=== PATIENT | male | born 1985 | race Caucasian/White ===

== ENCOUNTER 2017-12-23 18:54 | Observation (INO) | payer SELFPAY ==
[2017-12-23] VITALS (10 sets, daily range): BP systolic 154–169; BP diastolic 90–113; PULSE 95–109; RESP 12–22; TEMP 36.2–36.6; O2SAT 95–98; BMI 45.4; BMI 44.4
--- NOTE | 2017-12-23 19:30 | EKG12_ITS ---
Test Reason : CP Blood Pressure : / mmHG Vent. Rate : 110 BPM Atrial Rate : 110 BPM P-R Int : 158 ms QRS Dur : 110 ms QT Int : 338 ms P-R-T Axes : 063 -51 076 degrees QTc Int : 457 ms Sinus tachycardia Left axis deviation Poor R wave progression Nonspecific T wave abnormality Abnormal ECG Confirmed by LISA MAE, BRO ([id number]), proposal editor PADMINI WARREN ([id number]) on 12/25/2017 10:25:34 AM Referred By: Confirmed By:BRO GONZALEZ MD
--- NOTE | 2017-12-23 19:37 | RAD_ITS ---
XR Chest 1 View INDICATION: chest pain COMPARISON: None TECHNIQUE: Portable chest x-ray FINDINGS: The heart size is enlarged. Pulmonary vascularity is prominent. There is no evidence of focal air space consolidation or pleural effusion. RAD/Chest 1 View (Portable) IMPRESSION: Cardiomegaly and pulmonary vascular congestion. at 1957 Reported and signed by: Trena Caldwell MD Electronically Signed: Trena Caldwell MD at 18:55 EST Tel , Service support ,
[2017-12-23 20:02] LABS: Absolute Lymphocyte Count 2.46 X10^3/ul (0.83-4.51); Absolute Neutrophil Count 6.4 X10^3/uL (2.0-7.7); Eosinophil# 0.56 X10^3/uL; Eosinophils% 5.6 % (0-5); Hematocrit 43.9 % (40-54); Hemoglobin 14.6 g/dl (13.0-16.5); Lymphocyte # 2.46 X10^3/ul (4.0); Lymphocyte % 24.5 % (19-41); Mean Corp Hgb Conc 33.3 g/gl (32-36); Mean Corpuscular Hgb 28.5 pg (27.0-32.0); Mean Corpuscular Volume 85.7 fL (80-94); Mean Platelet Vol. 11.3 fl (6.2-12.0); Monocyte# 0.53 X10^3/uL; Monocyte% 5.3 % (0-10); Neutrophil # 6.39 X10^3/uL (2.7-7.7); Neutrophil % 63.5 % (47-70); Platelet Count 222 K/mm3 (150-450); RBC Distribution Width CV 12.6 % (11.6-14.6); RBC Distribution Width SD 39.5 fl (35.1-43.9); Red Blood Count 5.12 M/mm3 (4.6-6.2); White Blood Count 10.1 K/mm3 (4.4-11.0)
[2017-12-23 20:07] LABS: Anion Gap 11 (5-15); BUN 12 mg/dL (7-18); BUN/Creat Ratio 12.8 RATIO (10-20); Calcium,Total 9.8 mg/dL (8.5-10.1); Chloride 110 mmol/L (98-107); Creatinine, Serum 0.93 mg/dL (0.70-1.30); EST Glomerular Filtration Rate 101 mL/min (>60); Est Glom Filt Rate - Afr Amer 122 mL/min (>60); Glucose 85 mg/dL (74-106); Potassium 3.9 mmol/L (3.5-5.1); Sodium Level 144 mmol/L (136-145)
[2017-12-23] MEDS: Aspirin 81 MG TAB.CHEW 324 MG PO (20:20)
[2017-12-23 20:24] LABS: POSITIVE COUNT NO; POSITIVE DIFFERENTIAL NO; POSITIVE MORPHOLOGY NO
[2017-12-23 20:48] LABS: BNP,B-Type NATRIURETIC PEPTIDE 157.8 pg/mL (0-100)
[2017-12-23] MEDS: Furosemide 40 MG/4 ML Vial IV (20:53)
--- NOTE | 2017-12-23 20:58 | EKG12_ITS ---
Test Reason : CP Blood Pressure : / mmHG Vent. Rate : 109 BPM Atrial Rate : 109 BPM P-R Int : 164 ms QRS Dur : 114 ms QT Int : 358 ms P-R-T Axes : 071 -62 071 degrees QTc Int : 482 ms Sinus tachycardia Left axis deviation Poor R wave progression Nonspecific T wave abnormality Abnormal ECG Confirmed by LISA MAE, BRO ([id number]), writer editor PADMINI WARREN ([id number]) on 12/25/2017 10:26:01 AM Referred By: DOUGLAS Confirmed By:BRO GONZALEZ MD
[2017-12-23] MEDS: LORazepam 2 MG/ML Syringe 1 MG IV (21:06)
--- NOTE | 2017-12-23 22:32 | PCM.HP.STD ---
Problem List (1) Abnormal cardiac enzyme level Status: Acute (2) Chest pain Status: Acute (3) Acute on chronic systolic CHF (congestive heart failure) Status: Acute (4) Nonischemic cardiomyopathy Status: Chronic Comment: Status post ICD removal. History of Present Illness Date of Admission: 12/23/17 Chief Complaint: Fatigue, weakness and shortness of breath. The patient is a 32 year old M with past medical history as mentioned above presented to the emergency room because of fatigue, weakness and shortness of breath. His illness started 3 days ago with poor fine fatigue and weakness as well as shortness of breath. Shortness of breath comes on with exertion, he cannot walk more than 10 feet without getting short of breath, aggravated by activity, relieved by rest, associated with weight gain as well as cough with minimal sputum. Today, he started having chest pain that described as electrical shocks of his heart, started at rest and he told that he may have heart attack, associated with worsening shortness of breath compared to yesterday without aggravating or relieving factors. He does have a history of nonischemic cardiomyopathy status post ICD that was removed 1 year ago and he has been compliant with his medications. He used to see Dr. Sadler at [facility] and he switched his care to Dr. Olguin last year. He saw Dr. Olguin in January,, had an echocardiogram done that showed ejection fraction of 26% according to the patient. Since that time, he did not see Dr. Olguin anymore. He mentioned that 2 weeks ago, he had syncopal episode and he went to [facility], was informed that he has vertigo and he was discharged home. Today in the emergency room, patient was tachycardic, hypertensive, pulse ox was 95% on 2 L of oxygen. He was started on BiPAP and patient feels better, shortness of breath improved. His routine blood work was unremarkable. Troponin was borderline elevated at 0.17. BNP was 157.8. Chest x-ray revealed cardiomegaly and mild bilateral pulmonary vascular congestion consistent with acute CHF. EKG revealed sinus tachycardia, normal [place] interval, normal QRS, prolonged QTC, no acute ischemic changes. He is being admitted for acute on chronic systolic CHF, chest pain and abnormal cardiac enzymes. Past Medical History Past Medical History (Chronic Problems): Chronic Problems Nonischemic cardiomyopathy (Chronic) Status post ICD removal. Allergies No Known Allergies Allergy (Verified 12/23/17 18:57) Home Medications: Ambulatory Orders Medication Instructions Recorded Carvedilol [Coreg] 25 mg PO BID 03/31/16 Furosemide [Lasix] 40 mg PO DAILY PRN PRN 03/31/16 Lisinopril [Zestril] 40 mg PO DAILY 03/31/16 Surgical History: - - ICD placement. Psychiatric History: No pertinent psych hx Lives: With Family Smoking Status: Former smoker Alcohol: None Drugs: None - *Family History Maternal History Items: No pertinent history Paternal History Items: No pertinent history Review of Systems Constitutional: Reports: Weakness, Weight Change - Weight gain., Fatigue. Denies: Anorexia, Chills, Fever Eyes: Denies: Blurred vision, Double vision, Drainage, Redness HEENT: Denies: Difficulty Hearing, Ear Pain, Eye Pain, Nasal Congestion, Sore Throat Cardiovascular: Reports: Chest Pain, Chest Pressure, Light Headedness. Denies: Edema, Orthopnea, Palpitations, Syncope Respiratory: Reports: Cough, Shortness of breath at rest, Shortness of breath upon exertion, Sputum production. Denies: Pleuritic Pain, Wheezing Gastrointestinal: Denies: Abdominal Pain, Constipation, Diarrhea, Nausea, Vomiting Genitourinary: Denies: Dysuria, Frequency, Hematuria Musculoskeletal: Denies: Arm Pain, Back Pain, Foot Pain Skin: Denies: Dryness, Rash Neurological: Denies: Balance problems, Double vision, Change in Speech, Slurred speech, Confusion, Focal weakness, Headaches, Incoordination Psychiatric: Denies: Anxiety, Depression Endocrine: Denies: Change in Body Habitus, Polydipsia VTE Information - Inpt Only VTE Present on Admission: No VTE Mechan Device Prophylaxis: None VTE Pharm Prophylaxis ordered?: Yes Patient Problems: Active and Suspected Problems Abnormal cardiac enzyme level (Acute) Chest pain (Acute) Acute on chronic systolic CHF (congestive heart failure) (Acute) - Physical Exam General: Alert, Oriented x3, Cooperative, - - Mildly short of breath. HEENT: Atraumatic, PERRLA, EOMI Oral: Moist Mucosa, No Gingival or Mucosal Lesions/ Ulcerations Neck: Supple, No JVD, Negative Carotid Bruits, Trachea Midline, Thyroid Normal Size and Texture Lungs: No rhonchi, No wheeze, Diminished, Rales, Short of Breath, - - Decreased breath sounds bilateral, more at the bases, very faint crackles at the bases. Cardiovascular: Regular rate, Regular Rhythm, Normal S1, Normal S2, No murmurs, PMI Normal, Tachycardic Abdomen: Bowel Sounds Present, Soft, Non Tender, Non-Distended, No Hepato-splenomegaly, Obese Extremities: No clubbing, No cyanosis, No edema Skin: No rashes, No breakdown Lymphatic: No Cervical, Supraclavicular, or Inguinal Adenopathy Neurological: Cranial nerves II-XII grossly intact, Motor Exam 5/5 strength throughout Psych/Mental Status: Normal Affect, Appropriate, Alert and oriented to time, place, person, mood and affect Vital Signs Temp Pulse Resp BP Pulse Ox 97.2 F L 103 H 19 H 169/106 H 97 12/23/17 18:55 12/23/17 21:43 12/23/17 21:43 12/23/17 21:09 12/23/17 21:43 Oxygen Flow Rate 2 Oxygen Delivery Method Nasal Cannula Weight: 326 lb 1.019 oz Body Mass Index (BMI) 45.4 Laboratory Tests Past 24 Hrs 12/23/17 12/23/17 12/23/17 19:10 19:10 19:10 WBC 10.1 RBC 5.12 Hgb 14.6 Hct 43.9 MCV 85.7 MCH 28.5 MCHC 33.3 RDW 12.6 RDW Differential 39.5 Plt Count 222 MPV 11.3 Immature Gran % (Auto) 0.100 Neut % (Auto) 63.5 Lymph % (Auto) 24.5 [place] % (Auto) 5.3 Eos % (Auto) 5.6 H Baso % (Auto) 1.0 Absolute Neuts (auto) 6.4 Absolute Lymphs (auto) 2.46 Total Counted Not Reportable Sodium 144 Potassium 3.9 Chloride 110 H Carbon Dioxide 23.0 Anion Gap 11 BUN 12 Creatinine 0.93 Estim Creat Clear Calc 123.70 Est GFR (MDRD) Af Amer 122 Est GFR (MDRD) Non-Af 101 BUN/Creatinine Ratio 12.8 Glucose 85 Calcium 9.8 Troponin I 0.17 H B-Natriuretic Peptide 157.8 H 12/23/17 22:08 WBC RBC Hgb Hct MCV MCH MCHC RDW RDW Differential Plt Count MPV Immature Gran % (Auto) Neut % (Auto) Lymph % (Auto) [place] % (Auto) Eos % (Auto) Baso % (Auto) Absolute Neuts (auto) Absolute Lymphs (auto) Total Counted Sodium Potassium Chloride Carbon Dioxide Anion Gap BUN Creatinine Estim Creat Clear Calc Est GFR (MDRD) Af Amer Est GFR (MDRD) Non-Af BUN/Creatinine Ratio Glucose Calcium Troponin I Pending B-Natriuretic Peptide Clinical Impression(s) from Imaging Studies Chest X-Ray 12/23/17 19:37 IMPRESSION: Cardiomegaly and pulmonary vascular congestion. at 1957 Reported and signed by: Trena Caldwell MD Electronically Signed: Trena Caldwell MD at 18:55 EST Tel , Service support , Assessment/Plan Active and Suspected Problems Abnormal cardiac enzyme level (Acute) Chest pain (Acute) Acute on chronic systolic CHF (congestive heart failure) (Acute) This is a 32 years old male patient presented to the emergency room because of fatigue, weakness, shortness of breath and chest pain and he was found to have acute on chronic systolic CHF and abnormal cardiac enzymes. #1 acute on chronic systolic CHF: This is based on history of nonischemic cardiomyopathy, symptoms, chest x-ray findings as well as elevated BNP. EKG reviewed, reveals sinus tachycardia, no acute ischemic changes. Chest x-ray revealed cardiomegaly and signs of pulmonary vascular congestion. Plan: Admit to PCU, cardiac monitoring, serial cardiac enzymes, repeat EKG tomorrow morning, start IV Lasix for diuresis, fluid restriction to less than 1500 cc daily, input output chart, 2D echocardiogram, continue Coreg and lisinopril, check serum magnesium and TSH, cardiology consult, obtain records from Dr. Olguin's office including 2D echocardiogram that was done on January,, PT OT evaluation and treatment. #2 chest pain/abnormal cardiac enzymes: Could be related to acute CHF. EKG revealed no evidence of acute ischemic changes. Plan: Cardiac enzymes, repeat EKG tomorrow morning, 2D echocardiogram, cardiology consult as above. #3 nonischemic cardiomyopathy: Status post ICD removal one year ago. Plan as above, Lasix for diuresis, 2D echocardiogram, continue Coreg and lisinopril, cardiology consult. #4 DVT prophylaxis: Subcu Lovenox. This note was generated with TuneCore dictation software. It may contain incorrect words, spelling, and punctuation that were not noted in checking the note before signing. Code Visit Inpatient E&M: 77887 Init Hosp L3
--- NOTE | 2017-12-23 22:33 | ED.DCSUM_ITS ---
- ER Visit Summary Date of Service: 12/23/17 Chief Complaint: Shortness of breath History of Present Illness: The patient is a [address] Bowden and Dr. Olguin. He has a complicated past medical history. He reports that in July 2014 he was diagnosed with a nonischemic cardiomyopathy and an ejection fraction of 10%. States his last echo was in February 2017 at that time his ejection fraction was 26%. He reports that as his ejection fraction was improving he insisted that they take out his defibrillator. He had this removed at [facility] in February 2017. He states that he saw Dr. Olguin the month prior to this and has not followed up with him since. He reports that he is on 25 mg of Coreg twice daily, lisinopril and he does not know the dose, and 10 mg of Lasix a day. States that he does daily weights and that 315 is his normal weight. He weighed 315 yesterday. He reports that he weighs 325 pounds today. Patient reports he has shortness of breath that began 3 days ago. Is much worse when he exerts himself. Also reports that he has had 4-5 pillow orthopnea and an episode of PND 2 days ago. He states that today at approximately 330 while undergoing light activity he had an episode of chest pain that lasted approximately 20 seconds and felt like a shock. He denies any chest pain otherwise. He denies any fever or chills. He has a nonproductive cough. Physical Examination: Vitals: Stable. Afebrile. General: Well-nourished and well-developed. Head: Normocephalic atraumatic. Neck: Supple, no lymphadenopathy. No JVD. Nontender. Cardiovascular: Regular rate and rhythm. No murmurs. Respiratory: No respiratory distress. Crackles at the bases bilaterally. Abdominal: Soft, nontender, nondistended, normal bowel sounds. No guarding, rebound, or peritoneal signs. Back: Nontender. Extremities: Nontender, trace edema bilaterally that is symmetric. Skin: Normal color, no rash. Neurologic: Alert and oriented ?3. Cranial nerves II through XII are intact. Normal strength and sensation. Psych: Normal affect. Test Results: EKG is sinus tach at [address] changes. There is no significant change since March 2017. Repeat EKG is unchanged. Chest x-ray shows cardiomegaly and vascular congestion. CBC is more for monocytes of 6. Chem-7 is more for chloride of 110. Initial troponin is 0.17. Repeat troponin is 0.18. BTNP is 157.8. Emergency Department Course and Treatment: She was given 40 mg of Lasix IV. Continue to complain of shortness of breath and was placed on BiPAP as I felt this may improve the efficacy of the Lasix and improve his symptoms. Treatment Plan: The patient was discussed with Dr. Espitia who asked that I speak with Dr. Olguin about outpatient management. I discussed the patient with Dr. Olguin and he is concerned about the patient's noncompliance and the inability to manage him as an outpatient. He has of the patient be admitted for diuresis and echo. He did state that he would be available for phone consultation regarding the results of this. The patient was discussed with Dr. Walters for. He will be admitted to the hospital for further wish and treatment. Disposition: Admitted in stable condition. Impression: 1. Nonischemic cardiomyopathy. 2. Dyspnea. This note was generated with [employer] dictation software. It may contain incorrect words, spelling, and punctuation that were not noted in review of the chart prior to signing ED Disposition - Plan for ED Patient: Chief Complaint: Shortness of Breath Referrals: Shane Bowden MD [Primary Care Provider] -
--- NOTE | 2017-12-23 22:39 | HP.PCM_ITS ---
Problem List (1) Abnormal cardiac enzyme level Status: Acute (2) Chest pain Status: Acute (3) Acute on chronic systolic CHF (congestive heart failure) Status: Acute (4) Nonischemic cardiomyopathy Status: Chronic Comment: Status post ICD removal. History of Present Illness Date of Admission: 12/23/17 Chief Complaint: Fatigue, weakness and shortness of breath. The patient is a 32 year old M with past medical history as mentioned above presented to the emergency room because of fatigue, weakness and shortness of breath. His illness started 3 days ago with poor fine fatigue and weakness as well as shortness of breath. Shortness of breath comes on with exertion, he cannot walk more than 10 feet without getting short of breath, aggravated by activity, relieved by rest, associated with weight gain as well as cough with minimal sputum. Today, he started having chest pain that described as electrical shocks of his heart, started at rest and he told that he may have heart attack, associated with worsening shortness of breath compared to yesterday without aggravating or relieving factors. He does have a history of nonischemic cardiomyopathy status post ICD that was removed 1 year ago and he has been compliant with his medications. He used to see Dr. Sadler at [facility] and he switched his care to Dr. Olguin last year. He saw Dr. Olguin in January,, had an echocardiogram done that showed ejection fraction of 26% according to the patient. Since that time, he did not see Dr. Olguin anymore. He mentioned that 2 weeks ago, he had syncopal episode and he went to [facility], was informed that he has vertigo and he was discharged home. Today in the emergency room, patient was tachycardic, hypertensive, pulse ox was 95% on 2 L of oxygen. He was started on BiPAP and patient feels better, shortness of breath improved. His routine blood work was unremarkable. Troponin was borderline elevated at 0.17. BNP was 157.8. Chest x-ray revealed cardiomegaly and mild bilateral pulmonary vascular congestion consistent with acute CHF. EKG revealed sinus tachycardia, normal MA interval, normal QRS, prolonged QTC, no acute ischemic changes. He is being admitted for acute on chronic systolic CHF, chest pain and abnormal cardiac enzymes. Past Medical History Past Medical History (Chronic Problems): Chronic Problems Nonischemic cardiomyopathy (Chronic) Status post ICD removal. Allergies No Known Allergies Allergy (Verified 12/23/17 18:57) Home Medications: Ambulatory Orders Medication Instructions Recorded Carvedilol [Coreg] 25 mg PO BID 03/31/16 Furosemide [Lasix] 40 mg PO DAILY PRN PRN 03/31/16 Lisinopril [Zestril] 40 mg PO DAILY 03/31/16 Surgical History: - - ICD placement. Psychiatric History: No pertinent psych hx Lives: With Family Smoking Status: Former smoker Alcohol: None Drugs: None - *Family History Maternal History Items: No pertinent history Paternal History Items: No pertinent history Review of Systems Constitutional: Reports: Weakness, Weight Change - Weight gain., Fatigue. Denies: Anorexia, Chills, Fever Eyes: Denies: Blurred vision, Double vision, Drainage, Redness HEENT: Denies: Difficulty Hearing, Ear Pain, Eye Pain, Nasal Congestion, Sore Throat Cardiovascular: Reports: Chest Pain, Chest Pressure, Light Headedness. Denies: Edema, Orthopnea, Palpitations, Syncope Respiratory: Reports: Cough, Shortness of breath at rest, Shortness of breath upon exertion, Sputum production. Denies: Pleuritic Pain, Wheezing Gastrointestinal: Denies: Abdominal Pain, Constipation, Diarrhea, Nausea, Vomiting Genitourinary: Denies: Dysuria, Frequency, Hematuria Musculoskeletal: Denies: Arm Pain, Back Pain, Foot Pain Skin: Denies: Dryness, Rash Neurological: Denies: Balance problems, Double vision, Change in Speech, Slurred speech, Confusion, Focal weakness, Headaches, Incoordination Psychiatric: Denies: Anxiety, Depression Endocrine: Denies: Change in Body Habitus, Polydipsia VTE Information - Inpt Only VTE Present on Admission: No VTE Mechan Device Prophylaxis: None VTE Pharm Prophylaxis ordered?: Yes Patient Problems: Active and Suspected Problems Abnormal cardiac enzyme level (Acute) Chest pain (Acute) Acute on chronic systolic CHF (congestive heart failure) (Acute) - Physical Exam General: Alert, Oriented x3, Cooperative, - - Mildly short of breath. HEENT: Atraumatic, PERRLA, EOMI Oral: Moist Mucosa, No Gingival or Mucosal Lesions/ Ulcerations Neck: Supple, No JVD, Negative Carotid Bruits, Trachea Midline, Thyroid Normal Size and Texture Lungs: No rhonchi, No wheeze, Diminished, Rales, Short of Breath, - - Decreased breath sounds bilateral, more at the bases, very faint crackles at the bases. Cardiovascular: Regular rate, Regular Rhythm, Normal S1, Normal S2, No murmurs, PMI Normal, Tachycardic Abdomen: Bowel Sounds Present, Soft, Non Tender, Non-Distended, No Hepato- splenomegaly, Obese Extremities: No clubbing, No cyanosis, No edema Skin: No rashes, No breakdown Lymphatic: No Cervical, Supraclavicular, or Inguinal Adenopathy Neurological: Cranial nerves II-XII grossly intact, Motor Exam 5/5 strength throughout Psych/Mental Status: Normal Affect, Appropriate, Alert and oriented to time, place, person, mood and affect Vital Signs Temp Pulse Resp BP Pulse Ox 97.2 F L 103 H 19 H 169/106 H 97 12/23/17 18:55 12/23/17 21:43 12/23/17 21:43 12/23/17 21:09 12/23/17 21:43 Oxygen Flow Rate 2 Oxygen Delivery Method Nasal Cannula Weight: 326 lb 1.019 oz Body Mass Index (BMI) 45.4 Laboratory Tests Past 24 Hrs 12/23/17 12/23/17 12/23/17 19:10 19:10 19:10 WBC 10.1 RBC 5.12 Hgb 14.6 Hct 43.9 MCV 85.7 MCH 28.5 MCHC 33.3 RDW 12.6 RDW Differential 39.5 Plt Count 222 MPV 11.3 Immature Gran % (Auto) 0.100 Neut % (Auto) 63.5 Lymph % (Auto) 24.5 [place] % (Auto) 5.3 Eos % (Auto) 5.6 H Baso % (Auto) 1.0 Absolute Neuts (auto) 6.4 Absolute Lymphs (auto) 2.46 Total Counted Not Reportable Sodium 144 Potassium 3.9 Chloride 110 H Carbon Dioxide 23.0 Anion Gap 11 BUN 12 Creatinine 0.93 Estim Creat Clear Calc 123.70 Est GFR (MDRD) Af Amer 122 Est GFR (MDRD) Non-Af 101 BUN/Creatinine Ratio 12.8 Glucose 85 Calcium 9.8 Troponin I 0.17 H B-Natriuretic Peptide 157.8 H 12/23/17 22:08 WBC RBC Hgb Hct MCV MCH MCHC RDW RDW Differential Plt Count MPV Immature Gran % (Auto) Neut % (Auto) Lymph % (Auto) [place] % (Auto) Eos % (Auto) Baso % (Auto) Absolute Neuts (auto) Absolute Lymphs (auto) Total Counted Sodium Potassium Chloride Carbon Dioxide Anion Gap BUN Creatinine Estim Creat Clear Calc Est GFR (MDRD) Af Amer Est GFR (MDRD) Non-Af BUN/Creatinine Ratio Glucose Calcium Troponin I Pending B-Natriuretic Peptide Clinical Impression(s) from Imaging Studies Chest X-Ray 12/23/17 19:37 IMPRESSION: Cardiomegaly and pulmonary vascular congestion. at 1955 Reported and signed by: Trena Caldwell MD Electronically Signed: Trena Caldwell MD at 18:55 EST Tel , Service support , Assessment/Plan Active and Suspected Problems Abnormal cardiac enzyme level (Acute) Chest pain (Acute) Acute on chronic systolic CHF (congestive heart failure) (Acute) This is a 32 years old male patient presented to the emergency room because of fatigue, weakness, shortness of breath and chest pain and he was found to have acute on chronic systolic CHF and abnormal cardiac enzymes. #1 acute on chronic systolic CHF: This is based on history of nonischemic cardiomyopathy, symptoms, chest x-ray findings as well as elevated BNP. EKG reviewed, reveals sinus tachycardia, no acute ischemic changes. Chest x-ray revealed cardiomegaly and signs of pulmonary vascular congestion. Plan: Admit to PCU, cardiac monitoring, serial cardiac enzymes, repeat EKG tomorrow morning , start IV Lasix for diuresis, fluid restriction to less than 1500 cc daily, input output chart, 2D echocardiogram, continue Coreg and lisinopril, check serum magnesium and TSH, cardiology consult, obtain records from Dr. Olguin's office including 2D echocardiogram that was done on January,, PT OT evaluation and treatment. #2 chest pain/abnormal cardiac enzymes: Could be related to acute CHF. EKG revealed no evidence of acute ischemic changes. Plan: Cardiac enzymes, repeat EKG tomorrow morning, 2D echocardiogram, cardiology consult as above. #3 nonischemic cardiomyopathy: Status post ICD removal one year ago. Plan as above, Lasix for diuresis, 2D echocardiogram, continue Coreg and lisinopril, cardiology consult. #4 DVT prophylaxis: Subcu Lovenox. This note was generated with [employer] dictation software. It may contain incorrect words, spelling, and punctuation that were not noted in checking the note before signing. Code Visit Inpatient E&M: 70186 Init Hosp L3
--- NOTE | 2017-12-23 22:47 | ECHOD_ITS ---
Reason For Study: CHF Procedure This was a 2D Doppler, Color Flow transthoracic echocardiogram. Contrast injection was performed. DO NOT USE DEFINITY. Exam performed portable in patient room. Left Ventricle Severely dilated left ventricle. Moderate concentric left ventricular hypertrophy. The estimated ejection fraction is 20 %. Severe global left ventricular systolic dysfunction. There is severe global hypokinesis of the left ventricle. Right Ventricle Normal RV size. Normal systolic function. Atria The left atrium is moderately enlarged. Normal right atrium. Mitral Valve Normal mitral valve. Mild-Moderate (1-2+) eccentric mitral valve insufficiency. Tricuspid Valve Normal tricuspid valve. Mild tricuspid valve insufficiency. Aortic Valve Normal aortic valve. Trisinus/trileaflet aortic valve. Pulmonic Valve The pulmonic valve is not well visualized. Great Vessels Normal aortic root. The pulmonary artery is normal size. Normal inferior vena cava. Pericardium/Pleural No pericardial effusion. Medication Diluted definity 4ml given slow IV push to enhance endocardial definition. ADVERSE REACTION TO DEFINITY WITH 10/10 FLANK PAIN. MMode/2D Measurements & Calculations LVIDd: 8.7 cm IVSd: 1.3 cm LA dimension: 5.1 cm LVIDs: 7.6 cm LVPWd: 1.5 cm RVDd: 3.3 cm FS: 12.6 % LAV(MOD-bp): 101.1 ml EDV(MOD-sp4): 463.8 ml EDV(MOD-sp2): 410.3 ml LAV(MOD-bp) Indexed: 39.4 ml/m2 ESV(MOD-sp4): 296.9 ml EF(MOD-sp2): 22.9 % LAV(MOD-sp2): 119.2 ml EF(MOD-sp4): 36.0 % LAV(MOD-sp4): 79.7 ml SV(MOD-sp4): 167.0 ml SV(MOD-sp2): 93.9 ml LA A4 area: 24.8 cm2 RA A4 area: 15.5 cm2 Doppler Measurements & Calculations MV E max jovon: 87.2 cm/sec Ao V2 max: 105.5 cm/sec LV V1 max: 49.9 cm/sec MV A max jovon: 73.8 cm/sec Ao max P.5 mmHg LV V1 max P.00 mmHg MV E/A: 1.2 TR max jovon: 229.3 cm/sec TR max P.2 mmHg Interpretation Summary Severely dilated left ventricle. Moderate concentric left ventricular hypertrophy. The estimated ejection fraction is 20 %. Severe global left ventricular systolic dysfunction. The left atrium is moderately enlarged. Contrast injection was performed. Ordering Physician: Servando Grissom Referring Physician: DMITRY RENDON Performed By: Nyla Elizabeth RDCS, RVT
[2017-12-23 23:03] LABS: International Normalized Ratio 1.1; Prothrombin Time (Protime)PT. 13.4 SECONDS (11.7-14.9)
[2017-12-23 23:17] LABS: Magnesium 2.1 mg/dL (1.6-2.6); Thyroid Stim Hormone (TSH) 2.88 uIU/mL (0.358-3.74)
[2017-12-24] VITALS (10 sets, daily range): BP systolic 140–156; BP diastolic 86–114; PULSE 80–101; RESP 16–20; TEMP 36.2–36.7; O2SAT 96–99
[2017-12-24] MEDS: Zolpidem Tartrate 5 MG Tablet PO (00:03)
[2017-12-24 02:25] LABS: Anion Gap 9 (5-15); BUN 11 mg/dL (7-18); BUN/Creat Ratio 13.6 RATIO (10-20); Calcium,Total 8.8 mg/dL (8.5-10.1); Chloride 106 mmol/L (98-107); Creatinine, Serum 0.81 mg/dL (0.70-1.30); EST Glomerular Filtration Rate 119 mL/min (>60); Est Glom Filt Rate - Afr Amer 144 mL/min (>60); Estimated Creatinine Clearance 142.03 ml/min; Glucose 90 mg/dL (74-106); Potassium 3.4 mmol/L (3.5-5.1); Sodium Level 142 mmol/L (136-145)
[2017-12-24] MEDS: Furosemide 40 MG/4 ML Vial IV ×2 (05:12→13:25)
--- NOTE | 2017-12-24 05:55 | EKG12_ITS ---
Test Reason : AM EKG Blood Pressure : / mmHG Vent. Rate : 093 BPM Atrial Rate : 093 BPM P-R Int : 176 ms QRS Dur : 116 ms QT Int : 408 ms P-R-T Axes : 071 -44 078 degrees QTc Int : 507 ms Normal sinus rhythm Left axis deviation Left ventricular hypertrophy with QRS widening Nonspecific T wave abnormality Confirmed by LISA MAE, BRO ([id number]), make up editor PADMINI WARREN ([id number]) on 12/25/2017 10:37:00 AM Referred By: OLIVIA Confirmed By:BRO GONZALEZ MD
[2017-12-24] MEDS: Lisinopril 40 MG Tablet PO (09:25)
[2017-12-24] MEDS: Carvedilol 25 MG Tablet PO (09:26)
--- NOTE | 2017-12-24 10:59 | CON.PCM_ITS ---
Problem List (1) Acute on chronic systolic CHF (congestive heart failure) Status: Acute Reason for Consult Date of Consultation: 12/24/17 History of Present Illness: The patient is a 32 year old M with past medical history significant for nonischemic cardiomyopathy. Patient presented to the hospital with complaints of shortness of breath for the last 2 days. No orthopnea. No PND. According to the patient, he has been feeling more tired and fatigued over the last day or so. Fevers or chills. No increased salt or fluid intake. No ankle edema. Patient, he has developed a cough this morning. Nonproductive. The patient had some chest pain yesterday. According to him, it was sharp. Located in the anterior chest. Lasted about 5 seconds according to the patient. Per patient, he was diagnosed with nonischemic cardiomyopathy back in 2013. According to the patient, he has had cardiac catheterization done and was told that he did not have any coronary artery disease. The patient had a defibrillator placed in the past however he has had it removed on his own wishes. Past Medical History Allergies/Adverse Reactions: Allergies No Known Allergies Allergy (Verified 12/23/17 18:57) Home Medications: Ambulatory Orders Medication Instructions Recorded Carvedilol [Coreg] 25 mg PO BID 03/31/16 Furosemide [Lasix] 40 mg PO DAILY PRN PRN 03/31/16 Lisinopril [Zestril] 40 mg PO DAILY 03/31/16 Past Medical History (Chronic Problems): Chronic Problems Nonischemic cardiomyopathy (Chronic) Status post ICD removal. Surgical History: - - ICD placement. Subsequently removed upon patient's wishes Psychiatric History: No pertinent psych hx - *Family History Maternal History Items: No pertinent history Paternal History Items: No pertinent history Lives: With Family Smoking Status: Former smoker Alcohol: None Drugs: None Review of Systems - Review of Systems General: Reports: Fatigue, Malaise, Weakness, Normal Appetite Cardiovascular: Reports: Chest Discomfort - Sharp chest pain lasting few seconds only Respiratory: Reports: Non Productive Cough Gastrointestinal: Denies: Abdominal Discomfort Muscoloskeletal: Denies: Myalgias Skin: Denies: Jaundice Neurological: Denies: History of TIA, History of CVA Objective: Vital Signs Temp Pulse Resp BP Pulse Ox 98.1 F 89 18 156/114 H 99 12/24/17 09:25 12/24/17 09:25 12/24/17 09:25 12/24/17 09:25 12/24/17 09:25 Oxygen Delivery Method Room Air Weight: 144.3 kg Body Mass Index (BMI) 44.4 Intake and Output for Last 24 Hours 12/22/17 12/23/17 12/24/17 23:59 23:59 23:59 Output Total 350 / 350 Balance -350 / -350 General: Awake, Alert, Oriented x 3, No Acute Distress, Obese HEENT: Atraumatic Oral: Moist Mucosa Neck: Supple, - - Plain examination difficult because of body habitus Lungs: - - Minimal end expiratory wheeze. Cardiovascular: Normal S1, Normal S2, Positive S3 Abdomen: Bowel Sounds Present, Non Tender Extremities: No Cyanosis, No edema Neurological: - - Alert and oriented ?3 Psych/Mental Status: Appropriate 12/24/17 02:02: Sodium 142, Potassium 3.4 L, Chloride 106, Carbon Dioxide 27.0, Anion Gap 9, BUN 11, Creatinine 0.81, Est GFR (MDRD) Af Amer 144, Est GFR (MDRD ) Non-Af 119, BUN/Creatinine Ratio 13.6, Glucose 90, Calcium 8.8, Troponin I 0.17 H 12/24/17 08:00: Troponin I 0.18 H Rhythm: Normal sinus EKG: Sinus rhythm. Nonspecific T changes CXR: Cardiomegaly. Mild vascular congestion Assessment/Plan 1. Acute on chronic systolic congestive heart failure. Agree with diuresis. Monitor creatinine. Continue with beta blockers, KATHARINA inhibitors. Start Aldactone. Monitor potassium 2. Likely bronchitis. Manage as per internal medicine. Consider testing for influenza graft 3. Hypertension. Add Aldactone 4. Obesity 5. Atypical chest pains. Likely noncardiac. Troponin borderline elevated without any upward or downward trend. Likely chronic
--- NOTE | 2017-12-24 11:45 | NURSING ---
patient refusing vitals at this time, pulled off heart monitor and ID bands, voicing frustrations and wanting to leave AMA, this RN and Mckenzie davis RN in room explaining to patient the importance of staying one more night. Patient agreeable at this time.
--- NOTE | 2017-12-24 11:55 | CASEMGMT ---
Face to Face with patient for initial transition planning/care coordination assessment. GOMEZ ARREDONDO introduced self and role at [facility], pt voices understanding and consents to assessment at this time. Pt sitting up in chair in no distress at this time. Pt A/O x4 at this time and answers all questions appropriately at this time. Care providers, pharmacy, and demographics verified. See attached link. Pt voices no further concerns/needs at this time. Advised pt to ask for CM if any further questions/concerns/needs arise, voices understanding. PLAN: Home [place] GOMEZ ARREDONDO
[2017-12-24] MEDS: Spironolactone 25 MG Tablet 12.5 MG PO (11:57)
--- NOTE | 2017-12-24 12:38 | PCM.DC ---
- Discharge Diagnoses Current Active Problems: Current Active and Chronic Problems Abnormal cardiac enzyme level (Acute) Chest pain (Acute) Acute on chronic systolic CHF (congestive heart failure) (Acute) Nonischemic cardiomyopathy (Chronic) Status post ICD removal. You will use the following diet at home:: Cardiac Discharge Activity: Return to Normal Activity Call your doctor if you observe: Shortness of breath, Dizziness, Fainting spells, Chest pain, Increased palpitations (irregular heartbeat), Calf discomfort Allergies/Adverse Reactions: Allergies perflutren [From [employer]] Adverse Reaction (Verified 12/24/17 11:38) Other Severe flank pain Medications to take at Discharge Carvedilol [Coreg (Beta Elida)] 25 mg PO BID #60 tab 12/24/17 Furosemide [Lasix] 40 mg PO DAILY PRN PRN #30 tab 12/24/17 Lisinopril [Zestril] 40 mg PO DAILY #60 tab 12/24/17 Lorazepam [Ativan] 0.5 mg PO BID PRN PRN #10 tablet 12/24/17 The following prescriptions were given: Furosemide [Lasix] 40 mg PO DAILY PRN PRN #30 tab PRN Reason: Swelling Lisinopril [Zestril] 40 mg PO DAILY #60 tab Lorazepam [Ativan] 0.5 mg PO BID PRN PRN #10 tablet PRN Reason: Anxiety Carvedilol [Coreg (Beta Elida)] 25 mg PO BID #60 tab Primary Care Physician: Shane Bowden MD [Primary Care Provider] - Please follow up with your Primary Care Physician in: 1 Week Please Follow Up With: [facility] When: 1-2 Weeks Please Follow Up With: [facility] When: Call to schedule prior to discharge Proposed Discharge Date: 12/24/17
--- NOTE | 2017-12-24 12:52 | CASEMGMT ---
SW spoke with patient as he is self pay. SW gave patient information on [facility]'s financial assistance program as he was seeing Dr Bowden when he had insurance. SW also gave him information on [facility]. SW checked and his medications are on [employer]'s $4 list. He was not aware of this information. He said he could afford his meds if they were all $4. He was paying $300 some dollars before. He was okay with his d/c meds being sent to [facility]. He thanked JANETTE for the information. Whitney NUR MSW
[2017-12-24] MEDS: 0.9% NaCl Peripheral Flush Adult/Peds IV (13:25)
--- NOTE | 2017-12-24 13:39 | PCM.DC.SUM ---
<Argelia Walker - Last Filed: 12/24/17 13:58> Discharge Date and Diagnosis - Problem List Patient Problems: Active and Suspected Problems Acute on chronic systolic CHF (congestive heart failure) (Acute) Date of Admission: 12/23/17 Date of Discharge: 12/24/17 - Primary Discharge Diagnosis Active and Suspected Problems Acute on chronic systolic CHF (congestive heart failure) (Acute) Atypical chest pain Borderline troponin - Secondary Discharge Diagnosis Chronic Problems Nonischemic cardiomyopathy (Chronic) Status post ICD removal. Hypertension Obesity Hospital Course and Treatment Imaging Results: Diagnostic Data Chest X-Ray 12/23/17 19:37 IMPRESSION: Cardiomegaly and pulmonary vascular congestion. at 1957 Reported and signed by: Trena Caldwell MD Electronically Signed: Trena Caldwell MD at 18:55 EST Tel , Service support , Dr. Magdaleno- Cardiology Operations: None Procedures: 2-D Echocardiogram Summary of Care Provided: The patient is a 32 year old M admitted 12/23/2017 due to shortness of breath, weakness. He has a past medical history of nonischemic cardiomyopathy status post ICD removal, chronic systolic CHF, hypertension, obesity. Patient was originally diagnosed with nonischemic cardiomyopathy in 2013. Patient had a cardiac catheterization at that time and was told he did not have any coronary artery disease. 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 Patient previously followed with Dr. Galindo at the [facility] in which she has not seen in approximately a year. He states he does not wish to further follow-up with Dr. Galindo. Patient does not currently have health insurance and stated he has not been taking his prescribed medications due to not being able to afford them. Case management worked with patient and he is able to afford prescriptions through [employer] $4 program. Troponins were borderline elevated and did not trend upward. Suspect secondary to acute on chronic systolic CHF. Patient was treated with IV Lasix. He will be discharged on carvedilol, lisinopril, and Lasix as needed for increased swelling. Aldactone was recommended by cardiology although patient states he cannot afford this medication. Echocardiogram from January 2017 showed an estimated ejection fraction of 34%. Repeat echocardiogram during admission showed moderate left ventricular hypertrophy, severely dilated left ventricle, estimated ejection fraction of 20%, severe global left ventricular systolic dysfunction. Patient will continue medical management as noted above. He wishes to establish with [facility]. Recommend follow-up with [facility] in 1-2 weeks. Discussed with patient following up with [facility] failure program to begin discussion regarding heart transplant. He is in agreement with current plan. Patient complains of anxiety and states he was previously prescribed Ativan. He states he has not followed up with primary care physician to continue prescription. He was given a brief prescription of PRN Ativan 0.5 mg, 10 tablets until he can follow-up with primary care physician. Case management discussed with patient seeing behavioral health and he declined. Patient seen and examined prior to discharge. Heart rate regular in rate and rhythm, no murmur. Lungs clear. Abdomen soft, nontender, obese. Neuro grossly intact. No edema. Vital signs stable. Patient stable for discharge home with recommendations as noted above. This patient was seen by KEVYN Harper under the supervision of Dr. Mortensen. Discharge Diet: Low fat/ Low Cholesterol, 8 Cup Fluid Restriciton, 2000 mg Sodium Diet Discharge Activity: Return to Normal Activity Call your doctor if you observe: Shortness of breath, Dizziness, Fainting spells, Chest pain, Increased palpitations (irregular heartbeat), Calf discomfort Home Medications: Medications to take at Discharge Carvedilol 25 mg PO BID #60 tablet 12/24/17 Furosemide [Lasix] 40 mg PO DAILY PRN #30 tablet 12/24/17 Lisinopril [Zestril] 40 mg PO DAILY #30 tablet 12/24/17 Following Prescrptions Were Given to Patient: Furosemide [Lasix] 40 mg PO DAILY PRN #30 tablet PRN Reason: Swelling Lisinopril [Zestril] 40 mg PO DAILY #30 tablet Carvedilol 25 mg PO BID #60 tablet Primary Care Physician: Shane Bowden MD [Primary Care Provider] - Please follow up with your Primary Care Physician in: 1 Week Please Follow Up With: [facility] When: 1-2 Weeks Please Follow Up With: [facility] When: Call to schedule prior to discharge Disposition: Home Minutes spent on discharge:: 35 Patient Condition:: Stable Meaningful Use Info Meaningful Use Diagnoses (Choose all that apply): CHF - CHF KATHARINA/ARB ordered at discharge?: Yes Documented LVEF (%): 20 <Emiliano Mortensen - Last Filed: 12/24/17 14:56> Discharge Date and Diagnosis - Secondary Discharge Diagnosis Chronic Problems Nonischemic cardiomyopathy (Chronic) Status post ICD removal. Hospital Course and Treatment Operations: None Procedures: 2-D Echocardiogram Summary of Care Provided: Seen and examined independently. Agree with the above notes by the nurse practitioner. The 32-year-old white male with known history of nonischemic cardiomyopathy. Presents with shortness of breath. Chest x-ray showed pulmonary edema and BNP was slightly elevated at 156. Clinically patient was in heart failure. Patient, unfortunately, does not have insurance and so was only taking Lasix sparingly with symptoms. Patient did have an echocardiogram that showed an ejection fraction of 20%. Patient was discharged with a prescription for Coreg, lisinopril, Lasix and spironolactone. Patient is a recommend follow-up with the [place] cardiology and to follow-up in heart failure clinic at [facility]. That may be limited given the patient's insurance status at this time. Physical exam Vital Signs Height 1.8 m Weight: 144.3 kg Weight in Pounds 318.1 lbs Pulse Ox 96 Temperature 36.7 C Pulse Rate 101 Respiratory Rate 18 Blood Pressure [BP] 148/97 Blood Pressure 153/98 Blood Pressure Position [BP] Sitting Blood Pressure Position Sitting Patient is currently no acute distress, no respiratory distress, no conversational dyspnea. [] Discharge Diet: Low fat/ Low Cholesterol, 8 Cup Fluid Restriciton, 2000 mg Sodium Diet Discharge Activity: Return to Normal Activity Call your doctor if you observe: Shortness of breath, Dizziness, Fainting spells, Chest pain, Increased palpitations (irregular heartbeat), Calf discomfort Disposition: Home Minutes spent on discharge:: 35 Patient Condition:: Stable Meaningful Use Info Meaningful Use Diagnoses (Choose all that apply): CHF - CHF KATHARINA/ARB ordered at discharge?: Yes Documented LVEF (%): 20 Code Visit OBSV E&M: 41763 Observation care discharge
--- NOTE | 2017-12-24 13:48 | CASEMGMT ---
Pt was angry and frustrated during assessment and then with nursing and Dr. Mortensen. Pt c/o history of anxiety and depression. This RN CM to room to speak with pt about referral to [facility] behavioral health at this time and pt refuses at this time. Pt states ' I don't even talk to my family, why would I talk to a stranger.' [place] RN CM
--- NOTE | 2017-12-24 13:53 | DS.PCM_ITS ---
<Argelia Walker - Last Filed: 12/24/17 13:58> Discharge Date and Diagnosis - Problem List Patient Problems: Active and Suspected Problems Acute on chronic systolic CHF (congestive heart failure) (Acute) Date of Admission: 12/23/17 Date of Discharge: 12/24/17 - Primary Discharge Diagnosis Active and Suspected Problems Acute on chronic systolic CHF (congestive heart failure) (Acute) Atypical chest pain Borderline troponin - Secondary Discharge Diagnosis Chronic Problems Nonischemic cardiomyopathy (Chronic) Status post ICD removal. Hypertension Obesity Hospital Course and Treatment Imaging Results: Diagnostic Data Chest X-Ray 12/23/17 19:37 IMPRESSION: Cardiomegaly and pulmonary vascular congestion. at 1957 Reported and signed by: Trena Caldwell MD Electronically Signed: Trena Cadlwell MD at 18:55 EST Tel , Service support , Dr. Magdaleno- Cardiology Operations: None Procedures: 2-D Echocardiogram Summary of Care Provided: The patient is a 32 year old M admitted 12/23/2017 due to shortness of breath, weakness. He has a past medical history of nonischemic cardiomyopathy status post ICD removal, chronic systolic CHF, hypertension, obesity. Patient was originally diagnosed with nonischemic cardiomyopathy in 2013. Patient had a cardiac catheterization at that time and was told he did not have any coronary artery disease. 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 Patient previously followed with Dr. Galindo at the [facility] in which she has not seen in approximately a year. He states he does not wish to further follow-up with Dr. Galindo. Patient does not currently have health insurance and stated he has not been taking his prescribed medications due to not being able to afford them. Case management worked with patient and he is able to afford prescriptions through [employer] $4 program. Troponins were borderline elevated and did not trend upward. Suspect secondary to acute on chronic systolic CHF. Patient was treated with IV Lasix. He will be discharged on carvedilol, lisinopril, and Lasix as needed for increased swelling. Aldactone was recommended by cardiology although patient states he cannot afford this medication. Echocardiogram from January 2017 showed an estimated ejection fraction of 34%. Repeat echocardiogram during admission showed moderate left ventricular hypertrophy, severely dilated left ventricle, estimated ejection fraction of 20%, severe global left ventricular systolic dysfunction. Patient will continue medical management as noted above. He wishes to establish with [facility]. Recommend follow-up with [facility] in 1-2 weeks. Discussed with patient following up with [facility] failure program to begin discussion regarding heart transplant. He is in agreement with current plan. Patient complains of anxiety and states he was previously prescribed Ativan. He states he has not followed up with primary care physician to continue prescription. He was given a brief prescription of PRN Ativan 0.5 mg, 10 tablets until he can follow-up with primary care physician. Case management discussed with patient seeing behavioral health and he declined. Patient seen and examined prior to discharge. Heart rate regular in rate and rhythm, no murmur. Lungs clear. Abdomen soft, nontender, obese. Neuro grossly intact. No edema. Vital signs stable. Patient stable for discharge home with recommendations as noted above. This patient was seen by EKVYN Harper under the supervision of Dr. Mortensen. Discharge Diet: Low fat/ Low Cholesterol, 8 Cup Fluid Restriciton, 2000 mg Sodium Diet Discharge Activity: Return to Normal Activity Call your doctor if you observe: Shortness of breath, Dizziness, Fainting spells , Chest pain, Increased palpitations (irregular heartbeat), Calf discomfort Home Medications: Medications to take at Discharge Carvedilol 25 mg PO BID #60 tablet 12/24/17 Furosemide [Lasix] 40 mg PO DAILY PRN #30 tablet 12/24/17 Lisinopril [Zestril] 40 mg PO DAILY #30 tablet 12/24/17 Following Prescrptions Were Given to Patient: Furosemide [Lasix] 40 mg PO DAILY PRN #30 tablet PRN Reason: Swelling Lisinopril [Zestril] 40 mg PO DAILY #30 tablet Carvedilol 25 mg PO BID #60 tablet Primary Care Physician: Shane Bowden MD [Primary Care Provider] - Please follow up with your Primary Care Physician in: 1 Week Please Follow Up With: [facility] When: 1-2 Weeks Please Follow Up With: [facility] When: Call to schedule prior to discharge Disposition: Home Minutes spent on discharge:: 35 Patient Condition:: Stable Meaningful Use Info Meaningful Use Diagnoses (Choose all that apply): CHF - CHF KATHARINA/ARB ordered at discharge?: Yes Documented LVEF (%): 20 <Emiliano Mortensen - Last Filed: 12/24/17 14:56> Discharge Date and Diagnosis - Secondary Discharge Diagnosis Chronic Problems Nonischemic cardiomyopathy (Chronic) Status post ICD removal. Hospital Course and Treatment Operations: None Procedures: 2-D Echocardiogram Summary of Care Provided: Seen and examined independently. Agree with the above notes by the nurse practitioner. The 32-year-old white male with known history of nonischemic cardiomyopathy. Presents with shortness of breath. Chest x-ray showed pulmonary edema and BNP was slightly elevated at 156. Clinically patient was in heart failure. Patient , unfortunately, does not have insurance and so was only taking Lasix sparingly with symptoms. Patient did have an echocardiogram that showed an ejection fraction of 20%. Patient was discharged with a prescription for Coreg, lisinopril, Lasix and spironolactone. Patient is a recommend follow-up with the [place] cardiology and to follow-up in heart failure clinic at [facility]. That may be limited given the patient's insurance status at this time. Physical exam Vital Signs Height 1.8 m Weight: 144.3 kg Weight in Pounds 318.1 lbs Pulse Ox 96 Temperature 36.7 C Pulse Rate 101 Respiratory Rate 18 Blood Pressure [BP] 148/97 Blood Pressure 153/98 Blood Pressure Position [BP] Sitting Blood Pressure Position Sitting Patient is currently no acute distress, no respiratory distress, no conversational dyspnea. [] Discharge Diet: Low fat/ Low Cholesterol, 8 Cup Fluid Restriciton, 2000 mg Sodium Diet Discharge Activity: Return to Normal Activity Call your doctor if you observe: Shortness of breath, Dizziness, Fainting spells , Chest pain, Increased palpitations (irregular heartbeat), Calf discomfort Disposition: Home Minutes spent on discharge:: 35 Patient Condition:: Stable Meaningful Use Info Meaningful Use Diagnoses (Choose all that apply): CHF - CHF KATHARINA/ARB ordered at discharge?: Yes Documented LVEF (%): 20 Code Visit OBSV E&M: 99407 Observation care discharge
== END 2017-12-24 14:29 | disposition home or self-care (01) ==
LOC: ED 19:49 → PCU 22:36
PROVIDERS: Admitting Provider Hospitalist; Emergency Provider Emergency Medicine; Family Provider Family Medicine; PCP Family Medicine
DX: I50.23 Acute on chronic systolic (congestive) heart failure (principal); R07.89 Other chest pain; I42.9 Cardiomyopathy, unspecified; I10 Essential (primary) hypertension; F41.9 Anxiety disorder, unspecified; E66.9 Obesity, unspecified; Z68.41 Body mass index [BMI] 40.0-44.9, adult; Z71.3 Dietary counseling and surveillance; Z79.899 Other long term (current) drug therapy; Z87.891 Personal history of nicotine dependence
CPT/HCPCS: 36415; 71045; 80048; 83735; 83880; 84443; 84484; 85025; 85610; 93005; 93306; 94002; 96374; 96375; 96376; 99218; 99285; Q9957; A4216; C8929; G0378; J1940

== ENCOUNTER 2018-03-08 15:40 | Emergency (ER) | payer SELFPAY ==
[2018-03-08 15:41] VITALS: BP 135/105; PULSE 93; RESP 18; O2SAT 96; BMI 91.2
[2018-03-08 15:45] VITALS: BP 148/112; PULSE 107; RESP 17; O2SAT 95
--- NOTE | 2018-03-08 15:56 | EKG12_ITS ---
Test Reason : SOB/CP Blood Pressure : / mmHG Vent. Rate : 081 BPM Atrial Rate : 081 BPM P-R Int : 174 ms QRS Dur : 116 ms QT Int : 392 ms P-R-T Axes : 020 -52 084 degrees QTc Int : 455 ms Normal sinus rhythm Left axis deviation Incomplete left bundle branch block Abnormal ECG Confirmed by RYAN MAE, BROOKS ([id number]), news editor PADMINI WARREN ([id number]) on 03/12/2018 3:17:26 PM Referred By: GREG Confirmed By:BROOKS DAVIS MD
[2018-03-08] MEDS: Albuterol 2.5 MG/3 ML VIAL.NEB. INHALATION (16:11)
[2018-03-08 16:13] VITALS: PULSE 93; RESP 20; O2SAT 96
--- NOTE | 2018-03-08 16:15 | ED.VISSUMM ---
- ER Visit Summary Date of Service: 03/08/18 Chief Complaint: Chest pain shortness of breath History of Present Illness: The patient is a 32 M presenting for evaluation secondary chest pain shortness of breath. 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 Patient states that over the course of approximately last 3 days he has been dealing with exertional dyspnea, orthopnea, and chest pain. He describes his chest pain as a pressure. Patient states that he has had a dry cough with occasional taste of blood in his throat. Patient states that he has been having generalized fatigue with poor eating and poor sleeping. Patient states that he did have recent travel to and from [place] and an airplane with a 5 hour plane flight. He denies that he is retaining water or having any peripheral edema although he did state that he took a Lasix this morning. He denies any presence of fevers. He did state that he had one episode of emesis. He denies any diarrhea. Patient presented to his primary care office and they recommended that he come to the emergency department. Physical Examination: Vital signs notable for heart rate of 107. Obese male no acute distress sitting comfortably on side of the bed. Head normocephalic. Moist mucous membranes. No JVD noted. Heart was minimally tachycardic with a regular rhythm and no murmurs normal S1-S2. Lungs sounds show evidence of mild wheezes throughout the lung salmon without any evidence of respiratory distress or retractions. Abdomen soft and nontender. Peripheral pulses were 2+ and symmetric, there is no peripheral edema noted, no skin rashes, patient had normal strength sensation of the upper and lower extremities. Test Results: Sinus rhythm of 81 with an incomplete left bundle branch block and left axis deviation consistent with EKG from December of this year. CBC unremarkable, chemistry unremarkable, troponin was found to be elevated at 0.15 which is chronic for the patient and unchanged. BNP only mildly elevated 184, d-dimer negative, chest x-ray shows cardiomegaly without significant evidence of pulmonary vascular congestion Emergency Department Course and Treatment: Patient presented secondary chest pain shortness of breath in the setting of nonischemic cardiomyopathy. Patient was evaluated with EKG that showed no ischemic changes, repeat EKG in the emergency department was also unchanged from December of this year. Chest x-ray showed no evidence of CHF or pneumonia. CBC chemistry unremarkable, troponin was at the patient's chronic level BNP was not significantly elevated. Due to the patient's recent travel d-dimer was obtained and was also found to be negative. Patient was given a breathing treatment in the emergency department and had some improvement. I discussed the patient's case with his furniture sprayer Dr. Olguin. Patient does have some orthopnea and signs that potentially this is congestive heart failure, so the recommendation is the patient to be placed on his Lasix regularly for the next 3-5 days and follow-up with cardiology. Additionally I will send the patient home with an albuterol inhaler as he does also have probably some elements of bronchitis. Patient was comfortable with this disposition and the patient was discharged in stable condition. Disposition: Discharge Impression: 1. Bronchitis 2. Chest pain 3. History of nonischemic cardiomyopathy This note was generated with [employer] dictation software. It may contain incorrect words, spelling, and punctuation that were not noted in review of the chart prior to signing ED Disposition - Plan for ED Patient: Disposition: Home or Assisted Living Chief Complaint: Hypertension Diagnosis: Bronchitis Instructions: ED Bronchitis Asthmatic Prescriptions: Albuterol Inhaler [Ventolin Hfa] 1 - 2 puff INHALATION Q4H PRN PRN #1 inhaler PRN Reason: Wheezing Additional Instructions: Take your lasix daily for the next [address] Song in the next week
--- NOTE | 2018-03-08 16:18 | ED.DCSUM_ITS ---
- ER Visit Summary Date of Service: 03/08/18 Chief Complaint: Chest pain shortness of breath History of Present Illness: The patient is a 32 M presenting for evaluation secondary chest pain shortness of breath. 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 Patient states that over the course of approximately last 3 days he has been dealing with exertional dyspnea, orthopnea, and chest pain. He describes his chest pain as a pressure. Patient states that he has had a dry cough with occasional taste of blood in his throat. Patient states that he has been having generalized fatigue with poor eating and poor sleeping. Patient states that he did have recent travel to and from [place] and an airplane with a 5 hour plane flight. He denies that he is retaining water or having any peripheral edema although he did state that he took a Lasix this morning. He denies any presence of fevers. He did state that he had one episode of emesis. He denies any diarrhea. Patient presented to his primary care office and they recommended that he come to the emergency department. Physical Examination: Vital signs notable for heart rate of 107. Obese male no acute distress sitting comfortably on side of the bed. Head normocephalic. Moist mucous membranes. No JVD noted. Heart was minimally tachycardic with a regular rhythm and no murmurs normal S1-S2. Lungs sounds show evidence of mild wheezes throughout the lung salmon without any evidence of respiratory distress or retractions. Abdomen soft and nontender. Peripheral pulses were 2+ and symmetric, there is no peripheral edema noted, no skin rashes, patient had normal strength sensation of the upper and lower extremities. Test Results: Sinus rhythm of 81 with an incomplete left bundle branch block and left axis deviation consistent with EKG from December of this year. CBC unremarkable, chemistry unremarkable, troponin was found to be elevated at 0.15 which is chronic for the patient and unchanged. BNP only mildly elevated 184, d -dimer negative, chest x-ray shows cardiomegaly without significant evidence of pulmonary vascular congestion Emergency Department Course and Treatment: Patient presented secondary chest pain shortness of breath in the setting of nonischemic cardiomyopathy. Patient was evaluated with EKG that showed no ischemic changes, repeat EKG in the emergency department was also unchanged from December of this year. Chest x- ray showed no evidence of CHF or pneumonia. CBC chemistry unremarkable, troponin was at the patient's chronic level BNP was not significantly elevated. Due to the patient's recent travel d-dimer was obtained and was also found to be negative. Patient was given a breathing treatment in the emergency department and had some improvement. I discussed the patient's case with his oil rigger Dr. Olguin. Patient does have some orthopnea and signs that potentially this is congestive heart failure, so the recommendation is the patient to be placed on his Lasix regularly for the next 3-5 days and follow-up with cardiology. Additionally I will send the patient home with an albuterol inhaler as he does also have probably some elements of bronchitis. Patient was comfortable with this disposition and the patient was discharged in stable condition. Disposition: Discharge Impression: 1. Bronchitis 2. Chest pain 3. History of nonischemic cardiomyopathy This note was generated with [employer] dictation software. It may contain incorrect words, spelling, and punctuation that were not noted in review of the chart prior to signing ED Disposition - Plan for ED Patient: Disposition: Home or Assisted Living Chief Complaint: Hypertension Diagnosis: Bronchitis Instructions: ED Bronchitis Asthmatic Prescriptions: Albuterol Inhaler [Ventolin Hfa] 1 - 2 puff INHALATION Q4H PRN PRN #1 inhaler PRN Reason: Wheezing Additional Instructions: Take your lasix daily for the next [address] Song in the next week
--- NOTE | 2018-03-08 16:20 | RAD_ITS ---
STUDY: X-RAY CHEST REASON FOR EXAM: Male, 32 years old. Chest pain TECHNIQUE: PA and lateral views of the chest. COMPARISON: April 03, 2017 and December 23, 2017 FINDINGS: The lungs are clear and expanded. There is no demonstrated pleural abnormality. There is persistent cardiomegaly. Normal mediastinum and randolph. Normal visualized pulmonary arteries. Normal visualized aortic arch and descending thoracic aorta. Normal visualized thoracic spine. Normal visualized ribs, clavicles, and shoulders. There is no demonstrated abnormality of the visualized soft tissue structures of the upper abdomen. RAD/Chest PA and Lateral IMPRESSION: Cardiomegaly. Electronically Signed: Christine Brannon MD at 16:42 EDT Tel , Service support ,
[2018-03-08 16:25] LABS: Anion Gap 5 (5-15); BUN 8 mg/dL (7-18); BUN/Creat Ratio 9.1 RATIO (10-20); Calcium,Total 9.6 mg/dL (8.5-10.1); Chloride 111 mmol/L (98-107); Creatinine, Serum 0.88 mg/dL (0.70-1.30); EST Glomerular Filtration Rate 108 mL/min (>60); Est Glom Filt Rate - Afr Amer 130 mL/min (>60); Estimated Creatinine Clearance 134.72 ml/min; Glucose 86 mg/dL (74-106); Sodium Level 141 mmol/L (136-145)
[2018-03-08 16:28] LABS: Absolute Lymphocyte Count 2.33 X10^3/ul (0.83-4.51); Absolute Neutrophil Count 4.6 X10^3/uL (2.0-7.7); Basophil# 0.06 X10^3/uL; Basophil% 0.8 % (0-1); Eosinophil# 0.48 X10^3/uL; Eosinophils% 6.1 % (0-5); Hematocrit 46.9 % (40-54); Hemoglobin 15.5 g/dl (13.0-16.5); Lymphocyte # 2.33 X10^3/ul (4.0); Lymphocyte % 29.6 % (19-41); Mean Corpuscular Hgb 28.3 pg (27.0-32.0); Mean Corpuscular Volume 85.6 fL (80-94); Mean Platelet Vol. 11.6 fl (6.2-12.0); Monocyte% 5.1 % (0-10); Neutrophil % 58.3 % (47-70); Platelet Count 197 K/mm3 (150-450); RBC Distribution Width CV 12.7 % (11.6-14.6); RBC Distribution Width SD 39.8 fl (35.1-43.9); Red Blood Count 5.48 M/mm3 (4.6-6.2); White Blood Count 7.9 K/mm3 (4.4-11.0)
[2018-03-08 16:30] LABS: POSITIVE COUNT NO; POSITIVE DIFFERENTIAL NO; POSITIVE MORPHOLOGY NO
[2018-03-08 16:48] LABS: D-Dimer Quantitative (DVT/PE) < 0.27 FEU/ug/m (0.27-0.49)
--- NOTE | 2018-03-08 16:50 | EKG12_ITS ---
Test Reason : REPEAT-CP Blood Pressure : / mmHG Vent. Rate : 078 BPM Atrial Rate : 078 BPM P-R Int : 172 ms QRS Dur : 128 ms QT Int : 398 ms P-R-T Axes : 022 -54 102 degrees QTc Int : 453 ms Normal sinus rhythm Left axis deviation Non-specific intra-ventricular conduction block Abnormal ECG Confirmed by RYAN MAE, BROOKS ([id number]), social media editor PADMINI WARREN ([id number]) on 03/12/2018 3:41:05 PM Referred By: GREG Confirmed By:BROOKS DAVIS MD
[2018-03-08 16:58] LABS: BNP,B-Type NATRIURETIC PEPTIDE 184.3 pg/mL (0-100)
[2018-03-08 17:02] VITALS: BP 141/109; PULSE 90; RESP 18; O2SAT 98
[2018-03-08 18:39] VITALS: BP 158/105; PULSE 80; RESP 16; O2SAT 96
== END 2018-03-08 18:40 | disposition home or self-care (01) ==
PROVIDERS: Emergency Provider Emergency Medicine; Family Provider Family Medicine; PCP Family Medicine
DX: J40 Bronchitis, not specified as acute or chronic (principal); R07.9 Chest pain, unspecified; I42.8 Other cardiomyopathies; R20.2 Paresthesia of skin; R11.10 Vomiting, unspecified; E66.9 Obesity, unspecified; I44.7 Left bundle-branch block, unspecified; Z79.899 Other long term (current) drug therapy
CPT/HCPCS: 71046; 80048; 83880; 84484; 85025; 85379; 93005; 94640; 99285; A4216

== ENCOUNTER 2018-10-19 13:46 | Emergency (ER) | payer MEDICAID, SELFPAY ==
[2018-10-19 13:48] VITALS: BP 168/102; PULSE 47; RESP 24; TEMP 36.4; O2SAT 98; BMI 43.2
[2018-10-19 13:49] VITALS: PULSE 107
--- NOTE | 2018-10-19 14:16 | EKG12_ITS ---
Test Reason : REPEAT-CP Blood Pressure : / mmHG Vent. Rate : 092 BPM Atrial Rate : 092 BPM P-R Int : 178 ms QRS Dur : 114 ms QT Int : 372 ms P-R-T Axes : 031 -58 090 degrees QTc Int : 460 ms Normal sinus rhythm Left axis deviation Nonspecific T wave abnormality Prolonged QT Abnormal ECG Confirmed by RYAN MAE, BROOKS ([id number]), associate entertainment editor PADMINI WARREN ([id number]) on 10/22/2018 10:16:11 AM Referred By: DOUGLAS Confirmed By:BROOKS DAVIS MD
--- NOTE | 2018-10-19 14:16 | CT_ITS ---
STUDY: CT BRAIN WITHOUT CONTRAST REASON FOR EXAM: Male, 33 years old. Headaches. Shortness of breath. RADIATION DOSAGE (If Supplied By Facility): CTDIvol = ( 60.81 ) mGy, DLP = ( 1135.50 ) mGycm TECHNIQUE: Transaxial CT imaging of the brain was performed without administration of intravenous contrast material. Individualized dose optimization techniques were used for this CT. COMPARISON: Comparison is made with prior study dated December 17, 2016. FINDINGS: Normal soft tissue structures. Normal calvarium. Normal size ventricles and extra-axial spaces for the patient's age. Normal white matter tracts of the cerebral hemispheres. Normal basal ganglia and thalami. Normal brainstem. Normal cerebellum. There is prominence of the cisterna magna. This is a normal variant. There is no intracranial hemorrhage. There are no findings of an acute ischemic infarction. Opacification of the right maxillary sinus. CT/Brain/Head without Contrast IMPRESSION: Normal unenhanced CT scan of the brain. Prominence of the cisterna magna. Opacification of the right maxillary sinus. Electronically Signed: Pop Posadas MD at 15:08 EST Tel [phone], Service support ,
--- NOTE | 2018-10-19 14:21 | EKG12_ITS ---
Test Reason : SOB/PALPS Blood Pressure : / mmHG Vent. Rate : 099 BPM Atrial Rate : 099 BPM P-R Int : 172 ms QRS Dur : 114 ms QT Int : 364 ms P-R-T Axes : 045 -52 094 degrees QTc Int : 467 ms Normal sinus rhythm Left axis deviation Nonspecific T wave abnormality Prolonged QT Abnormal ECG Confirmed by RYAN MAE, BROOKS ([id number]), editor index PADMINI WARREN ([id number]) on 10/22/2018 10:16:26 AM Referred By: BRET/DOUGLAS Confirmed By:BROOKS DAVIS MD
[2018-10-19 14:44] LABS: Absolute Lymphocyte Count 2.72 X10^3/ul (0.83-4.51); Absolute Neutrophil Count 8.7 X10^3/uL (2.0-7.7); Basophil# 0.09 X10^3/uL; Basophil% 0.7 % (0-1); Eosinophil# 0.78 X10^3/uL; Hematocrit 44.2 % (40-54); Hemoglobin 15.1 g/dl (13.0-16.5); Lymphocyte # 2.72 X10^3/ul (4.0); Mean Corp Hgb Conc 34.2 g/gl (32-36); Mean Corpuscular Hgb 29.3 pg (27.0-32.0); Mean Corpuscular Volume 85.7 fL (80-94); Mean Platelet Vol. 10.8 fl (6.2-12.0); Monocyte# 0.66 X10^3/uL; Monocyte% 5.1 % (0-10); Neutrophil # 8.72 X10^3/uL (2.7-7.7); Neutrophil % 67.1 % (47-70); POSITIVE COUNT NO; POSITIVE DIFFERENTIAL NO; POSITIVE MORPHOLOGY NO; Platelet Count 210 K/mm3 (150-450); RBC Distribution Width CV 12.7 % (11.6-14.6); RBC Distribution Width SD 39.7 fl (35.1-43.9); Red Blood Count 5.16 M/mm3 (4.6-6.2)
[2018-10-19 14:46] VITALS: BP 163/111; PULSE 94; RESP 20; O2SAT 98
[2018-10-19 14:55] LABS: Anion Gap 7 (5-15); BUN 15 mg/dL (7-18); Calcium,Total 8.9 mg/dL (8.5-10.1); Chloride 110 mmol/L (98-107); Creatinine, Serum 0.79 mg/dL (0.70-1.30); EST Glomerular Filtration Rate 121 mL/min (>60); Est Glom Filt Rate - Afr Amer 147 mL/min (>60); Estimated Creatinine Clearance 148.71 ml/min; Glucose 84 mg/dL (74-106); Potassium 3.9 mmol/L (3.5-5.1); Sodium Level 139 mmol/L (136-145)
--- NOTE | 2018-10-19 14:57 | RAD_ITS ---
STUDY: X-RAY CHEST REASON FOR EXAM: Male, 33 years old. Shortness of breath and dyspnea. TECHNIQUE: PA and lateral views of the chest. COMPARISON: Comparison is made with prior study dated March 08, 2018. FINDINGS: EKG electrodes are seen. The lungs are clear and expanded. There is no demonstrated pleural abnormality. Normal size heart. Normal mediastinum and randolph. Normal visualized pulmonary arteries. Normal visualized aortic arch and descending thoracic aorta. Normal visualized thoracic spine. Normal visualized ribs, clavicles, and shoulders. There is no demonstrated abnormality of the visualized soft tissue structures of the upper abdomen. RAD/Chest PA and Lateral IMPRESSION: Moderate cardiomegaly. Electronically Signed: Pop Posadas MD at 15:14 EST Tel [phone], Service support ,
--- NOTE | 2018-10-19 15:29 | ED.RN ---
THIS RN ENTERED ROOM TO GIVEN LASIX AND TRANDATE PER ORDERS, PT INFORMED OF MEDS TO BE GIVEN. PT STATES I NEED SOMETHING FOR MY FUCKING HEAD AND FUCKING STOMACH. I STATED I WOULD GIVE THESE MEDS FIRST, THAT HIS HEAD MAY BE HURTING DUE TO HIGH BP. PT CONTINUED WITH CURSING, DEMANDS IV AND PO FLUIDS. THIS RN ATTEMPTED TO EDUCATE PT ON NEED FOR FLUID RESTRICTION DUE TO CHF. OFFERED ICE CHIPS, PT STATES HE WANTS A NEW NURSE. THIS RN LEFT ROOM. WILL NOTIFY .
[2018-10-19] MEDS: LORazepam 2 MG/ML Syringe 1 MG IV (16:08)
[2018-10-19] MEDS: Furosemide 40 MG/4 ML Vial IV (16:10)
--- NOTE | 2018-10-19 16:26 | ED.VISSUMM ---
- ER Visit Summary Date of Service: 10/19/18 Chief Complaint: Fatigue History of Present Illness: The patient is a [address] Bowden and Dr. Olguin. He reports he has fatigue that began today. He reports he had a poor appetite for 3 days. Patient reports that he has chest pain and shortness of breath with exertion. Also complains of generalized weakness. Patient reports that yesterday he was walking to the bathroom and had a near syncopal episode. He been sitting on the commode when he began feeling a fluttering in his chest and everything went black, but he did not lose postural tone or lose consciousness. He reports that it felt like his heart thump hard. He called for his . She helped him to the bedroom and he laid down and felt improved. Physical Examination: Vitals: 97.5, 163/111, 107, 20, 98% on room air which is not hypoxic. General: Well-nourished and well-developed. Head: Normocephalic atraumatic. Neck: Supple, no lymphadenopathy. No JVD. Nontender. Cardiovascular: Regular rate and rhythm. No murmurs. Respiratory: No respiratory distress. Clear to auscultation bilaterally. Abdominal: Soft, nontender, nondistended, normal bowel sounds. No guarding, rebound, or peritoneal signs. Back: Nontender. Extremities: Nontender, no edema. Skin: Normal color, no rash. Neurologic: Alert and oriented ?3. Cranial nerves II through XII are intact. Normal strength and sensation. Psych: Normal affect. Test Results: EKG is sinus at [address] changes. There are T wave inversions laterally. In leads I, aVL, V5, and V6. This is unchanged from February of this year. Repeat EKG is unchanged. CBC is more for white count 13.0 and eosinophils of 6.0. Chem-7 is more for chloride 110. Troponin 0 0.202. Troponin this year has ranged between 0.15-0.18. BTNP is 232. This is range between 157-184 in 2018. Chest x-ray shows cardiomegaly but no CHF. CT brain is normal other than opacification of the right maxillary sinus. Emergency Department Course and Treatment: Patient was given a dose of labetalol IV, Lasix IV, and Ativan IV. I had a prolonged discussion with him about his last visit to his compressed yeast supervisor which he reports is been more than a year ago. However, he reports that he is compliant with his medications and that he has 2 pills left. Treatment Plan: I discussed the patient with Dr. Young and Dr. Ramirez. He was going to be admitted to the hospital. However, the patient became agitated and insisted on leaving. He will be discharged prescription for carvedilol 25 mg twice daily, Lasix 40 mg daily, lisinopril 40 mg daily, and Paxil 20 mg p.o. daily. Instructed to follow-up with Dr. Young as an outpatient as he is asked for referral to a new compressed yeast supervisor since Dr. Olguin is retiring. Return to the emergency department for any worsening symptoms. Disposition: To home in improved and stable condition. Impression: 1. Nonischemic cardiomyopathy. 2. Hypertension. 3. History of noncompliance. This note was generated with [employer] dictation software. It may contain incorrect words, spelling, and punctuation that were not noted in review of the chart prior to signing ED Disposition - Plan for ED Patient: Chief Complaint: Shortness of Breath Instructions: ED CHF General Prescriptions: Furosemide [Lasix] 40 mg PO DAILY #30 tablet Lisinopril [Zestril] 40 mg PO DAILY #30 tablet Paroxetine HCl [Paxil] 20 mg PO DAILY #30 tablet Carvedilol [Coreg (Beta Elida)] 25 mg PO BID #30 tablet Referrals: Fermin Young MD [STAFF PHYSICIAN] - As soon as possible
--- NOTE | 2018-10-19 16:27 | NURSING ---
117 OBS SEMENTI HYPERTENSION
[2018-10-19 17:02] VITALS: BP 176/100; BP 176/125; PULSE 80; RESP 18; O2SAT 98
--- OUTSIDE RECORDS SUMMARY | 2018-12-05 20:51 | XMS RPT_ITS ---
:1985 Author Organization [place] Support Name Relationship Address Phone [employer] Unavailable [address] + [place] [address] [employer] Unavailable [address] + [place] [address] MATTHEW, GAIL Unavailable [address] + [place] [address] [employer] Unavailable [address] + [place] [address] ELVIA CASTRO Unavailable [address] + [place] [address] MATTHEW, GAIL Unavailable [address] + [place] [address] [employer] Unavailable [address] + [place] [address] ELVIA CASTRO Unavailable [address] + [place] [address] MATTHEW GAIL Unavailable [address] + [place] [address] ELVIA CASTRO Unavailable Unavailable + ELVIA CASTRO Unavailable Unavailable + ELVIA CASTRO Unavailable Unavailable + [employer] Unavailable [address] + [place] [address] ELVIA CASTRO Unavailable [address] + [place] [address] [employer] Unavailable [address] + [place] [address] ELVIA CASTRO Unavailable [address] + [place] [address] [employer] Unavailable [address] + [place] [address] ELVIA CASTRO Unavailable [address] + [place] [address] [employer] Unavailable [address] + [place] [address] ELVIA CASTRO Unavailable [address] + [place] [address] [employer] Unavailable [address] + [place] [address] ELVIA CASTRO Unavailable [address] + [place] [address] Care Team Providers Name Role Phone [facility] Unavailable Ashelfah, Ghasem Admitting Unavailable Emiliano Mortensen Attending Unavailable Rasta, Ehsan Consulting Unavailable [facility] Unavailable Leandro Gomes Attending Unavailable Ewelina Ramirez Admitting Unavailable Denisse Barragan Attending Unavailable Fermin Young Attending Unavailable [facility] Referring Unavailable Ashelfah, Ghasem Admitting Unavailable Ashelfah, Ghasem Attending Unavailable [facility] Unavailable Ashelfah, Ghasem Consulting Unavailable Ashelfah, Ghasem Admitting Unavailable Hill Magdalenod Attending Unavailable [facility] Unavailable Rasta, Ehsan Consulting Unavailable Emiliano Mortensen Consulting Unavailable Ashelfah, Ghasem Admitting Unavailable [facility] Unavailable Rasta, Ehsan Consulting Unavailable Emiliano Mortensen Attending Unavailable Emiliano Mortensen Consulting Unavailable [facility] Unavailable Guillermo Buchanan Attending Unavailable GUILHERME MENDEZ Attending Unavailable GUILHERME MENDEZ Referring Unavailable YAHAIRA CASTILLO Attending Unavailable SCOTTY JOSHI Admitting Unavailable SCOTTY JOSHI Attending Unavailable ZANE CAM Consulting Unavailable AQUILES LOJA Attending Unavailable [facility] Unavailable GUILHERME MENDEZ Attending Unavailable GUILHERME MENDEZ Referring Unavailable [facility] GUILHERME MENDEZ Attending Unavailable GUILHERME MENDEZ Referring Unavailable [facility] Unavailable SCOTTY JOSHI Admitting Unavailable SCOTTY JOSHI Attending Unavailable Shane Rendon MD Primary Care Unavailable ZANE CAM Consulting Unavailable SCOTTY JOSHI Attending Unavailable SCOTTY JOSHI Referring Unavailable Shane Rendon MD Primary Care Unavailable SHANE RENDON Attending Unavailable ANN MARIE VILLASENOR Attending Unavailable ANN MARIE VLILASENOR Referring Unavailable SHANE RENDON Attending Unavailable SHANE RENDON Referring Unavailable SHANE RENDON Referring Unavailable PROBLEMS PROBLEMS DATE TYPE CONDITION / CODE ATTENDING STATUS SOURCE 11/25/2018 Unknown I50.22 - Chronic [place], Active [place] systolic (congestive) [facility] heart failure / Hospital I50.22(ICD-10) Repository 11/25/2018 Unknown I42.8 - Other [place], Active [place] cardiomyopathies / [facility] I42.8(ICD-10) Hospital Repository 09/06/2018 Active Cough / R05(ICD-10) NA Active [facility] Main [place] Repository 04/15/2018 Active Calculus of ureter / DULLE, YAHAIRA Active [place] N20.1(ICD-10) [facility] Other [place] Repository 04/15/2018 Active Unspecified DULLE, YAHAIRA Active [place] hydronephrosis / [facility] Other N13.30(ICD-10) [place] Repository 04/24/2016 Active Left ventricular VANESSA, Active [place] failure, unspecified [facility] Other / I50.1(ICD-10) [place] Repository 10/06/2015 Active Chronic systolic VANESSA, Active [place] (congestive) heart [facility] Other failure / [place] I50.22(ICD-10) Repository 03/11/2018 Active Other VANESSA, Active [place] cardiomyopathies / [facility] Other I42.8(ICD-10) [place] Repository 03/11/2018 Active Acute on chronic VANESSA, Active [place] systolic (congestive) [facility] Other heart failure / [place] I50.23(ICD-10) Repository 04/24/2016 Admitting Unknown / VANESSA, Active [facility] diagnosis UNK(Unknown) [facility] Repository PROCEDURES PROCEDURES No Procedure Records FoundRESULTS RESULTS CARDIOLOGY VISIT Observed: 11/25/2018 Status: F Source: [place] REPORT 6:03 PM [facility] RE[facility]IT[facility] [address] [place] [address] OFFICE VISIT Date of Service: 11/25/18 MR#: [id number] Acct: [id number] Name: BHUPINDER CASTRO Rep #: [id number] : 1985 Provider: Fermin Young MD Age/Sex: 33/M [place] [facility] [place] Signed HPI HPI Details: BHUPINDER CASTRO, is a 33 M who presents to the office today for Outpatient cardiovascular consultation to establish outpatient cardiovascular care for concerns of a non CAD related cardiomyopathy. The patient has been previously cared for by other local dairy technician as well as by the [facility] main campus. He has undergone noninvasive and invasive evaluation the past which led to a diagnosis of a non CAD related cardiomyopathy requiring medical therapy and at 1 time a primary ICD placement with a subcutaneous ICD. The patient notes at the moment but he is not overly compliant with medications. He readily admits that he did not take his medications on a regular scheduled basis. He states at the moment he is not been having classic symptoms of angina pectoris Z had any obvious CHF or pulmonary edema. There has been no obvious orthopnea or PND or worsening peripheral pitting edema. There has been no near syncope or syncope. 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 He admits he may be willing to have his subcutaneous ICD implanted if his LV function remains low but he does not want a traditional ICD trans venous system. Based upon previous medical records available for review it appears that on 10/12/20 he underwent a diagnostic cardiac catheterization at [facility] in [place], [place]. At that time his left main was considered with no significant blockage, the LAD had no significant blockage, the LCx had no significant blockage, the RCA was a large dominant vessel with no significant blockage, an intermediate ramus was present with no significant blockage, the left ventricle had an depressed LVEF of 10 to 15%. It appears he had a transthoracic echocardiogram performed through the [facility] system on 01/19/2017. At that time the left ventricle was reported as severely dilated with mild concentric LVH with diminished LV systolic function with a reported LVEF of 34%, the right ventricle was normal in size and function, the left atrium was mildly dilated, the mitral valve had trivial to 1+ MR, the tricuspid valve had trivial TR, there was no pericardial effusion reported. It appears that in December of 2016 at the [facility] he had his ICD removed. It was removal of a [employer] S-ICD A209 pulse generator and complete removal of a [employer] emblem S-ICD 3401 SQ parasternal lead. He was being followed by the [facility] CHF clinic as well. There was a comment based upon his notes that he was going to continue medical therapy. They commented that unfortunately he had his ICD removed. They noted his underlying QRS was not adequate for resynchronization therapy. They also noted based upon his intolerance to medications and previous use of illicit drugs such as marijuana, as to whether or not he would ever be a candidate for consideration for cardiac transplantation. He did have an ECG performed today. He was in sinus rhythm with a left axis deviation and left anterior fascicular block and poor R-wave progression and nonspecific T-wave changes. Intake Vital Signs11/25/18 Body Mass Index (BMI) 43.2 11/25/18 Height 6 ft 11/25/18 Weight: 308 lb 11/25/18 Body Mass Index (BMI) 41.8 11/25/18 Blood Pressure 116/78 Intake Visit Reasons: CHF/CAD/syncope/Ref. Vanessa Allergies morphine Allergy (Verified 11/25/18 13:50) Hives turkey Allergy (Verified 11/25/18 13:50) Swelling perflutren [From [employer]] Adverse Reaction (Verified 11/25/18 13:50) Other Medications Carvedilol [Coreg] 25 mg PO BID 10/19/18 [History Confirmed 11/25/18] Excedrin 2 tab PO Q4H PRN PRN 10/19/18 [History Confirmed 11/25/18] Furosemide [Lasix] 40 mg PO DAILY #30 tab 10/19/18 [Rx Confirmed 11/25/18] Lisinopril [Zestril] 40 mg PO DAILY #30 tab 10/19/18 [Rx Confirmed 11/25/18] Paroxetine HCl [Paxil] 20 mg PO DAILY #30 tab 10/19/18 [Rx Confirmed 11/25/18] PFSH Medical History Chronic systolic (congestive) heart failure (Chronic) CURTIS (obstructive sleep apnea) (Chronic) GERD (gastroesophageal reflux disease) (Chronic) Mixed hyperlipidemia (Chronic) Essential hypertension (Chronic) Abnormal cardiac enzyme level (Acute) Chest pain (Acute) Acute on chronic systolic CHF (congestive heart failure) (Acute) Nonischemic cardiomyopathy (Chronic) Surgical History History of cardiac catheterization (Resolved) History of tonsillectomy (Resolved) Family History Mother Arrhythmia Hypertension Father Ischemic cardiomyopathy CHF (congestive heart failure) Hypertension Diabetes History of coronary artery bypass surgery CAD (coronary artery disease) Social History Smoking Status: Current some day smoker alcohol intake: never substance use type: marijuana ROS Const Const: Positive for fatigue (increased) and difficulty sleeping; negative for weakness, weight gain, weight loss, frequent falls or excessive sweating Eyes Eyes: Negative for change in vision, blurry vision or transient loss of vision ENT ENT: Positive for balance problems (occasional unsteadiness); negative for dizziness Cardio Chest Pain: Yes Character: other (aching) Onset: at rest, exercise Location: mid sternal Duration: minutes (couple minutes to 1/2 hr) Relieving: rest Palpitations: Yes (Rare 1-2x week) feels like its: skipping, other (flutters) Edema: None Muscle aches with walking: None Resp Respiratory: Positive for Cough (dry cough); negative for SOB with activity or SOB at rest GI GI: Negative vomiting or vomiting blood/hematemesis : Negative for hematuria Musc Musc: Positive for balance problems (occasional unsteadiness); negative for muscle aches/ myalgia, muscle weakness or joint pain Skin Skin: Negative non-healing lesions or rash Neuro Neuro: Positive for near syncope (x1 episode recent rocked back to get up and saw spots); negative for weakness, blurry vision, dizziness, lightheadedness, frequent falls or orthostatic symptoms Néstor Hematologic/Lymphatic: Negative for easy bleeding Endo Endo: Positive for fatigue (increased); negative for excessive sweating Psych Psych: Negative for anxiety or depression Allergy Allergy/Immunology: Negative for hives, Negative for rash Cardiology Exam Const Appearance: cooperative, healthy appearing, comfortable, no acute distress, well developed and well groomed Nutritional Appearance: overweight Orientation: alert, awake and oriented x3 Head Head: normal to inspection, normocephalic and atraumatic Ears: hearing grossly normal bilaterally Nose: external nose normal Face and Sinus: face symmetric Mouth: oral mucosae normal Teeth and gingiva: fair dentition Eyes Eyelids: eyelids normal Conjunctivae: conjunctivae normal Pupils: PERRL EOM: EOM intact bilaterally Neck Neck: normal visual inspection and full ROM Carotids: normal carotid upstroke Chest Chest inspection: normal inspection of the chest, symmetric chest movement and normal respiratory effort Auscultation: Bilateral: Clear to Auscultation Cardio Palpation: normal PMI Rate: regular rate Rhythm: regular rhythm Heart sounds: S1 normal, S2 normal and positive S4 GI GI: normal to inspection, bowel sounds present and soft Neuro General: alert, awake, oriented x3, moves all extremities, no focal sensory deficit and no focal motor deficits Skin Skin: no rashes or lesions noted Extremities Pulses: Normal: Right Radial Pulse, Left Radial Pulse Lower Extremity Edema: None: Bilateral Psych Psychological: normal affect Assessment AND Plan 1. Nonischemic cardiomyopathy I42.8 Status post ICD removal. Plan At the present time he appears without acute symptoms. She will continue with current medical therapy. He was agreeable to reevaluation with a transthoracic echocardiogram. Depending upon the findings, which may help guide therapy, he may need to be considered for alternative medical therapy such as Entresto as well as being reconsidered for reimplantation of an ICD. Again he states he would only consider a subcutaneous device as he does not want any transvenous devices placed. He was also encouraged to continue those medications on a regular basis. He was encouraged to avoid illicit substances. He was encouraged to notify the office report to the hospital for any other concerns. Orders Orders: 2. Chronic systolic CHF (congestive heart failure) I50.22 Plan He does not appear to have any acute on chronic systolic CHF findings at this time. This will continue is current medical regimen. Orders Orders: 3. Mixed hyperlipidemia E78.2 Plan He states he has history of hyperlipidemia. He has not been on lipid lowering therapy. A copy of his lipid profile would be appreciated for continuity of care. 4. Essential hypertension I10 Plan His blood pressure appears to be reasonably well controlled. He will continue medical management. Plan Detail Additional Comments Of note he may have an KATHARINA inhibitor cough based upon his history. Again depending upon his echocardiogram he may be willing to alter his medications from an KATHARINA inhibitor to alternative agents as noted above. That he will proceed with continued outpatient followup. He will proceed with a transthoracic echocardiogram. Following that further recommendations can be made with respect to additional evaluation and care. Thank you for allowing me to participate in the care of your patient. Please don't hesitate to call if any issues arise. This note was generated using a voice recognition system and there may be incorrect words, spelling or punctuation that were not noted when reviewing the office note prior to saving. Follow Up 6 Months Coding Level of Care Code Off vis,new,level 4 Diagnoses Nonischemic cardiomyopathy I42.8 Chronic systolic CHF (congestive heart failure) I50.22 Mixed hyperlipidemia E78.2 Essential hypertension I10 Coding Level of Care Code Off vis,new,level 4 Diagnoses Nonischemic cardiomyopathy I42.8 Chronic systolic CHF (congestive heart failure) I50.22 Mixed hyperlipidemia E78.2 Essential hypertension I10 Supplemental Info Supplemental Information Diagnostics Electrocardiogram 11/25/18 Echocardiogram 12/23/17 Chest X-Ray 10/19/18 11/25/18 1803 <Electronically signed by Fermin Young MD> Date Fermin Young MD Cosigner Signature: Date (if applicable) CC: Shane Rendon MD 12 LEAD EKG PERFORMED Observed: 11/25/2018 Status: F [place] [facility] [place] [facility] [place] [facility] [address] [place] [address] 12 Lead E[place] [facility] [place] 11/25/18 1349 MR#: [id number] Acct: [id number] Name: BHUPINDER CASTRO Rep #: [id number] : 1985 33 From: Fermin Young MD Attending Dr: Fermin Young MD Status: DEP AMB Ordering Dr: Fermin Young MD Date: 11/25/18 [place] [facility] [place] M C Admitted: BMS/12 Lead EKG performed [place] [facility] ECG Report Interpretation Sinus Rhythm Left axis deviationLeft anterior fascicular blockPoor R wave progressionNonspecific T wave abnormalityABNORMAL Electronically signed on 11/25/2018 at 18:17 by Fermin Young Software Version [id number] 11/25/18 1820 Date Fermin Young MD CC: Shane Rendon MD Date Dictated: 11/25/18 134 Date Transcribed: 11/25/181348 Blow Mold Technician: PM Signed 12 LEAD ELECTROCARDIOGRAM Observed: 10/22/2018 Status: F Source: [place] 10:17 AM [facility] [place] [facility] Cardiovascular Services [address] [place] [address] 12 Lead EKG 10/19/18 1356 MR#: [id number] Acct: [id number] Name: BHUPINDER CASTRO Rep #: [id number] : 1985 33 From: Evan Espitia MD Attending Dr: Status: DEP ER Ordering Dr: Leandro Gomes MD Date: 10/19/18 Location: ED Sex: M C Admitted: Test Reason : SOB/PALPS Blood Pressure : / mmHG Vent. Rate : 099 BPM Atrial Rate : 099 BPM P-R Int : 172 ms QRS Dur : 114 ms QT Int : 364 ms P-R-T Axes : 045 -52 094 degrees QTc Int : 467 ms Normal sinus rhythm Left axis deviation Nonspecific T wave abnormality Prolonged QT Abnormal ECG Confirmed by EVAN ESPITIA MD ([id number]), manager editorial TRENA WARREN ([id number]) on 10/22/2018 10:16:26 AM Referred By: KEVIN Confirmed By:EVAN ESPITIA MD 10/22/18 1016 Date Evan Espitia MD CC: Leandro Gomes MD; Shane Rendon MD Signed 12 LEAD ELECTROCARDIOGRAM Observed: 10/22/2018 Status: F Source: [place] 10:16 AM [facility] Cardiovascular Services [address] [place] [address] 12 Lead EKG 10/19/18 1430 MR#: [id number] Acct: [id number] Name: BHUPINDER CASTRO Rep #: [id number] : 1985 33 From: Evan Espitia MD Attending Dr: Status: DEP ER Ordering Dr: Leandro Gomes MD Date: 10/19/18 Location: ED Sex: M C Admitted: Test Reason : REPEAT-CP Blood Pressure : / mmHG Vent. Rate : 092 BPM Atrial Rate : 092 BPM P-R Int : 178 ms QRS Dur : 114 ms QT Int : 372 ms P-R-T Axes : 031 -58 090 degrees QTc Int : 460 ms Normal sinus rhythm Left axis deviation Nonspecific T wave abnormality Prolonged QT Abnormal ECG Confirmed by RYAN MAE, EVAN ([id number]), manager editorial TRENA WARREN ([id number]) on 10/22/2018 10:16:11 AM Referred By: DOUGLAS Confirmed By:EVAN ESPITIA MD 10/22/18 1016 Date Evan Espitia MD CC: Leandro Gomes MD; Shane Rendon MD Signed EMERGENCY DEPARTMENT Observed: 10/21/2018 Status: F Source: [place] SUMMARY 1:05 AM [facility] Medical Records Department [address] [place] [address] Emergency Department Summary 10/19/18 1626 MR#: [id number] Acct: [id number] Name: BHUPINDER CASTRO Rep #: [id number] : 1985 33 From: Leandro Gomes MD PCP: Shane Rendon MD Status: DEP ER - ER Visit Summary Date of Service: 10/19/18 Chief Complaint: Fatigue History of Present Illness: The patient is a [address] Rendon and Dr. Olguin. He reports he has fatigue that began today. He reports he had a poor appetite for 3 days. Patient reports that he has chest pain and shortness of breath with exertion. Also complains of generalized weakness. Patient reports that yesterday he was walking to the bathroom and had a near syncopal episode. He been sitting on the commode when he began feeling a fluttering in his chest and everything went black, but he did not lose postural tone or lose consciousness. He reports that it felt like his heart thump hard. He called for his . She helped him to the bedroom and he laid down and felt improved. Physical Examination: Vitals: 97.5, 163/111, 107, 20, 98% on room air which is not hypoxic. General: Well-nourished and well-developed. Head: Normocephalic atraumatic. Neck: Supple, no lymphadenopathy. No JVD. Nontender. Cardiovascular: Regular rate and rhythm. No murmurs. Respiratory: No respiratory distress. Clear to auscultation bilaterally. Abdominal: Soft, nontender, nondistended, normal bowel sounds. No guarding, rebound, or peritoneal signs. Back: Nontender. Extremities: Nontender, no edema. Skin: Normal color, no rash. Neurologic: Alert and oriented 3. Cranial nerves II through XII are intact. Normal strength and sensation. Psych: Normal affect. Test Results: EKG is sinus at [address] changes. There are T wave inversions laterally. In leads I, aVL, V5, and V6. This is unchanged from February of this year. Repeat EKG is unchanged. CBC is more for white count 13.0 and eosinophils of 6.0. Chem-7 is more for chloride 110. Troponin 0 0.202. Troponin this year has ranged between 0.15-0.18. BTNP is 232. This is range between 157-184 in 2018. Chest x-ray shows cardiomegaly but no CHF. CT brain is normal other than opacification of the right maxillary sinus. Emergency Department Course and Treatment: Patient was given a dose of labetalol IV, Lasix IV, and Ativan IV. I had a prolonged discussion with him about his last visit to his dairy technician which he reports is been more than a year ago. However, he reports that he is compliant with his medications and that he has 2 pills left. Treatment Plan: I discussed the patient with Dr. Young and Dr. Ramirez. He was going to be admitted to the hospital. However, the patient became agitated and insisted on leaving. He will be discharged prescription for carvedilol 25 mg twice daily, Lasix 40 mg daily, lisinopril 40 mg daily, and Paxil 20 mg p.o. daily. Instructed to follow- up with Dr. Young as an outpatient as he is asked for referral to a new dairy technician since Dr. Olguin is retiring. Return to the emergency department for any worsening symptoms. Disposition: To home in improved and stable condition. Impression: 1. Nonischemic cardiomyopathy. 2. Hypertension. 3. History of noncompliance. This note was generated with [employer] dictation software. It may contain incorrect words, spelling, and punctuation that were not noted in review of the chart prior to signing ED Disposition - Plan for ED Patient: Chief Complaint: Shortness of Breath Instructions: ED CHF General Prescriptions: Furosemide [Lasix] 40 mg PO DAILY #30 tablet Lisinopril [Zestril] 40 mg PO DAILY #30 tablet Paroxetine HCl [Paxil] 20 mg PO DAILY #30 tablet Carvedilol [Coreg (Beta Adrian)] 25 mg PO BID #30 tablet Referrals: Fermin Young MD [STAFF PHYSICIAN] - As soon as possible What to do if you have Problems For any increased pain, shortness of breath, bleeding, nausea or vomiting, chest pain, or any unexpected problems, contact your Primary Care Provider. Call [facility] ([phone]) or report to the closest Emergency Room. Call 911 if necessary. 10/21/18 0105 <Electronically signed by Leandro Gomes MD> Date Leandro Gomes MD Cosigner Signature (If Indicated): Date CC: Shane Rendon MD CBC W/DIFF, AUTOMATED Collected: 10/19/2018 Status: F Source: [place] 2:30 PM [facility] TYPE CODE TESTS RESULT OUT OF RANGE REFERENCE UNITS LAB L100.1000 4.4-11.0 K/mm3 High WBC 13.0 LAB L100.1200 4.6-6.2 M/mm3 Normal RBC 5.16 LAB L100.1300 13.0-16.5 g/dl Normal HGB 15.1 LAB L100.1400 40-54 % Normal HCT 44.2 LAB L100.1500 80-94 fL Normal MCV 85.7 LAB L100.1600 27.0-32.0 pg Normal MCH 29.3 LAB L100.1700 32-36 g/gl Normal MCHC 34.2 LAB L100.1810 11.6-14.6 % Normal RDW CV 12.7 LAB L100.1820 35.1-43.9 fl Normal RDW SD 39.7 LAB L100.1900 150-450 K/mm3 Normal PLT 210 LAB L100.2000 6.2-12.0 fl Normal MPV 10.8 LAB L100.2100 47-70 % Normal NEUT% 67.1 LAB L100.2200 19-41 % Normal LY% 21.0 LAB L100.2300 0-10 % Normal MONO% 5.1 LAB L100.2400 0-5 % High EO% 6.0 LAB L100.2500 0-1 % Normal BASO% 0.7 LAB L100.2550 0.0-0.9 % Normal IM GRAN % 0.100 Result Comment: IG% - Immature Granulocytes (promyelocytes, myelocytes and metamyelocytes) > 1% indicates that a LEFT SHIFT is Present. LAB L100.2620 2.0-7.7 X10 3/uL High Absolute Neut 8.7 LAB L100.2720 0.83-4.51 X10 3/ul Normal Absolute Lymph 2.72 Performed By: #### L100.0100 #### [facility] [address] [place], [place], [id number] BASIC METABOLIC Collected: 10/19/2018 Status: F Source: [place] PROFILE (BMP) 2:30 PM [facility] [place] CODE TESTS RESULT OUT OF RANGE REFERENCE UNITS LAB L501.0100 74-106 mg/dL Normal GLU 84 Result Comment: Please note revised GLUCOSE reference range effective 2017. LAB L501.1000 7-18 mg/dL Normal BUN 15 LAB L501.1100 0.70-1.30 mg/dL Normal CREAT,SERUM 0.79 Result Comment: The validity of the calculated GFR AND GFRAA in patients over 70 years has not been determined. Clinical correlation is essential. LAB L501.1110 >60 mL/min Normal EST GFR 121 Result Comment: Non- GFR Calc LAB L501.1115 >60 mL/min Normal EST GFR - AA 147 Result Comment: GFR Calc LAB L501.1255 ml/min Normal Estimated CRCL 148.71 LAB L501.1300 10-20 RATIO BUN/CRE Normal 19.0 LAB L501.2200 8.5-10 mg/dL .1 CA Normal 8.9 LAB L501.5300 136-14 mmol/L 5 NA Normal 139 LAB L501.5600 3.5-5. mmol/L 1 K Normal 3.9 LAB L501.5900 98-107 mmol/L High CL 110 LAB L501.6100 21.0-3 mmol/L 2.0 CO2 Normal 22.0 LAB L501.6200 5-15 GAP Normal 7 Performed By: #### L500.2500, L501.4010 #### [facility], [address] TROPONIN-I Collected: 10/19/2018 Status: F Source: [place] 2:30 PM [facility] [place] CODE TESTS RESULT OUT OF RANGE REFERENCE UNITS LAB L501.4010 <0.045 ng/mL High 0.202 TROPONIN-I Result Comment: TROPONIN-I EXPECTED VALUES <0.045 Negative 0.045 - 0.590 Consistent with Cardiac Damage > OR = 0.600 Critical Value Not every elevated troponin is indicative of WI. These values should be used with clinical judgement in examining the patient's clinical picture for diagnosis. To establish a diagnosis of WI versus myocardial injury, there must be a demonstrated rise and/or fall in the troponin values, in addition to ischemic symptoms, EKG changes, new regional wall motion abnormality, and/or angiographical evidence. PLEASE NOTE: REFERENCE RANGES EDITED 18 Performed By: #### L500.2500, L501.4010 #### [facility] [address] [place], [address] BNP,B-TYPE NATRIURETIC Collected: 10/19/2018 Status: F Source: [place] PEPTIDE 2:30 PM [facility] [place] CODE TESTS RESULT OUT OF RANGE REFERENCE UNITS LAB L503.6620 0-100 pg/mL High B-TYPE 232.0 NASEEM PEP Performed By: #### L503.6620 #### [facility] [address] [place], [address] BRAIN/HEAD WITHOUT Observed: 10/19/2018 Status: F Source: DA[place] CONTRAST 2:17 PM [facility] [place] [facility] Imaging Services [address] [place] [address] Brain/Head without Contrast MR#: [id number] Acct: [id number] Name: BHUPINDER CASTRO Rep #: [id number] : 1985 M 33 From: Pop Posadas MD PCP: Shane Rendon MD Status: REG ER Study: Brain/Head without Contrast Date of Exam: 10/19/18 Exam# [id number] Ordering Dr: Leandro Gomes MD STUDY: CT BRAIN WITHOUT CONTRAST REASON FOR EXAM: Male, 33 years old. Headaches. Shortness of breath. RADIATION DOSAGE (If Supplied By Facility): CTDIvol = ( 60.81 ) mGy, DLP = ( 1135.50 ) mGycm TECHNIQUE: Transaxial CT imaging of the brain was performed without administration of intravenous contrast material. Individualized dose optimization techniques were used for this CT. COMPARISON: Comparison is made with prior study dated December 17, 2016. FINDINGS: Normal soft tissue structures. Normal calvarium. Normal size ventricles and extra-axial spaces for the patient's age. Normal white matter tracts of the cerebral hemispheres. Normal basal ganglia and thalami. Normal brainstem. Normal cerebellum. There is prominence of the cisterna magna. This is a normal variant. There is no intracranial hemorrhage. There are no findings of an acute ischemic infarction. Opacification of the right maxillary sinus. CT/Brain/Head without Contrast IMPRESSION: Normal unenhanced CT scan of the brain. Prominence of the cisterna magna. Opacification of the right maxillary sinus. Electronically Signed: Pop Posadas MD at 15:08 EST Tel [phone], Service support , CC: Leandro Gomes MD; Shane Rendon MD Blow Mold Technician: Signed CHEST PA AND LATERAL Observed: 10/19/2018 Status: F Source: [place] 2:17 PM [facility] [place] [facility] Imaging Services [address] [place] [address] Chest PA and Lateral MR#: [id number] Acct: [id number] Name: BHUPINDER CASTRO Rep #: [id number] : 1985 M 33 From: Pop Posadas MD PCP: Shane Rendon MD Status: REG ER Study: Chest PA and Lateral Date of Exam: 10/19/18 Exam# [id number] Ordering Dr: Leandro Gomes MD STUDY: X-RAY CHEST REASON FOR EXAM: Male, 33 years old. Shortness of breath and dyspnea. TECHNIQUE: PA and lateral views of the chest. COMPARISON: Comparison is made with prior study dated March 08, 2018. FINDINGS: EKG electrodes are seen. The lungs are clear and expanded. There is no demonstrated pleural abnormality. Normal size heart. Normal mediastinum and randolph. Normal visualized pulmonary arteries. Normal visualized aortic arch and descending thoracic aorta. Normal visualized thoracic spine. Normal visualized ribs, clavicles, and shoulders. There is no demonstrated abnormality of the visualized soft tissue structures of the upper abdomen. RAD/Chest PA and Lateral IMPRESSION: Moderate cardiomegaly. Electronically Signed: Pop Posadas MD at 15:14 EST Tel [phone], Service support , CC: Leandro Gomes MD; Shane Rendon MD Blow Mold Technician: Signed XR CHEST 2V FRONTAL/LAT Observed: 09/06/2018 Status: F Source: [place] 2:11 PM [facility] REPOSITORY * * *Final Report* * * DATE OF EXAM: Sep 06 2018 2:11PM WOX [id number] - XR CHEST 2V FRONTAL/LAT / PROCEDURE REASON: Cough * * * * Physician Interpretation * * * * EXAMINATION: CHEST RADIOGRAPH (2 VIEW FRONTAL and LATERAL) CLINICAL HISTORY: Cough MQ: [id number]_5 Comparison: 04/28/2016 RESULT: Bibasilar atelectasis. No focal consolidation, pleural effusion or pneumothorax. Stable cardiomediastinal silhouette. No acute osseous findings. IMPRESSION: No acute radiographic abnormality. Blow Mold Technician: LEENA Transcribe Date/Time: Sep 06 2018 4:29P Dictated by : IMAN CM MD This examination was interpreted and the report reviewed and electronically signed by: IMAN CM MD on Sep 06 2018 4:30PM EST [id number] PROGRESS Observed: 09/06/2018 Status: COMPLETED Source: [place] 2:05 PM [facility] REPOSITORY HNO ID: [id number] Author: Saida Buchanan (Rt) Gaby Soriano Service: (none) Author Type: Duplicator Punch Set Up Operator Type: Progress Notes Filed: 09/06/2018 2:12 PM Note Text: Radiology Service Progress Note PATIENT NAME: Bhupinder Castro DATE OF SERVICE: September 06, 2018 TIME: 2:05 PM PATIENT IDENTITY VERIFICATION COMPLETED USING TWO (2) METHODS: Patient confirmed name verbally and Date of . PATIENT GENDER DATA: Male PATIENT RELEVANT IMPLANT DATA REVIEWED: Not Applicable RADIOLOGY DEPARTMENT: General X-ray: Exam(s) Completed: Chest X-Ray PERIPHERAL IV DATA: Not applicable SIGNED BY: RT Yamila September 06, 2018 2:05 PM CBC AND DIFFERENTIAL Collected: 09/06/2018 Status: F Source: [place] 1:57 PM [facility] REPOSITORY TYPE CODE TESTS RESULT OUT OF REFERENCE UNITS RANGE LAB WBC 3.70-11.00 k/uL WBC 9.82 LAB RBC 4.20-6.00 m/uL RBC 5.13 LAB HGB 13.0-17.0 g/dL Hemoglobin 15.0 LAB HCT 39.0-51.0 % Hematocrit 46.0 LAB MCV 80.0-100.0 fL MCV 89.7 LAB MCH 26.0-34.0 pG MCH 29.2 LAB MCHC 30.5-36.0 g/dL MCHC 32.6 LAB RDWCV 11.5-15.0 % RDW-CV 12.3 LAB PLTCT 150-400 k/uL Platelet Count 216 LAB MPV 9.0-12.7 fL MPV 11.9 LAB ANEUT % Neut% 70.0 LAB AANEUT 1.45-7.50 k/uL Abs Neut 6.87 LAB ALYMP % Lymph% 22.0 LAB AALYMP 1.00-4.00 k/uL Abs Lymph 2.16 LAB AMONO % Ringgold% 4.8 LAB AAMONO <0.87 k/uL Abs Ringgold 0.47 LAB AEOS % Eosin% 2.4 LAB AAEOS <0.46 k/uL Abs Eosin 0.24 LAB ABASO % Baso% 0.8 LAB AABASO <0.11 k/uL Abs Baso 0.08 LAB AUNRBC 0 /100 WBC NRBCs 0.0 LAB ABNRBC <0.01 k/uL Absolute nRBC <0.01 LAB DTYP DTYPE Auto Diff Performed By: #### CBCDIF, BMP, NTBNP #### [facility] [address] [place], [place] [address] BASIC METABOLIC PANL Collected: 09/06/2018 Status: F Source: [place] 1:57 PM [facility] REPOSITORY TYPE CODE TESTS RESULT OUT OF REFERENCE UNITS RANGE LAB GLU 74-99 mg/dL Glucose 82 Result Comment: The [place] Diabetes Association (ADA) provides guidance for cutoff values for fasting glucose and random glucose. The ADA defines fasting as no caloric intake for at least 8 hours. Fas ting plasma glucose results between 100 to 125 mg/dL indicate increased risk for diabetes (prediabetes). Fasting plasma glucose results greater than or equal to 126 mg/dL meet the criteria for diagnosis of diabetes. In the absence of unequivocal hyperglycemia, results should be confirmed by repeat testing. In a patient with classic symptoms of hyperglycemia or hyperglycemic crisis, random plasma glucose results greater than or equal to 200 mg/dL meet the criteria for diagnosis of diabetes. Reference: Standards of Medical Care in Diabetes 2016, [place] [employer] Association. Diabetes Care. 2016.39(Suppl 1). LAB BUN 9-24 mg/dL BUN Low 6 LAB CRET 0.73-1.22 mg/dL Creatinine 0.91 LAB NA 136-144 mmol/L Sodium 140 LAB K 3.7-5.1 mmol/L Potassium 3.9 LAB CL 97-105 mmol/L Chloride 103 LAB CO2 22-30 mmol/L CO2 27 LAB AGAP 9-18 mmol/L Anion Gap 10 LAB CA 8.5-10.2 mg/dL Calcium, Total 9.3 LAB GFRAA eGFR- Amer. >60 LAB GFRNAA . eGFR-All Other Races >60 Result Comment: eGFR (Estimated GFR) Units of measure: mL/min/1.73 meters squared eGFR is derived from the reexpressed MDRD Study equation using the following parameters: serum creatinine, age, gender and race. The creatinine assay has been calibrated to be traceable to IDMS. An eGFR <60 mL/min/1.73m2 for >3 months is consistent with chronic kidney disease. Refer to KDOQI guidelines for clinical interpretation. In patients with unstable renal function, e.g. those with acute kidney injury, the eGFR may not accurately reflect actual GFR. Performed By: #### CBCDIF, BMP, NTBNP #### [facility] [address] [place] [address] NT PRO BNP Collected: 09/06/2018 Status: F Source: [place] 1:57 PM [facility] REPOSITORY TYPE CODE TESTS RESULT OUT OF REFERENCE UNITS RANGE LAB PBNP <125 pg/mL High PRO B Natr 707 Peptide Performed By: #### CBCDIF, BMP, NTBNP #### [facility] [address] [place], [place] [address] PROGRESS Observed: 09/06/2018 Status: COMPLETED Source: [place] 1:04 PM [facility] REPOSITORY HNO ID: [id number] Author: Shane Rendon Service: (none) Author Type: Physician Type: Progress Notes Filed: 09/06/2018 1:47 PM Note Text: Patient presents with: Shortness of Breath Cough HPI: Patient presents today for office visit for follow up. Nursing Notes: Iwona Segovia Ma 09/06/2018 12:39 PM Signed Patient presents today complaining of increased cough. Duration: since thursday. Cough is productive:YES, blood and dark brown mucos. Fever: :did not check. Shortness of breath:YES, with wheezing. Sore throat :No. Ear Pain :No. Chest Pain :Some. Patient vomited this morning. He c/o headache. Previous treatments tried: none. Has not been checking meds. Has been taking meds regularly. Had lost weight down at 279 and has been not following the diet. He thinks he has been gaining weight. Had most recently been 290-300. No swelling. No chest pain. Thursday had increased cough. Sat am felt worse. Noted some blood around his mouth when he woke up over the weekend. No sinus congestion. had noted him wheezing. No fever or chills. Overdue to follow with cardiology Discussed possibility of influenza. Flu is now widespread in this area. We can only test for it with regular nasal swabs and testing will not change our clinical course at this point. The patient is in a high risk group and is within 48 hours so would be a typical candidate for antiviral therapy. MEDICATIONS: Current Outpatient Prescriptions: lisinopril (PRINIVIL) 20 mg tablet Take 1 tablet by mouth once daily. furosemide (LASIX) 40 mg tablet Take 1 tablet by mouth once daily as needed (Swelling). carvedilol (COREG) 25 mg tablet Take 1 tablet by mouth twice daily with meals. No current facility-administered medications for this visit. ALLERGIES: ALLERGIES Allergen Reactions - Perflutren GI Upset - [place] Hives PAST MEDICAL HISTORY Diagnosis Date - GERD (gastroesophageal reflux disease) - HTN (hypertension) for the last 14 years or so - NICM (nonischemic cardiomyopathy) (HCC) - Obesity PAST SURGICAL HISTORY Procedure Laterality Date - EGD W/O OR W/BRUSH/WASH 04/02/2016 EGD - EP STUDY 10/2014 - HEART CATHETERIZATION 10/2014 - ICD (ICD) 04/28/16 - TONSILLECTOMY HX 1997 FAMILY HISTORY Problem Relation Age of Onset - other (arrythmia) Mother unsure what type - other (HTN) Mother - Ischemic Heart Disease Father CABG mid 50s, ot sepsis - other (CHF) Father - other (DM) Father - other (HTN) Father - other (hypertension) Brother - other (HTN) Brother - None Sister - None Brother Social History Marital status: Single Spouse name: Years of education: Number of children: 2 Social History Main Topics Smoking status: Current Some Day Smoker Packs/day: 0.00 Years: 15.00 Types: Cigarettes Smokeless tobacco: Never Used Comment: a couple cigarettes a week Alcohol use: No Drug use: Yes Comment: Last smoked marijuana 02/2016. Reviewed current medications, allergies, past medical history, surgical history, family history and social history today. REVIEW OF SYSTEMS All other reviewed and negative other than HPI. HEALTH MAINTENANCE: Reviewed health maintenance issues today and recommended the following in detail. BP CONTROLLED (<130/80) due on 2005 DTAP,TDAP,TD(1 - Tdap) due on 2006 ONE PNEUMOVAX PRIOR TO AGE 65 due on 2006 INFLUENZA(1) due on 07/10/2018 VITALS: BP 152/106 Pulse 102 Wt (!) 137.9 kg (304 lb) SpO2 95% BMI 41.23 kg/m? Last 4 Encounter Wt Readings: Date: Wt: 09/06/2018 137.9 kg (304 lb) 04/15/2018 136.1 kg (300 lb) 03/25/2018 137.4 kg (303 lb) 03/11/2018 138.3 kg (305 lb) PHYSICAL EXAMINATION: General appearance: Well appearing, alert, in no acute distress, well-hydrated, well nourished. Skin: Skin color, texture, turgor normal, no suspicious rashes or lesions Head: Normocephalic, no masses, lesions, tenderness or abnormalities Eyes: Anicteric sclera. Pupils are equally round and reactive to light. Extraocular movements are intact. Ears: External ears normal, canals clear Nose/Sinuses: Nares normal, septum midline, mucosa normal, no drainage or sinus tenderness Oropharynx: Lips, mucosa, and tongue normal, teeth and gums normal, oropharynx normal Neck: supple, no lymphadenopathy. Lungs: Positive findings: wheezing Heart: RRR without murmur, gallop, or rubs. No ectopy Abdomen: Normal abdominal exam, Abdomen soft, non-tender. Bowel sounds normal. No masses, organomegaly Extremities: No deformities, edema, skin discoloration, clubbing or cyanosis. Good capillary refill. Given unit dose aerosol and breathing better. Less wheeze. Feels it helps. ASSESSMENT/PLAN: 1. Cough - ICD9: 786.2, ICD10: R05 (primary diagnosis) - call if any issues. Discussed risks and benefits of new medication with the patient. Advised them to call if any side effects or questions. - Red flags for re-assessment reviewed with patient in detail. - cover empirically for influenza. Discussed risks and benefits of new medication with the patient. Advised them to call if any side effects or questions. - XR CHEST 2V FRONTAL/LAT - ALBUTEROL SULFATE 1.25 MG/3 ML SOLUTION FOR NEBULIZATION - CBC + DIFF - BASIC METABOLIC PNL - NT PRO BNP - call if hemoptysis continues or worsens. 2. Congestive heart failure, unspecified HF chronicity, unspecified heart failure type (HCC) - ICD9: 428.0, ICD10: I50.9 - CONSULT TO CARDIOLOGY 3. Heart failure, chronic systolic (HCC) - ICD9: 428.22, ICD10: I50.22 - call if any issues. 4. Essential hypertension - ICD9: 401.9, ICD10: I10 - suboptimal control - increase lisinopril and recheck bp 5. CURTIS (obstructive sleep apnea) - ICD9: 327.23, ICD10: G47.33 6. Wheezing - ICD9: 786.07, ICD10: R06. - ALBUTEROL SULFATE 1.25 MG/3 ML SOLUTION FOR NEBULIZATION - ALBUTEROL SULFATE HFA 90 MCG/ACTUATION AEROSOL INHALER - OSELTAMIVIR 75 MG CAPSULE Prn. CNOV Observed: 09/06/2018 Status: COMPLETED Source: [place] 12:20 PM [facility] REPOSITORY Office Visit (FAMPWS) BHUPINDER ACSTRO ([id number]) 1985 M Date Time Provider Department 09/06/18 12:20 PM SHANE RENDON During your visit today, we recorded the following information about you: Pulse Blood pressure Weight 102/minute 150/98 137.9 kg Iwona Simmonscarmen Little 09/06/2018 12:39 PM Signed Patient presents today complaining of increased cough. Duration: since thursday. Cough is productive:YES, blood and dark brown mucos. Fever: :did not check. Shortness of breath:YES, with wheezing. Sore throat :No. Ear Pain :No. Chest Pain :Some. Patient vomited this morning. He c/o headache. Previous treatments tried: none. Shane Rendon MD 09/06/2018 1:47 PM Signed Patient presents with: Shortness of Breath Cough HPI: Patient presents today for office visit for follow up. Nursing Notes: Iwona Simmonscarmen Little 09/06/2018 12:39 PM Signed Patient presents today complaining of increased cough. Duration: since thursday. Cough is productive:YES, blood and dark brown mucos. Fever: :did not check. Shortness of breath:YES, with wheezing. Sore throat :No. Ear Pain :No. Chest Pain :Some. Patient vomited this morning. He c/o headache. Previous treatments tried: none. Has not been checking meds. Has been taking meds regularly. Had lost weight down at 279 and has been not following the diet. He thinks he has been gaining weight. Had most recently been 290-300. No swelling. No chest pain. Darek had increased cough. Sat am felt worse. Noted some blood around his mouth when he woke up over the weekend. No sinus congestion. had noted him wheezing. No fever or chills. Overdue to follow with cardiology Discussed possibility of influenza. Flu is now widespread in this area. We can only test for it with regular nasal swabs and testing will not change our clinical course at this point. The patient is in a high risk group and is within 48 hours so would be a typical candidate for antiviral therapy. MEDICATIONS: Current Outpatient Prescriptions: lisinopril (PRINIVIL) 20 mg tablet Take 1 tablet by mouth once daily. furosemide (LASIX) 40 mg tablet Take 1 tablet by mouth once daily as needed (Swelling). carvedilol (COREG) 25 mg tablet Take 1 tablet by mouth twice daily with meals. No current facility-administered medications for this visit. ALLERGIES: ALLERGIES Allergen Reactions - Perflutren GI Upset - [place] Hives PAST MEDICAL HISTORY Diagnosis Date - GERD (gastroesophageal reflux disease) - HTN (hypertension) for the last 14 years or so - NICM (nonischemic cardiomyopathy) (HCC) - Obesity PAST SURGICAL HISTORY Procedure Laterality Date - EGD W/O OR W/BRUSH/WASH 04/02/2016 EGD - EP STUDY 10/2014 - HEART CATHETERIZATION 10/2014 - ICD (ICD) 04/28/16 - TONSILLECTOMY HX 1997 FAMILY HISTORY Problem Relation Age of Onset - other (arrythmia) Mother unsure what type - other (HTN) Mother - Ischemic Heart Disease Father CABG mid 50s, ot sepsis - other (CHF) Father - other (DM) Father - other (HTN) Father - other (hypertension) Brother - other (HTN) Brother - None Sister - None Brother Social History Marital status: Single Spouse name: Years of education: Number of children: 2 Social History Main Topics Smoking status: Current Some Day Smoker Packs/day: 0.00 Years: 15.00 Types: Cigarettes Smokeless tobacco: Never Used Comment: a couple cigarettes a week Alcohol use: No Drug use: Yes Comment: Last smoked marijuana 02/2016. Reviewed current medications, allergies, past medical history, surgical history, family history and social history today. REVIEW OF SYSTEMS All other reviewed and negative other than HPI. HEALTH MAINTENANCE: Reviewed health maintenance issues today and recommended the following in detail. BP CONTROLLED (<130/80) due on 2005 DTAP,TDAP,TD(1 - Tdap) due on 2006 ONE PNEUMOVAX PRIOR TO AGE 65 due on 2006 INFLUENZA(1) due on 07/10/2018 VITALS: BP 152/106 Pulse 102 Wt (!) 137.9 kg (304 lb) SpO2 95% BMI 41.23 kg/m? Last 4 Encounter Wt Readings: Date: Wt: 09/06/2018 137.9 kg (304 lb) 04/15/2018 136.1 kg (300 lb) 03/25/2018 137.4 kg (303 lb) 03/11/2018 138.3 kg (305 lb) PHYSICAL EXAMINATION: General appearance: Well appearing, alert, in no acute distress, well-hydrated, well nourished. Skin: Skin color, texture, turgor normal, no suspicious rashes or lesions Head: Normocephalic, no masses, lesions, tenderness or abnormalities Eyes: Anicteric sclera. Pupils are equally round and reactive to light. Extraocular movements are intact. Ears: External ears normal, canals clear Nose/Sinuses: Nares normal, septum midline, mucosa normal, no drainage or sinus tenderness Oropharynx: Lips, mucosa, and tongue normal, teeth and gums normal, oropharynx normal Neck: supple, no lymphadenopathy. Lungs: Positive findings: wheezing Heart: RRR without murmur, gallop, or rubs. No ectopy Abdomen: Normal abdominal exam, Abdomen soft, non-tender. Bowel sounds normal. No masses, organomegaly Extremities: No deformities, edema, skin discoloration, clubbing or cyanosis. Good capillary refill. Given unit dose aerosol and breathing better. Less wheeze. Feels it helps. ASSESSMENT/PLAN: 1. Cough - ICD9: 786.2, ICD10: R05 (primary diagnosis) - call if any issues. Discussed risks and benefits of new medication with the patient. Advised them to call if any side effects or questions. - Red flags for re-assessment reviewed with patient in detail. - cover empirically for influenza. Discussed risks and benefits of new medication with the patient. Advised them to call if any side effects or questions. - XR CHEST 2V FRONTAL/LAT - ALBUTEROL SULFATE 1.25 MG/3 ML SOLUTION FOR NEBULIZATION - CBC + DIFF - BASIC METABOLIC PNL - NT PRO BNP - call if hemoptysis continues or worsens. 2. Congestive heart failure, unspecified HF chronicity, unspecified heart failure type (HCC) - ICD9: 428.0, ICD10: I50.9 - CONSULT TO CARDIOLOGY 3. Heart failure, chronic systolic (HCC) - ICD9: 428.22, ICD10: I50.22 - call if any issues. 4. Essential hypertension - ICD9: 401.9, ICD10: I10 - suboptimal control - increase lisinopril and recheck bp 5. CURTIS (obstructive sleep apnea) - ICD9: 327.23, ICD10: G47.33 6. Wheezing - ICD9: 786.07, ICD10: R06. - ALBUTEROL SULFATE 1.25 MG/3 ML SOLUTION FOR NEBULIZATION - ALBUTEROL SULFATE HFA 90 MCG/ACTUATION AEROSOL INHALER - OSELTAMIVIR 75 MG CAPSULE Prn. Kavya Jordan LPN 09/06/2018 1:29 PM Signed Albuterol 2.5 mg solution aerosol treatment given per doctor's order at 1:19pm. Lot # [id number], Expiration date 07/28. O2 sat is 96% on room air post-treatment.. Patient tolerated treatment with no adverse effects. Kavya Jordan LPN Referring Provider: SELF [200] Allergies As of Date: 09/06/2018 Noted Allergy Reaction PERFLUTREN 12/24/2017 8 - GI Upset TURKEY 10/05/2015 4 - Hives Date Reviewed: 04/16/2018 Reviewed by: Carolyn (Rn) GOMEZ Schroeder - Fully Assessed Reason for Visit: Shortness of Breath [227] Cough [28] Primary Visit Diagnosis:Cough [R05] Other Visit Diagnoses:Congestive heart failure, unspecified HF chronicity, unspecified heart failure type (HCC) [I50.9] Heart failure, chronic systolic (HCC) [I50.22] Essential hypertension [I10] CURTIS (obstructive sleep apnea) [G47.33] Wheezing [R06.2] Hemoptysis [R04.2] Order(s):CONSULT TO CARDIOLOGY [9004] Order #: [id number]: 1 XR CHEST 2V FRONTAL/LAT [[id number]] Order #: [id number] FUTURE [] Albuterol Sulfate nebu 2.5 mgDisp: Rfl: albuterol HFA (VENTOLIN HFA) 90 mcg/actuation inhalerInhale 2 Puffs as instructed every 4 hours as needed.Disp: 1 InhalerRfl: 0 oseltamivir (TAMIFLU) 75 mg capsuleTake 1 capsule by mouth twice daily for 5 days.Disp: 10 capsuleRfl: 0 CBC + DIFF [SQCBCDIF] Order #: [id number] FUTURE BASIC METABOLIC PNL [SQBMP] Order #: [id number] FUTURE NT PRO BNP [SQNTBNP] Order #: [id number] FUTURE lisinopril (ZESTRIL,PRINIVIL) 30 mg tabletTake 1 tablet by mouth once daily.Disp: 30 tabletRfl: 5 carvedilol (COREG) 25 mg tabletTake 1 tablet by mouth twice daily with meals.Disp: 60 tabletRfl: 11 Prescriptions as of 09/06/2018 Sig: ALBUTEROL SULFATE HFA 90 MCG/* Inhale 2 Puffs as instructed * OSELTAMIVIR 75 MG CAPSULE Take 1 capsule by mouth twice* LISINOPRIL 30 MG TABLET Take 1 tablet by mouth once d* CARVEDILOL 25 MG TABLET Take 1 tablet by mouth twice * FUROSEMIDE 40 MG TABLET Take 1 tablet by mouth once d* Problem List As Of Date 09/06/2018 Noted Resolved Heart failure, chronic systolic (HCC) [I50.22] INVALID FOR* Priority: B More... Hypertension [I10] INVALID FOR* Tobacco abuse [Z72.0] INVALID FOR* Syncope [R55] INVALID FOR*12/17/2016 Priority: A More... DISPOSITION AND FOLLOW-UP INVALID FOR*12/17/2016 More... Depression [F32.9] INVALID FOR*12/24/2016 Priority: E More... Nausea [R11.0] 12/17/2016 Heart failure, left, with LVEF <=30% (HCC) [I50*INVALID FOR* Constitutional obesity [E66.8] INVALID FOR* CURTIS (obstructive sleep apnea) [G47.33] INVALID FOR* Heart failure (HCC) [I50.9] INVALID FOR*08/15/2016 Palpitations [R00.2] INVALID FOR* Priority: A Obesity, Class III, BMI 40-49.9 (morbid obesity*INVALID FOR* Left ureteral calculus [N20.1] INVALID FOR* Visit Notes: >> Iwona Segovia Ma Mon Sep 06, 2018 12:35 PM Status: Signed Patient presents today complaining of increased cough. Duration: since thursday. Cough is productive:YES, blood and dark brown mucos. Fever: :did not check. Shortness of breath:YES, with wheezing. Sore throat :No. Ear Pain :No. Chest Pain :Some. Patient vomited this morning. He c/o headache. Previous treatments tried: none. >> Kavya Jordan LPN Mon Sep 06, 2018 1:28 PM Status: Signed Albuterol 2.5 mg solution aerosol treatment given per doctor's order at 1:19pm. Lot # [id number], Expiration date 07/28. O2 sat is 96% on room air post-treatment.. Patient tolerated treatment with no adverse effects. Kavya Pedrojesicae PROSTHETICS LAB TECHNICIAN Prescriptions ordered this encounter Disp Refills Start End ALBUTEROL SULFATE 1.25 MG/3 ML SOLUT* 09/06/2018 09/06/2018 Route: INHALATION ALBUTEROL SULFATE HFA 90 MCG/ACTUATI* 1 In* 0 09/06/2018 Route: INHALATION Sig: Inhale 2 Puffs as instructed every 4 hours as needed. OSELTAMIVIR 75 MG CAPSULE 10 c* 0 09/06/2018 09/11/2018 Route: ORAL Sig: Take 1 capsule by mouth twice daily for 5 days. LISINOPRIL 30 MG TABLET 30 t* 5 09/06/2018 Route: ORAL Sig: Take 1 tablet by mouth once daily. CARVEDILOL 25 MG TABLET 60 t* 11 09/06/2018 Route: ORAL Sig: Take 1 tablet by mouth twice daily with meals. Medications Discontinued During This Encounter lisinopril (PRINIVIL) 20 mg tablet 30 t* 11 03/25/2018 09/06/2018 Class: Print RX Route: ORAL Sig: Take 1 tablet by mouth once daily. Disc: Reason for discontinue is not on file. carvedilol (COREG) 25 mg tablet 60 t* 11 03/11/2018 09/06/2018 Route: ORAL Sig: Take 1 tablet by mouth twice daily with meals. Disc: Reason for discontinue is not on file. Disposition: Return in about 6 months (around 03/07/2019). Follow-up and Disposition History Recorded Letter Text [facility] [address], [place] [address] Bhupinder Castro [address] [place] [id number] Clinic #: [id number] 09/06/2018 Off work today and tomorrow. Sincerely: Shane Rendon MD Encounter Status:Closed by SHANE RENDON MD on 09/06/18 ANES POST Observed: 04/16/2018 Status: COMPLETED Source: [facility] 8:56 PM [facility] [place] REPOSITORY HNO ID: [id number] Author: Patricia Owens Service: Anesthesiology Author Type: Physician Type: Anesthesia PostOp Filed: 04/16/2018 10:00 PM Note Text: POST ANESTHESIA EVALUATION NOTE SERVICE DATE: 04/16/2018 SERVICE TIME: 10:00 PM : 1985 Vitals: 04/16/18 1711 04/16/18 1740 04/16/18 1830 04/16/18 1904 Temp: 36.5 ?C (97.7 ?F) 36.5 ?C (97.7 ?F) 36.5 ?C (97.7 ?F) 36.7 ?C (98.1 ?F) 04/16/18174404/16/18 1800 04/16/18 18304/16/18 1904 BP: 150/82 148/78 145/79 131/99 04/16/18 17404/16/18 1800 04/16/18 1830 04/16/18 1904 Pulse: 61 (!) 56 68 67 04/16/18 17404/16/18 1800 04/16/18 1830 04/16/18 1904 Resp: 15 15 18 18 04/16/18 17404/16/18 1800 04/16/18 18304/16/18 190 SpO2: 97% 96% 94% 97% Validated Vital Signs: Yes POST ANES STATUS: No apparent anesthetic complications. The patient is appropriately hydrated with stable respiratory and cardiovascular status. Patient has safe and adequate airway control. The patient has appropriate pain relief and no significant post operative nausea or vomiting. The patient has achieved baseline mental status. Further assessment by Anesthesia Service: None Other Remarks: SIGNATURE: Patricia Owens MD PATIENT NAME: Bhupinder Castro DATE: April 16, 2018 TIME: 10:00 PM PAGER/CONTACT #: [phone] NURSING PROG Observed: 04/16/2018 Status: COMPLETED Source: [facility] 8:55 PM [facility] [place] REPOSITORY HNO ID: [id number] Author: Nelda AvitiaRn) Mio Schultz RN Service: (none) Author Type: Registered Nurse Type: Nursing Progress Note Filed: 04/16/2018 8:57 PM Note Text: Pt reported post op pain that resolved after urinating. Reported passing several small stone fragments. Pain is now 1/10. Dr Fonseca aware of pt status. Ok'd to D/C. CNDS Observed: 04/16/2018 Status: COMPLETED Source: [facility] 5:20 PM CLINIC OTHER CAMPUS REPOSITORY HNO ID: [id number] Author: Kalpesh Tan Service: Urology Author Type: Resident Type: Discharge Summaries Filed: 04/16/2018 5:21 PM Note Text: DISCHARGE NOTE (Patient Admitted Less than 48 Hours) SERVICE DATE: 04/16/2018 SERVICE TIME: 5:20 PM ADMISSION DATE: 04/15/2018 DISCHARGE DISPOSITION: Home/Self Care General: Alert, in no acute distress Head: Normocephalic, atraumatic Neck: supple, trachea is midline, no obvious masses Respiratory: normal effort, no audible wheezes Cardiovascular: regular pulse and no cyanosis Musculoskeletal: moving all extremities, normal tone Skin: warm and dry Psych: normal mood and affect, oriented Abdomen: soft, non distended, non tender, no organomegaly, no hernias DIET: Regular ACTIVITY AFTER DISCHARGE: Resume pre-hospital activity FOLLOW UP CARE REQUIRED: Abdominal X ray in 4 weeks, follow up with Dr. Joshi afterwards DISCHARGE MEDICATIONS (ONLY ACTIVATE WHEN READY TO DISCHARGE): Current Discharge Medication List START taking these medications HYDROcodone-acetaminophen (NORCO) 1 tablet Take 1 tablet by mouth every 6 hours as needed. Earliest Fill Date: 04/16/18 Qty: 20 tablet Refills: 0 Associated Diagnoses:Left ureteral calculus CONTINUE these medications which have NOT CHANGED lisinopril (ZESTRIL, PRINIVIL) 20 mg Take 20 mg by mouth once daily. Qty: 30 tablet Refills: 11 furosemide (LASIX) 40 mg Take 40 mg by mouth once daily as needed (Swelling). Qty: 30 tablet Refills: 11 Associated Diagnoses:Acute on chronic systolic CHF (congestive heart failure) (HCC) carvedilol (COREG) 25 mg Take 25 mg by mouth twice daily with meals. Qty: 60 tablet Refills: 11 Associated Diagnoses:Heart failure, chronic systolic (HCC) FINAL DIAGNOSIS: Left ureteral calculus SIGNATURE: Kalpesh Tan MD PATIENT NAME: Bhupinder Castro DATE: April 16, 2018 TIME: 5:20 PM PAGER: [phone] OPERATIVE NO Observed: 04/16/2018 Status: COMPLETED Source: [facility] 5:15 PM [facility] REPOSITORY HNO ID: [id number] Author: Scotty Joshi Service: Urology Author Type: Physician Type: Operative Report Filed: 04/19/2018 8:55 AM Note Text: UROLOGY OPERATIVE REPORT PATIENT NAME: Bhupinder Castro DATE OF : 1985 TODAY'S DATE: 04/16/18 PreOp Dx: Left ureteral calculus PostOp Dx: Same Operation: Left extracorporeal shockwave lithotripsy Surgeon: Scotty Joshi MD Assist: Kalpesh Tan MD EBL Minimal Drains/Stent: None Jaime: None Specimen: None Medications/fluids: Per anesthesia notes Condition To PACU Indications: Bhupinder Castro is a 32 year old patient who presents with a left ureteral calculus. After having a discussion on treatment options, risks and benefits, the patient wishes to proceed forward with surgical intervention Patient was brought to the operating room and identified using name band/number. A thorough time out was performed and everyone present was in agreement. Patient was placed on OR table. Anesthesia and lines were maintained by the anesthesia team. Description of Procedure: Patient was placed in the supine position. Using flouroscopic visualization, the calculus was able to be visualized. The focal point of the lithotripter was positioned over the stone in a three dimensional coordinate plane via an [id number] approach. A total of 2500 shocks were delivered with fluoroscopic guidance. There was fragmentation of the stone seen at the termination of the procedure. Patient awoken from anesthesia having tolerated the procedure well. Bhupinder Castro Was transferred to recovery room. SIGNATURE: Kalpesh Tan MD PATIENT NAME: Bhupinder Castro DATE: 04/16/2018 TIME: 5:15 PM PAGER: [phone] I was present for the critical and rios portions of the surgery and I was immediately available to provide assistance. Grace Temple PREOP Observed: 04/16/2018 Status: COMPLETED Source: [facility] 4:15 PM [facility] REPOSITORY HNO ID: [id number] Author: Rambo Wells Service: Anesthesiology Author Type: Physician Type: Anesthesia PreOp Filed: 04/16/2018 4:16 PM Note Text: ANESTHESIOLOGY DAY OF SURGERY NOTE SERVICE DATE: 04/16/2018 SERVICE TIME: 1530 : 1985 Procedure(s) (LRB): EXTRACORPOREAL SHOCKWAVE LITHOTRIPSY UNILATERAL (Left) INSERTION STENT DOUBLE J (Left) Surgeon(s): Scotty Joshi Estimated body mass index is 40.69 kg/m? as calculated from the following: Height as of this encounter: 182.9 cm (6'). Weight as of this encounter: 136.1 kg (300 lb). Most recent hematocrit and potassium results: Hematocrit 40.6 04/16/2018 Potassium 4.0 04/16/2018 ANES DOS/PREOP NOTE: Vitals: 04/16/18 0411 04/16/18 0750 04/16/18 1100 04/16/18 1536 BP: 109/63 143/73 147/85 168/107 Pulse: 67 75 71 (!) 58 Resp: 18 16 Temp: 36.6 ?C (97.9 ?F) 36.2 ?C (97.2 ?F) 36.4 ?C (97.5 ?F) 36.2 ?C (97.2 ?F) TempSrc: Temporal Artery Temporal Artery Temporal Artery Temporal Artery SpO2: 97% 97% 100% 100% Weight: Height: ACTIVE PROBLEM LIST Heart Failure, Chronic Systolic (Hcc) Hypertension Tobacco Abuse Heart Failure, Left, With Lvef <=30% (Hcc) Constitutional Obesity Curtis (Obstructive Sleep Apnea) Palpitations Obesity, Class Iii, Bmi 40-49.9 (Morbid Obesity) (Hcc) Left Ureteral Calculus PAST MEDICAL HISTORY Diagnosis Date - GERD (gastroesophageal reflux disease) - HTN (hypertension) for the last 14 years or so - NICM (nonischemic cardiomyopathy) (HCC) - Obesity PAST SURGICAL HISTORY Procedure Laterality Date - EGD W/O OR W/BRUSH/WASH 04/02/2016 EGD - EP STUDY 10/2014 - HEART CATHETERIZATION 10/2014 - ICD (ICD) 04/28/16 - TONSILLECTOMY HX 1997 FAMILY HISTORY Problem Relation Age of Onset - arrythmia [OTHER] Mother unsure what type - HTN [OTHER] Mother - Ischemic Heart Disease Father CABG mid 50s, ot sepsis - CHF [OTHER] Father - DM [OTHER] Father - HTN [OTHER] Father - hypertension [OTHER] Brother - HTN [OTHER] Brother - None Sister - None Brother Social History: Social History Substance Use Topics - Smoking status: Current Some Day Smoker Years: 15.00 Types: Cigarettes - Smokeless tobacco: Never Used Comment: a couple cigarettes a week - Alcohol use No No current facility-administered medications on file prior to encounter. Current Outpatient Prescriptions on File Prior to Encounter: lisinopril (PRINIVIL) 20 mg tablet Take 1 tablet by mouth once daily. furosemide (LASIX) 40 mg tablet Take 1 tablet by mouth once daily as needed (Swelling). carvedilol (COREG) 25 mg tablet Take 1 tablet by mouth twice daily with meals. Current Facility-Administered Medications: [MAR Hold due to Transfer] carvedilol 25 mg tab(s) (COREG) 25 mg ORAL BID w MEALS Kalpesh (Gil) Dominick 25 mg at 04/16/18809 [MAR Hold due to Transfer] lisinopril 20 mg tab(s) (ZESTRIL, PRINIVIL) 20 mg ORAL DAILY Kalpesh (Res) Dominick 20 mg at 04/16/18809 [MAR Hold due to Transfer] oxyCODONE-acetaminophen 5-325 mg 1-2 tablet (PERCOCET) 1-2 tablet ORAL q 4 H PRN Kalpesh (Res) Dominick [MAR Hold due to Transfer] morphine 1-2 mg injection 1-2 mg INTRAVENOUS q 2 H PRN Kalpesh (Res) Dominick [MAR Hold due to Transfer] ondansetron (PF) 4 mg injection (ZOFRAN) 4 mg INTRAVENOUS q 6 H PRN Kalpesh (Res) Dominick [MAR Hold due to Transfer] tamsulosin ER 0.4 mg cap(s) (FLOMAX) 0.4 mg ORAL DAILY Kalpesh (Res) Dominick 0.4 mg at 04/16/18809 [MAR Hold due to Transfer] enoxaparin 40 mg injection (LOVENOX) 40 mg SUBCUTANEOUS DAILY Kalpesh (Res) Dominick [MAR Hold due to Transfer] ibuprofen 600 mg tab(s) (MOTRIN) 600 mg ORAL q 6 H Kalpesh (Res) Dominick [MAR Hold due to Transfer] acetaminophen 650 mg tab(s) (TYLENOL) 650 mg ORAL q 4 H PRN Kalpesh (Res) Dominick [MAR Hold due to Transfer] ceFAZolin iv piggyback 2 g in D5W (iso-osmotic) 100 mL (ANCEF) 2 g INTRAVENOUS X (OR/PROCEDURE) PRN Kalpesh (Res) Dominick [MAR Hold due to Transfer] docusate sodium 100 mg cap(s) (COLACE) 100 mg ORAL BID Kalpesh (Res) Dominick 100 mg at 04/15/182020 Allergies: ALLERGIES Allergen Reactions - Perflutren GI Upset - [place] Hives DOS EXAM: Adequate NPO status: Yes Anesthetic risks, benefits, alternatives, personnel and consent discussed: Yes Patient agrees to proceed: Yes Previous Anesthesia: No history of adverse event. Airway Assessment: MP 2; Neck ROM: Full ROM without neurologic symptoms; Airway Evaluation: Thick neck and Vidal Present Symptoms of Sleep Apnea: None Dentition: Teeth intact Additional Physical Exam: Lungs: Lungs clear to auscultation. Good diaphragmatic excursion. Cardiac: normal S1 and S2; no rubs, no murmurs, and no gallops Additional Pertinent Findings: N/A Blood Products: Not anticipated for this procedure. Anesthetic Plan: General, Standard ASA Monitors Pain Management Plan: Parenteral or Oral ASA Class: 3 Other Medical Problems: None Chronic Beta Adrian medication administered within 24 hours: Yes I have interviewed and examined the patient. I have reviewed the medical record and/or the pre-anesthesia evaluation, pertinent labs, and test results. Significant changes in the patient's condition since the History and Physical, not otherwise documented in primary service progress notes: No This contains updated information obtained within 48 hours of Surgery/Procedure. SIGNATURE: Rambo Wells MD PATIENT NAME: Bhupinder Castro DATE: April 16, 2018 TIME: 4:15 PM CSN: [id number] NURSING PROG Observed: 04/16/2018 Status: COMPLETED Source: [facility] 11:52 AM CLINIC OTHER CAMPUS REPOSITORY HNO ID: [id number] Author: Kris (Rn) GOMEZ Richard Service: (none) Author Type: Registered Nurse Type: Nursing Progress Note Filed: 04/16/2018 11:56 AM Note Text: Nursing Progress Note Patient Name: Bhupinder Castro Patient Location: [id number]/[id number]* Dr David aware patients heart rate went down to 39 and that it stayed in the 40's for a brief time. Dr david aware patient was asymptomatic when heart was in 40's and that the patient is currently in the 60's-70's. No new orders at this time. This note was completed by: Kris Richard RN SOCIAL WORK Observed: 04/16/2018 Status: COMPLETED Source: [facility] 10:43 AM CLINIC OTHER CAMPUS REPOSITORY HNO ID: [id number] Author: Jaspreet Haynes (Sw) Service: Social Work Author Type: Chief Knowledge Officer Type: Social Work Filed: 04/16/2018 10:48 AM Note Text: SOCIAL WORK PROGRESS NOTE SERVICE DATE: 04/16/2018 SERVICE TIME: 10:30 am LOS: 1 day Advanced Directives SW was consulted to assist pt with advanced directives and for medication assistance. PT reported that he does not currently have health insurance . SW completed an indigent medications form and placed it on patients chart. PT reported that he recently completed an HCAP application for his last hospital visit. CM Stated that she contacted [facility] to assess if pt in appropriate for medicaid. Pt reported that he is not currently interested in completed advanced directives, but did report that he would like a copy of the documents to look over. JANETTE educated pt on the purpose and use of the documents. No Further SW needs at this time. Time Spent (minutes): 15 SIGNATURE: KEVIN Romano PATIENT NAME: Bhupinder Castro DATE: April 16, 2018 TIME: 10:43 AM PAGER/CONTACT #: [phone] CASE MGT INIT Observed: 04/16/2018 Status: COMPLETED Source: [facility] 10:20 AM [facility] [place] REPOSITORY HNO ID: [id number] Author: Morenita Fernandez RN Service: Care Management Author Type: Registered Nurse Type: Care Mgt Initial Assessment Filed: 04/16/2018 10:23 AM Note Text: CARE MANAGEMENT: ASSESSMENT AND DISCHARGE PLAN SERVICE DATE: 04/16/2018 SERVICE TIME: 1020 PRIMARY CARE PHYSICIAN: Shane Rendon MD ADMISSION STATUS: Inpatient 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 No Advance Directive: Health Literacy: 1. How often do you need to have someone help you when you read instructions, pamphlets, or other written material from your doctor or pharmacy? Never - 1 2. How confident are you filling out medical forms by yourself? Extremely - 1 If Patient scores > 3 on either question, the following interventions were put into place: Patient did not score > 3 FUNCTIONAL AND COGNITIVE/BEHAVIORAL PRIOR TO ADMISSION: Baseline Mental Status: Alert AND Oriented, Person, Place , Time and Situation Functional Status: Independent Does Patient Currently Receive Any Community Services or Home Care? None Equipment Prior to Admission: None Has the Patient Been in a Penitentiary Facility in the Past 30 days? No SOCIAL: Living Arrangement: Home Lives With: Mother Financial Resources: Unemployed Primary Contact: Extended Emergency Contact Information Primary Emergency Contact: Elvia Castro Mobile Relation: Mother Secondary Emergency Contact: CharlieCarly Mobile Relation: Sister Supportive: Yes Other Important Patient Contacts: None Caregiver Assessment: Caregiver is ready, willing and able to meet the patient's needs as recommended by the inter-professional team? Yes Patient's transition needs and plan for meeting these needs: n/a Does the patient have an acute stroke diagnosis, or has the patient had a stroke during this admission? No Medication Adherence: I am convinced of the importance of my prescription medication: Agree completely - 0 I worry that my prescription medication will do more harm than good to me Disagree completely - 0 I feel financially burdened by my [id number] expenses for my prescription medication: Disagree completely - 0 Patient is categorized as low risk < 2 Are you interested in bedside delivery of your medications? Yes Food Concerns: In the Last Month, Have You had Trouble Getting Food? No trouble getting food During the Last Month, Have You Worried Whether Your Food Would Run Out Before You Had Enough Money to Buy More? No Is the Patient Psychosocially Complex? 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 +PCP. No RX Coverage. No DME. No insurance at this time. Referral made to [facility] for assistance with medication and AD. Referral also made to [facility] for assistance with MEDICAID application. Anticipate discharge home with Mother when medically stable. SIGNATURE: Morenita Fernandez RN PATIENT NAME: Bhupinder Castro DATE: April 16, 2018 TIME: 10:20 AM PAGER/CONTACT #: [phone] CONSULT Observed: 04/16/2018 Status: COMPLETED Source: [facility] 9:34 AM CLINIC OTHER CAMPUS REPOSITORY O ID: [id number] Author: Horacio David Service: Cardiovascular Medicine Author Type: Physician Type: Consults Filed: 04/16/2018 10:13 AM Note Text: CONSULT: CARDIOLOGY SERVICE SERVICE DATE: 04/16/2018 SERVICE TIME: 9:38 am CONSULTING PHYSICIAN: Horacio Davdi MD PCP: Shane Rendon MD ATTENDING: Scotty Joshi REASON FOR CONSULT: Preoperative cardiac risk assessment Subjective CHIEF COMPLAINT: Urolithiasis [N20.9] Hydronephrosis [N13.30] HISTORY OF PRESENT ILLNESS: Mr. Castro is a 32 year old male with a history of non-ischemic cardiomyopathy w/ EF 20%, hypertension, morbid obesity who presented to the hospital with L flank pain and was found to have a 1 cm left kidney stone for which urology is planning surgery. Cardiology consulted for further preoperative cardiac risk assessment. Patient was initially diagnosed with non-ischemic cardiomyopathy in 2013 with negative cardiac catheterization. He has been maintained on optimal medical therapy with coreg and lisinopril. He was previously on spirinolactone but developed side effects of gynecomastia. He did previously have a SQ ICD in 2015 but requested to have it removed in 05/25. In discussion with the patient, he denies any cardiac complaints with his non-ischemic cardiomyopathy. He specifically denies any symptoms of exertional chest pain, dyspnea on exertion, orthopnea, paroxysmal nocturnal dyspnea, lower extremity edema, claudication, presyncope, syncope, or palpitations. He is compliant with his medications and continues to take lasix on an as needed basis (approximately once weekly). He otherwise is compliant with his dietary sodium and fluid restrictions. 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 PAST MEDICAL HISTORY Diagnosis Date - GERD (gastroesophageal reflux disease) - HTN (hypertension) for the last 14 years or so - NICM (nonischemic cardiomyopathy) (HCC) - Obesity PAST SURGICAL HISTORY Procedure Laterality Date - EGD W/O OR W/BRUSH/WASH 04/02/2016 EGD - EP STUDY 10/2014 - HEART CATHETERIZATION 10/2014 - ICD (ICD) 04/28/16 - TONSILLECTOMY HX 1997 FAMILY HISTORY Problem Relation Age of Onset - arrythmia [OTHER] Mother unsure what type - HTN [OTHER] Mother - Ischemic Heart Disease Father CABG mid 50s, ot sepsis - CHF [OTHER] Father - DM [OTHER] Father - HTN [OTHER] Father - hypertension [OTHER] Brother - HTN [OTHER] Brother - None Sister - None Brother Social history: Patient reports smoking 1 pack every 3 years x 2 years; quit 9 months ago. Denies any EtOH use. Endorses occasional MJ use. Prior to Admission Medications Prescriptions Last Dose Informant Patient Reported? Taking? carvedilol (COREG) 25 mg tablet No Yes Sig: Take 1 tablet by mouth twice daily with meals. furosemide (LASIX) 40 mg tablet No Yes Sig: Take 1 tablet by mouth once daily as needed (Swelling). lisinopril (PRINIVIL) 20 mg tablet No Yes Sig: Take 1 tablet by mouth once daily. Facility-Administered Medications: None Current hospital medications: carvedilol 25 mg tab(s) (COREG) 25 mg ORAL BID w MEALS lisinopril 20 mg tab(s) (ZESTRIL, PRINIVIL) 20 mg ORAL DAILY oxyCODONE-acetaminophen 5-325 mg 1-2 tablet (PERCOCET) 1-2 tablet ORAL q 4 H PRN morphine 1-2 mg injection 1-2 mg INTRAVENOUS q 2 H PRN ondansetron (PF) 4 mg injection (ZOFRAN) 4 mg INTRAVENOUS q 6 H PRN tamsulosin ER 0.4 mg cap(s) (FLOMAX) 0.4 mg ORAL DAILY enoxaparin 40 mg injection (LOVENOX) 40 mg SUBCUTANEOUS DAILY ketorolac 30 mg injection (TORADOL) 30 mg INTRAVENOUS q 6 H ibuprofen 600 mg tab(s) (MOTRIN) 600 mg ORAL q 6 H acetaminophen 650 mg tab(s) (TYLENOL) 650 mg ORAL q 4 H PRN ceFAZolin iv piggyback 2 g in D5W (iso-osmotic) 100 mL (ANCEF) 2 g INTRAVENOUS X (OR/PROCEDURE) PRN docusate sodium 100 mg cap(s) (COLACE) 100 mg ORAL BID ALLERGIES Allergen Reactions - Perflutren GI Upset - [place] Hives Review of Systems: 08/22 systems reviewed and negative except as per above Physical Examination: 04/15/18 1845 04/15/18 2240 04/16/18 0411 04/16/18 0750 BP: 167/76 136/77 109/63 143/73 Pulse: 84 64 67 75 Resp: 18 18 Temp: (!) 35.8 ?C (96.4 ?F) 36.8 ?C (98.2 ?F) 36.6 ?C (97.9 ?F) 36.2 ?C (97.2 ?F) TempSrc: Temporal Artery Temporal Artery Temporal Artery Temporal Artery SpO2: 98% 99% 97% 97% Weight: Height: Patient Vitals for the past 12 hrs: BP Temp Temp src Pulse Resp SpO2 04/16/18 0750 143/73 36.2 ?C (97.2 ?F) Temporal Art 75 18 97 % 04/16/18 0411 109/63 36.6 ?C (97.9 ?F) Temporal Art 67 18 97 % 04/15/18 2240 136/77 36.8 ?C (98.2 ?F) Temporal Art 64 18 99 % General appearance: Morbidly obese, alert, appears to be in no acute distress, cooperative Head: Normocephalic, atraumatic HEENT: Extraocular movements intact; mucous membranes moist; no JVD Lungs: CTAB; no rales, rhonchi, or wheezes Heart: RRR; normal S1/S2; no murmurs/gallops/rubs Abdomen: Abdomen soft, obese; NABS Extremities: No lower extremity edema bilaterally; tattoos noted on lower extremities Skin: No rashes noted Neurologic: Nonfocal Psych: Normal mood/affect DATA: Past 72 Hour Labs: Recent Labs 04/16/18 0415 04/15/18 1246 NA 139 139 K 4.0 4.0 CA 8.9 9.9 BUN 13 13 CREAT 0.89 0.77 GLUC 82 115* WBC 9.00 10.08 HB 13.7 15.8 PLT 160 179 ALB -- 4.1 ALKPHOS -- 64 TBILI -- 0.3 AST -- 15 ALT -- 17 PTSEC 10.7 -- INR 1.02 -- InsANDOuts: Intake/Output Summary (Last 24 hours) at 04/16/18 0942 Last data filed at 04/16/18 0400 Gross per 24 hour Intake 360 ml Output 281 ml Net 79 ml Last Lab Drawn: TSH 1.290 08/15/2016 Triglyceride 110 03/05/2016 HDL Cholesterol 39 03/05/2016 LDL Cholesterol 94 03/05/2016 Cholesterol, Total 155 03/05/2016 CARDIAC WORKUP: EKG: EKG, 04/16/18: Sinus bradycardia. LAD. Nonspecific T wave abnormality. Echocardiogram: OSH TTE, 12/24/17: Severely dilated LV with EF 20%. Mild to moderate MR. Coronary angiography: OSH Left Heart Catheterization, 10/12/14: EF 10-15%. Angiographically normal coronary arteries. AANDP: Mr. Castro is a 32 year old male with a history of non-ischemic cardiomyopathy w/ EF 20%, hypertension, morbid obesity who presented to the hospital with L flank pain and was found to have a 1 cm left kidney stone for which urology is planning surgery. Cardiology consulted for further preoperative cardiac risk assessment. 1. Pre-operative cardiac assessment: Mr. Castro does not have any high-risk features of unstable angina, decompensated heart failure, severe valve disease, or malignant arrhythmias. He does have known non-ischemic cardiomyopathy with severe LV systolic dysfunction but is well compensated. In addition, he engages in at least 4 METS of physical activity without cardiac limitations. As such, no further cardiac evaluation is necessary at this time and he would be at overall intermediate risk of cardiac complications from an anticipated intermediate risk surgical procedure. He is otherwise already on beta adrian therapy for radha-operative beta blockade. Given his underlying severe cardiomyopathy, would recommend being careful with IVFs to avoid potential heart failure exacerbation. In addition, would try to limit use of NSAIDs as possible. 2. Non-ischemic cardiomyopathy w/ chronic systolic heart failure: - Continue CHF protocol with strict IANDOs, daily weights, CHF diet, and consultation to heart failure clinic - Daily basic metabolic panel; Supplement electrolytes to keep K > 4.0, Mg > 2.0 - Continue home medical therapy with coreg, lisinopril; patient did not tolerate spirinolactone due to side effects of gynecomastia - Recommend being careful with IVFs to avoid potential heart failure exacerbation - Try to limit use of NSAIDs as possible - Recommend telemetry monitoring while inpatient 3. Hypertension: Patient's blood pressure is well controlled on his current antihypertensive regimen. We will continue to follow with you. Please call if ?s. SIGNATURE: Horacio David MD PATIENT NAME: Bhupinder Castro DATE: April 16, 2018 TIME: 9:36 AM PAGER/CONTACT #: [phone] EKG (AK,AV,EU,FV,HL,BRENT,MM,SP) Observed: Status: F Source: [facility] 04/16/2018 7:08 AM CLINIC OTHER CAMPUS REPOSITORY NAME : BHUPINDER CASTRO PID : [id number] : 1985 Gender : Male Race : ORD : [id number] Procedure Date : Apr 16 2018 07:08 Edit Date : Apr 16 2018 08:52 Diagnosis:SINUS BRADYCARDIA LEFT AXIS DEVIATION NONSPECIFIC T WAVE ABNORMALITY ABNORMAL ECG NO PREVIOUS ECGS AVAILABLE Confirmed by MD Joann, Horacio ([id number]) on 04/16/2018 8:52:01 AM Ventricular Rate : 58 BPM Atrial Rate : 58 BPM P-R Interval : 174 ms QRS Duration : 112 ms Q-T Interval : 422 ms QTC Calculation(Bezet) : 414 ms P [place] : 27 degrees R [place] : -42 degrees T [place] : 201 degrees Test Reason : Arrhythmia Location : 51 : [id number] Overread By : MD David Anubhav Editted By : MD Joann,Horacio Referred By : SCOTTY JOSHI Acquired by : Tiff Bailey HEMOGRAM Collected: 04/16/2018 Status: F Source: [facility] 4:15 AM HEALTH SYSTEM REPOSITORY TYPE CODE TESTS RESULT OUT OF REFERENCE UNITS RANGE LAB WBC(LOINC) 4.23-9.07 thou/cmm WBC 9.00 LAB RBC(LOINC) 4.63-6.08 mil/cmm RBC 4.81 LAB HGB(LOINC) 13.7-17.5 g/dL Hgb 13.7 LAB HCT(LOINC) 40.1-51.0 % Hct 40.6 LAB MCV(LOINC) 83.2-95.6 fl MCV 84.4 LAB MCH(LOINC) 25.7-32.2 pg MCH 28.5 LAB MCHC(LOINC) 32.3-36.5 % MCHC 33.7 LAB RDW(LOINC) 11.6-14.4 % RDW 12.5 LAB RDWSD(LOINC 36.1-45.8 fl ) RDW SD 38.3 LAB PLT(LOINC) 141-365 thou/cmm Platelet 160 LAB MPV(LOINC) 8.7-12.0 fl MPV 10.6 Performed By: #### CBC1 #### [place] [address] BASIC PANEL Collected: 04/16/2018 Status: F Source: [facility] 4:15 AM HEALTH SYSTEM REPOSITORY TYPE CODE TESTS RESULT OUT OF REFERENCE UNITS RANGE LAB NA(LOINC) 136-145 mEq/L Sodium Blood 139 LAB K(LOINC) 3.5-5.1 mEq/L Potassium Blood 4.0 LAB CL(LOINC) 98-107 mEq/L Chloride High Blood 108 LAB CO2(LOINC) 21-32 mEq/L CO2 Blood 28 LAB GLU(LOINC) 70-99 mg/dL Glucose Blood 82 LAB BUN(LOINC) 7-18 mg/dL BUN Blood 13 LAB CREA(LOINC 0.67-1.17 mg/dL ) Creatinine Blood 0.89 LAB CA(LOINC) 8.5-10.1 mg/dL Calcium Blood 8.9 LAB ANGAP(LOIN 8-16 C) Low Anion Gap 7 Performed By: #### P8 #### [place] [address] MDRD GFR Collected: 04/16/2018 Status: F Source: [facility] 4:15 AM HEALTH SYSTEM REPOSITORY TYPE CODE TESTS RESULT OUT OF RANGE REFERENCE UNITS LAB GFRFN(LOINC >60mL/min/1.73m ) 2 eGFR >60 Result Comment: If the patient is , multiply the result by 1.210. Performed By: #### GFR #### [place] [address] PROTIME Collected: 04/16/2018 Status: F Source: [facility] 4:15 AM HEALTH SYSTEM REPOSITORY TYPE CODE TESTS RESULT OUT OF REFERENCE UNITS RANGE LAB PTI(LOINC) 9.3-11.9 sec Prothrombin Time 10.7 LAB INR(LOINC) INR 1.02 Result Comment: Standard Therapy 2.0-3.0 High Dose 2.5-3.5 Performed By: #### PT #### [facility] [address], [place] [address] HISTORY PHYSICAL Observed: 04/16/2018 Status: COMPLETED Source: [facility] 12:03 AM CLINIC OTHER CAMPUS REPOSITORY HNO ID: [id number] Author: Kris (Gil) Betty Service: Urology Author Type: Resident Type: HANDP Filed: 04/16/2018 6:44 AM Note Text: Urology History and Physical Date: 04/16/2018 Patient Name: Bhupinder Castro Date of : 1985 Admit Date: 04/15/2018 Age: [age] year old PCP: Shane Rendon MD No chief complaint on file. Narrative: The patient is a 32 year old male new to the service who presented to [facility] ED yesterday with left flank pain. Seen at another facility on , told he had a 1 cm left kidney stone. Advised to follow-up with urology, however he was unable to make an appointment. He had worsening of pain (sharp, severe) yesterday morning and noticed blood in his urine. Associated nausea and vomiting. Denies fever, chills, dysuria, urinary frequency or urgency, chest pain, shortness breath, palpitations, abdominal pain, constipation, diarrhea. Pt does have a significant cardiac history with an ejection fraction of 15% pet the patient. Will ask cardiology to see the patient first prior to surgery PAST MEDICAL HISTORY Diagnosis Date - GERD (gastroesophageal reflux disease) - HTN (hypertension) for the last 14 years or so - Nausea - NICM (nonischemic cardiomyopathy) (HCC) - Obesity - CURTIS (obstructive sleep apnea) not treated. PAST SURGICAL HISTORY Procedure Laterality Date - EGD W/O OR W/BRUSH/WASH 04/02/2016 EGD - EP STUDY 10/2014 - HEART CATHETERIZATION 10/2014 - ICD (ICD) 04/28/16 - TONSILLECTOMY 1997 Family History Problem Relation Age of Onset - arrythmia [OTHER] Mother unsure what type - HTN [OTHER] Mother - Ischemic Heart Disease Father CABG mid 50s, ot sepsis - CHF [OTHER] Father - DM [OTHER] Father - HTN [OTHER] Father - hypertension [OTHER] Brother - HTN [OTHER] Brother - None Sister - None Brother Outpatient Prescriptions Marked as Taking for the 04/15/18 encounter (Hospital Encounter): lisinopril (PRINIVIL) 20 mg tablet Take 1 tablet by mouth once daily. Disp: 30 tablet Rfl: 11 furosemide (LASIX) 40 mg tablet Take 1 tablet by mouth once daily as needed (Swelling). Disp: 30 tablet Rfl: 11 carvedilol (COREG) 25 mg tablet Take 1 tablet by mouth twice daily with meals. Disp: 60 tablet Rfl: 11 Medications carvedilol 25 mg tab(s) (COREG) (25 mg ORAL Given 04/15/182020) lisinopril 20 mg tab(s) (ZESTRIL, PRINIVIL) (20 mg ORAL Given 04/15/182020) NaCl 0.9% iv infusion (75 mL/hr INTRAVENOUS New Bag 04/15/182240) oxyCODONE-acetaminophen 5-325 mg 1-2 tablet (PERCOCET) (not administered) morphine 1-2 mg injection (not administered) ondansetron (PF) 4 mg injection (ZOFRAN) (not administered) tamsulosin ER 0.4 mg cap(s) (FLOMAX) (0.4 mg ORAL Given 04/15/182020) enoxaparin 40 mg injection (LOVENOX) (40 mg SUBCUTANEOUS Not Given 04/15/181899) ketorolac 30 mg injection (TORADOL) (30 mg INTRAVENOUS Given 04/15/182020) Followed by ibuprofen 600 mg tab(s) (MOTRIN) (not administered) acetaminophen 650 mg tab(s) (TYLENOL) (not administered) ceFAZolin iv piggyback 2 g in D5W (iso-osmotic) 100 mL (ANCEF) (not administered) docusate sodium 100 mg cap(s) (COLACE) (100 mg ORAL Given 04/15/182020) ALLERGIES Allergen Reactions - Perflutren GI Upset - [place] Hives Social History: Social History Marital status: Single Spouse name: Years of education: Number of children: 2 Social History Main Topics Smoking status: Current Some Day Smoker Packs/day: 0.00 Years: 15.00 Types: Cigarettes Smokeless tobacco: Never Used Comment: a couple cigarettes a week Alcohol use: No Drug use: Yes Comment: Last smoked marijuana 02/2016. ROS: Constitutional: negative for chills and fevers Respiratory: negative for hemoptysis and shortness of breath Cardiovascular: negative for dyspnea and syncope Gastrointestinal: nausea, vomiting Genitourinary: hematuria, flank pain Hematologic/lymphatic: negative for bleeding and lymphadenopathy Integumentary: no new bruises or lesions Musculoskeletal:negative for muscle weakness or pain Neurological: negative for coordination problems and seizures All other systems negative Physical Exam: 04/15/18 1840 04/15/18 1845 04/15/18 2240 BP: 167/76 136/77 Pulse: 84 64 Resp: 18 18 Temp: (!) 35.8 ?C (96.4 ?F) 36.8 ?C (98.2 ?F) TempSrc: Temporal Artery Temporal Artery SpO2: 98% 99% Weight: 136.1 kg (300 lb) Height: 182.9 cm (6') General: Alert, in no acute distress Head: Normocephalic, atraumatic Neck: supple, trachea is midline, no obvious masses Respiratory: normal effort, no audible wheezes Cardiovascular: regular pulse and no cyanosis Musculoskeletal: moving all extremities, normal tone Skin: warm and dry Psych: normal mood and affect, oriented Abdomen: soft, non distended, non tender, no organomegaly, no hernias : deferred to OR Labs: CBC: Recent Labs 04/15/18 1246 WBC 10.08 HCT 47.1 MCV 84.1 RBC 5.60 PLT 179 BMP: Recent Labs 04/15/18 1246 NA 139 K 4.0 CO2 25 BUN 13 CA 9.9 Coagulation: PT INR (no units) Date Value 04/24/2016 1.0 APTT (sec) Date Value 04/24/2016 30.5 Lactic acid: No components found for: LACTA Radiology: 04/15/2018 CT Flank 8 MM PROXIMAL LEFT URETERAL CALCULUS WITH MILD LEFT-SIDED HYDROURETERONEPHROSIS Assessment and Plan: 32 year old male with an 8 mm left ureteral calculus, pain refractory to PO meds PLAN: -Admit -NPO -Add on to OR for cysto, possible stent placement, possible ESWL (if cleared by cardiology) -Consult cardiology for clearance for OR -EKG -Send urine for culture -Check KUB -Pain/nausea control -Strain all urine -Will discuss with attending MD CHINO Frost Observed: 04/16/2018 Status: COMPLETED Source: [facility] 12:00 AM CLINIC OTHER CAMPUS REPOSITORY Telephone (AKPRAD) BHUPINDER CASTRO ([id number]) 1985 M Date Time Provider Department 04/16/18 SCOTTY JOSHI During your visit today, we recorded the following information about you: Scotty Joshi MD 04/16/2018 11:42 AM Signed f/u c KUB in 3 weeks Allergies As of Date: 04/16/2018 Noted Allergy Reaction PERFLUTREN 12/24/2017 8 - GI Upset TURKEY 10/05/2015 4 - Hives Date Reviewed: 04/16/2018 Reviewed by: Kris (Rn) GOMEZ Richard - Fully Assessed Reason for Visit: Surgical Followup [104] Prescriptions as of 04/16/2018 Sig: LISINOPRIL 20 MG TABLET Take 1 tablet by mouth once d* FUROSEMIDE 40 MG TABLET Take 1 tablet by mouth once d* CARVEDILOL 25 MG TABLET Take 1 tablet by mouth twice * Problem List As Of Date 04/16/2018 Noted Resolved Heart failure, chronic systolic (HCC) [I50.22] INVALID FOR* Priority: B More... Hypertension [I10] INVALID FOR* Tobacco abuse [Z72.0] INVALID FOR* Syncope [R55] INVALID FOR*12/17/2016 Priority: A More... DISPOSITION AND FOLLOW-UP INVALID FOR*12/17/2016 More... Depression [F32.9] INVALID FOR*12/24/2016 Priority: E More... Nausea [R11.0] 12/17/2016 Heart failure, left, with LVEF <=30% (HCC) [I50*INVALID FOR* Constitutional obesity [E66.8] INVALID FOR* CURTIS (obstructive sleep apnea) [G47.33] INVALID FOR* Heart failure (HCC) [I50.9] INVALID FOR*08/15/2016 Palpitations [R00.2] INVALID FOR* Priority: A Obesity, Class III, BMI 40-49.9 (morbid obesity*INVALID FOR* Left ureteral calculus [N20.1] INVALID FOR* Encounter Status:Closed by SCOTTY JOSHI MD on 04/16/18 Observed: 04/15/2018 Status: F Source: [facility] CULT URINE 10:30 PM HEALTH SYSTEM REPOSITORY Test performed at [facility] No growth Performed By: #### C_URI #### [place] [address] ABDOMEN 1 VIEW Observed: 04/15/2018 Status: F Source: [facility] 7:15 PM HEALTH SYSTEM REPOSITORY Performed at [facility] APPROVED BY: Lit Reyes MD EXAM TITLE: ABDOMEN 1 VIEW DATE: 04/15/2018 19:09 INDICATION: Left-sided urinary stone. COMPARISON: None. Supine view the abdomen shows 8mm radiopaque stone to the left of the spine at the L1-2 disc level. This may be within the left renal pelvis or proximal left ureter. No other radiopaque renal or ureteral stone is seen. Nonspecific bowel gas pattern. IMPRESSION: Left-sided stone most likely within the left renal pelvis or proximal ureter. ED NOTE Observed: 04/15/2018 Status: COMPLETED Source: [facility] 3:00 PM CLINIC OTHER [place] REPOSITORY HNO ID: [id number] Author: Eula Gonzalez RN Service: (none) Author Type: Registered Nurse Type: ED Notes Filed: 04/15/2018 3:01 PM Note Text: Admission and transfer to [facility] discussed by personal car per pt's preference. Pt reminded that he is to go directly to [facility] for admission. Pt stated understanding. ED NOTE Observed: 04/15/2018 Status: COMPLETED Source: [facility] 2:59 PM CLINIC OTHER [place] REPOSITORY HNO ID: [id number] Author: Eula Gonzalez RN Service: (none) Author Type: Registered Nurse Type: ED Notes Filed: 04/15/2018 2:59 PM Note Text: Report given to Tiff DYER [address] [facility]. ED NOTE Observed: 04/15/2018 Status: COMPLETED Source: [facility] 2:39 PM [facility] REPOSITORY HNO ID: [id number] Author: Eula Gonzalez RN Service: (none) Author Type: Registered Nurse Type: ED Notes Filed: 04/15/2018 2:41 PM Note Text: Pt out of room asking what is going on, pt told that we are currently waiting for a bed assignment. He stated, Well is it possible to just give me a call or something because I'm going to go home to get my meds and stuff because I'm just getting anxious. ED NOTE Observed: 04/15/2018 Status: COMPLETED Source: [facility] 1:42 PM [facility] REPOSITORY HNO ID: [id number] Author: Eula Gonzalez RN Service: (none) Author Type: Registered Nurse Type: ED Notes Filed: 04/15/2018 1:43 PM Note Text: Bladder scan performed, 252mL. Pt states, I could pee right now and I don't really feel like I'm retaining. Bhupinder Bustillos at bedside at this time. ED NOTE Observed: 04/15/2018 Status: COMPLETED Source: [facility] 1:32 PM [facility] REPOSITORY HNO ID: [id number] Author: Eula Gonzalez RN Service: (none) Author Type: Registered Nurse Type: ED Notes Filed: 04/15/2018 1:32 PM Note Text: Bhupinder Bustillos back in at bedside with update and to discuss plan of care. Advised pt and family of results in ED, they agree and verbalize understanding. ED PROV NOTE Observed: 04/15/2018 Status: COMPLETED Source: [facility] 1:29 PM [facility] REPOSITORY HNO ID: [id number] Author: Yahaira Castillo MD Service: (none) Author Type: Physician Type: ED Provider Notes Filed: 04/15/2018 6:01 PM Note Text: ED Provider Note Patient Name: Bhupinder Castro SERVICE DATE: 04/15/18 History Patient presents with: Flank Pain 32-year-old male with history of nonischemic cardiomyopathy and CHF presents to emergency department complaining of left flank pain that started . Patient states he was diagnosed with a left-sided kidney stone at an outside facility on . He states it was 1 cm. He was advised to follow-up with urology, however he was unable to make an appointment or he has had worsening of pain this morning, and states it is not difficult to urinate. This also had blood in his urine. Describes the pain as sharp and severe. He also had 2 episodes of vomiting this morning. Denies fever, chills, dysuria, urinary frequency or urgency, chest pain, shortness breath, palpitations, abdominal pain, constipation, diarrhea. PAST MEDICAL HISTORY Diagnosis Date - GERD (gastroesophageal reflux disease) - HTN (hypertension) for the last 14 years or so - Nausea - NICM (nonischemic cardiomyopathy) (HCC) - Obesity - CURTIS (obstructive sleep apnea) not treated. PAST SURGICAL HISTORY Procedure Laterality Date - EGD W/O OR W/BRUSH/WASH 04/02/2016 EGD - EP STUDY 10/2014 - HEART CATHETERIZATION 10/2014 - ICD (ICD) 04/28/16 - TONSILLECTOMY HX 1997 FAMILY HISTORY Problem Relation Age of Onset - arrythmia [OTHER] Mother unsure what type - HTN [OTHER] Mother - Ischemic Heart Disease Father CABG mid 50s, ot sepsis - CHF [OTHER] Father - DM [OTHER] Father - HTN [OTHER] Father - hypertension [OTHER] Brother - HTN [OTHER] Brother - None Sister - None Brother Social History Social History Main Topics - Smoking status: Current Some Day Smoker Years: 15.00 Types: Cigarettes - Smokeless tobacco: Never Used Comment: a couple cigarettes a week - Alcohol use No - Drug use: Yes Comment: Last smoked marijuana 02/2016. - Sexual activity: Not on file ALLERGIES Allergen Reactions - Perflutren GI Upset - [place] Hives Review of Systems Constitutional: Negative for chills, fatigue and fever. HENT: Negative for sneezing and sore throat. Respiratory: Negative for cough, shortness of breath and wheezing. Cardiovascular: Negative for chest pain, palpitations and leg swelling. Gastrointestinal: Positive for nausea and vomiting. Negative for abdominal pain, constipation and diarrhea. Genitourinary: Positive for decreased urine volume, flank pain and hematuria. Negative for difficulty urinating, dysuria, frequency and urgency. Musculoskeletal: Negative for back pain, gait problem, neck pain and neck stiffness. Skin: Negative for rash. Neurological: Negative for dizziness, syncope, light-headedness and headaches. Physical Exam BP 160/98 Pulse 74 Temp 97.7 SpO2 98% Physical Exam Constitutional: He is oriented to person, place, and time. He appears well-developed and well-nourished. Patient appears to be in mild distress due to pain. HENT: Head: Normocephalic and atraumatic. Mouth/Throat: Oropharynx is clear and moist. No oropharyngeal exudate. Eyes: Conjunctivae are normal. Right eye exhibits no discharge. Left eye exhibits no discharge. No scleral icterus. Neck: Normal range of motion. Neck supple. Cardiovascular: Normal rate, regular rhythm, normal heart sounds and intact distal pulses. Pulmonary/Chest: Effort normal and breath sounds normal. Abdominal: Soft. Moderate tenderness to palpation in left upper and left lower quadrant. There is no rebound, guarding, or rigidity. Negative Pagan's sign. There is no pain in McBurney's point. There is significant left-sided CVA tenderness. Musculoskeletal: Normal range of motion. He exhibits no edema. Neurological: He is alert and oriented to person, place, and time. Skin: Skin is warm and dry. No rash noted. He is not diaphoretic. No erythema. Nursing note and vitals reviewed. Diagnostic Testing ED Labs Ordered and Reviewed COMP METABOLIC PANEL - Abnormal; Notable for the following: Result Value Ref Range Glucose 115 (*) 74 - 99 mg/dL All other components within normal limits CBC + DIFF - Abnormal; Notable for the following: Abs Eosin 0.55 (*) <0.46 k/uL All other components within normal limits URINALYSIS - Abnormal; Notable for the following: Appearance (U) Slightly Hazy (*) Clear Hemoglobin/Blood,Ur Large (*) Negative Protein, Urine Trace (*) Negative mg/dL All other components within normal limits URINE MICROSCOPIC - Abnormal; Notable for the following: RBC, Urine 10-30 (*) 0 - 3 /HPF Bacteria Few (*) 0 /HPF Crystal SEE COMMENT (*) 0 /HPF All other components within normal limits URINE MICROSCOPIC URINE CULTURE Procedures Medical Decision Making 32-year-old male with history of nonischemic cardiomyopathy and CHF presents to emergency department complaining of left flank pain that started . Patient is afebrile, hemodynamically stable, and in mild distress due to pain. Lungs CTA bilaterally. Cardiovascular exam within normal limits. There is mild left upper and left lower quadrant tenderness to palpation. No peritoneal signs. There is significant left-sided CVA tenderness. There is no peripheral edema. Remainder physical exam is unremarkable as documented. Patient was given Toradol for pain and 500 cc normal saline bolus. He did have moderate improvement of his pain. CT flank with 8 cm left proximal ureteral stone. There is also mild left-sided hydronephrosis. Urinalysis with large amount of red blood cells, no evidence of UTI. This was sent for culture. CMP without clinically significant abnormalities. Normal renal function. Patient was again noted to be in pain, he was given morphine and Zofran with significant improvement of his pain and nausea. Patient did become very itchy after the morphine. He was given 50 mg of Benadryl with resolution of pruritus. I discussed this case with the on-call urologist, Dr. Joshi, who recommended transferring the patient to [facility] because there are no urologist at [facility] tomorrow to perform lithotripsy. Patient will be transferred to [facility] because there are no urologists available to perform a procedure tomorrow at [facility]. Patient was amenable with transfer to [facility], however he stated he wanted to go by personal vehicle. His girlfriend will be driving him to the hospital. Patient was accepted by Dr. Joshi. Patient transferred by personal vehicle in stable and improved condition. ED Course ED Course: Vital signs were reviewed. Triage records were reviewed. Medical records were reviewed. Nursing notes were reviewed and incorporated. The following medications were administered: Medications NaCl 0.9% 500 mL iv bolus (0 mL INTRAVENOUS Infusion Complete 04/15/18 1343) ketorolac 15 mg injection (TORADOL) (15 mg INTRAVENOUS Given 04/15/18 1303) morphine 4 mg injection (4 mg INTRAVENOUS Given 04/15/18 1351) ondansetron (PF) 4 mg injection (ZOFRAN) (4 mg INTRAVENOUS Given 04/15/18 1351) diphenhydrAMINE 50 mg injection (BENADRYL) (50 mg INTRAVENOUS Given 04/15/18 1358) Labs reviewed and interpreted as: Labs Reviewed COMP METABOLIC PANEL - Abnormal; Notable for the following: Result Value Glucose 115 (*) All other components within normal limits CBC + DIFF - Abnormal; Notable for the following: Abs Eosin 0.55 (*) All other components within normal limits URINALYSIS - Abnormal; Notable for the following: Appearance (U) Slightly Hazy (*) Hemoglobin/Blood,Ur Large (*) Protein, Urine Trace (*) All other components within normal limits URINE MICROSCOPIC - Abnormal; Notable for the following: RBC, Urine 10-30 (*) Bacteria Few (*) Crystal SEE COMMENT (*) All other components within normal limits URINE MICROSCOPIC URINE CULTURE Radiographs were reviewed: CT flank: IMPRESSION: 8 MM PROXIMAL LEFT URETERAL CALCULUS WITH MILD LEFT-SIDED HYDROURETERONEPHROSIS A consult was requested and obtained from sec reporting consultant(s) urology. The sec reporting consultant made the following conclusions/recommendations: transfer to [facility] for procedure tomorrow. The case was discussed with the admitting physician. This is a new problem. Chart review from relevant prior emergency / outpatient visits were reviewed. Revenant medical history in electronic chart was reviewed. Diagnostic test results were reviewed with patient. [facility] Clinical Impressions as of Apr 15 142 Ureterolithiasis Hydronephrosis, unspecified hydronephrosis type Plan The patient was TRANSFERRED to: [facility] Condition at time of disposition: improved and stable SIGNATURE: RIAZ Ugalde) MARISEL Guzman 04/15/18 1426 MARISEL Ugalde (Pa) 04/15/18 1458 Attending Note I have personally performed a face to face assessment of the patient and have reviewed the PA/PLATE TAKE OUT WORKER note. My rios findings include: History : patient here for left flank pain, diagnosed last week with 8 mm stone. Pain much worse in past 24 hours. Exam : left CVAT, Assessment/Plan : given size and persistence of pain, he will be transferred to [facility] for lithotripsy after discussion with urology. Other additions or changes: None Signature: Yahaira Castillo MD Date: 04/15/2018 Time: 6:00 PM Yahaira Castillo MD 04/15/[address] FLANK WO IVCON Observed: 04/15/2018 Status: F Source: [place] 1:01 PM CLINIC OTHER CAMPUS REPOSITORY * * *Final Report* * * DATE OF EXAM: Apr 15 2018 1:01PM [facility] [place] WO IVCON / PROCEDURE REASON: Flank pain, stone disease suspected * * * * Physician Interpretation * * * * EXAMINATION: CT ABDOMEN AND PELVIS WITHOUT IV CONTRAST (Renal stone protocol) CLINICAL HISTORY: LEFT flank pain. TECHNIQUE: Non-contrast imaging of the abdomen and pelvis was performed through the urinary tract. Study performed without intravenous or oral contrast to evaluate for urinary tract calculus. MQ: [id number] Contrast: IV contrast: None Oral contrast: None CT Radiation dose: Integrated dose-length product (DLP) for this visit = 1229 mGy*cm. CT Dose Reduction Employed: Automated exposure control (AEC) COMPARISON: None. RESULT: Limitations: Unenhanced imaging is limited for the evaluation of some renal and other intra-abdominal and pelvic pathology. Urinary Tract: Right kidney and ureter: No calculus. No hydronephrosis. 1.0 cm posterior right midpole isodense lesion compatible with cyst. Left kidney and ureter: 8 mm proximal left ureteral calculus (2:85, 3:81) with mild resultant left-sided hydroureteronephrosis. No finding to suggest cyst or mass in the unenhanced kidney. Bladder: No calculus. Abdomen and Pelvis: Liver: Unremarkable. Biliary: The gallbladder is unremarkable. Spleen: No splenomegaly. Pancreas: Unremarkable. Adrenals: Normal. GI Tract: No bowel dilation. Normal appendix. Lymph Nodes: No lymphadenopathy. Mesentery/peritoneum: No ascites. Vasculature: No abdominal aortic or iliac artery aneurysm. Pelvis: No mass or ascites. Bones/Soft Tissues: No acute abnormality. Lower thorax: Right lower lobe calcified granuloma. Mild left basilar atelectasis. IMPRESSION: 8 MM PROXIMAL LEFT URETERAL CALCULUS WITH MILD LEFT-SIDED HYDROURETERONEPHROSIS Blow Mold Technician: PSCB Transcribe Date/Time: Apr 15 2018 1:05P Dictated by : ANGELA BRIONES MD This examination was interpreted and the report reviewed and electronically signed by: ANGELA BRIONES MD on Apr 15 2018 1:11PM EST [id number] Collected: 04/15/2018 Status: F Source: [facility] 12:50 PM CLINIC OTHER CAMPUS REPOSITORY TYPE CODE TESTS RESULT OUT OF RANGE REFERENCE UNITS LAB UCOL Yellow Color Yellow LAB [facility] Clear Clarity Abnormal Slightly Hazy Alert LAB UGLUC Negative mg/dL Glucose, Urine Negative LAB UBIL Negative Bilirubin, Urine Negative LAB UKET Negative Ketones, Urine Negative LAB USPG 1.001-1.029 Specific [place], Ur 1.020 LAB UHGB Negative Abnormal Hemoglobin/Blood, Large Alert Ur LAB UPH 5.0-8.0 pH 6.5 LAB UPROT Negative mg/dL Protein, Abnormal Urine Trace Alert LAB UUROB 0.2-1.0 Urobilinogen 0.2 LAB UNITR Negative Nitrites Negative LAB ULKEST Negative Leukest Negative Performed By: #### UA, UAMIC #### [facility] [address] [place] [address] URINE MICROSCOPIC Collected: 04/15/2018 Status: F Source: [place] (FOR LAB USE ONLY) 12:50 PM [facility] REPOSITORY TYPE CODE TESTS RESULT OUT OF RANGE REFERENCE UNITS LAB UWBC 0-5 /HPF WBC 0-5 LAB URBC 0-3 /HPF Abnormal Alert RBC 10-30 LAB UCAST 0 /LPF Cast SEE COMMENT Result Comment: 0 LAB UBACT 0 /HPF Abnormal Bacteria Alert Few LAB UEPI /HPF Epithelial Cells SEE COMMENT Result Comment: 0-5 Squamous Epithelial Cells LAB UCRYS 0 /HPF Abnormal Alert Crystals SEE COMMENT Result Comment: Occasional Amorphous Performed By: #### UA, UAMIC #### [facility] [address] [place] [address] Observed: 04/15/2018 Status: F Source: [place] URINE CULTURE 12:50 PM [facility] REPOSITORY Sp. Request/Comment: - Specimen received in preservative Culture Result - No growth (<1,000 CFU/ml) Performed By: #### URCUL #### [facility] [address] [place] [address] [facility] [address] [place] [address] CBC AND DIFFERENTIAL Collected: 04/15/2018 Status: F Source: [place] 12:46 PM [facility] [facility] REPOSITORY TYPE CODE TESTS RESULT OUT OF REFERENCE UNITS RANGE LAB WBC 3.70-11.00 k/uL WBC 10.08 LAB RBC 4.20-6.00 m/uL RBC 5.60 LAB HGB 13.0-17.0 g/dL Hemoglobin 15.8 LAB HCT 39.0-51.0 % Hematocrit 47.1 LAB MCV 80.0-100.0 fL MCV 84.1 LAB MCH 26.0-34.0 pG MCH 28.2 LAB MCHC 30.5-36.0 g/dL MCHC 33.5 LAB RDWCV 11.5-15.0 % RDW-CV 12.9 LAB PLTCT 150-400 k/uL Platelet Count 179 LAB MPV 9.0-12.7 fL MPV 10.4 LAB ANEUT % Neut% 69.0 LAB AANEUT 1.45-7.50 k/uL Abs Neut 6.96 LAB ALYMP % Lymph% 17.8 LAB AALYMP 1.00-4.00 k/uL Abs Lymph 1.79 LAB AMONO % [place]% 7.0 LAB AAMONO <0.87 k/uL Abs [place] 0.71 LAB AEOS % Eosin% 5.5 LAB AAEOS <0.46 k/uL Abs High Eosin 0.55 LAB ABASO % Baso% 0.7 LAB AABASO <0.11 k/uL Abs Baso 0.07 Performed By: #### CBCDIF, CMP #### [facility] [address] [place] [address] COMP METABOLIC PANEL Collected: 04/15/2018 Status: F Source: [place] 12:46 PM CLINIC OTHER CAMPUS REPOSITORY TYPE CODE TESTS RESULT OUT OF REFERENCE UNITS RANGE LAB TP 6.3-8.0 g/dL Protein, Total 7.1 LAB ALB 3.9-4.9 g/dL Albumin 4.1 LAB CA 8.5-10.2 mg/dL Calcium, Total 9.9 LAB TBIL 0.2-1.3 mg/dL Bilirubin, Total 0.3 LAB ALKP 36-108 U/L Alkaline Phosphatase 64 LAB AST 14-40 U/L AST 15 LAB GLU 74-99 mg/dL Glucose High 115 Result Comment: The [place] Diabetes Association (ADA) provides guidance for cutoff values for fasting glucose and random glucose. The ADA defines fasting as no caloric intake for at least 8 hours. Fas ting plasma glucose results between 100 to 125 mg/dL indicate increased risk for diabetes (prediabetes). Fasting plasma glucose results greater than or equal to 126 mg/dL meet the criteria for diagnosis of diabetes. In the absence of unequivocal hyperglycemia, results should be confirmed by repeat testing. In a patient with classic symptoms of hyperglycemia or hyperglycemic crisis, random plasma glucose results greater than or equal to 200 mg/dL meet the criteria for diagnosis of diabetes. Reference: Standards of Medical Care in Diabetes 2016, [place] Diabetes Association. Diabetes Care. 2016.39(Suppl 1). LAB BUN 9-24 mg/dL BUN 13 LAB CRET 0.73-1.22 mg/dL Creatinine 0.77 LAB NA 136-144 mmol/L Sodium 139 LAB K 3.7-5.1 mmol/L Potassium 4.0 LAB CL 97-105 mmol/L Chloride 103 LAB CO2 22-30 mmol/L CO2 25 LAB AGAP 9-18 mmol/L Anion Gap 11 LAB ALT 10-54 U/L ALT 17 LAB GFRAA eGFR- Amer. >60 LAB GFRNAA . eGFR-All Other Races >60 Result Comment: eGFR (Estimated GFR) Units of measure: mL/min/1.73 meters squared eGFR is derived from the reexpressed MDRD Study equation using the following parameters: serum creatinine, age, gender and race. The creatinine assay has been calibrated to be traceable to IDMS. An eGFR <60 mL/min/1.73m2 for >3 months is consistent with chronic kidney disease. Refer to KDOQI guidelines for clinical interpretation. In patients with unstable renal function, e.g. those with acute kidney injury, the eGFR may not accurately reflect actual GFR. Performed By: #### CBCDIF, CMP #### [facility] [address] [facility] [phone] ED NOTE Observed: 04/15/2018 Status: COMPLETED Source: [place] 12:21 PM CLINIC OTHER CAMPUS REPOSITORY HNO ID: [id number] Author: Anamaria (Rn) GOMEZ Humphrey Service: (none) Author Type: Registered Nurse Type: ED Notes Filed: 04/15/2018 12:22 PM Note Text: Patient presents with uncontrolled pain decreased urine output from known stone. HOSP Observed: 04/15/2018 Status: COMPLETED Source: [facility] 12:00 AM CLINIC OTHER CAMPUS REPOSITORY Patient:Bhupinder Castro MRN: <[id number]> Height:6' 0(1.829 m) Weight:300 lb (136.079 kg) Outpatient Medications as of 04/16/18: lisinopril (PRINIVIL) 20 mg tablet furosemide (LASIX) 40 mg tablet carvedilol (COREG) 25 mg tablet Admission/Clinic Administered Medications as of 04/16/18: carvedilol 25 mg tab(s) (COREG) lisinopril 20 mg tab(s) (ZESTRIL, PRINIVIL) oxyCODONE-acetaminophen 5-325 mg 1-2 tablet (PERCOCET) morphine 1-2 mg injection ondansetron (PF) 4 mg injection (ZOFRAN) tamsulosin ER 0.4 mg cap(s) (FLOMAX) enoxaparin 40 mg injection (LOVENOX) ibuprofen 600 mg tab(s) (MOTRIN) acetaminophen 650 mg tab(s) (TYLENOL) ceFAZolin iv piggyback 2 g in D5W (iso-osmotic) 100 mL (ANCEF) docusate sodium 100 mg cap(s) (COLACE) Problem List: Heart failure, chronic systolic (HCC) [I50.22] Hypertension [I10] Tobacco abuse [Z72.0] Heart failure, left, with LVEF <=30% (HCC) [I50.1] Constitutional obesity [E66.8] CURTIS (obstructive sleep apnea) [G47.33] Palpitations [R00.2] Obesity, Class III, BMI 40-49.9 (morbid obesity) (HCC) [E66.01] Left ureteral calculus [N20.1] Allergies: Perflutren [place] Date Verified: 04/16/18 Lab Values Lab Value Units Date High Low POTA* 4.0 mEq/L 04/16/2018 5.1 3.5 NÉSTOR* 40.6 % 04/16/2018 51.0 40.1 Progress Notes (AK PROVIDER ADULT): Scotty Joshi MD 04/16/2018 11:42 AM Signed f/u jerrica CANNON in 3 weeks Madonna Serrano 04/16/2018 11:51 AM Signed Appointment 05/19/18 @ 11:30am Progress Notes (RADIO CT SCAN [facility]): Doreen Moore, CT, CT 04/15/2018 12:59 PM Sign at close encounter Radiology Service Progress Note PATIENT NAME: Bhupinder Castro DATE OF SERVICE: April 15, 2018 TIME: 12:58 PM PATIENT IDENTITY VERIFICATION COMPLETED USING TWO (2) METHODS: Patient confirmed name verbally and ID band matches.. PATIENT GENDER DATA: Male PATIENT RELEVANT IMPLANT DATA REVIEWED: Not Applicable RADIOLOGY DEPARTMENT: CT; Exam(s) Completed: Abdomen/Pelvis PERIPHERAL IV DATA: Not applicable SIGNED BY: Doreen Moore, WALLY April 15, 2018 12:[address] ABDOMEN/PELVIS W/O Observed: 04/12/2018 Status: F Source: [facility] 6:37 PM [facility] ORIGINAL CT ABDOMEN/PELVIS W/O CONTRAST Clinical Statement: BILATERAL flank pain COMPARISON: CT abdomen 04/18/2014 TECHNIQUE: Multiplanar sagittal, axial, and coronal reconstructions were reviewed. This exam was performed according to our departmental dose optimization program, including but not limited to; automate d exposure control, adjustment of the mAs and/or kVp according to patient size and/or exam, and use of an iterative reconstruction algorithm where applicable. FINDINGS: There is a 1 cm calculus present in the LEFT renal pelvis with adjacent fluid density, without evidence of severe pelvocaliectasis. There is a punctate nonobstructing RIGHT renal stone noted. Overall the kidneys are symmetric in size and do not demonstrate perinephric fat stranding. There are no urinary bladder calculi. The visualized liver and spleen are unremarkable for noncontrast examination. The noncontrasted gallbladder, pancreas and adrenal glands are normal. The small and large bowel are normal in course and caliber. The appendix is unremarkable. There is no free fluid or free air. No adenopathy. There are no suspicious osseous lesions. IMPRESSION: 1 cm LEFT renal pelvis calculus with adjacent edema. Punctate nonobstructing RIGHT renal calculus. I have personally reviewed the images of this examination and agree with the resident's findings and interpretation. Interpreted By: Cristiano Gaona MD Preliminary Report By: Martha Cordero MD Electronically Signed By: Cristiano Gaona MD Dictated Date: 04/12/2018 6:54:09 PM Prelim Date: 04/12/2018 6:58:39 PM Sign Date: 04/12/2018 7:30:03 PM CBC Collected: 04/12/2018 Status: F Source: [facility] 6:07 PM [facility] REPOSITORY TYPE CODE TESTS RESULT OUT OF REFERENCE UNITS RANGE LAB WBC(LOINC) 4.60-10.80 10 3/mcL WBC 8.20 LAB RBCCT(LOINC 4.04-6.13 10 6/mcL ) RBC 5.17 LAB HGB(LOINC) 14.0-18.0 G/dL Hgb 14.9 LAB HCT(LOINC) 42.0-52.0 % Hct 42.9 LAB MCV(LOINC) 80.0-94.0 fL MCV 83.0 LAB MCH(LOINC) 27.0-31.2 pg MCH 28.8 LAB MCHC(LOINC) 31.8-35.4 G/dL MCHC 34.7 LAB RDW(LOINC) 11.5-14.5 % RDW 13.2 LAB PLT(LOINC) 130-400 10 3/mcL Platelet 198 LAB MPV(LOINC) 7.4-10.4 fL MPV 9.0 Performed By: #### CBC, ADIFF, ANEU, BMP, GFR #### [address] [address] .AUTO DIFF Collected: 04/12/2018 Status: F Source: [facility] 6:07 [facility] REPOSITORY TYPE CODE TESTS RESULT OUT OF REFERENCE UNITS RANGE LAB BERNARDO(LOINC) 37.0-80.0 % Neutrophil % 60.5 LAB LYM(LOINC) 10.0-50.0 % Lymphocyte % 28.5 LAB MON(LOINC) 1.7-13.0 % Monocyte % 4.8 LAB EO(LOINC) 0.0-7.0 % Eosinophil % 6.0 LAB BAS(LOINC) 0.0-2.5 % Basophil % 0.2 LAB ABLYM(LOIN 0.77-3.85 10 3/mcL C) Lymphocyte, 2.30 Absolute LAB KELI(LOINC 0.15-1.00 10 3/mcL ) Monocyte, 0.40 Absolute LAB AEOS(LOINC 0.00-0.40 10 3/mcL ) High Eosinophil, 0.50 Absolute LAB ABAS(LOINC 0.00-0.19 10 3/mcL ) Basophil, 0.00 Absolute Performed By: #### CBC, ADIFF, ANEU, BMP, GFR #### [address] [address] .NEUABS Collected: 04/12/2018 Status: F Source: [facility] 6:07 [facility] REPOSITORY TYPE CODE TESTS RESULT OUT OF REFERENCE UNITS RANGE LAB ANEU(LOINC) 2.85-6.16 10 3/mcL Neutrophil, 5.00 Absolute Performed By: #### CBC, ADIFF, ANEU, BMP, GFR #### [address] [place], [place] [address] BMP Collected: 04/12/2018 Status: F Source: [facility] 6:07 [facility] REPOSITORY TYPE CODE TESTS RESULT OUT OF REFERENCE UNITS RANGE LAB GLU(LOINC) 70-105 mg/dL Glucose Level 94 LAB NA(LOINC) 136-146 mEq/L Sodium Level 138 LAB K(LOINC) 3.5-5.1 mEq/L Potassium Level 4.2 LAB CL(LOINC) 98-107 mEq/L Chloride 105 LAB CO2(LOINC) 22-29 mEq/L CO2 25 LAB EBAL(LOINC mEq/L ) Electrolyte Balance 8.0 LAB BUN(LOINC) 7.0-18.0 mg/dL BUN 10.4 LAB CRE(LOINC) 0.6-1.2 mg/dL Creatinine Lvl (s) 0.8 LAB BC(LOINC) 7-27 ratio BUN/Creatinine 13 Ratio LAB CA(LOINC) 8.4-10.2 mg/dL Calcium Lvl 9.2 Performed By: #### CBC, ADIFF, ANEU, BMP, GFR #### [id number] [place], [place] [address] .GFR Collected: 04/12/2018 Status: F Source: [facility] 6:07 [facility] REPOSITORY TYPE CODE TESTS RESULT OUT OF REFERENCE UNITS RANGE LAB GFRAA(LOINC ml/min/1.73 ) sqm GFR 143 [place] Result Comment: GFR Population mean for , Non- Americans Ages 20-29 = 116 mL/min/1.73 sq.m. Ages 30-39 = 107 mL/min/1.73 sq.m. Ages 40-49 = 99 mL/min/1.73 sq.m. Ages 50-59 = 93 mL/min/1.73 sq.m. Ages 60-69 = 85 mL/min/1.73 sq.m. Ages 70+ = 75 mL/min/1.73 sq.m. Chronic Kidney Disease: Less than 60 mL/min/1.73 square meters End Stage Renal Disease: Less than 15 mL/min/1.73 square meters LAB GFRNO(LOINC) ml/min/1.73sqm GFR Non- >60 Result Comment: GFR Population mean for , Non- Americans Ages 20-29 = 116 mL/min/1.73 sq.m. Ages 30-39 = 107 mL/min/1.73 sq.m. Ages 40-49 = 99 mL/min/1.73 sq.m. Ages 50-59 = 93 mL/min/1.73 sq.m. Ages 60-69 = 85 mL/min/1.73 sq.m. Ages 70+ = 75 mL/min/1.73 sq.m. Chronic Kidney Disease: Less than 60 mL/min/1.73 square meters End Stage Renal Disease: Less than 15 mL/min/1.73 square meters Performed By: #### CBC, ADIFF, ANEU, BMP, GFR #### [address] [address] UA Collected: 04/12/2018 Status: F Source: [facility] 6:07 PM [facility]OUND[facility] REPOSITORY TYPE CODE TESTS RESULT OUT OF RANGE REFERENCE UNITS LAB SPCUA(AVA NC) UA Specimen Type Clean Catch LAB CLRUA(AVA NC) UA Color YELLOW LAB APPUA(AVA NC) UA Appear CLEAR LAB SGUA(LOIN C) UA Spec Unknown Grav >=1.030 LAB GLUA(LOIN mg/dL C) UA Glucose NEGATIVE LAB BILUA(AVA NC) UA Bili NEGATIVE LAB KETUA(AVA mg/dL NC) UA Ketones NEGATIVE LAB BLDUA(AVA NC) UA Blood LARGE LAB PHUA(LOIN C) UA pH 5.5 LAB PROUA(AVA mg/dL NC) UA Protein TRACE LAB UROUA(AVA E.U./dL NC) UA Urobilinogen 0.2 LAB NITUA(AVA NC) UA Nitrite NEGATIVE LAB LEUUA(AVA NC) UA Leuk Est NEGATIVE Performed By: #### UA, UAMICAO #### [id number] [place], [place] [address] .URINALYSIS MICROSCOPIC Collected: 04/12/2018 Status: F [facility] PM [facility] REPOSITORY TYPE CODE TESTS RESULT OUT OF RANGE REFERENCE UNITS LAB WBCUA(LOIN None Seen /hpf C) UA WBC None Seen LAB RBCUA(LOIN None Seen /hpf C) Unknown UA RBC LOADED LAB EPIUA(LOIN None Seen /hpf C) Unknown UA Squam Epithelial 0-5 Performed By: #### UA, UAMICAO #### [id number] [place], [place] [address] CNOV Observed: 03/25/2018 Status: COMPLETED Source: [place] 1:45 PM [facility] REPOSITORY Office Visit (CARD CHF PATRICIA) BHUPINDER CASTRO ([id number]) 1985 M Date Time Provider Department 03/25/18 1:45 PM ANN MARIE VILLASENOR CARD CHF PATRICIA During your visit today, we recorded the following information about you: Pulse Blood pressure Weight Height 98/minute 140/88 137.4 kg 1.829 m Ann Marie Villasenor MD 03/26/2018 9:48 AM Signed Heart [facility] V[facility] [place] SECTION OF HEART FAILURE and CARDIAC TRANSPLANT MEDICINE OUTPATIENT VISIT DATE March 25, 2018 OUTPATIENT VISIT TYPE Established Patient PRIMARY CARE PHYSICIAN: Shane Rendon MD [address] [place] [address] CHIEF COMPLAINT: Follow-up of heart failure NURSING INTAKE (Patient?s concerns and/or recent hospitalizations/ER visits): HF Nursing Assessment: Interim Hospitalizations and/or ER visits: Dyspnea: comes and goes same as usual Cough: no Orthopnea Or PND: no Chest pain: no Palpations: not today Lightheadedness Or Dizziness: yes sporadically Syncope: no Fatigue: normal Unintentional weight loss or gain: increase recently Edema:no Appetite: poor eats one meal per day HISTORY OF PRESENT ILLNESS: Last seen by me in 2015. Followed by Dr. Garcia. Of note had placement of SQ ICD in 2015 after having history of unexplained syncope in setting of heart failure. Due to patient's request, SQ ICD was removed in May 2017. He has not had an ekg or echo since 2017. No labs since 2017 Recently had BP as high 178/106 at PCP on 03/08. He presented with worsening exercise tolerance and chest discomfort. He was send to ED. Admits he was not consistent with taking coreg around that time. Got an inhaler which helped for a few days. No cough. Before this he had chills and felt clammy. Has terrible sweating. Last few days- sweating through clothes at night. Before this was walking 5 to 10 miles per day without problems. Weighs himself daily- if he gains 2 pounds or tightness in chest- takes a lasix. About 3 days a week. Haven't had an appetite for a long time. Has no interest in eating. This has been going on for 2 months. May only eat one meal a day. Steady weight loss of 70# over last few years Last 2 months has lost another 10 to 15 pounds. Of note smokes marijuana daily. Does not smoke cigarettes, drink alcohol or use any other illicit substances. He has not been on spironolactone for 2 months. Still has breast enlargement from this. PAST MEDICAL HISTORY Diagnosis Date - GERD (gastroesophageal reflux disease) - HTN (hypertension) for the last 14 years or so - Nausea - NICM (nonischemic cardiomyopathy) (HCC) - Obesity - CURTIS (obstructive sleep apnea) not treated. PAST SURGICAL HISTORY Procedure Laterality Date - EGD W/O OR W/BRUSH/WASH 04/02/2016 EGD - EP STUDY 10/2014 - HEART CATHETERIZATION 10/2014 - ICD (ICD) 04/28/16 - TONSILLECTOMY HX 1997 SOCIAL HISTORY Social History Substance Use Topics - Smoking status: Current Some Day Smoker Years: 15.00 Types: Cigarettes - Smokeless tobacco: Never Used Comment: a couple cigarettes a week - Alcohol use No FAMILY HISTORY Problem Relation Age of Onset - arrythmia [OTHER] Mother unsure what type - HTN [OTHER] Mother - Ischemic Heart Disease Father CABG mid 50s, ot sepsis - CHF [OTHER] Father - DM [OTHER] Father - HTN [OTHER] Father - hypertension [OTHER] Brother - HTN [OTHER] Brother - None Sister - None Brother ALLERGIES: ALLERGIES Allergen Reactions - Perflutren GI Upset - [place] Hives CURRENT MEDICATIONS: lisinopril (PRINIVIL) 20 mg tablet Take 1 tablet by mouth once daily. furosemide (LASIX) 40 mg tablet Take 1 tablet by mouth once daily as needed (Swelling). carvedilol (COREG) 25 mg tablet Take 1 tablet by mouth twice daily with meals. REVIEW OF SYSTEMS: See HPI. PHYSICAL EXAMINATION: BP 140/88 Pulse 98 Ht 182.9 cm (6') Wt (!) 137.4 kg (303 lb) SpO2 96% BMI 41.09 kg/m? Last 10 Encounter Wt Readings: Date: Wt: 03/25/2018 137.4 kg (303 lb) 03/11/2018 138.3 kg (305 lb) 01/30/2017 138.3 kg (305 lb) 01/20/2017 139.3 kg (307 lb) 12/30/2016 138.6 kg (305 lb 9.6 oz) 12/17/2016 138.3 kg (305 lb) 08/15/2016 136.5 kg (301 lb) 04/25/2016 143.9 kg (317 lb 4.8 oz) 04/23/2016 141.5 kg (312 lb) 03/24/2016 147.4 kg (325 lb) General appearance: no acute distress, conversant Psych: alert and oriented to person, place and time, did get frustrated and raise his voice during the visit HENT: Normal appearing ears and nose; normal hearing Neck: No JVD at sitting;no carotid bruits;Trachea midline; FROM Lungs: Normal respiratory effort; CTAB CV: RRR, no MRGs Abdomen: Soft, non-tender; no HSM Extremities: No lower extremity edema; Normal pulses, no clubbing or cyanosis Skin: No rash or ulcers; Normal temperature, turgor and texture Musculoskeletal: Normal gait CARDIOVASCULAR MEDICINE TESTING: Echo January 2017 LV ID (diastole) 7.4 cm (2D) LV ID (systole) 6.4 cm (2D) IVS, leaflet tips 1.1 cm (2D) Posterior wall thickness 1.1 cm (2D) Left ventricular mass 401 g (2D) 152 g/m? LV stroke volume 91 ml (2D biplane) LV end diastolic volume 270 ml (2D biplane) 102.4 ml/m? 34<=EDVi<75 LV end systolic volume 179 ml (2D biplane) 67.9 ml/m? Ejection Fraction 34 % (2D biplane) - The left ventricle is severely dilated. There is mild concentric left ventricular hypertrophy. Left ventricular systolic function is moderately decreased. EF = 34 ? 5% (2D biplane) Indeterminate left ventricular diastolic dysfunction. - The right ventricle is normal in size. Right ventricular systolic function is normal. - The left atrial cavity is mildly dilated. - Exam was compared with the prior CC echocardiographic exam performed on 02/06/2015. LV size has decreased and LVEF is significantly better. There is less MR. I have personally reviewed the Echocardiogram. IMPRESSION: NYHA Functional Class: I Stage: C heart failure Target weight: 303# Chronic systolic heart failure Heart Failure specific medications (list current, note updates or changes, note prior intolerance): BB: Coreg 25 mg bid ACEI/ARB/ARNI: Lisinopril 20 mg daily (ran out and did not take today) MRA: none (had gynecomastia on spironolactone) Diuretic: Lasix as needed Digoxin: none Vasodilators: none Anti-arrhythmics: none Ivabradine: none Other anti-HTN: none PLAN AND RECOMMENDATIONS: 1) Chronic systolic heart failure- nonischemic-he has had LHC which was normal in 2013. No family history. In past had narrow QRS so no indication for bell neck hammerer Had SQ ICD 2015 but then requested to have it extracted in 2016 No recent syncope or presycnope Outside echo in Dec 2017- report scanned in EPIC reports EF 20% LVIDd 8.7, LVIDs 7.6 On coreg 25 mg bid Just ran out of lisinopril 20 mg this AM Patient asked about transplant in the future. Discussed the indications for transplant (end stage heart failure with severe functional impairment) as well as the criteria used to consider someone for listing. Mr. Castro is too well at this time to even think about need for advanced therapies. Also explained that we want to improve his heart function if possible with known interventions that can work (neurohormonal blockade). Explained also if he was severely limited that transplant would not be an option given daily marijuana use, obesity, and variable compliance with medications - patient does admit that he is taking his medications consistently now - called in prescription to jorge - need to keep BP under control - likely will need to increase lisinopril dose over time - may consider adding back eplerenone at next visit - labs soon and ekg (check QRS and see if any ectopy) - if palpitations continue, consider monitor - return to clinic 4 to 6 weeks Of note patient does not have insurance and is self-pay at this time 2) Hypertension- needs to be better controlled overall Recent hypertensive urgency- had chest pain- sent to ED 3) Possible CURTIS- had overnight desaturation in one of his earlier hospitalizations, consider this shelter 4) Former Tobacco abuse- congratulated on abstinence 5) Morbid obesity- BMI 41- has had some weight loss with change in diet over the last 2 years Does not have appetite currently 6) Sweating at night, feeling warm- will check TSH If lab unremarkable, would ask that he go back to PCP to get this further evaluated I personally interviewed, confirmed and edited the above information as obtained by others The majority of the visit was spent counseling and/or coordinating care for the patient. [id number] time was 30 minutes. We discussed natural history of disease, current treatment options, and future potential treatment options. We discussed diet, exercise, other non-medical management as above. Ann Marie Villasenor MD [facility] Section Of Heart Failure and Cardiac Transplant Medicine Heart [facility] V[facility] [place] [facility] Desk J3-[address] [place] [address] CC: Shane Rendon MD ([facility]) Jackson Garcia MD ([facility]) Ann Marie Villasenor MD 03/25/2018 2:38 PM Addendum 1) Keeping your blood pressure under control is important 2) You should consistently take your coreg and lisinopril 3) Let me know in about your blood pressure control- I am back April 12 We ideally need the top number to stay below 130 and the bottom number to be below 80 4) Make sure you can get the ekg and labs done in the next few days 5) Return to clinic in 4-6 weeks Referring Provider: ANN MARIE VILLASENOR [[id number]] Allergies As of Date: 03/25/2018 Noted Allergy Reaction PERFLUTREN 12/24/2017 8 - GI Upset TURKEY 10/05/2015 4 - Hives Date Reviewed: 03/25/2018 Reviewed by: Nima AvitiaRn) Sky, RN - Fully Assessed Reason for Visit: Follow Up [171] Primary Visit Diagnosis:Chronic systolic heart failure (HCC) [I50.22] Other Visit Diagnoses:NICM (nonischemic cardiomyopathy) (HCC) [I42.8] Heat intolerance [R68.89] Sweating increase [R61] Primary hypertension [I10] Class 3 obesity with serious comorbidity and body mass index (BMI) of 40.0 to 44.9 in adult, unspecified obesity type (HCC) [E66.9, Z68.41] Order(s):TSH BLD [SQTSH] Order #: [id number] FUTURE BASIC METABOLIC PNL [SQBMP] Order #: [id number] FUTURE CBC [SQCBC] Order #: [id number] FUTURE ECG COMPLETE W INTERPRETATION [ECG01] Order #: [id number] FUTURE lisinopril (PRINIVIL) 20 mg tabletTake 1 tablet by mouth once daily.Disp: 30 tabletRfl: 11 Prescriptions as of 03/25/2018 Sig: FUROSEMIDE 40 MG TABLET Take 1 tablet by mouth once d* CARVEDILOL 25 MG TABLET Take 1 tablet by mouth twice * LISINOPRIL 20 MG TABLET Take 1 tablet by mouth once d* Problem List As Of Date 03/25/2018 Noted Resolved Heart failure, chronic systolic (HCC) [I50.22] INVALID FOR* Priority: B More... Hypertension [I10] INVALID FOR* Tobacco abuse [Z72.0] INVALID FOR* Syncope [R55] INVALID FOR*12/17/2016 Priority: A More... DISPOSITION AND FOLLOW-UP INVALID FOR*12/17/2016 More... Depression [F32.9] INVALID FOR*12/24/2016 Priority: E More... Nausea [R11.0] 12/17/2016 Heart failure, left, with LVEF <=30% (HCC) [I50*INVALID FOR* Constitutional obesity [E66.8] INVALID FOR* CURTIS (obstructive sleep apnea) [G47.33] INVALID FOR* Heart failure (HCC) [I50.9] INVALID FOR*08/15/2016 Palpitations [R00.2] INVALID FOR* Priority: A Other instructions from your clinician: 1) Keeping your blood pressure under control is important 2) You should consistently take your coreg and lisinopril 3) Let me know in about your blood pressure control- I am back April 12 We ideally need the top number to stay below 130 and the bottom number to be below 80 4) Make sure you can get the ekg and labs done in the next few days 5) Return to clinic in 4-6 weeks Prescriptions ordered this encounter Disp Refills Start End LISINOPRIL 20 MG TABLET 30 t* 11 03/25/2018 03/25/2018 Class: Print RX Route: ORAL Sig: Take 1 tablet by mouth once daily. LISINOPRIL 20 MG TABLET 30 t* 11 03/25/2018 Class: Print RX Route: ORAL Sig: Take 1 tablet by mouth once daily. Medications Discontinued During This Encounter lisinopril (PRINIVIL) 20 mg tablet 30 t* 11 03/11/2018 03/25/2018 Route: ORAL Sig: Take 1 tablet by mouth once daily. Disc: Reason for discontinue is not on file. lisinopril (PRINIVIL) 20 mg tablet 30 t* 11 03/25/2018 03/25/2018 Class: Print RX Route: ORAL Sig: Take 1 tablet by mouth once daily. Disc: Reason for discontinue is not on file. Disposition: Return in about 6 weeks (around 05/06/2018). Follow-up and Disposition History Recorded Letter Text Name: Bhupinder Castro : 1985 [facility]#: [id number] Date of Service: 03/25/2018 Page:7 Ann Marie Villasenor M.D. Section of Heart Failure-Cardiac Transplant Medicine [facility] Department of Cardiovascular Medicine [address] [place] [address] April 07, 2018 Shane Rendon MD [facility] [place] [address] NAME: Bhupinder Castro [facility] NO: [id number] DATE OF SERVICE: 03/25/[address] Rendon: Thank you for referring your patient, Mr. Bhupinder Castro, to the [facility] and allowing me to participate in his care. I had the pleasure of seeing Mr. Bhupinder Castro on 03/25/2018. Please find attached a copy of my detailed clinical evaluation, comprehensive cardiac examination and relevant test results. Also enclosed are my final recommendations and plans. Please do not hesitate to contact me directly if you have any questions or would like to further discuss his case. Sincerely, Ann Marie Villasenor M.D. LEENA:jo cc: Heart and Vascular [place] [facility] SECTION OF HEART FAILURE and CARDIAC TRANSPLANT MEDICINE OUTPATIENT VISIT DATE March 25, 2018 OUTPATIENT VISIT TYPE Established Patient PRIMARY CARE PHYSICIAN: Shane Rendon MD [address] [place] [address] CHIEF COMPLAINT: Follow-up of heart failure NURSING INTAKE (Patient?s concerns and/or recent hospitalizations/ER visits): HF Nursing Assessment: Interim Hospitalizations and/or ER visits: Dyspnea: comes and goes same as usual Cough: no Orthopnea Or PND: no Chest pain: no Palpations: not today Lightheadedness Or Dizziness: yes sporadically Syncope: no Fatigue: normal Unintentional weight loss or gain: increase recently Edema:no Appetite: poor eats one meal per day HISTORY OF PRESENT ILLNESS: Last seen by me in 2015. Followed by Dr. Garcia. Of note had placement of SQ ICD in 2015 after having history of unexplained syncope in setting of heart failure. Due to patient's request, SQ ICD was removed in May 2017. He has not had an ekg or echo since 2017. No labs since 2017 Recently had BP as high 178/106 at PCP on 03/08. He presented with worsening exercise tolerance and chest discomfort. He was send to ED. Admits he was not consistent with taking coreg around that time. Got an inhaler which helped for a few days. No cough. Before this he had chills and felt clammy. Has terrible sweating. Last few days- sweating through clothes at night. Before this was walking 5 to 10 miles per day without problems. Weighs himself daily- if he gains 2 pounds or tightness in chest- takes a lasix. About 3 days a week. Haven't had an appetite for a long time. Has no interest in eating. This has been going on for 2 months. May only eat one meal a day. Steady weight loss of 70# over last few years Last 2 months has lost another 10 to 15 pounds. Of note smokes marijuana daily. Does not smoke cigarettes, drink alcohol or use any other illicit substances. He has not been on spironolactone for 2 months. Still has breast enlargement from this. PAST MEDICAL HISTORY Diagnosis Date - GERD (gastroesophageal reflux disease) - HTN (hypertension) for the last 14 years or so - Nausea - NICM (nonischemic cardiomyopathy) (HCC) - Obesity - CURTIS (obstructive sleep apnea) not treated. PAST SURGICAL HISTORY Procedure Laterality Date - EGD W/O OR W/BRUSH/WASH 04/02/2016 EGD - EP STUDY 10/2014 - HEART CATHETERIZATION 10/2014 - ICD (ICD) 04/28/16 - TONSILLECTOMY HX 1997 SOCIAL HISTORY Social History Substance Use Topics - Smoking status: Current Some Day Smoker Years: 15.00 Types: Cigarettes - Smokeless tobacco: Never Used Comment: a couple cigarettes a week - Alcohol use No FAMILY HISTORY Problem Relation Age of Onset - arrythmia [OTHER] Mother unsure what type - HTN [OTHER] Mother - Ischemic Heart Disease Father CABG mid 50s, ot sepsis - CHF [OTHER] Father - DM [OTHER] Father - HTN [OTHER] Father - hypertension [OTHER] Brother - HTN [OTHER] Brother - None Sister - None Brother ALLERGIES: ALLERGIES Allergen Reactions - Perflutren GI Upset - [place] Hives CURRENT MEDICATIONS: lisinopril (PRINIVIL) 20 mg tablet Take 1 tablet by mouth once daily. furosemide (LASIX) 40 mg tablet Take 1 tablet by mouth once daily as needed (Swelling). carvedilol (COREG) 25 mg tablet Take 1 tablet by mouth twice daily with meals. REVIEW OF SYSTEMS: See HPI. PHYSICAL EXAMINATION: BP 140/88 Pulse 98 Ht 182.9 cm (6') Wt (!) 137.4 kg (303 lb) SpO2 96% BMI 41.09 kg/m? Last 10 Encounter Wt Readings: Date: Wt: 03/25/2018 137.4 kg (303 lb) 03/11/2018 138.3 kg (305 lb) 01/30/2017 138.3 kg (305 lb) 01/20/2017 139.3 kg (307 lb) 12/30/2016 138.6 kg (305 lb 9.6 oz) 12/17/2016 138.3 kg (305 lb) 08/15/2016 136.5 kg (301 lb) 04/25/2016 143.9 kg (317 lb 4.8 oz) 04/23/2016 141.5 kg (312 lb) 03/24/2016 147.4 kg (325 lb) General appearance: no acute distress, conversant Psych: alert and oriented to person, place and time, did get frustrated and raise his voice during the visit HENT: Normal appearing ears and nose; normal hearing Neck: No JVD at sitting;no carotid bruits;Trachea midline; FROM Lungs: Normal respiratory effort; CTAB CV: RRR, no MRGs Abdomen: Soft, non-tender; no HSM Extremities: No lower extremity edema; Normal pulses, no clubbing or cyanosis Skin: No rash or ulcers; Normal temperature, turgor and texture Musculoskeletal: Normal gait CARDIOVASCULAR MEDICINE TESTING: Echo January 2017 LV ID (diastole) 7.4 cm (2D) LV ID (systole) 6.4 cm (2D) IVS, leaflet tips 1.1 cm (2D) Posterior wall thickness 1.1 cm (2D) Left ventricular mass 401 g (2D) 152 g/m? LV stroke volume 91 ml (2D biplane) LV end diastolic volume 270 ml (2D biplane) 102.4 ml/m? 34<=EDVi<75 LV end systolic volume 179 ml (2D biplane) 67.9 ml/m? Ejection Fraction 34 % (2D biplane) - The left ventricle is severely dilated. There is mild concentric left ventricular hypertrophy. Left ventricular systolic function is moderately decreased. EF = 34 ? 5% (2D biplane) Indeterminate left ventricular diastolic dysfunction. - The right ventricle is normal in size. Right ventricular systolic function is normal. - The left atrial cavity is mildly dilated. - Exam was compared with the prior echocardiographic exam performed on 02/06/2015. LV size has decreased and LVEF is significantly better. There is less MR. I have personally reviewed the Echocardiogram. IMPRESSION: NYHA Functional Class: I Stage: C heart failure Target weight: 303# Chronic systolic heart failure Heart Failure specific medications (list current, note updates or changes, note prior intolerance): BB: Coreg 25 mg bid ACEI/ARB/ARNI: Lisinopril 20 mg daily (ran out and did not take today) MRA: none (had gynecomastia on spironolactone) Diuretic: Lasix as needed Digoxin: none Vasodilators: none Anti-arrhythmics: none Ivabradine: none Other anti-HTN: none PLAN AND RECOMMENDATIONS: 1) Chronic systolic heart failure- nonischemic-he has had LHC which was normal in 2013. No family history. In past had narrow QRS so no indication for bell neck hammerer Had SQ ICD 2015 but then requested to have it extracted in 2016 No recent syncope or presycnope Outside echo in Dec 2017- report scanned in EPIC reports EF 20% LVIDd 8.7, LVIDs 7.6 On coreg 25 mg bid Just ran out of lisinopril 20 mg this AM Patient asked about transplant in the future. Discussed the indications for transplant (end stage heart failure with severe functional impairment) as well as the criteria used to consider someone for listing. Mr. Castro is too well at this time to even think about need for advanced therapies. Also explained that we want to improve his heart function if possible with known interventions that can work (neurohormonal blockade). Explained also if he was severely limited that transplant would not be an option given daily marijuana use, obesity, and variable compliance with medications - patient does admit that he is taking his medications consistently now - called in prescription to jorge - need to keep BP under control - likely will need to increase lisinopril dose over time - may consider adding back eplerenone at next visit - labs soon and ekg (check QRS and see if any ectopy) - if palpitations continue, consider monitor - return to clinic 4 to 6 weeks Of note patient does not have insurance and is self-pay at this time 2) Hypertension- needs to be better controlled overall Recent hypertensive urgency- had chest pain- sent to ED 3) Possible CURTIS- had overnight desaturation in one of his earlier hospitalizations, 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 Rxrq-my-jkek time was 30 minutes. We discussed natural history of disease, current treatment options, and future potential treatment options. We discussed diet, exercise, other non-medical management as above. Ann Marie Villasenor MD [facility] Section Of Heart Failure and Cardiac Transplant Medicine Heart and Vascular [place] [facility] Desk J3-[address] [place] [address] CC: Shane Rendon MD ([facility]) Jackson Garcia MD ([facility] Card[facility]) Encounter Status:Closed by ANN MARIE VILLASENOR MD on 03/26/18 PROGRESS Observed: 03/25/2018 Status: COMPLETED Source: [place] 9:19 AM [facility] REPOSITORY HNO ID: [id number] Author: Ann Marie Villasenor Service: (none) Author Type: Physician Type: Progress Notes Filed: 03/26/2018 9:48 AM Note Text: Heart and V[facility] [place] [facility] SECTION OF HEART FAILURE and CARDIAC TRANSPLANT MEDICINE OUTPATIENT VISIT DATE March 25, 2018 OUTPATIENT VISIT TYPE Established Patient PRIMARY CARE PHYSICIAN: Shane Rendon MD [address] [place] [address] CHIEF COMPLAINT: Follow-up of heart failure NURSING INTAKE (Patient?s concerns and/or recent hospitalizations/ER visits): HF Nursing Assessment: Interim Hospitalizations and/or ER visits: Dyspnea: comes and goes same as usual Cough: no Orthopnea Or PND: no Chest pain: no Palpations: not today Lightheadedness Or Dizziness: yes sporadically Syncope: no Fatigue: normal Unintentional weight loss or gain: increase recently Edema:no Appetite: poor eats one meal per day HISTORY OF PRESENT ILLNESS: Last seen by me in 2015. Followed by Dr. Garcia. Of note had placement of SQ ICD in 2015 after having history of unexplained syncope in setting of heart failure. Due to patient's request, SQ ICD was removed in May 2017. He has not had an ekg or echo since 2017. No labs since 2017 Recently had BP as high 178/106 at PCP on 03/08. He presented with worsening exercise tolerance and chest discomfort. He was send to ED. Admits he was not consistent with taking coreg around that time. Got an inhaler which helped for a few days. No cough. Before this he had chills and felt clammy. Has terrible sweating. Last few days- sweating through clothes at night. Before this was walking 5 to 10 miles per day without problems. Weighs himself daily- if he gains 2 pounds or tightness in chest- takes a lasix. About 3 days a week. Haven't had an appetite for a long time. Has no interest in eating. This has been going on for 2 months. May only eat one meal a day. Steady weight loss of 70# over last few years Last 2 months has lost another 10 to 15 pounds. Of note smokes marijuana daily. Does not smoke cigarettes, drink alcohol or use any other illicit substances. He has not been on spironolactone for 2 months. Still has breast enlargement from this. PAST MEDICAL HISTORY Diagnosis Date - GERD (gastroesophageal reflux disease) - HTN (hypertension) for the last 14 years or so - Nausea - NICM (nonischemic cardiomyopathy) (HCC) - Obesity - CURTIS (obstructive sleep apnea) not treated. PAST SURGICAL HISTORY Procedure Laterality Date - EGD W/O OR W/BRUSH/WASH 04/02/2016 EGD - EP STUDY 10/2014 - HEART CATHETERIZATION 10/2014 - ICD (ICD) 04/28/16 - TONSILLECTOMY 1997 SOCIAL HISTORY Social History Substance Use Topics - Smoking status: Current Some Day Smoker Years: 15.00 Types: Cigarettes - Smokeless tobacco: Never Used Comment: a couple cigarettes a week - Alcohol use No FAMILY HISTORY Problem Relation Age of Onset - arrythmia [OTHER] Mother unsure what type - HTN [OTHER] Mother - Ischemic Heart Disease Father CABG mid 50s, ot sepsis - CHF [OTHER] Father - DM [OTHER] Father - HTN [OTHER] Father - hypertension [OTHER] Brother - HTN [OTHER] Brother - None Sister - None Brother ALLERGIES: ALLERGIES Allergen Reactions - Perflutren GI Upset - [place] Hives CURRENT MEDICATIONS: lisinopril (PRINIVIL) 20 mg tablet Take 1 tablet by mouth once daily. furosemide (LASIX) 40 mg tablet Take 1 tablet by mouth once daily as needed (Swelling). carvedilol (COREG) 25 mg tablet Take 1 tablet by mouth twice daily with meals. REVIEW OF SYSTEMS: See HPI. PHYSICAL EXAMINATION: BP 140/88 Pulse 98 Ht 182.9 cm (6') Wt (!) 137.4 kg (303 lb) SpO2 96% BMI 41.09 kg/m? Last 10 Encounter Wt Readings: Date: Wt: 03/25/2018 137.4 kg (303 lb) 03/11/2018 138.3 kg (305 lb) 01/30/2017 138.3 kg (305 lb) 01/20/2017 139.3 kg (307 lb) 12/30/2016 138.6 kg (305 lb 9.6 oz) 12/17/2016 138.3 kg (305 lb) 08/15/2016 136.5 kg (301 lb) 04/25/2016 143.9 kg (317 lb 4.8 oz) 04/23/2016 141.5 kg (312 lb) 03/24/2016 147.4 kg (325 lb) General appearance: no acute distress, conversant Psych: alert and oriented to person, place and time, did get frustrated and raise his voice during the visit HENT: Normal appearing ears and nose; normal hearing Neck: No JVD at sitting;no carotid bruits;Trachea midline; FROM Lungs: Normal respiratory effort; CTAB CV: RRR, no MRGs Abdomen: Soft, non-tender; no HSM Extremities: No lower extremity edema; Normal pulses, no clubbing or cyanosis Skin: No rash or ulcers; Normal temperature, turgor and texture Musculoskeletal: Normal gait CARDIOVASCULAR MEDICINE TESTING: Echo January 2017 LV ID (diastole) 7.4 cm (2D) LV ID (systole) 6.4 cm (2D) IVS, leaflet tips 1.1 cm (2D) Posterior wall thickness 1.1 cm (2D) Left ventricular mass 401 g (2D) 152 g/m? LV stroke volume 91 ml (2D biplane) LV end diastolic volume 270 ml (2D biplane) 102.4 ml/m? 34<=EDVi<75 LV end systolic volume 179 ml (2D biplane) 67.9 ml/m? Ejection Fraction 34 % (2D biplane) - The left ventricle is severely dilated. There is mild concentric left ventricular hypertrophy. Left ventricular systolic function is moderately decreased. EF = 34 ? 5% (2D biplane) Indeterminate left ventricular diastolic dysfunction. - The right ventricle is normal in size. Right ventricular systolic function is normal. - The left atrial cavity is mildly dilated. - Exam was compared with the prior echocardiographic exam performed on 02/06/2015. LV size has decreased and LVEF is significantly better. There is less MR. I have personally reviewed the Echocardiogram. IMPRESSION: NYHA Functional Class: I Stage: C heart failure Target weight: 303# Chronic systolic heart failure Heart Failure specific medications (list current, note updates or changes, note prior intolerance): BB: Coreg 25 mg bid ACEI/ARB/ARNI: Lisinopril 20 mg daily (ran out and did not take today) MRA: none (had gynecomastia on spironolactone) Diuretic: Lasix as needed Digoxin: none Vasodilators: none Anti-arrhythmics: none Ivabradine: none Other anti-HTN: none PLAN AND RECOMMENDATIONS: 1) Chronic systolic heart failure- nonischemic-he has had LHC which was normal in 2013. No family history. In past had narrow QRS so no indication for bell neck hammerer Had SQ ICD 2015 but then requested to have it extracted in 2016 No recent syncope or presycnope Outside echo in Dec 2017- report scanned in EPIC reports EF 20% LVIDd 8.7, LVIDs 7.6 On coreg 25 mg bid Just ran out of lisinopril 20 mg this AM Patient asked about transplant in the future. Discussed the indications for transplant (end stage heart failure with severe functional impairment) as well as the criteria used to consider someone for listing. Mr. Castro is too well at this time to even think about need for advanced therapies. Also explained that we want to improve his heart function if possible with known interventions that can work (neurohormonal blockade). Explained also if he was severely limited that transplant would not be an option given daily marijuana use, obesity, and variable compliance with medications - patient does admit that he is taking his medications consistently now - called in prescription to jorge - need to keep BP under control - likely will need to increase lisinopril dose over time - may consider adding back eplerenone at next visit - labs soon and ekg (check QRS and see if any ectopy) - if palpitations continue, consider monitor - return to clinic 4 to 6 weeks Of note patient does not have insurance and is self-pay at this time 2) Hypertension- needs to be better controlled overall Recent hypertensive urgency- had chest pain- sent to ED 3) Possible CURTIS- had overnight desaturation in one of his earlier hospitalizations, 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 Vumv-kw-[id number] time was 30 minutes. We discussed natural history of disease, current treatment options, and future potential treatment options. We discussed diet, exercise, other non-medical management as above. Ann Marie Villasenor MD [facility] Section Of Heart Failure and Cardiac Transplant Medicine Heart and Vascular [facility] Desk J3-[address] [place] [address] CC: Shane Rendon MD ([facility]) Jackson Garcia MD ([facility] Cardiology) 12 LEAD ELECTROCARDIOGRAM Observed: 03/12/2018 Status: F Source: [place] 3:41 PM [facility] [place] [facility] Cardiovascular Services [address] [place] [id number] 12 Lead EKG 03/08/18 1650 MR#: [id number] Acct: [id number] Name: BHUPINDER CASTRO Rep #: [id number] : 1985 32 From: Evan Espitia MD Attending Dr: Status: DEP ER Ordering Dr: Guillermo Buchanan MD Date: 03/08/18 Location: ED Sex: M C Admitted: Test Reason : REPEAT-CP Blood Pressure : / mmHG Vent. Rate : 078 BPM Atrial Rate : 078 BPM P-R Int : 172 ms QRS Dur : 128 ms QT Int : 398 ms P-R-T Axes : 022 -54 102 degrees QTc Int : 453 ms Normal sinus rhythm Left axis deviation Non-specific intra-ventricular conduction block Abnormal ECG Confirmed by EVAN ESPITIA MD ([id number]), manager editorial TRENA WARREN ([id number]) on 03/12/2018 3:41:05 PM Referred By: GREG Confirmed By:EVAN ESPITIA MD 03/12/18 1541 Date Evan Espitia MD CC: Guillermo Buchanan; Shane Rendon MD Signed 12 LEAD ELECTROCARDIOGRAM Observed: 03/12/2018 Status: F Source: [place] 3:18 PM [facility] [place] [facility] [place] [address] 12 Lead EKG 03/08/18 1603 MR#: [id number] Acct: [id number] Name: BHUPINDER CASTRO Rep #: [id number] : 1985 32 From: Evan Espitia MD Attending Dr: Status: DEP ER Ordering Dr: Guillermo Buchanan MD Date: 03/08/18 Location: ED Sex: M C Admitted: Test Reason : SOB/CP Blood Pressure : / mmHG Vent. Rate : 081 BPM Atrial Rate : 081 BPM P-R Int : 174 ms QRS Dur : 116 ms QT Int : 392 ms P-R-T Axes : 020 -52 084 degrees QTc Int : 455 ms Normal sinus rhythm Left axis deviation Incomplete left bundle branch block Abnormal ECG Confirmed by EVAN ESPITIA MD ([id number]), manager editorial TRENA WARREN ([id number]) on 03/12/2018 3:17:26 PM Referred By: GREG Confirmed By:EVAN ESPITIA MD 03/12/18 1517 Date Evan Espitia MD CC: Guillermo Buchanan; Shane Rendon MD Signed PROGRESS Observed: 03/11/2018 Status: COMPLETED Source: [place] 3:30 PM CLINIC OTHER CAMPUS REPOSITORY HNO ID: [id number] Author: Guilherme Mendez Service: (none) Author Type: Physician Type: Progress Notes Filed: 03/11/2018 5:28 PM Note Text: PERTINENT CARDIAC HISTORY Cardiomyopathy - postviral?, ICD /16, explanted at his request 02/23 Syncope HL HTN ADHERENCE TO GUIDELINES KATHARINA-I or ARB for HF with prior LVEF<40 (NQF 0081) - met ASA or Plavix for ASHD (NQF 0067) - N/A Beta adrian for ASHD with prior [place] or prior LVEF<40 (NQF 0070) - N/A Beta adrian for HF with prior LVEF<40 (NQF 0083) - met KATHARINA-I or ARB for ASHD with DM or prior LVEF<40 (NQF 0066) - N/A Statin therapy for ASHD or FHL or DM - N/A BMI documented and plan if >25 (NQF 0421) - lifestyle recommendation form Tobacco use screening and referral (NQ 0028) - lifestyle recommendation form Recommendation for whole food, plant based diet - lifestyle recommendation form CLINICAL IMPRESSION/PLAN: Bhupinder Castro has progressive exercise intolerance, although is still able to walk 5 miles a day. I suspect there is an element of noncompliance. His blood pressure is reasonably well controlled. He has not been taking this on a regular basis. I recommended that he continue his current medication and continue Lasix. He will have a basic profile in 2 weeks. He will be referred back to the heart failure clinic at [facility] for consideration of advanced therapy. Unfortunately, he had his defibrillator removed last year at his insistence. His QRS is not wide enough to consider resynchronization therapy. It is unlikely that he will be able to afford Entresto and it is questionable whether he has the psychologic profile to be accepted in the transplant program. His chest discomfort is atypical, but is occasionally nitrate responsive. He tolerates exercise fairly well. I have encouraged him to continue nitroglycerin as needed. We can consider restudying his coronaries, although his cath in 2013 showed no significant disease. His mild troponin elevation suggests there may be an ongoing component of myocarditis. MR scan may be of benefit, but I will leave this up to heart failure clinic to decide. He would prefer no additional tests at this time. I will see him in 6 months or as needed. He's been encouraged to keep in contact and take his medications regularly. Written and verbal health teaching given to patient, patient verbalizes understanding and agrees with treatment plan. DIAGNOSIS FOR VISIT: Cardiomyopathy Hypertension HISTORY OF PRESENT ILLNESS Bhupinder Castro returns for follow-up. He had been lost to follow-up for the last year. He was hospitalized in December with acute respiratory infection and decompensated heart failure. His ejection fraction was found to be 20%, which is a decrease. He has had difficulty obtaining medications. He was seen in the emergency department earlier this week when he went to primary care and complained of chest discomfort. He was given nitroglycerin with some improvement. He reports that it is not unusual for him to have this discomfort, which he describes as a dull ache which is present most of the time. He is becoming frustrated with his lack of exercise tolerance. He is no longer working. He has had no orthopnea but has significant exercise intolerance. He has had minimal edema. He has not been taking Lasix on a regular basis. He's had no recurrent syncope. He notes occasional palpitations. He denies TIAs, amaurosis and claudication. He has been pushing himself and is walking 5 miles a day. He reports that he feels relatively good when he walks. ALLERGIES: ALLERGIES Allergen Reactions - [place] Josh CURRENT OUTPATIENT MEDICATIONS: furosemide (LASIX) 40 mg tablet Take 1 tablet by mouth once daily as needed (Swelling). lisinopril (ZESTRIL, PRINIVIL) 40 mg tablet Take 1 tablet by mouth once daily. carvedilol (COREG) 25 mg tablet Take 1 tablet by mouth twice daily with meals. PAST MEDICAL HISTORY Diagnosis Date - GERD (gastroesophageal reflux disease) - HTN (hypertension) for the last 14 years or so - Nausea - NICM (nonischemic cardiomyopathy) (HCC) - Obesity - CURTIS (obstructive sleep apnea) not treated. PAST SURGICAL HISTORY Procedure Laterality Date - EGD W/O OR W/BRUSH/WASH 04/02/2016 EGD - EP STUDY 10/2014 - HEART CATHETERIZATION 10/2014 - ICD (ICD) 04/28/16 - TONSILLECTOMY HX 1997 FAMILY HISTORY Problem Relation Age of Onset - arrythmia [OTHER] Mother unsure what type - HTN [OTHER] Mother - Ischemic Heart Disease Father CABG mid 50s, ot sepsis - CHF [OTHER] Father - DM [OTHER] Father - HTN [OTHER] Father - hypertension [OTHER] Brother - HTN [OTHER] Brother - None Sister - None Brother Social History Marital status: Single Spouse name: Years of education: Number of children: 2 Social History Main Topics Smoking status: Current Some Day Smoker Packs/day: 0.00 Years: 15.00 Types: Cigarettes Smokeless tobacco: Never Used Comment: a couple cigarettes a week Alcohol use: No Drug use: Yes Comment: Last smoked marijuana 02/2016. REVIEW OF SYSTEMS: General: No chills, fever, weight loss, night sweats. Respiratory: No productive cough. Cardiac: As noted above. GI: No melena. : No dysuria. Musculoskeletal: No myalgias. PHYSICAL EXAMINATION: S/he is alert and in no distress. VITAL SIGNS: BP 104/82 Pulse 84 Ht 5' 11 (1.80m) Wt 305 lb (138.3kg) BMI 42.56 kg/(m2). SHEENT: Skin is warm and dry. No xanthelasmas appreciated. Pharynx is benign. There is no oral cyanosis. Neck: supple. No adenopathy or thyroid enlargement. Chest: Few scattered wheezes and mild expiratory prolongation. No rales. Trachea is midline. Air entry is equal. There is no chest wall tenderness. Cardiac: Regular rhythm. S1 and S2 are normal. PMI is sustained and laterally displaced. There is a 1/6 murmur of mitral insufficiency. No click is heard. Carotids are brisk without bruits. JVP is less than 10 cm. Abdomen: Soft and nontender. There are no pulsatile masses or bruits. No liver enlargement. Bowel sounds are active. Extremities: Trace edema. Pulses are intact and symmetrical. No clubbing or cyanosis. No femoral bruits. Neurologic: Grossly normal motor and sensory. S/he is alert and oriented x4. Recent records were reviewed. Renal function is normal. Potassium was 4.0. Troponin is in the indeterminate range and has been for the last few months. BNP was minimally elevated. TSH is normal. Echocardiogram shows moderate mitral insufficiency. There is severe LV dysfunction and dilatation. EKG shows sinus rhythm with nonspecific repolarization changes, and is unchanged. Chest x-ray showed no evidence of volume overload. At the time of discharge, he was referred to [facility] and to [facility] for consideration of transplant, but was unable to make appointments because of lack of financial clearance. He has been cleared to continue with [facility]. Electronically Signed: Guilherme Mendez MD March 11, 2018 3:30 PM CC:Shane Rendon Observed: 03/11/2018 Status: COMPLETED Source: [place] 3:30 PM CLINIC OTHER CAMPUS REPOSITORY Office Visit ([facility]CARD[facility]) BHUPINDER CASTRO ([id number]) 1985 M Date Time Provider Department 03/11/18 3:30 PM GUILHERME MENDEZ AGCARDWST During your visit today, we recorded the following information about you: Pulse Blood pressure Weight Height 84/minute 104/82 138.3 kg 1.803 m Guilherme Mendez 03/11/2018 5:28 PM Signed PERTINENT CARDIAC HISTORY Cardiomyopathy - postviral?, ICD 04/24, explanted at his request 02/23 Syncope HL HTN ADHERENCE TO GUIDELINES KATHARINA-I or ARB for HF with prior LVEF<40 (NQF 0081) - met ASA or Plavix for ASHD (NQF 0067) - N/A Beta adrian for ASHD with prior WI or prior LVEF<40 (NQF 0070) - N/A Beta adrian for HF with prior LVEF<40 (NQF 0083) - met KATHARINA-I or ARB for ASHD with DM or prior LVEF<40 (NQF 0066) - N/A Statin therapy for ASHD or FHL or DM - N/A BMI documented and plan if >25 (NQF 0421) - lifestyle recommendation form Tobacco use screening and referral (NQF 0028) - lifestyle recommendation form Recommendation for whole food, plant based diet - lifestyle recommendation form CLINICAL IMPRESSION/PLAN: Bhupinder Castro has progressive exercise intolerance, although is still able to walk 5 miles a day. I suspect there is an element of noncompliance. His blood pressure is reasonably well controlled. He has not been taking this on a regular basis. I recommended that he continue his current medication and continue Lasix. He will have a basic profile in 2 weeks. He will be referred back to the heart failure clinic at [facility] for consideration of advanced therapy. Unfortunately, he had his defibrillator removed last year at his insistence. His QRS is not wide enough to consider resynchronization therapy. It is unlikely that he will be able to afford Entresto and it is questionable whether he has the psychologic profile to be accepted in the transplant program. His chest discomfort is atypical, but is occasionally nitrate responsive. He tolerates exercise fairly well. I have encouraged him to continue nitroglycerin as needed. We can consider restudying his coronaries, although his cath in 2013 showed no significant disease. His mild troponin elevation suggests there may be an ongoing component of myocarditis. MR scan may be of benefit, but I will leave this up to heart failure clinic to decide. He would prefer no additional tests at this time. I will see him in 6 months or as needed. He's been encouraged to keep in contact and take his medications regularly. Written and verbal health teaching given to patient, patient verbalizes understanding and agrees with treatment plan. DIAGNOSIS FOR VISIT: Cardiomyopathy Hypertension HISTORY OF PRESENT ILLNESS Bhupinder Castro returns for follow-up. He had been lost to follow-up for the last year. He was hospitalized in December with acute respiratory infection and decompensated heart failure. His ejection fraction was found to be 20%, which is a decrease. He has had difficulty obtaining medications. He was seen in the emergency department earlier this week when he went to primary care and complained of chest discomfort. He was given nitroglycerin with some improvement. He reports that it is not unusual for him to have this discomfort, which he describes as a dull ache which is present most of the time. He is becoming frustrated with his lack of exercise tolerance. He is no longer working. He has had no orthopnea but has significant exercise intolerance. He has had minimal edema. He has not been taking Lasix on a regular basis. He's had no recurrent syncope. He notes occasional palpitations. He denies TIAs, amaurosis and claudication. He has been pushing himself and is walking 5 miles a day. He reports that he feels relatively good when he walks. ALLERGIES: ALLERGIES Allergen Reactions - [place] Hives CURRENT OUTPATIENT MEDICATIONS: furosemide (LASIX) 40 mg tablet Take 1 tablet by mouth once daily as needed (Swelling). lisinopril (ZESTRIL, PRINIVIL) 40 mg tablet Take 1 tablet by mouth once daily. carvedilol (COREG) 25 mg tablet Take 1 tablet by mouth twice daily with meals. PAST MEDICAL HISTORY Diagnosis Date - GERD (gastroesophageal reflux disease) - HTN (hypertension) for the last 14 years or so - Nausea - NICM (nonischemic cardiomyopathy) (HCC) - Obesity - CURTIS (obstructive sleep apnea) not treated. PAST SURGICAL HISTORY Procedure Laterality Date - EGD W/O OR W/BRUSH/WASH 04/02/2016 EGD - EP STUDY 10/2014 - HEART CATHETERIZATION 10/2014 - ICD (ICD) 04/28/16 - TONSILLECTOMY HX 1998 FAMILY HISTORY Problem Relation Age of Onset - arrythmia [OTHER] Mother unsure what type - HTN [OTHER] Mother - Ischemic Heart Disease Father CABG mid 50s, ot sepsis - CHF [OTHER] Father - DM [OTHER] Father - HTN [OTHER] Father - hypertension [OTHER] Brother - HTN [OTHER] Brother - None Sister - None Brother Social History Marital status: Single Spouse name: Years of education: Number of children: 2 Social History Main Topics Smoking status: Current Some Day Smoker Packs/day: 0.00 Years: 15.00 Types: Cigarettes Smokeless tobacco: Never Used Comment: a couple cigarettes a week Alcohol use: No Drug use: Yes Comment: Last smoked marijuana 02/2016. REVIEW OF SYSTEMS: General: No chills, fever, weight loss, night sweats. Respiratory: No productive cough. Cardiac: As noted above. GI: No melena. : No dysuria. Musculoskeletal: No myalgias. PHYSICAL EXAMINATION: S/he is alert and in no distress. VITAL SIGNS: BP 104/82 Pulse 84 Ht 5' 11 (1.80m) Wt 305 lb (138.3kg) BMI 42.56 kg/(m2). SHEENT: Skin is warm and dry. No xanthelasmas appreciated. Pharynx is benign. There is no oral cyanosis. Neck: supple. No adenopathy or thyroid enlargement. Chest: Few scattered wheezes and mild expiratory prolongation. No rales. Trachea is midline. Air entry is equal. There is no chest wall tenderness. Cardiac: Regular rhythm. S1 and S2 are normal. PMI is sustained and laterally displaced. There is a 1/6 murmur of mitral insufficiency. No click is heard. Carotids are brisk without bruits. JVP is less than 10 cm. Abdomen: Soft and nontender. There are no pulsatile masses or bruits. No liver enlargement. Bowel sounds are active. Extremities: Trace edema. Pulses are intact and symmetrical. No clubbing or cyanosis. No femoral bruits. Neurologic: Grossly normal motor and sensory. S/he is alert and oriented x4. Recent records were reviewed. Renal function is normal. Potassium was 4.0. Troponin is in the indeterminate range and has been for the last few months. BNP was minimally elevated. TSH is normal. Echocardiogram shows moderate mitral insufficiency. There is severe LV dysfunction and dilatation. EKG shows sinus rhythm with nonspecific repolarization changes, and is unchanged. Chest x-ray showed no evidence of volume overload. At the time of discharge, he was referred to [facility] and to [facility] for consideration of transplant, but was unable to make appointments because of lack of financial clearance. He has been cleared to continue with [facility]. Electronically Signed: Guilherme Mendez MD March 11, 2018 3:30 PM CC:Shane Rendon Kenneth E 03/11/2018 3:34 PM Signed LIFESTYLE CHANGE A healthy lifestyle is the most important component of your overall treatment plan. 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 EAT A WHOLE FOOD, PLANT BASED DIET The nutrition your body gets is more important than the medicine you take. What matters most is the overall way you eat. We encourage you to minimize the use of animal products (which include dairy and all meats except fatty fish) and use whole, unprocessed plant foods to provide your protein, vitamins and other nutrients. We have a lot of information to share with you on this topic. This is not a diet. It is a way of life that you will keep with you. EXERCISE REGULARLY It is not important to spend hours in the gym, lifting weights and perspiring heavily. A total of 2-3 hours per week of aerobic (causing you to be moderately short of breath) exercise is sufficient to improve your health. Talk to us before you begin a new exercise program, if you have heart disease or experience shortness of breath or chest pain. REDUCE STRESS Chronic emotional and physical stress leads to disease. Ways of reducing stress include meditation, visualization, prayer, yoga and other forms of relaxation therapy. Consistency is the rios. Find a technique that works for you and do it every day. CULTIVATE RELATIONSHIPS Loneliness and isolation have a major negative impact on health. Seek out others who can love, care for and nurture you. Avoid hurtful relationships. MAINTAIN IDEAL BODY WEIGHT The best way to do this is to do all the things above. Our bodies naturally find the right weight if we keep moving and feed ourselves the right food. If your BMI is greater than 25, we strongly recommend a referral to a weight management program. Please speak to us or your family physician about available programs. AVOID NICOTINE IN ALL FORMS This includes all tobacco products, whether chewed, smoked, vaped, or rubbed on the skin. Smoking cessation programs, which can make use of tobacco substitutes, medications to suppress cravings and behavior management, are available. Please contact your family physician about programs in your area. Referring Provider: GUILHERME MENDEZ [[id number]] Allergies As of Date: 03/11/2018 Noted Allergy Reaction TURKEY 10/05/2015 4 - Hives Date Reviewed: 03/11/2018 Reviewed by: Tiff Mcintosh ([place]) - Fully Assessed Reason for Visit: Follow Up [171] Primary Visit Diagnosis:Cardiomyopathy, nonischemic (HCC) [I42.8] Other Visit Diagnoses:Heart failure, left, with LVEF <=30% (HCC) [I50.1] Acute on chronic systolic CHF (congestive heart failure) (HCC) [I50.23] Heart failure, chronic systolic (HCC) [I50.22] Order(s):CONSULT TO [facility] [[id number]] Order #: [id number]: 1 lisinopril (PRINIVIL) 20 mg tabletTake 1 tablet by mouth once daily.Disp: 30 tabletRfl: 11 furosemide (LASIX) 40 mg tabletTake 1 tablet by mouth once daily as needed (Swelling).Disp: 30 tabletRfl: 11 carvedilol (COREG) 25 mg tabletTake 1 tablet by mouth twice daily with meals.Disp: 60 tabletRfl: 11 BASIC METABOLIC PNL [SQBMP] Order #: [id number] FUTURE Prescriptions as of 03/11/2018 Sig: FUROSEMIDE 40 MG TABLET Take 1 tablet by mouth once d* CARVEDILOL 25 MG TABLET Take 1 tablet by mouth twice * LISINOPRIL 20 MG TABLET Take 1 tablet by mouth once d* Problem List As Of Date 03/11/2018 Noted Resolved Heart failure, chronic systolic (HCC) [I50.22] INVALID FOR* Priority: B More... Hypertension [I10] INVALID FOR* Tobacco abuse [Z72.0] INVALID FOR* Syncope [R55] INVALID FOR*12/17/2016 Priority: A More... DISPOSITION AND FOLLOW-UP INVALID FOR*12/17/2016 More... Depression [F32.9] INVALID FOR*12/24/2016 Priority: E More... Nausea [R11.0] 12/17/2016 Heart failure, left, with LVEF <=30% (HCC) [I50*INVALID FOR* Constitutional obesity [E66.8] INVALID FOR* CURTIS (obstructive sleep apnea) [G47.33] INVALID FOR* Heart failure (HCC) [I50.9] INVALID FOR*08/15/2016 Palpitations [R00.2] INVALID FOR* Priority: A Other instructions from your clinician: LIFESTYLE CHANGE A healthy lifestyle is the most important component of your overall treatment plan. 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 EAT A WHOLE FOOD, PLANT BASED DIET The nutrition your body gets is more important than the medicine you take. What matters most is the overall way you eat. We encourage you to minimize the use of animal products (which include dairy and all meats except fatty fish) and use whole, unprocessed plant foods to provide your protein, vitamins and other nutrients. We have a lot of information to share with you on this topic. This is not a diet. It is a way of life that you will keep with you. EXERCISE REGULARLY It is not important to spend hours in the gym, lifting weights and perspiring heavily. A total of 2-3 hours per week of aerobic (causing you to be moderately short of breath) exercise is sufficient to improve your health. Talk to us before you begin a new exercise program, if you have heart disease or experience shortness of breath or chest pain. REDUCE STRESS Chronic emotional and physical stress leads to disease. Ways of reducing stress include meditation, visualization, prayer, yoga and other forms of relaxation therapy. Consistency is the rios. Find a technique that works for you and do it every day. CULTIVATE RELATIONSHIPS Loneliness and isolation have a major negative impact on health. Seek out others who can love, care for and nurture you. Avoid hurtful relationships. MAINTAIN IDEAL BODY WEIGHT The best way to do this is to do all the things above. Our bodies naturally find the right weight if we keep moving and feed ourselves the right food. If your BMI is greater than 25, we strongly recommend a referral to a weight management program. Please speak to us or your family physician about available programs. AVOID NICOTINE IN ALL FORMS This includes all tobacco products, whether chewed, smoked, vaped, or rubbed on the skin. Smoking cessation programs, which can make use of tobacco substitutes, medications to suppress cravings and behavior management, are available. Please contact your family physician about programs in your area. Prescriptions ordered this encounter Disp Refills Start End LISINOPRIL 20 MG TABLET 30 t* 11 03/11/2018 Route: ORAL Sig: Take 1 tablet by mouth once daily. FUROSEMIDE 40 MG TABLET 30 t* 11 03/11/2018 Route: ORAL Sig: Take 1 tablet by mouth once daily as needed (Swelling). CARVEDILOL 25 MG TABLET 60 t* 11 03/11/2018 Route: ORAL Sig: Take 1 tablet by mouth twice daily with meals. Medications Discontinued During This Encounter hydroCHLOROthiazide (HYDRODIURIL, ES* 30 t* 6 12/30/2016 03/11/2018 Route: ORAL Sig: Take 1 tablet by mouth once daily. Patient not taking: Reported on 03/11/2018 Disc: Reason for discontinue is not on file. spironolactone (ALDACTONE) 25 mg tab* 32 t* 6 11/12/2015 03/11/2018 Route: ORAL Sig: Take 1 tablet by mouth once daily. Patient not taking: Reported on 03/11/2018 Disc: Reason for discontinue is not on file. pantoprazole DR (PROTONIX) 40 mg tab* 30 t* 6 11/12/2015 03/11/2018 Route: ORAL Sig: Take 1 tablet by mouth once daily. Patient not taking: Reported on 03/11/2018 Disc: Reason for discontinue is not on file. carvedilol (COREG) 25 mg tablet 180 * 3 05/03/2015 03/11/2018 Route: ORAL Sig: Take 1 tablet by mouth twice daily with meals for 90 days. Disc: Reason for discontinue is not on file. lisinopril (ZESTRIL, PRINIVIL) 40 mg* 30 t* 5 12/24/2016 03/11/2018 Route: ORAL Sig: Take 1 tablet by mouth once daily. Disc: Reason for discontinue is not on file. furosemide (LASIX) 40 mg tablet 12/29/2017 03/11/2018 Class: Med Update Route: ORAL Sig: Take 1 tablet by mouth once daily as needed (Swelling). Disc: Reason for discontinue is not on file. carvedilol (COREG) 25 mg tablet 60 t* 3 09/25/2015 03/11/2018 Class: Med Update Route: ORAL Sig: Take 1 tablet by mouth twice daily with meals. Disc: Reason for discontinue is not on file. Follow-up and Disposition History Recorded Encounter Status:Closed by GUILHERME MENDEZ MD on 03/11/18 EMERGENCY DEPARTMENT Observed: 03/09/2018 Status: F Source: [place] SUMMARY 2:25 AM [facility] [place] [facility] Medical Records Department [address] [place] [address] Emergency Department Summary 03/08/18 1615 MR#: [id number] Acct: [id number] Name: BHUPINDER CASTRO Rep #: [id number] : 1985 32 From: Guillermo Buchanan MD PCP: Shane Rendon MD Status: DEP ER - ER Visit Summary Date of Service: 03/08/18 Chief Complaint: Chest pain shortness of breath History of Present Illness: The patient is a 32 M presenting for evaluation secondary chest pain shortness of breath. 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 Patient states that over the course of approximately last 3 days he has been dealing with exertional dyspnea, orthopnea, and chest pain. He describes his chest pain as a pressure. Patient states that he has had a dry cough with occasional taste of blood in his throat. Patient states that he has been having generalized fatigue with poor eating and poor sleeping. Patient states that he did have recent travel to and from [place] and an airplane with a 5 hour plane flight. He denies that he is retaining water or having any peripheral edema although he did state that he took a Lasix this morning. He denies any presence of fevers. He did state that he had one episode of emesis. He denies any diarrhea. Patient presented to his primary care office and they recommended that he come to the emergency department. Physical Examination: Vital signs notable for heart rate of 107. Obese male no acute distress sitting comfortably on side of the bed. Head normocephalic. Moist mucous membranes. No JVD noted. Heart was minimally tachycardic with a regular rhythm and no murmurs normal S1-S2. Lungs sounds show evidence of mild wheezes throughout the lung salmon without any evidence of respiratory distress or retractions. Abdomen soft and nontender. Peripheral pulses were 2+ and symmetric, there is no peripheral edema noted, no skin rashes, patient had normal strength sensation of the upper and lower extremities. Test Results: Sinus rhythm of 81 with an incomplete left bundle branch block and left axis deviation consistent with EKG from December of this year. CBC unremarkable, chemistry unremarkable, troponin was found to be elevated at 0.15 which is chronic for the patient and unchanged. BNP only mildly elevated 184, d-dimer negative, chest x-ray shows cardiomegaly without significant evidence of pulmonary vascular congestion Emergency Department Course and Treatment: Patient presented secondary chest pain shortness of breath in the setting of nonischemic cardiomyopathy. Patient was evaluated with EKG that showed no ischemic changes, repeat EKG in the emergency department was also unchanged from December of this year. Chest x-ray showed no evidence of CHF or pneumonia. CBC chemistry unremarkable, troponin was at the patient's chronic level BNP was not significantly elevated. Due to the patient's recent travel d-dimer was obtained and was also found to be negative. Patient was given a breathing treatment in the emergency department and had some improvement. I discussed the patient's case with his dairy technician Dr. Olguin. Patient does have some orthopnea and signs that potentially this is congestive heart failure, so the recommendation is the patient to be placed on his Lasix regularly for the next 3-5 days and follow-up with cardiology. Additionally I will send the patient home with an albuterol inhaler as he does also have probably some elements of bronchitis. Patient was comfortable with this disposition and the patient was discharged in stable condition. Disposition: Discharge Impression: 1. Bronchitis 2. Chest pain 3. History of nonischemic cardiomyopathy This note was generated with Cortera dictation software. It may contain incorrect words, spelling, and punctuation that were not noted in review of the chart prior to signing ED Disposition - Plan for ED Patient: Disposition: Home or Assisted Living Chief Complaint: Hypertension Diagnosis: Bronchitis Instructions: ED Bronchitis Asthmatic Prescriptions: Albuterol Inhaler [Ventolin Hfa] 1 - 2 puff INHALATION Q4H PRN PRN #1 inhaler PRN Reason: Wheezing Additional Instructions: Take your lasix daily for the next [address] Song in the next week What to do if you have Problems For any increased pain, shortness of breath, bleeding, nausea or vomiting, chest pain, or any unexpected problems, contact your Primary Care Provider. Call [facility] ([phone]) or report to the closest Emergency Room. Call 911 if necessary. 03/09/18 0225 <Electronically signed by Guillermo Buchanan MD> Date Guillermo Buchanan MD Cosigner Signature (If Indicated): Date CC: Shane Rendon MD BASIC METABOLIC Collected: 03/08/2018 Status: F Source: [place] PROFILE (BMP) 4:00 PM [facility] [place] Order Comment: 'TROP' Serial specimen #1, #2, #3, or #4: 1 TYPE CODE TESTS RESULT OUT OF RANGE REFERENCE UNITS LAB L501.0100 74-106 mg/dL Normal GLU 86 Result Comment: Please note revised GLUCOSE reference range effective 2017. LAB L501.1000 7-18 mg/dL Normal BUN 8 LAB L501.1100 0.70-1.30 mg/dL Normal CREAT,SERUM 0.88 Result Comment: The validity of the calculated GFR AND GFRAA in patients over 70 years has not been determined. Clinical correlation is essential. LAB L501.1110 >60 mL/min Normal EST GFR 108 Result Comment: Non- GFR Calc LAB L501.1115 >60 mL/min Normal EST GFR - AA 130 Result Comment: GFR Calc LAB L501.1255 ml/min Normal Estimated CRCL 134.72 LAB L501.1300 10-20 RATIO Low BUN/CRE 9.1 LAB L501.2200 8.5-10 mg/dL .1 CA Normal 9.6 LAB L501.5300 136-14 mmol/L 5 NA Normal 141 LAB L501.5600 3.5-5. mmol/L 1 K Normal 4.0 Result Comment: Slight Hemolysis, Result may be falsely increased. LAB L501.5900 98-107 mmol/L High CL 111 LAB L501.6100 21.0-32.0 mmol/L Normal CO2 25.0 LAB L501.6200 5-15 Normal 5 GAP Performed By: #### L500.2500, L501.4010 #### [facility] [address] [place], [address] TROPONIN-I Collected: 03/08/2018 Status: F Source: [place] 4:00 PM [facility] [place] Order Comment: 'TROP' Serial specimen #1, #2, #3, or #4: 1 TYPE CODE TESTS RESULT OUT OF RANGE REFERENCE UNITS LAB L501.4010 <0.06 ng/mL High 0.15 TROPONIN-I Result Comment: TROPONIN-I EXPECTED VALUES <0.05 NEGATIVE 0.06 - 0.59 AT RISK OF WI > OR = 0.60 SUGGEST WI Performed By: #### L500.2500, L501.4010 #### [facility] [address] [place], [address] CBC W/DIFF, AUTOMATED Collected: 03/08/2018 Status: F Source: [place] 4:00 [facility] [place] TYPE CODE TESTS RESULT OUT OF RANGE REFERENCE UNITS LAB L100.1000 4.4-11.0 K/mm3 Normal WBC 7.9 LAB L100.1200 4.6-6.2 M/mm3 Normal RBC 5.48 LAB L100.1300 13.0-16.5 g/dl Normal HGB 15.5 LAB L100.1400 40-54 % Normal HCT 46.9 LAB L100.1500 80-94 fL Normal MCV 85.6 LAB L100.1600 27.0-32.0 pg Normal MCH 28.3 LAB L100.1700 32-36 g/gl Normal MCHC 33.0 LAB L100.1810 11.6-14.6 % Normal RDW CV 12.7 LAB L100.1820 35.1-43.9 fl Normal RDW SD 39.8 LAB L100.1900 150-450 K/mm3 Normal PLT 197 LAB L100.2000 6.2-12.0 fl Normal MPV 11.6 LAB L100.2100 47-70 % Normal NEUT% 58.3 LAB L100.2200 19-41 % Normal LY% 29.6 LAB L100.2300 0-10 % Normal MONO% 5.1 LAB L100.2400 0-5 % High EO% 6.1 LAB L100.2500 0-1 % Normal BASO% 0.8 LAB L100.2550 0.0-0.9 % Normal IM GRAN % 0.100 Result Comment: IG% - Immature Granulocytes (promyelocytes, myelocytes and metamyelocytes) > 1% indicates that a LEFT SHIFT is Present. LAB L100.2620 2.0-7.7 X10 3/uL Normal Absolute Neut 4.6 LAB L100.2720 0.83-4.51 X10 3/ul Normal Absolute Lymph 2.33 Performed By: #### L100.0100 #### [facility] [address] [place], [address] D-DIMER QUANTITATIVE Collected: 03/08/2018 Status: F Source: [place] (DVT/PE) 4:00 PM [facility] [place] TYPE CODE TESTS RESULT OUT OF RANGE REFERENCE UNITS LAB L300.8000 0.27-0.49 FEU/ug/m Low D-DIMER < 0.27 QUANT Result Comment: NORMAL D-Dimer level (<0.50) indicates no DVT or PE. Performed By: #### L300.8000 #### [facility] [address] [place], [address] BNP,B-TYPE NATRIURETIC Collected: 03/08/2018 Status: F Source: [place] PEPTIDE 4:00 PM [facility] [place] TYPE CODE TESTS RESULT OUT OF RANGE REFERENCE UNITS LAB L503.6620 0-100 pg/mL High B-TYPE 184.3 NASEEM PEP Performed By: #### L503.6620 #### [facility] [address] [place], [address] CHEST PA AND LATERAL Observed: 03/08/2018 Status: F Source: [place] 3:57 PM [facility] [place] [facility] Imaging Services [address] [place] [id number] Chest PA and Lateral MR#: [id number] Acct: [id number] Name: BHUPINDER CASTRO Rep #: [id number] : 1985 M 32 From: Christine Brannon MD PCP: Shane Rendon MD Status: PRE ER Study: Chest PA and Lateral Date of Exam: 03/08/18 Exam# [id number] Ordering Dr: Guillermo Buchanan MD STUDY: X-RAY CHEST REASON FOR EXAM: Male, 32 years old. Chest pain TECHNIQUE: PA and lateral views of the chest. COMPARISON: April 03, 2017 and December 23, 2017 FINDINGS: The lungs are clear and expanded. There is no demonstrated pleural abnormality. There is persistent cardiomegaly. Normal mediastinum and randolph. Normal visualized pulmonary arteries. Normal visualized aortic arch and descending thoracic aorta. Normal visualized thoracic spine. Normal visualized ribs, clavicles, and shoulders. There is no demonstrated abnormality of the visualized soft tissue structures of the upper abdomen. RAD/Chest PA and Lateral IMPRESSION: Cardiomegaly. Electronically Signed: Christine Brannon MD at 16:42 EDT Tel , Service support , CC: Guillermo Buchanan; Shane Rendon MD Blow Mold Technician: Signed PROGRESS Observed: 03/08/2018 Status: COMPLETED Source: [place] 3:12 PM [facility] [place] REPOSITORY [employer] ID: [id number] Author: Shane Rendon Service: (none) Author Type: Physician Type: Progress Notes Filed: 03/08/2018 4:24 PM Note Text: Patient presents with: Palpitations Shortness of Breath Chest Pain HPI: Patient presents today for office visit for acute visit. Has been having shortness of breath and cough for several days. Awoke this am with chest pressure. On arrival was acutely short of breath and complaining of substernal chest pain. Squad was called. Placed on oxygen, given nitro and asa. I stayed with patient until squad arrival and gave report with verbal handoff. MEDICATIONS: Current Outpatient Prescriptions: furosemide (LASIX) 40 mg tablet Take 1 tablet by mouth once daily as needed (Swelling). hydroCHLOROthiazide (HYDRODIURIL, ESIDRIX) 25 mg tablet Take 1 tablet by mouth once daily. lisinopril (ZESTRIL, PRINIVIL) 40 mg tablet Take 1 tablet by mouth once daily. pantoprazole DR (PROTONIX) 40 mg tablet Take 1 tablet by mouth once daily. spironolactone (ALDACTONE) 25 mg tablet Take 1 tablet by mouth once daily. carvedilol (COREG) 25 mg tablet Take 1 tablet by mouth twice daily with meals. No current facility-administered medications for this visit. ALLERGIES: ALLERGIES Allergen Reactions - [place] Hives PAST MEDICAL HISTORY Diagnosis Date - GERD (gastroesophageal reflux disease) - HTN (hypertension) for the last 14 years or so - Nausea - NICM (nonischemic cardiomyopathy) (HCC) - Obesity - CURTIS (obstructive sleep apnea) not treated. PAST SURGICAL HISTORY Procedure Laterality Date - EGD W/O OR W/BRUSH/WASH 04/02/2016 EGD - EP STUDY 10/2014 - HEART CATHETERIZATION 10/2014 - ICD (ICD) 04/28/16 - TONSILLECTOMY HX 1997 FAMILY HISTORY Problem Relation Age of Onset - arrythmia [OTHER] Mother unsure what type - HTN [OTHER] Mother - Ischemic Heart Disease Father CABG mid 50s, ot sepsis - CHF [OTHER] Father - DM [OTHER] Father - HTN [OTHER] Father - hypertension [OTHER] Brother - HTN [OTHER] Brother - None Sister - None Brother Social History Marital status: Single Spouse name: Years of education: Number of children: 2 Social History Main Topics Smoking status: Current Some Day Smoker Packs/day: 0.00 Years: 15.00 Types: Cigarettes Smokeless tobacco: Never Used Comment: a couple cigarettes a week Alcohol use: No Drug use: Yes Comment: Last smoked marijuana 02/2016. Reviewed current medications, allergies, past medical history, surgical history, family history and social history today. REVIEW OF SYSTEMS All other reviewed and negative other than HPI. HEALTH MAINTENANCE: Reviewed health maintenance issues today and recommended the following in detail. DTAP,TDAP,TD(1 - Tdap) due on 2006 ONE PNEUMOVAX PRIOR TO AGE 67 due on 2006 VITALS: BP 178/106 Pulse (!) 47 Resp (!) 97 Last 4 Encounter Wt Readings: Date: Wt: 01/30/2017 138.3 kg (305 lb) 01/20/2017 139.3 kg (307 lb) 12/30/2016 138.6 kg (305 lb 9.6 oz) 12/17/2016 138.3 kg (305 lb) PHYSICAL EXAMINATION: General appearance: short of breath. Holding chest. Diaphoretic. Neck: supple Lungs: bilateral rhonchi Heart: RRR without murmur, gallop, or rubs. No ectopy Abdomen: Normal abdominal exam, Abdomen soft, non-tender. Bowel sounds normal. No masses, organomegaly Extremities: No deformities, edema, skin discoloration, clubbing or cyanosis. Good capillary refill. ASSESSMENT/PLAN: 1. Chest pain, unspecified type - ICD9: 786.50, ICD10: R07.9 - as above. Ems transported to ED - ASPIRIN 81 MG CHEWABLE TABLET - NITROGLYCERIN 0.4 MG SUBLINGUAL TABLET - OXYGEN CONCENTRATOR < 2 LITER/MIN Shane Rendon MD CNOV Observed: 03/08/2018 Status: COMPLETED Source: [place] 2:40 PM [facility] REPOSITORY Office Visit (FAMPWS) BHUPINDER CASTRO ([id number]) 1985 M Date Time Provider Department 03/08/18 2:40 PM SHANE RENDON FAMPWS During your visit today, we recorded the following information about you: Pulse Respiration Blood pressure 47/minute 97/minute 178/106 Iwona Segovia Ma 03/08/2018 3:12 PM Signed Patient complains of irregular heart beats, trouble sleeping, SOB, and burning in his chest. Symptoms started about a week ago with trouble sleeping and decreased appetite. The last 2 days is when the SOB, chest pain started. He also complains of a migraine. Vomiting. Feet are numb. He checked is sugar with sister's machine, this am 95. Shane Rendon MD 03/08/2018 4:24 PM Signed Patient presents with: Palpitations Shortness of Breath Chest Pain HPI: Patient presents today for office visit for acute visit. Has been having shortness of breath and cough for several days. Awoke this am with chest pressure. On arrival was acutely short of breath and complaining of substernal chest pain. Squad was called. Placed on oxygen, given nitro and asa. I stayed with patient until squad arrival and gave report with verbal handoff. MEDICATIONS: Current Outpatient Prescriptions: furosemide (LASIX) 40 mg tablet Take 1 tablet by mouth once daily as needed (Swelling). hydroCHLOROthiazide (HYDRODIURIL, ESIDRIX) 25 mg tablet Take 1 tablet by mouth once daily. lisinopril (ZESTRIL, PRINIVIL) 40 mg tablet Take 1 tablet by mouth once daily. pantoprazole DR (PROTONIX) 40 mg tablet Take 1 tablet by mouth once daily. spironolactone (ALDACTONE) 25 mg tablet Take 1 tablet by mouth once daily. carvedilol (COREG) 25 mg tablet Take 1 tablet by mouth twice daily with meals. No current facility-administered medications for this visit. ALLERGIES: ALLERGIES Allergen Reactions - [place] Hives PAST MEDICAL HISTORY Diagnosis Date - GERD (gastroesophageal reflux disease) - HTN (hypertension) for the last 14 years or so - Nausea - NICM (nonischemic cardiomyopathy) (HCC) - Obesity - CURTIS (obstructive sleep apnea) not treated. PAST SURGICAL HISTORY Procedure Laterality Date - EGD W/O OR W/BRUSH/WASH 04/02/2016 EGD - EP STUDY 10/2014 - HEART CATHETERIZATION 10/2014 - ICD (ICD) 04/28/16 - TONSILLECTOMY HX 1997 FAMILY HISTORY Problem Relation Age of Onset - arrythmia [OTHER] Mother unsure what type - HTN [OTHER] Mother - Ischemic Heart Disease Father CABG mid 50s, ot sepsis - CHF [OTHER] Father - DM [OTHER] Father - HTN [OTHER] Father - hypertension [OTHER] Brother - HTN [OTHER] Brother - None Sister - None Brother Social History Marital status: Single Spouse name: Years of education: Number of children: 2 Social History Main Topics Smoking status: Current Some Day Smoker Packs/day: 0.00 Years: 15.00 Types: Cigarettes Smokeless tobacco: Never Used Comment: a couple cigarettes a week Alcohol use: No Drug use: Yes Comment: Last smoked marijuana 02/2016. Reviewed current medications, allergies, past medical history, surgical history, family history and social history today. REVIEW OF SYSTEMS All other reviewed and negative other than HPI. HEALTH MAINTENANCE: Reviewed health maintenance issues today and recommended the following in detail. DTAP,TDAP,TD(1 - Tdap) due on 2006 ONE PNEUMOVAX PRIOR TO AGE 67 due on 2006 VITALS: BP 178/106 Pulse (!) 47 Resp (!) 97 Last 4 Encounter Wt Readings: Date: Wt: 01/30/2017 138.3 kg (305 lb) 01/20/2017 139.3 kg (307 lb) 12/30/2016 138.6 kg (305 lb 9.6 oz) 12/17/2016 138.3 kg (305 lb) PHYSICAL EXAMINATION: General appearance: short of breath. Holding chest. Diaphoretic. Neck: supple Lungs: bilateral rhonchi Heart: RRR without murmur, gallop, or rubs. No ectopy Abdomen: Normal abdominal exam, Abdomen soft, non-tender. Bowel sounds normal. No masses, organomegaly Extremities: No deformities, edema, skin discoloration, clubbing or cyanosis. Good capillary refill. ASSESSMENT/PLAN: 1. Chest pain, unspecified type - ICD9: 786.50, ICD10: R07.9 - as above. Ems transported to ED - ASPIRIN 81 MG CHEWABLE TABLET - NITROGLYCERIN 0.4 MG SUBLINGUAL TABLET - OXYGEN CONCENTRATOR < 2 LITER/MIN MD Iwona Sanchez Ma 03/08/2018 3:[address] Rendon's order, 2L of O2, 1 Nitro and 4 81mg aspirin were given to pt at 3:12 pm. Squad was called at 3:08 pm and arrived at 3:15 pm. Referring Provider: SELF [200] Allergies As of Date: 03/08/2018 Noted Allergy Reaction TURKEY 10/05/2015 4 - Hives Date Reviewed: 01/30/2017 Reviewed by: Mirian (Rn) GOMEZ Snyder - Fully Assessed Reason for Visit: Palpitations [79] Shortness of Breath [227] Chest Pain [21] Primary Visit Diagnosis:Chest pain, unspecified type [R07.9] Order(s):[] aspirin 324 mg chewable tab(s)Disp: Rfl: [] nitroglycerin sublingual 0.4 mg tab(s) (NITROQUICK)Disp: Rfl: OXYGEN CONCENTRATOR < 2 LITER/MIN [[id number]] Order #: [id number] Prescriptions as of 03/08/2018 Sig: FUROSEMIDE 40 MG TABLET Take 1 tablet by mouth once d* HYDROCHLOROTHIAZIDE 25 MG TAB* Take 1 tablet by mouth once d* LISINOPRIL 40 MG TABLET Take 1 tablet by mouth once d* PANTOPRAZOLE 40 MG TABLET,DEL* Take 1 tablet by mouth once d* SPIRONOLACTONE 25 MG TABLET Take 1 tablet by mouth once d* CARVEDILOL 25 MG TABLET Take 1 tablet by mouth twice * Problem List As Of Date 03/08/2018 Noted Resolved Heart failure, chronic systolic (HCC) [I50.22] INVALID FOR* Priority: B More... Hypertension [I10] INVALID FOR* Tobacco abuse [Z72.0] INVALID FOR* Syncope [R55] INVALID FOR*12/17/2016 Priority: A More... DISPOSITION AND FOLLOW-UP INVALID FOR*12/17/2016 More... Depression [F32.9] INVALID FOR*12/24/2016 Priority: E More... Nausea [R11.0] 12/17/2016 Heart failure, left, with LVEF <=30% (HCC) [I50*INVALID FOR* Constitutional obesity [E66.8] INVALID FOR* CURTIS (obstructive sleep apnea) [G47.33] INVALID FOR* Heart failure (HCC) [I50.9] INVALID FOR*08/15/2016 Palpitations [R00.2] INVALID FOR* Priority: A Visit Notes: >> Iwona Segovia Ma ThuMar 08, 2018 2:57 PM Status: Signed Patient complains of irregular heart beats, trouble sleeping, SOB, and burning in his chest. Symptoms started about a week ago with trouble sleeping and decreased appetite. The last 2 days is when the SOB, chest pain started. He also complains of a migraine. Vomiting. Feet are numb. He checked is sugar with sister's machine, this am 95. >> Iwona Segovia Ma ThuMar 08, 2018 3:26 PM Status: Signed Per Dr. Rendon's order, 2L of O2, 1 Nitro and 4 81mg aspirin were given to pt at 3:12 pm. Squad was called at 3:08 pm and arrived at 3:15 pm. Prescriptions ordered this encounter Disp Refills Start End ASPIRIN 81 MG CHEWABLE TABLET 03/08/2018 03/08/2018 Route: ORAL NITROGLYCERIN 0.4 MG SUBLINGUAL TABL* 03/08/2018 03/08/2018 Route: SUBLINGUAL Medications Discontinued During This Encounter oxyCODONE IR (ROXICODONE) 5 mg immed* 16 t* 0 02/20/2017 03/08/2018 Class: Print RX Route: ORAL Sig: Take 1 tablet by mouth every 4 hours as needed. Disc: Course of therapy completed Encounter Status:Closed by SHANE RENDON MD on 03/08/18 PROGRESS Observed: 03/08/2018 Status: COMPLETED Source: [place] 12:10 PM [facility] ID: [id number] Author: Berkley (Rn) Fredrick Service: (none) Author Type: Registered Nurse Type: Progress Notes Filed: 03/08/2018 12:24 PM Note Text: PRIMARY CARE COORDINATION FOLLOW-UP NOTE Provider Action/FYI Numbness in feet and difficulty sleeping, states not retaining fluid Discussed pt's feelings of not wanting to deal with his heart condition. Patient identified by name and date of . YES Spoke to patient Concerns: TC to SW, discussed pt's concerns, asked if SW could see pt if he comes in regarding possible Medicaid assistance, verbalized agreement TC from patient, states his symptoms are getting worse over the past week. His feet are numb and he's only able to sleep for approximately 10-15 minutes due to distress. States he doesn't feel like is retaining fluid from CHF but knows it is his heart. States he won't go to the ER because he doesn't have insurance and it will only add up hospital bills. Discussed [facility] financial assistance and [facility] is the closest hospital within [facility]. States he has tried to get aid from the state but has been told he's ineligible. Discussed SW, Mckenzie can speak with him if he comes in, verbalized agreement. Patient may try to get a ride in to see PCP today States he is tired of dealing with his heart and wishes whatever is going to happen would just go ahead and occur. Discussed pt's feelings and encouraged him to see PCP for symptom relief and discuss plan of care, verbalized understanding. News Agent plan for next outreach: No further follow up needed at this time Signature Berkley Alcala RN March 08, 2018 NILAY Observed: 03/08/2018 Status: COMPLETED Source: [place] 12:00 AM [facility] REPOSITORY Patient Outreach (FAMPWS) BHUPINDER CASTRO ([id number]) 1985 M Date Time Provider Department 03/08/18 BERKLEY ALCALA (RN) FAMPWS During your visit today, we recorded the following information about you: Berkley Alcala RN 03/08/2018 12:24 PM Signed PRIMARY CARE COORDINATION FOLLOW-UP NOTE Provider Action/FYI Numbness in feet and difficulty sleeping, states not retaining fluid Discussed pt's feelings of not wanting to deal with his heart condition. Patient identified by name and date of . YES Spoke to patient Concerns: TC to SW, discussed pt's concerns, asked if SW could see pt if he comes in regarding possible Medicaid assistance, verbalized agreement TC from patient, states his symptoms are getting worse over the past week. His feet are numb and he's only able to sleep for approximately 10-15 minutes due to distress. States he doesn't feel like is retaining fluid from CHF but knows it is his heart. States he won't go to the ER because he doesn't have insurance and it will only add up hospital bills. Discussed [facility] financial assistance and [facility] is the closest hospital within [facility]. States he has tried to get aid from the state but has been told he's ineligible. Discussed Mckenzie SAVAGE can speak with him if he comes in, verbalized agreement. Patient may try to get a ride in to see PCP today States he is tired of dealing with his heart and wishes whatever is going to happen would just go ahead and occur. Discussed pt's feelings and encouraged him to see PCP for symptom relief and discuss plan of care, verbalized understanding. 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 Hypertension [I10] INVALID FOR* Tobacco abuse [Z72.0] INVALID FOR* Syncope [R55] INVALID FOR*12/17/2016 Priority: A More... DISPOSITION AND FOLLOW-UP INVALID FOR*12/17/2016 More... Depression [F32.9] INVALID FOR*12/24/2016 Priority: E More... Nausea [R11.0] 12/17/2016 Heart failure, left, with LVEF <=30% (HCC) [I50*INVALID FOR* Constitutional obesity [E66.8] INVALID FOR* CURTIS (obstructive sleep apnea) [G47.33] INVALID FOR* Heart failure (HCC) [I50.9] INVALID FOR*08/15/2016 Palpitations [R00.2] INVALID FOR* Priority: A Encounter Status:Closed by BERKLEY ALCALA on 03/08/18 PROGRESS Observed: 02/26/2018 Status: COMPLETED Source: [place] 12:38 PM [facility] REPOSITORY HNO ID: [id number] Author: Berkley Aguilar) Fredrick Service: (none) Author Type: Registered Nurse Type: Progress Notes Filed: 02/26/2018 12:42 PM Note Text: PRIMARY CARE COORDINATION FOLLOW-UP NOTE Provider Action/FYI Certified letter from PCP delivered on 02/16, no response from pt. Patient identified by name and date of . YES Tracked certified letter on [facility] #[id number] Letter was delivered on February 16, 2018 at 10:04 AM Delivered, [place] [address] News Agent plan for next outreach: No further follow up needed at this time Signature Berkley Alcala RN February 26, 2018 BETIUTREUGENIA Observed: 02/26/2018 Status: COMPLETED Source: [place] 12:00 AM [facility] REPOSITORY Patient Outreach (FAMPWS) BHUPINDER CASTRO ([id number]) 1985 M Date Time Provider Department 02/26/18 BERKLEY ALCALA (RN) KERRIE During your visit today, we recorded the following information about you: Berkley Alcala RN 02/26/2018 12:42 PM Signed PRIMARY CARE COORDINATION FOLLOW-UP NOTE Provider Action/FYI Certified letter from PCP delivered on 02/16, no response from pt. Patient identified by name and date of . 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 Hypertension [I10] INVALID FOR* Tobacco abuse [Z72.0] INVALID FOR* Syncope [R55] INVALID FOR*12/17/2016 Priority: A More... DISPOSITION AND FOLLOW-UP INVALID FOR*12/17/2016 More... Depression [F32.9] INVALID FOR*12/24/2016 Priority: E More... Nausea [R11.0] 12/17/2016 Heart failure, left, with LVEF <=30% (HCC) [I50*INVALID FOR* Constitutional obesity [E66.8] INVALID FOR* CURTIS (obstructive sleep apnea) [G47.33] INVALID FOR* Heart failure (HCC) [I50.9] INVALID FOR*08/15/2016 Palpitations [R00.2] INVALID FOR* Priority: A Encounter Status:Closed by BERKLEY ALCALA on 02/26/18 PROGRESS Observed: 02/11/2018 Status: COMPLETED Source: [place] 11:59 AM [facility] REPOSITORY HNO ID: [id number] Author: Berkley Aguilar) Fredrick Service: (none) Author Type: Registered Nurse Type: Progress Notes Filed: 02/12/2018 3:14 PM Note Text: PRIMARY CARE COORDINATION FOLLOW-UP NOTE Provider Action/FYI PCP signed letter to patient Patient identified by name and date of . YES Letter sent to patient Summary: Letter to pt re: need to contact PCP regarding his heart failure and following up with PCP and [facility] sent certified mail. News Agent plan for next outreach: Will follow up in 2 weeks to check if pt received certified letter. Signature Berkley Alcala RN February 11, 2018 CNPTOUTREACH Observed: 02/11/2018 Status: COMPLETED Source: [place] 12:00 AM [facility] REPOSITORY Patient Outreach (FAMPWS) BHUPINDER CASTRO ([id number]) 1985 M Date Time Provider Department 02/11/18 BERKLEY ALCALA (RN) KERRIE During your visit today, we recorded the following information about you: Berkley Alcala RN 02/12/2018 3:14 PM Signed PRIMARY CARE COORDINATION FOLLOW-UP NOTE Provider Action/FYI PCP signed letter to patient Patient identified by name and date of . YES Letter sent to patient Summary: Letter to pt re: need to contact PCP regarding his heart failure and following up with PCP and [facility] sent certified mail. News Agent plan for next outreach: Will follow up in 2 weeks to check if pt received certified letter. 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 Hypertension [I10] INVALID FOR* Tobacco abuse [Z72.0] INVALID FOR* Syncope [R55] INVALID FOR*12/17/2016 Priority: A More... DISPOSITION AND FOLLOW-UP INVALID FOR*12/17/2016 More... Depression [F32.9] INVALID FOR*12/24/2016 Priority: E More... Nausea [R11.0] 12/17/2016 Heart failure, left, with LVEF <=30% (HCC) [I50*INVALID FOR* Constitutional obesity [E66.8] INVALID FOR* CURTIS (obstructive sleep apnea) [G47.33] INVALID FOR* Heart failure (HCC) [I50.9] INVALID FOR*08/15/2016 Palpitations [R00.2] INVALID FOR* Priority: A Letter Text Shane Rendon MD [address] [place] [address] Berlkey Alcala RN February 11, 2018 Bhupinder Castro [id number] [address] [facility] [address] 1985 Dear Bhupinder Castro, We have been tying to contact you in regards to following up after your December hospitalization for Heart Failure. Dr. Rendon is very concerned about your heart status and following up with physicians. We are interested to hear if you followed up with [facility]. Our efforts to reach you have been unsuccessful and we would appreciate a call back at [phone]. We look forward to hearing from you to insure your health is treated appropriately. Thank you and have a great day. Sincerely, Shane Rendon MD and Berkley Alcala RN, News Agent Encounter Status:Closed by BERKLEY ALCALA on 02/12/18 PROGRESS Observed: 01/27/2018 Status: COMPLETED Source: [place] 2:59 PM [facility] REPOSITORY HNO ID: [id number] Author: Shane Rendon Service: (none) Author Type: Physician Type: Progress Notes Filed: 01/29/2018 1:51 PM Note Text: Agree, thank you PROGRESS Observed: 01/14/2018 Status: COMPLETED Source: [place] 4:48 PM [facility] REPOSITORY HNO ID: [id number] Author: Berkley (Rn) Fredrick Service: (none) Author Type: Registered Nurse Type: Progress Notes Filed: 01/27/2018 2:30 PM Note Text: TRANSITION CARE MANAGEMENT (TCM) FOLLOW-UP NOTE Provider Action/FYI TC to [facility], asked if pt has followed up with them. States no pt was no show of 01/07. PCC will send a certified letter in 2 weeks if pt doesn't call back. Patient identified by name and date of : YES TC to patient, left message to call PCC back. Please call and lisa PCC/PCP know if pt has f/u with [facility] Berkley Alcala RN January 27, 2018 2:25 PM TC to patient, left message to call PCC back Berkley Alcala RN January 21, 2018 4:55 PM TC to patient, left message asking pt to call PCC back regarding heart failure. Berkley Alcala RN January 14, 2018 4:49 PM News Agent plan for next outreach: Signature Berkley Alcala RN January 14, 2018 NILAY Observed: 01/14/2018 Status: COMPLETED Source: [place] 12:00 AM [facility] REPOSITORY Patient Outreach (FAMPWS) BHUPINDER CASTRO ([id number]) 1985 M Date Time Provider Department 01/14/18 BERKLEY ALCALA (RN) KERRIE During your visit today, we recorded the following information about you: Berkley Alcala RN 01/27/2018 2:30 PM Signed TRANSITION CARE MANAGEMENT (TCM) FOLLOW-UP NOTE Provider Action/FYI TC to [facility] Jaqueline, asked if pt has followed up with them. States no pt was no show of 01/07. PCC will send a certified letter in 2 weeks if pt doesn't call back. Patient identified by name and date of : YES TC to patient, left message to call PCC back. Please call and lisa PCC/PCP know if pt has f/u with [facility] Berkley Alcala RN January 27, 2018 2:25 PM TC to patient, left message to call PCC back Berkley Alcala RN January 21, 2018 4:55 PM TC to patient, left message asking pt to call PCC back regarding heart failure. 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 Hypertension [I10] INVALID FOR* Tobacco abuse [Z72.0] INVALID FOR* Syncope [R55] INVALID FOR*12/17/2016 Priority: A More... DISPOSITION AND FOLLOW-UP INVALID FOR*12/17/2016 More... Depression [F32.9] INVALID FOR*12/24/2016 Priority: E More... Nausea [R11.0] 12/17/2016 Heart failure, left, with LVEF <=30% (HCC) [I50*INVALID FOR* Constitutional obesity [E66.8] INVALID FOR* CURTIS (obstructive sleep apnea) [G47.33] INVALID FOR* Heart failure (HCC) [I50.9] INVALID FOR*08/15/2016 Palpitations [R00.2] INVALID FOR* Priority: A Encounter Status:Closed by BERKLEY ALCALA on 01/29/18 PROGRESS Observed: 12/29/2017 Status: COMPLETED Source: [place] 12:58 PM [facility] REPOSITORY O ID: [id number] Author: Shane Rendon Service: (none) Author Type: Physician Type: Progress Notes Filed: 12/29/2017 2:19 PM Note Text: Ok PROGRESS Observed: 12/28/2017 Status: COMPLETED Source: [place] 5:26 PM [facility] REPOSITORY [employer] ID: [id number] Author: Berkley (Rn) Fredrick Service: (none) Author Type: Registered Nurse Type: Progress Notes Filed: 12/29/2017 12:51 PM Note Text: TRANSITION CARE MANAGEMENT (TCM) INITIAL CONTACT Provider Action/FYI: NOT A TCM PLEASE FILE MEDICATION UPDATE PLEASE DISCONTINUE MEDICATIONS ON MED LIST WITH MEDICATION NOTES ATTACHED PT WILL COME IN FOR HOSPITAL F/U APPT WHEN HE RETURNS FROM 8 DAY TRIP-Leaving tomorrow PCC will call pt on 01/15 if he hasn't come in for appt. Pt on 8 cup Fluid Restriction, 2000 mg Sodium, Low fat, Low cholesterol Diet Please note pt to f/u with [facility] to discuss heart transplant Initial contact with patient post discharge, spoke to patient. Patient identified by name and . SUMMARY: -Pt discharged from [facility] on 12/24. -Follow up appointment: Patient will come to walk in appointments when he gets back from [place]. -Medication review done with patient. -Admitted for: Acute on Chronic Systolic CHF Nonischemic cardiomyopathy (Chronic) S/P ICD removal CONCERNS: No LE edema. States he note edema in abdomen rather than LE. Feels pressure in abd when having CHF exacerbation. Pt continuing Lasix as needed Noted some slight SOB after working 10.5 hours yesterday. SOB subsided with rest, none since Slight cough, expectorated sm amt of brown mucous. Feels like he is getting a cold, sneezing a lot and nasal congestion Patient leaving for [place] tomorrow for 8 days, will f/u with PCP when he gets back States he has an appt with Dr. Young on 01/07 NEW MEDICATIONS: Furosemide 40 mg Daily as Needed for Swelling MEDS HELD/DISCONTINUED: spironolactone (ALDACTONE) 25 mg Take 1 tablet by mouth once daily. hydroCHLOROthiazide (HYDRODIURIL, ESIDRIX) 25 mg Take 1 tablet by mouth once daily. oxyCODONE IR (ROXICODONE) 5 mg Take 1 tablet by mouth every 4 hours as needed. pantoprazole DR (PROTONIX) 40 mg Take 1 tablet by mouth once daily. BRIEF HOSPITAL COURSE: Admitted 12/23 for SOB and weakness. 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 Pt had followed with Dr. Mendez, cardiology but had not seen him in past year. 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 Pt does not have health insurance and has not been taking his medications due to inability to afford them. PT NOW TAKING MEDICATIONS FROM [facility] $4 LIST. Troponins were borderline elevated and did not trend upward, suspect secondary to acute on chronic systolic CHF. Treated with IV Lasix. Will be discharged on carvedilol, lisinopril and Lasix PRN increased swelling. ALDACTONE WAS RECOMMENDED BY CARDIOLOGY ALTHOUGH PT STATES HE CAN'T AFFORD THIS MEDICATION. ECHO from January 2017 showed estimated EF of 34%. Repeat ECHO during admission showed moderate left ventricular hypertrophy, severely dilated left ventricle, estimated EF 20%, severe global left ventricular systolic dysfunction. Pt to F/U with [facility] in 1-2 weeks Discussed f/u with [facility] to begin discussion regarding heart transplant. Pt c/o anxiety and states he was previously prescribed Ativan. Discussed patient seeing Behavioral Health at [facility], pt declined. TC to patient's phone, left message to call PCC back regarding recent hospitalization. Berkley Alcala RN December 28, 2017 5:07 PM NILAY Observed: 12/28/2017 Status: COMPLETED Source: [place] 12:00 AM [facility] REPOSITORY Patient Outreach (FAMPWS) BHUPINDER CASTRO ([id number]) 1985 M Date Time Provider Department 12/28/17 BERKLEY ALCALA) KERRIE During your visit today, we recorded the following information about you: Berkley Alcala RN 12/29/2017 12:51 PM Signed TRANSITION CARE MANAGEMENT (TCM) INITIAL CONTACT Provider Action/FYI: NOT A TCM PLEASE FILE MEDICATION UPDATE PLEASE DISCONTINUE MEDICATIONS ON MED LIST WITH MEDICATION NOTES ATTACHED PT WILL COME IN FOR HOSPITAL F/U APPT WHEN HE RETURNS FROM 8 DAY TRIP-Leaving tomorrow PCC will call pt on 01/15 if he hasn't come in for appt. Pt on 8 cup Fluid Restriction, 2000 mg Sodium, Low fat, Low cholesterol Diet Please note pt to f/u with [facility] to discuss heart transplant Initial contact with patient post discharge, spoke to patient. Patient identified by name and . SUMMARY: -Pt discharged from [facility] on 12/24. -Follow up appointment: Patient will come to walk in appointments when he gets back from [place]. -Medication review done with patient. -Admitted for: Acute on Chronic Systolic CHF Nonischemic cardiomyopathy (Chronic) S/P ICD removal CONCERNS: No LE edema. States he note edema in abdomen rather than LE. Feels ANDquot;pressureANDquot; in abd when having CHF exacerbation. Pt continuing Lasix as needed Noted some slight SOB after working 10.5 hours yesterday. SOB subsided with rest, none since Slight cough, expectorated sm amt of brown mucous. Feels like he is getting a cold, ANDquot;sneezing a lotANDquot; and nasal congestion Patient leaving for [place] tomorrow for 8 days, will f/u with PCP when he gets back States he has an appt with Dr. Young on 01/07 NEW MEDICATIONS: Furosemide 40 mg Daily as Needed for Swelling MEDS HELD/DISCONTINUED: spironolactone (ALDACTONE) 25 mg Take 1 tablet by mouth once daily. hydroCHLOROthiazide (HYDRODIURIL, ESIDRIX) 25 mg Take 1 tablet by mouth once daily. oxyCODONE IR (ROXICODONE) 5 mg Take 1 tablet by mouth every 4 hours as needed. pantoprazole DR (PROTONIX) 40 mg Take 1 tablet by mouth once daily. BRIEF HOSPITAL COURSE: Admitted 12/23 for SOB and weakness. 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 Pt had followed with Dr. Mendez, cardiology but had not seen him in past year. 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 Pt does not have health insurance and has not been taking his medications due to inability to afford them. PT NOW TAKING MEDICATIONS FROM [facility] $4 LIST. Troponins were borderline elevated and did not trend upward, suspect secondary to acute on chronic systolic CHF. Treated with IV Lasix. Will be discharged on carvedilol, lisinopril and Lasix PRN increased swelling. ALDACTONE WAS RECOMMENDED BY CARDIOLOGY ALTHOUGH PT STATES HE CAN'T AFFORD THIS MEDICATION. ECHO from January 2017 showed estimated EF of 34%. Repeat ECHO during admission showed moderate left ventricular hypertrophy, severely dilated left ventricle, estimated EF 20%, severe global left ventricular systolic dysfunction. Pt to F/U with [facility] in 1-2 weeks Discussed f/u with [facility] to begin discussion regarding heart transplant. Pt c/o anxiety and states he was previously prescribed Ativan. Discussed patient seeing Behavioral Health at [facility], pt declined. TC to patient's phone, left message to call PCC back regarding recent hospitalization. 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] Primary Visit Diagnosis:Acute on chronic systolic CHF (congestive heart failure) (HCC) [I50.23] Order(s):furosemide (LASIX) 40 mg tabletTake 1 tablet by mouth once daily as needed (Swelling).Disp: Rfl: Prescriptions as of 12/28/2017 Sig: LISINOPRIL 40 MG TABLET Take 1 tablet by mouth once d* CARVEDILOL 25 MG TABLET Take 1 tablet by mouth twice * FUROSEMIDE 40 MG TABLET Take 1 tablet by mouth once d* OXYCODONE 5 MG TABLET Take 1 tablet by mouth every * HYDROCHLOROTHIAZIDE 25 MG TAB* Take 1 tablet by mouth once d* PANTOPRAZOLE 40 MG TABLET,DEL* Take 1 tablet by mouth once d* SPIRONOLACTONE 25 MG TABLET Take 1 tablet by mouth once d* Problem List As Of Date 12/28/2017 Noted Resolved Heart failure, chronic systolic (HCC) [I50.22] INVALID FOR* Priority: B More... Hypertension [I10] INVALID FOR* Tobacco abuse [Z72.0] INVALID FOR* Syncope [R55] INVALID FOR*12/17/2016 Priority: A More... DISPOSITION AND FOLLOW-UP INVALID FOR*12/17/2016 More... Depression [F32.9] INVALID FOR*12/24/2016 Priority: E More... Nausea [R11.0] 12/17/2016 Heart failure, left, with LVEF <=30% (HCC) [I50*INVALID FOR* Constitutional obesity [E66.8] INVALID FOR* CURTIS (obstructive sleep apnea) [G47.33] INVALID FOR* Heart failure (HCC) [I50.9] INVALID FOR*08/15/2016 Palpitations [R00.2] INVALID FOR* Priority: A Prescriptions ordered this encounter Disp Refills Start End FUROSEMIDE 40 MG TABLET 12/29/2017 Class: Med Update Route: ORAL Sig: Take 1 tablet by mouth once daily as needed (Swelling). Encounter Status:Closed by BERKLEY ALCALA on 12/29/17 12 LEAD ELECTROCARDIOGRAM Observed: 12/25/2017 Status: F Source: [place] 10:37 AM [facility] [place] [facility] Cardiovascular Services [address] [place] [address] [id number] 12 Lead EKG 12/24/17 0533 MR#: [id number] Acct: [id number] Name: BHUPINDER CASTRO Rep #: [id number] : 1985 32 From: Fermin Young MD Attending Dr: Emiliano Mortensen DO Status: DIS ARMIN Ordering Dr: Servando Grissom MD Date: 12/24/17 Location: [facility] Sex: M C Admitted: 12/23/17 Test Reason : AM EKG Blood Pressure : / mmHG Vent. Rate : 093 BPM Atrial Rate : 093 BPM P-R Int : 176 ms QRS Dur : 116 ms QT Int : 408 ms P-R-T Axes : 071 -44 078 degrees QTc Int : 507 ms Normal sinus rhythm Left axis deviation Left ventricular hypertrophy with QRS widening Nonspecific T wave abnormality Confirmed by LISA MAE, FERMIN ([id number]), manager editorial TRENA WARREN ([id number]) on 12/25/2017 10:37:00 AM Referred By: OLIVIA Confirmed By:FERMIN YOUNG MD 12/25/17 1037 Date Fermin Young MD CC: Servando Grissom; Shane Rendon MD Signed 12 LEAD ELECTROCARDIOGRAM Observed: 12/25/2017 Status: F Source: [place] 10:26 AM [facility] [place] [facility] Cardiovascular Services [address] [place] [address] 12 Lead EKG 12/23/17 190 MR#: [id number] Acct: [id number] Name: BHUPINDER CASTRO Rep #: [id number] : 1985 32 From: Fermin Young MD Attending Dr: Emiliano Mortensen DO Status: DIS ARMIN Ordering Dr: Leandro Gomes MD Date: 12/23/17 Location: [facility] Sex: M C Admitted: 12/23/17 Test Reason : CP Blood Pressure : / mmHG Vent. Rate : 110 BPM Atrial Rate : 110 BPM P-R Int : 158 ms QRS Dur : 110 ms QT Int : 338 ms P-R-T Axes : 063 -51 076 degrees QTc Int : 457 ms Sinus tachycardia Left axis deviation Poor R wave progression Nonspecific T wave abnormality Abnormal ECG Confirmed by LISA MAE, FERMIN ([id number]), manager editorial TRENA WARREN ([id number]) on 12/25/2017 10:25:34 AM Referred By: Confirmed By:FERMIN YOUNG MD 12/25/17 1025 Date Fermin Young MD CC: Leandro Gomes MD; Shane Rendon MD Signed 12 LEAD ELECTROCARDIOGRAM Observed: 12/25/2017 Status: F Source: [place] 10:26 AM [facility] [place] [facility] Cardiovascular Services [address] [place] [address] 12 Lead EKG 12/23/17 211 MR#: [id number] Acct: [id number] Name: BHUPINDER CASTRO Rep #: [id number] : 1985 32 From: Fermin Young MD Attending Dr: Emiliano Mortensen DO Status: DIS ARMIN Ordering Dr: Leandro Gomes MD Date: 12/23/17 Location: [facility] Sex: M C Admitted: 12/23/17 Test Reason : CP Blood Pressure : / mmHG Vent. Rate : 109 BPM Atrial Rate : 109 BPM P-R Int : 164 ms QRS Dur : 114 ms QT Int : 358 ms P-R-T Axes : 071 -62 071 degrees QTc Int : 482 ms Sinus tachycardia Left axis deviation Poor R wave progression Nonspecific T wave abnormality Abnormal ECG Confirmed by LISA MAE, FERMIN ([id number]), manager editorial TRENA WARREN ([id number]) on 12/25/2017 10:26:01 AM Referred By: DOUGLAS Confirmed By:FERMIN YOUNG MD 12/25/17 1026 Date Fermin Young MD CC: Leandro Gomes MD; Shane Rendon MD Signed DISCHARGE SUMMARY Observed: 12/24/2017 Status: F Source: [place] 2:56 PM [facility] [place] [facility] Medical Records Department [address] [place] [address] Discharge Summary 12/24/17 1339 MR#: [id number] Acct: [id number] Name: BHUPINDER CASTRO Rep #: [id number] : 1985 32 From: Argelia Walker REGIONAL MAINTENANCE MANAGER-C PCP: Shane Rendon MD Status: DIS IN Y Location: [place] [id number] <Argelia Walker - Last Filed: 12/24/17 13:58> Discharge Date and Diagnosis - Problem List Patient Problems: Active and Suspected Problems Acute on chronic systolic CHF (congestive heart failure) (Acute) Date of Admission: 12/23/17 Date of Discharge: 12/24/17 - Primary Discharge Diagnosis Active and Suspected Problems Acute on chronic systolic CHF (congestive heart failure) (Acute) Atypical chest pain Borderline troponin - Secondary Discharge Diagnosis Chronic Problems Nonischemic cardiomyopathy (Chronic) Status post ICD removal. Hypertension Obesity Hospital Course and Treatment Imaging Results: Diagnostic Data Chest X-Ray 12/23/17 19:37 IMPRESSION: Cardiomegaly and pulmonary vascular congestion. at 1957 Reported and signed by: Trena Caldwell MD Electronically Signed: Trena Caldwell MD at 18:55 EST Tel , Service support , Dr. Magdaleno- Cardiology Operations: None Procedures: 2-D Echocardiogram Summary of Care Provided: The patient is a 32 year old M admitted 12/23/2017 due to shortness of breath, weakness. He has a past medical history of nonischemic cardiomyopathy status post ICD removal, chronic systolic CHF, hypertension, obesity. Patient was originally diagnosed with nonischemic cardiomyopathy in 2013. Patient had a cardiac catheterization at that time and was told he did not have any coronary artery disease. 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 Patient previously followed with Dr. Mendez at the [facility] in which she has not seen in approximately a year. He states he does not wish to further follow-up with Dr. Mendez. Patient does not currently have health insurance and stated he has not been taking his prescribed medications due to not being able to afford them. Case management worked with patient and he is able to afford prescriptions through [employer] $4 program. Troponins were borderline elevated and did not trend upward. Suspect secondary to acute on chronic systolic CHF. Patient was treated with IV Lasix. He will be discharged on carvedilol, lisinopril, and Lasix as needed for increased swelling. Aldactone was recommended by cardiology although patient states he cannot afford this medication. Echocardiogram from January 2017 showed an estimated ejection fraction of 34%. Repeat echocardiogram during admission showed moderate left ventricular hypertrophy, severely dilated left ventricle, estimated ejection fraction of 20%, severe global left ventricular systolic dysfunction. Patient will continue medical management as noted above. He wishes to establish with [facility]. Recommend follow-up with [facility] in 1-2 weeks. Discussed with patient following up with [facility] heart failure program to begin discussion regarding heart transplant. He is in agreement with current plan. Patient complains of anxiety and states he was previously prescribed Ativan. He states he has not followed up with primary care physician to continue prescription. He was given a brief prescription of PRN Ativan 0.5 mg, 10 tablets until he can follow-up with primary care physician. Case management discussed with patient seeing behavioral health and he declined. Patient seen and examined prior to discharge. Heart rate regular in rate and rhythm, no murmur. Lungs clear. Abdomen soft, nontender, obese. Neuro grossly intact. No edema. Vital signs stable. Patient stable for discharge home with recommendations as noted above. This patient was seen by KEVYN Harper under the supervision of Dr. Mortensen. Discharge Diet: Low fat/ Low Cholesterol, 8 Cup Fluid Restriciton, 2000 mg Sodium Diet Discharge Activity: Return to Normal Activity Call your doctor if you observe: Shortness of breath, Dizziness, Fainting spells, Chest pain, Increased palpitations (irregular heartbeat), Calf discomfort Home Medications: Medications to take at Discharge Carvedilol 25 mg PO BID #60 tablet 12/24/17 Furosemide [Lasix] 40 mg PO DAILY PRN #30 tablet 12/24/17 Lisinopril [Zestril] 40 mg PO DAILY #30 tablet 12/24/17 Following Prescrptions Were Given to Patient: Furosemide [Lasix] 40 mg PO DAILY PRN #30 tablet PRN Reason: Swelling Lisinopril [Zestril] 40 mg PO DAILY #30 tablet Carvedilol 25 mg PO BID #60 tablet Primary Care Physician: Shane Rendon MD [Primary Care Provider] - Please follow up with your Primary Care Physician in: 1 Week Please Follow Up With: [facility] When: 1-2 Weeks Please Follow Up With: [facility] When: Call to schedule prior to discharge Disposition: Home Minutes spent on discharge:: 35 Patient Condition:: Stable Meaningful Use Info Meaningful Use Diagnoses (Choose all that apply): CHF - CHF KATHARINA/ARB ordered at discharge?: Yes Documented LVEF (%): 20 <Emiliano Mortensen - Last Filed: 12/24/17 14:56> Discharge Date and Diagnosis - Secondary Discharge Diagnosis Chronic Problems Nonischemic cardiomyopathy (Chronic) Status post ICD removal. Hospital Course and Treatment Operations: None Procedures: 2-D Echocardiogram Summary of Care Provided: Seen and examined independently. Agree with the above notes by the nurse practitioner. The 32-year-old white male with known history of nonischemic cardiomyopathy. Presents with shortness of breath. Chest x-ray showed pulmonary edema and BNP was slightly elevated at 156. Clinically patient was in heart failure. Patient, unfortunately, does not have insurance and so was only taking Lasix sparingly with symptoms. Patient did have an echocardiogram that showed an ejection fraction of 20%. Patient was discharged with a prescription for Coreg, lisinopril, Lasix and spironolactone. Patient is a recommend follow-up with the [facility] and to follow-up in heart failure clinic at [facility]. That may be limited given the patient's insurance status at this time. Physical exam Vital Signs Height 1.8 m Patient is currently no acute distress, no respiratory distress, no conversational dyspnea. [] Discharge Diet: Low fat/ Low Cholesterol, 8 Cup Fluid Restriciton, 2000 mg Sodium Diet Discharge Activity: Return to Normal Activity Call your doctor if you observe: Shortness of breath, Dizziness, Fainting spells, Chest pain, Increased palpitations (irregular heartbeat), Calf discomfort Disposition: Home Minutes spent on discharge:: 35 Patient Condition:: Stable Meaningful Use Info Meaningful Use Diagnoses (Choose all that apply): CHF - CHF KATHARINA/ARB ordered at discharge?: Yes Documented LVEF (%): 20 Code Visit OBSV E AND M: [id number] Observation care discharge 12/24/17 1358 <Electronically signed by Argelia BAGLEY> Date Argelia BAGLEY 12/24/17 9004<Electronically signed by Emiliano Mortensen DO> Cosigner Signature (if applicable): Date Emiliano Mortensen DO CC: REGIONAL MAINTENANCE MANAGER-C Argelia Walker; Emiliano Mortensen DO; Shane Rendon MD Signed ECHOCARDIOGRAM COMPLETE Observed: 12/24/2017 Status: F Source: [place] 1:34 PM [facility] [place] [facility] Cardiovascular Services [address] [place] [address] Echo Complete W/ Contrast 12/24/17 1031 MR#: [id number] Acct: [id number] Name: BHUPINDER CASTRO Rep #: [id number] : 1985 From: Evan Espitia MD Attending Dr: Emiliano Mortensen DO Status: ADM IN Ordering Dr: Servando Grissom MD Date: 12/23/17 Location: [facility] Sex: M C Admitted: 12/23/17 Reason For Study: CHF Procedure This was a 2D Doppler, Color Flow transthoracic echocardiogram. Contrast injection was performed. DO NOT USE DEFINITY. Exam performed portable in patient room. Left Ventricle Severely dilated left ventricle. Moderate concentric left ventricular hypertrophy. The estimated ejection fraction is 20 %. Severe global left ventricular systolic dysfunction. There is severe global hypokinesis of the left ventricle. Right Ventricle Normal RV size. Normal systolic function. Atria The left atrium is moderately enlarged. Normal right atrium. Mitral Valve Normal mitral valve. Mild-Moderate (1-2+) eccentric mitral valve insufficiency. Tricuspid Valve Normal tricuspid valve. Mild tricuspid valve insufficiency. Aortic Valve Normal aortic valve. Trisinus/trileaflet aortic valve. Pulmonic Valve The pulmonic valve is not well visualized. Great Vessels Normal aortic root. The pulmonary artery is normal size. Normal inferior vena cava. Pericardium/Pleural No pericardial effusion. Medication Diluted definity 4ml given slow IV push to enhance endocardial definition. ADVERSE REACTION TO DEFINITY WITH 10/10 FLANK PAIN. MMode/2D Measurements AND Calculations LVIDd: 8.7 cm IVSd: 1.3 cm LA dimension: 5.1 cm LVIDs: 7.6 cm LVPWd: 1.5 cm RVDd: 3.3 cm FS: 12.6 % LAV(MOD-bp): 101.1 ml EDV(MOD-sp4): 463.8 ml EDV(MOD-sp2): 410.3 ml LAV(MOD-bp) Indexed: 39.4 ml/m2 ESV(MOD-sp4): 296.9 ml EF(MOD-sp2): 22.9 % LAV(MOD-sp2): 119.2 ml EF(MOD-sp4): 36.0 % LAV(MOD-sp4): 79.7 ml SV(MOD-sp4): 167.0 ml SV(MOD-sp2): 93.9 ml LA A4 area: 24.8 cm2 RA A4 area: 15.5 cm2 Doppler Measurements AND Calculations MV E max jovon: 87.2 cm/sec Ao V2 max: 105.5 cm/sec LV V1 max: 49.9 cm/sec MV A max jovon: 73.8 cm/sec Ao max P.5 mmHg LV V1 max P.00 mmHg MV E/A: 1.2 TR max jovon: 229.3 cm/sec TR max P.2 mmHg Interpretation Summary Severely dilated left ventricle. Moderate concentric left ventricular hypertrophy. The estimated ejection fraction is 20 %. Severe global left ventricular systolic dysfunction. The left atrium is moderately enlarged. Contrast injection was performed. Ordering Physician: Servando Grissom Referring Physician: SHANE RENDON Performed By: Nyla Elizabeth, ROLA, RVT 12/24/17 1334 Date Evan Espitia MD CC: Servando Grissom; Shane Rendon MD Date Dictated: 12/24/17 1031 Date Transcribed: 12/24/17 1334 Blow Mold Technician: Signed DISCHARGE INSTRUCTION Observed: 12/24/2017 Status: F Source: [place] 12:40 PM [facility] [place] [facility] Medical Records Department [address] [place] [address] Instructions for Home/Discharge Instructions 12/24/17 1238 MR#: [id number] Acct: [id number] Name: BHUPINDER CASTRO Rep #: [id number] : 1985 32 From: Argelia BAGLEY PCP: Shane Rendon MD Status: ADM IN - Discharge Diagnoses Current Active Problems: Current Active and Chronic Problems Abnormal cardiac enzyme level (Acute) Chest pain (Acute) Acute on chronic systolic CHF (congestive heart failure) (Acute) Nonischemic cardiomyopathy (Chronic) Status post ICD removal. You will use the following diet at home:: Cardiac Discharge Activity: Return to Normal Activity Call your doctor if you observe: Shortness of breath, Dizziness, Fainting spells, Chest pain, Increased palpitations (irregular heartbeat), Calf discomfort Allergies/Adverse Reactions: Allergies perflutren [From [employer]] Adverse Reaction (Verified 12/24/17 11:38) Other Severe flank pain Medications to take at Discharge Carvedilol [Coreg (Beta Adrian)] 25 mg PO BID #60 tab 12/24/17 Furosemide [Lasix] 40 mg PO DAILY PRN PRN #30 tab 12/24/17 Lisinopril [Zestril] 40 mg PO DAILY #60 tab 12/24/17 Lorazepam [Ativan] 0.5 mg PO BID PRN PRN #10 tablet 12/24/17 The following prescriptions were given: Furosemide [Lasix] 40 mg PO DAILY PRN PRN #30 tab PRN Reason: Swelling Lisinopril [Zestril] 40 mg PO DAILY #60 tab Lorazepam [Ativan] 0.5 mg PO BID PRN PRN #10 tablet PRN Reason: Anxiety Carvedilol [Coreg (Beta Adrian)] 25 mg PO BID #60 tab Primary Care Physician: Shane Rendon MD [Primary Care Provider] - Please follow up with your Primary Care Physician in: 1 Week Please Follow Up With: [facility] When: 1-2 Weeks Please Follow Up With: [facility] When: Call to schedule prior to discharge Proposed Discharge Date: 12/24/17 12/24/17 1240 <Electronically signed by Argelia BAGLEY> Date Argelia BAGLEY CC: Ehsan Magdaleno MD; Shane Rendon MD CONSULTATION Observed: 12/24/2017 Status: F Source: [place] 11:03 AM [facility] [place] [facility] Medical Records Department [address] [place] [address] Consultation 12/24/17 1049 MR#: [id number] Acct: [id number] Name: BHUPINDER CASTRO Rep #: [id number] : 1985 32 From: Ehsan Magdaleno MD PCP: Shane Rendon MD Status: ADM IN Y [facility] Problem List (1) Acute on chronic systolic CHF (congestive heart failure) Status: Acute Reason for Consult Date of Consultation: 12/24/17 History of Present Illness: The patient is a 32 year old M with past medical history significant for nonischemic cardiomyopathy. Patient presented to the hospital with complaints of shortness of breath for the last 2 days. No orthopnea. No PND. According to the patient, he has been feeling more tired and fatigued over the last day or so. Fevers or chills. No increased salt or fluid intake. No ankle edema. Patient, he has developed a cough this morning. Nonproductive. The patient had some chest pain yesterday. According to him, it was sharp. Located in the anterior chest. Lasted about 5 seconds according to the patient. Per patient, he was diagnosed with nonischemic cardiomyopathy back in 2013. According to the patient, he has had cardiac catheterization done and was told that he did not have any coronary artery disease. The patient had a defibrillator placed in the past however he has had it removed on his own wishes. Past Medical History Allergies/Adverse Reactions: Allergies No Known Allergies Allergy (Verified 12/23/17 18:57) Home Medications: Ambulatory Orders Medication Instructions Recorded Carvedilol [Coreg] 25 mg PO BID 03/31/16 Furosemide [Lasix] 40 mg PO DAILY PRN PRN 03/31/16 Lisinopril [Zestril] 40 mg PO DAILY 03/31/16 Past Medical History (Chronic Problems): Chronic Problems Nonischemic cardiomyopathy (Chronic) Status post ICD removal. Surgical History: - - ICD placement. Subsequently removed upon patient's wishes Psychiatric History: No pertinent psych hx - *Family History Maternal History Items: No pertinent history Paternal History Items: No pertinent history Lives: With Family Smoking Status: Former smoker Alcohol: None Drugs: None Review of Systems - Review of Systems General: Reports: Fatigue, Malaise, Weakness, Normal Appetite Cardiovascular: Reports: Chest Discomfort - Sharp chest pain lasting few seconds only Respiratory: Reports: Non Productive Cough Gastrointestinal: Denies: Abdominal Discomfort Muscoloskeletal: Denies: Myalgias Skin: Denies: Jaundice Neurological: Denies: History of TIA, History of CVA Objective: Vital Signs Temp Pulse Resp BP Pulse Ox 98.1 F 89 18 156/114 H 99 12/24/17 09:25 12/24/17 09:25 12/24/17 09:25 12/24/17 09:25 12/24/17 09:25 Oxygen Delivery Method Room Air Weight: 144.3 kg Body Mass Index (BMI) 44.4 Intake and Output for Last 24 Hours Output Total 350 / 350 Balance -350 / -350 General: Awake, Alert, Oriented x 3, No Acute Distress, Obese HEENT: Atraumatic Oral: Moist Mucosa Neck: Supple, - - Plain examination difficult because of body habitus Lungs: - - Minimal end expiratory wheeze. Cardiovascular: Normal S1, Normal S2, Positive S3 Abdomen: Bowel Sounds Present, Non Tender Extremities: No Cyanosis, No edema Neurological: - - Alert and oriented 3 Psych/Mental Status: Appropriate 12/24/17 02:02: Sodium 142, Potassium 3.4 L, Chloride 106, Carbon Dioxide 27.0, Anion Gap 9, BUN 11, Creatinine 0.81, Est GFR (MDRD) Af Amer 144, Est GFR (MDRD) Non-Af 119, BUN/Creatinine Ratio 13.6, Glucose 90, Calcium 8.8, Troponin I 0.17 H 12/24/17 08:00: Troponin I 0.18 H Rhythm: Normal sinus EKG: Sinus rhythm. Nonspecific T changes CXR: Cardiomegaly. Mild vascular congestion Assessment/Plan 1. Acute on chronic systolic congestive heart failure. Agree with diuresis. Monitor creatinine. Continue with beta blockers, KATHARINA inhibitors. Start Aldactone. Monitor potassium 2. Likely bronchitis. Manage as per internal medicine. Consider testing for influenza graft 3. Hypertension. Add Aldactone 4. Obesity 5. Atypical chest pains. Likely noncardiac. Troponin borderline elevated without any upward or downward trend. Likely chronic 12/24/17 1103 <Electronically signed by Ehsan Magdaleno MD> Date Ehsan Magdaleno MD Cosigner Signature (if applicable): Date CC: Ehsan Magdaleno MD; Shane Rendon MD Signed TROPONIN-I Collected: 12/24/2017 Status: F Source: [place] 8:00 AM [facility] Order Comment: 'TROP' Serial specimen #1, #2, #3, or #4: 4 TYPE CODE TESTS RESULT OUT OF RANGE REFERENCE UNITS LAB L501.4010 <0.06 ng/mL High 0.18 TROPONIN-I Result Comment: TROPONIN-I EXPECTED VALUES <0.05 NEGATIVE 0.06 - 0.59 AT RISK OF WI > OR = 0.60 SUGGEST WI Performed By: #### L501.4010 #### [facility] [place], [place], [address] BASIC METABOLIC Collected: 12/24/2017 Status: F Source: [place] PROFILE (BMP) 2:02 AM [facility] Order Comment: 'TROP' Serial specimen #1, #2, #3, or #4: 3 TYPE CODE TESTS RESULT OUT OF RANGE REFERENCE UNITS LAB L501.0100 74-106 mg/dL Normal GLU 90 Result Comment: Please note revised GLUCOSE reference range effective 2017. LAB L501.1000 7-18 mg/dL Normal BUN 11 LAB L501.1100 0.70-1.30 mg/dL Normal CREAT,SERUM 0.81 Result Comment: The validity of the calculated GFR AND GFRAA in patients over 70 years has not been determined. Clinical correlation is essential. LAB L501.1110 >60 mL/min Normal EST GFR 119 Result Comment: Non- GFR Calc LAB L501.1115 >60 mL/min Normal EST GFR - AA 144 Result Comment: GFR Calc LAB L501.1255 ml/min Normal Estimated CRCL 142.03 LAB L501.1300 10-20 RATIO BUN/CRE Normal 13.6 LAB L501.2200 8.5-10 mg/dL .1 CA Normal 8.8 LAB L501.5300 136-14 mmol/L 5 NA Normal 142 LAB L501.5600 3.5-5. mmol/L Low 1 K 3.4 LAB L501.5900 98-107 mmol/L CL Normal 106 LAB L501.6100 21.0-3 mmol/L 2.0 CO2 Normal 27.0 LAB L501.6200 5-15 GAP Normal 9 Performed By: #### L500.2500, L501.4010 #### [facility] [address] [place], [address] TROPONIN-I Collected: 12/24/2017 Status: F Source: [place] 2:02 AM [facility] Order Comment: 'TROP' Serial specimen #1, #2, #3, or #4: 3 TYPE CODE TESTS RESULT OUT OF RANGE REFERENCE UNITS LAB L501.4010 <0.06 ng/mL High 0.17 TROPONIN-I Result Comment: TROPONIN-I EXPECTED VALUES <0.05 NEGATIVE 0.06 - 0.59 AT RISK OF [place] > OR = 0.60 SUGGEST WI Performed By: #### L500.2500, L501.4010 #### [facility] [address] [facility] [place], [address] EMERGENCY DEPARTMENT Observed: 12/23/2017 Status: F Source: [place] SUMMARY 11:58 PM [facility] [place] [facility] Medical Records Department [address] [facility] [place] [address] Emergency Department Summary 12/23/17 2219 MR#: [id number] Acct: [id number] Name: BHUPINDER CASTRO Rep #: [id number] : 1985 32 From: Leandro Gomes MD PCP: Shane Rendon MD Status: ADM IN - ER Visit Summary Date of Service: 12/23/17 Chief Complaint: Shortness of breath History of Present Illness: The patient is a [address] Rendon and Dr. Olguin. He has a complicated past medical history. He reports that in July 2014 he was diagnosed with a nonischemic cardiomyopathy and an ejection fraction of 10%. States his last echo was in February 2017 at that time his ejection fraction was 26%. He reports that as his ejection fraction was improving he insisted that they take out his defibrillator. He had this removed at [facility] in February 2017. He states that he saw Dr. Olguin the month prior to this and has not followed up with him since. He reports that he is on 25 mg of Coreg twice daily, lisinopril and he does not know the dose, and 10 mg of Lasix a day. States that he does daily weights and that 315 is his normal weight. He weighed 315 yesterday. He reports that he weighs 325 pounds today. Patient reports he has shortness of breath that began 3 days ago. Is much worse when he exerts himself. Also reports that he has had 4-5 pillow orthopnea and an episode of PND 2 days ago. He states that today at approximately 330 while undergoing light activity he had an episode of chest pain that lasted approximately 20 seconds and felt like a shock. He denies any chest pain otherwise. He denies any fever or chills. He has a nonproductive cough. Physical Examination: Vitals: Stable. Afebrile. General: Well-nourished and well-developed. Head: Normocephalic atraumatic. Neck: Supple, no lymphadenopathy. No JVD. Nontender. Cardiovascular: Regular rate and rhythm. No murmurs. Respiratory: No respiratory distress. Crackles at the bases bilaterally. Abdominal: Soft, nontender, nondistended, normal bowel sounds. No guarding, rebound, or peritoneal signs. Back: Nontender. Extremities: Nontender, trace edema bilaterally that is symmetric. Skin: Normal color, no rash. Neurologic: Alert and oriented 3. Cranial nerves II through XII are intact. Normal strength and sensation. Psych: Normal affect. Test Results: EKG is sinus tach at [address] changes. There is no significant change since March 2017. Repeat EKG is unchanged. Chest x- ray shows cardiomegaly and vascular congestion. CBC is more for monocytes of 6. Chem-7 is more for chloride of 110. Initial troponin is 0.17. Repeat troponin is 0.18. BTNP is 157.8. Emergency Department Course and Treatment: She was given 40 mg of Lasix IV. Continue to complain of shortness of breath and was placed on BiPAP as I felt this may improve the efficacy of the Lasix and improve his symptoms. Treatment Plan: The patient was discussed with Dr. Espitia who asked that I speak with Dr. Olguin about outpatient management. I discussed the patient with Dr. Olguin and he is concerned about the patient's noncompliance and the inability to manage him as an outpatient. He has of the patient be admitted for diuresis and echo. He did state that he would be available for phone consultation regarding the results of this. The patient was discussed with Dr. Selena arenas. He will be admitted to the hospital for further wish and treatment. Disposition: Admitted in stable condition. Impression: 1. Nonischemic cardiomyopathy. 2. Dyspnea. This note was generated with Cortera dictation software. It may contain incorrect words, spelling, and punctuation that were not noted in review of the chart prior to signing ED Disposition - Plan for ED Patient: Chief Complaint: Shortness of Breath Referrals: Shane Rendon MD [Primary Care Provider] - What to do if you have Problems For any increased pain, shortness of breath, bleeding, nausea or vomiting, chest pain, or any unexpected problems, contact your Primary Care Provider. Call [facility] ([phone]) or report to the closest Emergency Room. Call 911 if necessary. 12/23/17 2851 <Electronically signed by Leandro Gomes MD> Date Leandro Gomes MD Cosigner Signature (If Indicated): Date CC: Shane Rendon MD HISTORY AND PHYSICAL Observed: 12/23/2017 Status: F Source: STARKS EXAM 10:46 PM [facility] [place] [facility] Medical Records Department [address] [place] [address] History and Physical 12/23/172 MR#: [id number] Acct: [id number] Name: BHUPINDER CASTRO Rep #: [id number] : 1985 32 From: Servando Grissom MD PCP: Shane Rendon MD Status: ADM IN Y Location: [place] [id number] Problem List (1) Abnormal cardiac enzyme level Status: Acute (2) Chest pain Status: Acute (3) Acute on chronic systolic CHF (congestive heart failure) Status: Acute (4) Nonischemic cardiomyopathy Status: Chronic Comment: Status post ICD removal. History of Present Illness Date of Admission: 12/23/17 Chief Complaint: Fatigue, weakness and shortness of breath. The patient is a 32 year old M with past medical history as mentioned above presented to the emergency room because of fatigue, weakness and shortness of breath. His illness started 3 days ago with poor fine fatigue and weakness as well as shortness of breath. Shortness of breath comes on with exertion, he cannot walk more than 10 feet without getting short of breath, aggravated by activity, relieved by rest, associated with weight gain as well as cough with minimal sputum. Today, he started having chest pain that described as electrical shocks of his heart, started at rest and he told that he may have heart attack, associated with worsening shortness of breath compared to yesterday without aggravating or relieving factors. He does have a history of nonischemic cardiomyopathy status post ICD that was removed 1 year ago and he has been compliant with his medications. He used to see Dr. Sadler at [facility] and he switched his care to Dr. Olguin last year. He saw Dr. Olguin in January,, had an echocardiogram done that showed ejection fraction of 26% according to the patient. Since that time, he did not see Dr. Olguin anymore. He mentioned that 2 weeks ago, he had syncopal episode and he went to [facility], was informed that he has vertigo and he was discharged home. Today in the emergency room, patient was tachycardic, hypertensive, pulse ox was 95% on 2 L of oxygen. He was started on BiPAP and patient feels better, shortness of breath improved. His routine blood work was unremarkable. Troponin was borderline elevated at 0.17. BNP was 157.8. Chest x-ray revealed cardiomegaly and mild bilateral pulmonary vascular congestion consistent with acute CHF. EKG revealed sinus tachycardia, normal MA interval, normal QRS, prolonged QTC, no acute ischemic changes. He is being admitted for acute on chronic systolic CHF, chest pain and abnormal cardiac enzymes. Past Medical History Past Medical History (Chronic Problems): Chronic Problems Nonischemic cardiomyopathy (Chronic) Status post ICD removal. Allergies No Known Allergies Allergy (Verified 12/23/17 18:57) Home Medications: Ambulatory Orders Medication Instructions Recorded Carvedilol [Coreg] 25 mg PO BID 03/31/16 Furosemide [Lasix] 40 mg PO DAILY PRN PRN 03/31/16 Lisinopril [Zestril] 40 mg PO DAILY 03/31/16 Surgical History: - - ICD placement. Psychiatric History: No pertinent psych hx Lives: With Family Smoking Status: Former smoker Alcohol: None Drugs: None - *Family History Maternal History Items: No pertinent history Paternal History Items: No pertinent history Review of Systems Constitutional: Reports: Weakness, Weight Change - Weight gain., Fatigue. Denies: Anorexia, Chills, Fever Eyes: Denies: Blurred vision, Double vision, Drainage, Redness HEENT: Denies: Difficulty Hearing, Ear Pain, Eye Pain, Nasal Congestion, Sore Throat Cardiovascular: Reports: Chest Pain, Chest Pressure, Light Headedness. Denies: Edema, Orthopnea, Palpitations, Syncope Respiratory: Reports: Cough, Shortness of breath at rest, Shortness of breath upon exertion, Sputum production. Denies: Pleuritic Pain, Wheezing Gastrointestinal: Denies: Abdominal Pain, Constipation, Diarrhea, Nausea, Vomiting Genitourinary: Denies: Dysuria, Frequency, Hematuria Musculoskeletal: Denies: Arm Pain, Back Pain, Foot Pain Skin: Denies: Dryness, Rash Neurological: Denies: Balance problems, Double vision, Change in Speech, Slurred speech, Confusion, Focal weakness, Headaches, Incoordination Psychiatric: Denies: Anxiety, Depression Endocrine: Denies: Change in Body Habitus, Polydipsia VTE Information - Inpt Only VTE Present on Admission: No VTE Mechan Device Prophylaxis: None VTE Pharm Prophylaxis ordered?: Yes Patient Problems: Active and Suspected Problems Abnormal cardiac enzyme level (Acute) Chest pain (Acute) Acute on chronic systolic CHF (congestive heart failure) (Acute) - Physical Exam General: Alert, Oriented x3, Cooperative, - - Mildly short of breath. HEENT: Atraumatic, PERRLA, EOMI Oral: Moist Mucosa, No Gingival or Mucosal Lesions/ Ulcerations Neck: Supple, No JVD, Negative Carotid Bruits, Trachea Midline, Thyroid Normal Size and Texture Lungs: No rhonchi, No wheeze, Diminished, Rales, Short of Breath, - - Decreased breath sounds bilateral, more at the bases, very faint crackles at the bases. Cardiovascular: Regular rate, Regular Rhythm, Normal S1, Normal S2, No murmurs, PMI Normal, Tachycardic Abdomen: Bowel Sounds Present, Soft, Non Tender, Non-Distended, No Hepato-splenomegaly, Obese Extremities: No clubbing, No cyanosis, No edema Skin: No rashes, No breakdown Lymphatic: No Cervical, Supraclavicular, or Inguinal Adenopathy Neurological: Cranial nerves II-XII grossly intact, Motor Exam 5/5 strength throughout Psych/Mental Status: Normal Affect, Appropriate, Alert and oriented to time, place, person, mood and affect Vital Signs Temp Pulse Resp BP Pulse Ox 97.2 F L 103 H 19 H 169/106 H 97 12/23/17 18:55 12/23/17 21:43 12/23/17 21:43 12/23/17 21:09 12/23/17 21:43 Oxygen Flow Rate 2 Oxygen Delivery Method Nasal Cannula Weight: 326 lb 1.019 oz Body Mass Index (BMI) 45.4 Laboratory Tests Past 24 Hrs WBC RBC Hgb Hct MCV MCH MCHC RDW RDW Differential Plt Count MPV Immature Gran % (Auto) Neut % (Auto) Clinical Impression(s) from Imaging Studies Chest X-Ray 12/23/17 19:37 IMPRESSION: Cardiomegaly and pulmonary vascular congestion. at 1957 Reported and signed by: Trena Caldwell MD Electronically Signed: Trena Caldwell MD at 18:55 EST Tel , Service support , Assessment/Plan Active and Suspected Problems Abnormal cardiac enzyme level (Acute) Chest pain (Acute) Acute on chronic systolic CHF (congestive heart failure) (Acute) This is a 32 years old male patient presented to the emergency room because of fatigue, weakness, shortness of breath and chest pain and he was found to have acute on chronic systolic CHF and abnormal cardiac enzymes. #1 acute on chronic systolic CHF: This is based on history of nonischemic cardiomyopathy, symptoms, chest x-ray findings as well as elevated BNP. EKG reviewed, reveals sinus tachycardia, no acute ischemic changes. Chest x-ray revealed cardiomegaly and signs of pulmonary vascular congestion. Plan: Admit to U, cardiac monitoring, serial cardiac enzymes, repeat EKG tomorrow morning, start IV Lasix for diuresis, fluid restriction to less than 1500 cc daily, input output chart, 2D echocardiogram, continue Coreg and lisinopril, check serum magnesium and TSH, cardiology consult, obtain records from Dr. Olguin's office including 2D echocardiogram that was done on January,, PT OT evaluation and treatment. #2 chest pain/abnormal cardiac enzymes: Could be related to acute CHF. EKG revealed no evidence of acute ischemic changes. Plan: Cardiac enzymes, repeat EKG tomorrow morning, 2D echocardiogram, cardiology consult as above. #3 nonischemic cardiomyopathy: Status post ICD removal one year ago. Plan as above, Lasix for diuresis, 2D echocardiogram, continue Coreg and lisinopril, cardiology consult. #4 DVT prophylaxis: Subcu Lovenox. This note was generated with Cortera dictation software. It may contain incorrect words, spelling, and punctuation that were not noted in checking the note before signing. Code Visit Inpatient E AND M: 71415 Init Hosp L3 12/23/17 2246 <Electronically signed by Servando Grissom MD> Date Servando Grissom MD Cosigner Signature: Date (if applicable) CC: Servando Grissom; Shane Rendon MD Signed TROPONIN-I Collected: 12/23/2017 Status: F Source: DANA 10:08 PM [facility] [place] Order Comment: Comments: Should be drawn 3H after initial Troponin obtained 'TROP' Serial specimen #1, #2, #3, or #4: 2 TYPE CODE TESTS RESULT OUT OF RANGE REFERENCE UNITS LAB L501.4010 <0.06 ng/mL High 0.18 TROPONIN-I Result Comment: TROPONIN-I EXPECTED VALUES <0.05 NEGATIVE 0.06 - 0.59 AT RISK OF [place] > OR = 0.60 SUGGEST WI Performed By: #### L501.4010 #### [facility] [address] [place], [address] MAGNESIUM Collected: 12/23/2017 Status: F Source: DANA 10:08 PM [facility] [place] TYPE CODE TESTS RESULT OUT OF RANGE REFERENCE UNITS LAB L501.5200 1.6-2.6 mg/dL Normal MG 2.1 Result Comment: Please note revised Magnesium reference range effective 2017. Performed By: #### L501.5200, L501.9520 #### [facility] [address] [place], [address] THYROID STIM HORMONE Collected: 12/23/2017 Status: F Source: DANA (TSH) 10:08 PM [facility] [place] TYPE CODE TESTS RESULT OUT OF RANGE REFERENCE UNITS LAB L501.9520 0.358-3.74 uIU/mL Normal TSH 2.88 Performed By: #### L501.5200, L501.9520 #### [facility] [address] [place], [address] CHEST 1 VIEW Observed: 12/23/2017 Status: F Source: DANA (PORTABLE) 7:31 PM [facility] [place] [facility] Imaging Services [address] [place] [address] 12091 Chest 1 View (Portable) MR#: [id number] Acct: [id number] Name: BHUPINDER CASTRO Rep #: [id number] : 1985 32 From: Trena Caldwell MD PCP: Shane Rendon MD Status: REG ER Study: Chest 1 View (Portable) Date of Exam: 12/23/17 Exam# [id number] Ordering Dr: Leandro Gomes MD XR Chest 1 View INDICATION: chest pain COMPARISON: None TECHNIQUE: Portable chest x-ray FINDINGS: The heart size is enlarged. Pulmonary vascularity is prominent. There is no evidence of focal air space consolidation or pleural effusion. RAD/Chest 1 View (Portable) IMPRESSION: Cardiomegaly and pulmonary vascular congestion. at 1955 Reported and signed by: Trena Caldwell MD Electronically Signed: Trena Caldwell MD at 18:55 EST Tel , Service support , CC: Leandro Gomes MD; Shane Rendon MD Blow Mold Technician: Signed BASIC METABOLIC Collected: 12/23/2017 Status: F Source: STARKS PROFILE (BMP) 7:10 PM [facility] [place] Order Comment: 'TROP' Serial specimen #1, #2, #3, or #4: 1 TYPE CODE TESTS RESULT OUT OF RANGE REFERENCE UNITS LAB L501.0100 74-106 mg/dL Normal GLU 85 Result Comment: Please note revised GLUCOSE reference range effective 2017. LAB L501.1000 7-18 mg/dL Normal BUN 12 LAB L501.1100 0.70-1.30 mg/dL Normal CREAT,SERUM 0.93 Result Comment: The validity of the calculated GFR AND GFRAA in patients over 70 years has not been determined. Clinical correlation is essential. LAB L501.1110 >60 mL/min Normal EST GFR 101 Result Comment: Non- GFR Calc LAB L501.1115 >60 mL/min Normal EST GFR - AA 122 Result Comment: GFR Calc LAB L501.1255 ml/min Normal Estimated CRCL 123.70 LAB L501.1300 10-20 RATIO BUN/CRE Normal 12.8 LAB L501.2200 8.5-10 mg/dL .1 CA Normal 9.8 LAB L501.5300 136-14 mmol/L 5 NA Normal 144 LAB L501.5600 3.5-5. mmol/L 1 K Normal 3.9 LAB L501.5900 98-107 mmol/L High CL 110 LAB L501.6100 21.0-3 mmol/L 2.0 CO2 Normal 23.0 LAB L501.6200 5-15 GAP Normal 11 Performed By: #### L500.2500, L501.4010 #### [facility] [address] [place], [place], [address] TROPONIN-I Collected: 12/23/2017 Status: F Source: STARKS 7:10 PM [facility] [place] Order Comment: 'TROP' Serial specimen #1, #2, #3, or #4: 1 TYPE CODE TESTS RESULT OUT OF RANGE REFERENCE UNITS LAB L501.4010 <0.06 ng/mL High 0.17 TROPONIN-I Result Comment: TROPONIN-I EXPECTED VALUES <0.05 NEGATIVE 0.06 - 0.59 AT RISK OF [place] > OR = 0.60 SUGGEST WI Performed By: #### L500.2500, L501.4010 #### [facility] [address] [place], [address] CBC W/DIFF, AUTOMATED Collected: 12/23/2017 Status: F Source: STARKS 7:10 PM [facility] [place] TYPE CODE TESTS RESULT OUT OF RANGE REFERENCE UNITS LAB L100.1000 4.4-11.0 K/mm3 Normal WBC 10.1 LAB L100.1200 4.6-6.2 M/mm3 Normal RBC 5.12 LAB L100.1300 13.0-16.5 g/dl Normal HGB 14.6 LAB L100.1400 40-54 % Normal HCT 43.9 LAB L100.1500 80-94 fL Normal MCV 85.7 LAB L100.1600 27.0-32.0 pg Normal MCH 28.5 LAB L100.1700 32-36 g/gl Normal MCHC 33.3 LAB L100.1810 11.6-14.6 % Normal RDW CV 12.6 LAB L100.1820 35.1-43.9 fl Normal RDW SD 39.5 LAB L100.1900 150-450 K/mm3 Normal PLT 222 LAB L100.2000 6.2-12.0 fl Normal MPV 11.3 LAB L100.2100 47-70 % Normal NEUT% 63.5 LAB L100.2200 19-41 % Normal LY% 24.5 LAB L100.2300 0-10 % Normal MONO% 5.3 LAB L100.2400 0-5 % High EO% 5.6 LAB L100.2500 0-1 % Normal BASO% 1.0 LAB L100.2550 0.0-0.9 % Normal IM GRAN % 0.100 Result Comment: IG% - Immature Granulocytes (promyelocytes, myelocytes and metamyelocytes) > 1% indicates that a LEFT SHIFT is Present. LAB L100.2620 2.0-7.7 X10 3/uL Normal Absolute Neut 6.4 LAB L100.2720 0.83-4.51 X10 3/ul Normal Absolute Lymph 2.46 Performed By: #### L100.0100 #### [facility] [address] [place], [address] BNP,B-TYPE NATRIURETIC Collected: 12/23/2017 Status: F Source: DANA PEPTIDE 7:10 PM [facility] [place] TYPE CODE TESTS RESULT OUT OF RANGE REFERENCE UNITS LAB L503.6620 0-100 pg/mL High B-TYPE 157.8 NASEEM PEP Performed By: #### L503.6620 #### [facility] [address] [place], [address] PROTHROMBIN TIME W/INR Collected: 12/23/2017 Status: F Source: DANA 7:10 PM [facility] [place] TYPE CODE TESTS RESULT OUT OF RANGE REFERENCE UNITS LAB L300.4150 11.7-14.9 SECONDS Normal PROTIME 13.4 LAB L300.4200 Normal INR 1.1 Performed By: #### L300.3900 #### [facility] [address] [place], [address] ALLERGIES ALLERGIES DATE TYPE / CODE NAME / CODE REACTION SEVERITY SOURCE 11/25/2018 Drug perflutren/[id number] Other Unknown [place] Allergy/416 9302(RXNORM) [facility] 357288(RUST ED CT) Repository 11/25/2018 Drug morphine/[id number] Hives Unknown [place] Allergy/416 45(RXNORM) [facility] 354776(RUST ED CT) Repository 11/25/2018 Drug turkey/[id number] Swelling Unknown [place] Allergy/416 (RXNORM) [facility] 721645(RUST ED CT) Repository 12/24/2017 DRUG PERFLUTREN GI UPSET [facility] INGREDI/419 Other [place] 254428([facility] ED CT) 12/23/2017 Drug No Known Unknown [place] Allergy/416 Allergies/H894740 [place] 877322(SNOM 388(RXNORM) Hospital ED CT) Repository 10/05/2015 DRUG TURKEY HIVES [facility] INGREDI/419 Other [place] 154096(SNOM Repository ED CT) NG/76872749 PERFLUTREN [facility] 6([facility]OM[facility]) Repository NG/77997220 TURKEY [facility] 6(OMED [facility] CT) Repository ENCOUNTERS ENCOUNTERS ADMIT/DISCHARGE ACCOUNT NUMBER ADMITTING ENCOUNTER LOCATION SOURCE CLASS 11/25/2018/11/25/19 [id number] Ambulatory BMSBuilding: [place] 19 [facility] Repository 11/23/2018 [id number] Ambulatory BMSBuilding: [place] BMS.[facility] Repository 10/19/2018/10/19/20 [id number] [place], Emergency [place] 18 [facility] ding:EDRoom: Repository [id number] 09/13/2018 [id number] Ambulatory [facility] MEDICAL Repository [place]:CAG[place] 09/06/2018/09/06/20 [id number] Ambulatory [address] Repository 09/06/2018/09/06/20 [id number] Ambulatory [address] Repository 09/06/2018/09/07/20 [id number] Ambulatory [address] Repository 05/19/2018 [id number] Ambulatory [facility] MEDICAL Repository [place]:URAE 04/15/2018/04/16/20 [id number] SCOTTY JOSHI Inpatient [place] [address] KRIS Encounter [facility] Repository 04/15/2018/04/16/20 [id number] SCOTTY JOSHI Inpatient [facility] 18 D [facility] MEDICAL Repository [place]Build[place] nRoom: 5111Bed: 04/15/2018/04/15/20 [id number] Emergency [address] Repository 04/12/2018/04/12/20 [id number] Emergency BBuilding:KALIE Figueredo [address] [place] [address] Repository 03/25/2018/03/25/20 [id number] Ambulatory [address] Main [place] Repository 03/11/2018/03/11/20 [id number] Ambulatory [address] Repository 03/11/2018/03/11/20 [id number] Ambulatory [address] MEDICAL Repository CENTERBuildi ng:CAGWS 03/08/2018/03/08/20 [id number] Emergency [facility] 18 [facility] ding:ED Repository 03/08/2018/03/09/20 [id number] Ambulatory [address] [place] Repository 12/23/2017/12/24/19 [id number] [place], Ambulatory [place] 18 [facility] ding:PCURoom Repository : OGG219Jyy: 1 12/23/2017 [id number] [facility], Ambulatory BMSBuilding: [place] Ghasem BMS.[facility] Repository 12/23/2017 [id number] [place], Ambulatory BMSBuilding: [place] Ghasem [facility] Repository 12/23/2017 [id number] [place], Ambulatory BMSBuilding: [place] Ghasem BMS.[facility] Repository PAYERS PAYERS ENCOUNTER GUARANTOR PAYER SUBSCRIBER SOURCE 11/25/2018 BHUPINDER Beecrril Primary BHUPINDER Cort[place] [id number] Insurance:[facility]: [facility] [id number] Number: Repository [address]Ufg: 330 [id number] [phone] () Date:0216-89-72OI [address] [address]RG: 11/25/2018 Secondary NOT GIVENUNK [place] Insurance:SELF PAY [facility] Number: Effective Repository Date:2018-11-25 11/23/2018 BHUPINDER Becerril Primary BHUPINDER [id number] [facility]: [facility] [id number] Number: Repository [address]Wiz: 330 [id number] [phone] (HP) Date:4813-73-63WS [address] [place] [id number]: 11/23/2018 Secondary NOT GIVENUNK [place] Insurance:SELF PAY [facility] Number: Effective Repository Date:2018-11-23 10/19/2018 BHUPINDER Becerril Primary BHUPINDER Becerril [place] [id number] Insurance:PARAMOUNT WARNESDOB: [facility] [id number] Number: Repository [address]Kwa: (330) [id number] [phone] (HP) Date:6250-40-81PM [address] [place] [id number]: 10/19/2018 Secondary NOT GIVENUNK [place] Insurance:SELF PAY [facility] Number: Effective Repository Date:2018-10-19 05/19/2018 BHUPINDER Jerrica Primary [facility]UPINDER [facility]erril [facility] [id number] Repository [place] Number: [address]Pxg: (330) [id number] [phone] (HP) Date: 04/15/2018 BHUPINDER Becerril Primary BHUPINDER [facility]il [facility] Health System [id number] ADVANTAGE [id number] Repository [place] Number: [address]Krg: (330) [id number] [phone] (HP) Date: 04/12/2018 BHUPINDER Becerril Primary BHUPINDER [facility]il [facility]:PARAMOUNT WARNESDOB: [facility] [id number] Repository [place] Number: 0 [place], [place] [id number] [place], [place] [address]Jhz: (330) Date:2018-03-09 72087Gum: [id number] [phone] (HP)Tel: ([phone] Name:NAVEEDO Toi (HP) (WP) [place] [phone] (WP) [address]DT: 03/08/2018 BHUPINDER Becerril Primary NOT GIVENUNK [place] [id number] Insurance:SELF PAY [place] Effective Repository [phone]: (330) Date:2018-03-08 [phone] () 12/23/2017 Bhupinder Primary NOT GIVENUNK [place] [id number] Insurance:SELF PAY [place] Effective Repository [id number]: (330) Date:2017-12-23 [phone] () 12/23/2017 Bhupinder Primary NOT GIVENUNK [place] [id number] Insurance:SELF PAY [place] Effective Repository [id number]: (330) Date:2017-12-23 [phone] () 12/23/2017 Bhupinder Primary NOT GIVENUNK [place] [id number] Insurance:SELF PAY [place] Effective Repository [phone]: (330) Date:2017-12-23 [phone] () 12/23/2017 Bhupinder Primary NOT GIVENUNK [place] [id number] Insurance:SELF PAY [place] Effective Repository [id number]: (330) Date:2017-12-23 [phone] ()
== END 2018-10-19 17:14 | disposition home or self-care (01) ==
PROVIDERS: Emergency Provider Emergency Medicine; Family Provider Family Medicine; PCP Family Medicine
DX: I42.8 Other cardiomyopathies (principal); I10 Essential (primary) hypertension; Z91.19 Patient's noncompliance with other medical treatment and regimen; R05 Cough; R11.2 Nausea with vomiting, unspecified; Z79.899 Other long term (current) drug therapy
CPT/HCPCS: 70450; 71046; 80048; 83880; 84484; 85025; 93005; 96374; 96375; 99285; A4216; J1940

== ENCOUNTER → 2018-12-10 08:50 | Outpatient (CLI) | payer MEDICAID, SELFPAY ==
[2018-11-25 14:07] VITALS: BMI 43.2
--- NOTE | 2018-12-10 08:51 | ECHOD_ITS ---
Reason For Study: CHF Procedure This was a 2D Doppler, Color Flow transthoracic echocardiogram. The study was technically difficult. PT had previous ADVERSE REACTION to DEFINITY. Exam performed in department. Left Ventricle Severely dilated left ventricle. Severe global left ventricular systolic dysfunction. The estimated ejection fraction is 20 %. No evidence for diastolic dysfunction. Right Ventricle Mildly dilated right ventricle. Mild global right ventricular systolic dysfunction. Atria The left atrium is mildly enlarged. Normal right atrium. No doppler evidence for ASD. Mitral Valve There is no mitral annular calcification. Normal mitral valve. Trivial mitral valve insufficiency. Tricuspid Valve Normal tricuspid valve. Trivial tricuspid valve insufficiency. Right ventricular systolic pressure estimated to be 22 mmHg. Aortic Valve Trisinus/trileaflet aortic valve. Normal aortic valve. Pulmonic Valve The pulmonic valve is not well visualized. Trivial pulmonic valve insufficiency. Great Vessels Normal sized aortic root. Pericardium/Pleural No pericardial effusion. MMode/2D Measurements & Calculations LVIDd: 7.5 cm IVSd: 1.4 cm Ao root diam: 3.4 cm LVIDs: 6.6 cm LVPWd: 1.4 cm RVDd: 3.5 cm FS: 11.5 % LAV(MOD-bp): 68.2 ml EDV(MOD-sp4): 257.4 ml EDV(MOD-sp2): 244.8 ml LAV(MOD-bp) Indexed: 26.7 ml/m2 ESV(MOD-sp4): 179.6 ml EF(MOD-sp2): 25.6 % LAV(MOD-sp2): 66.5 ml EF(MOD-sp4): 30.2 % LAV(MOD-sp4): 64.5 ml SV(MOD-sp4): 77.8 ml SV(MOD-sp2): 62.7 ml LA A4 area: 21.2 cm2 LA dimension(2D): 4.7 cm RA A4 area: 16.8 cm2 Doppler Measurements & Calculations MV E max jovon: 55.6 cm/sec Ao V2 max: 97.1 cm/sec LV V1 max: 92.2 cm/sec MV A max jovon: 44.6 cm/sec Ao max P.8 mmHg LV V1 max P.4 mmHg MV E/A: 1.2 PA V2 max: 111.5 cm/sec TR max jovon: 186.6 cm/sec TR max P.9 mmHg Interpretation Summary Severely dilated left ventricle. Severe global left ventricular systolic dysfunction. The estimated ejection fraction is 20 %. Mildly dilated right ventricle. Mild global right ventricular systolic dysfunction. The left atrium is mildly enlarged. Trivial mitral valve insufficiency. Trivial tricuspid valve insufficiency. Trivial pulmonic valve insufficiency. Right ventricular systolic pressure estimated to be 22 mmHg. No evidence for diastolic dysfunction. Ordering Physician: Fermin Young Referring Physician: Shane Bowden Performed By: Jasmyne Chang, ROLA, RVT
== END ==
PROVIDERS: Family Provider Family Medicine; PCP Family Medicine; Referring Provider Internal Medicine Cardiovascular Disease; Visit Provider Internal Medicine Cardiovascular Disease
DX: I50.22 Chronic systolic (congestive) heart failure (principal); I42.8 Other cardiomyopathies
CPT/HCPCS: 93306

== ENCOUNTER 2019-01-10 19:39 | Emergency (ER) | payer MEDICAID, SELFPAY ==
[2018-11-25 14:07] VITALS: BMI 43.2
[2019-01-10 19:41] VITALS: BP 143/88; PULSE 96; RESP 22; TEMP 37.5; O2SAT 90; BMI 42.3
[2019-01-10 20:05] VITALS: PULSE 95; PULSE 98; RESP 23; RESP 24; TEMP 37.5; O2SAT 90
[2019-01-10 20:11] VITALS: PULSE 95; RESP 23; TEMP 37.5; O2SAT 93
--- NOTE | 2019-01-10 20:24 | RAD_ITS ---
STUDY: X-RAY CHEST REASON FOR EXAM: Male, 33 years old. Chest pain TECHNIQUE: Frontal and lateral views of the chest COMPARISON: 10/19/2018 FINDINGS: The lungs are clear. There are no pleural effusions. There is no pneumothorax. The heart is normal in size. The visualized osseous structures are within normal limits. RAD/Chest PA and Lateral IMPRESSION: No acute thoracic pathology. Electronically Signed: Saroj Carbone, at 21:30 EST Tel , Service support ,
--- NOTE | 2019-01-10 20:24 | EKG12_ITS ---
Test Reason : SOB Blood Pressure : / mmHG Vent. Rate : 089 BPM Atrial Rate : 089 BPM P-R Int : 146 ms QRS Dur : 104 ms QT Int : 368 ms P-R-T Axes : 043 -61 104 degrees QTc Int : 447 ms Normal sinus rhythm Left axis deviation Nonspecific ST and T wave abnormality Abnormal ECG Confirmed by LIN ADAMS ([id number]), dictionary editor PADMINI WARREN ([id number]) on 01/14/2019 1:29:19 PM Referred By: DOUGLAS Confirmed By:LIN ADAMS
[2019-01-10] MEDS: MethylPREDNISolone 125 MG/2 ML Vial IV (20:34)
[2019-01-10 20:35] LABS: Absolute Lymphocyte Count 1.23 X10^3/ul (0.83-4.51); Absolute Neutrophil Count 5.5 X10^3/uL (2.0-7.7); Basophil# 0.04 X10^3/uL; Basophil% 0.5 % (0-1); Eosinophil# 0.13 X10^3/uL; Eosinophils% 1.7 % (0-5); Hematocrit 45.3 % (40-54); Lymphocyte # 1.23 X10^3/ul (4.0); Lymphocyte % 15.6 % (19-41); Mean Corp Hgb Conc 33.1 g/gl (32-36); Mean Corpuscular Hgb 29.1 pg (27.0-32.0); Mean Corpuscular Volume 87.8 fL (80-94); Mean Platelet Vol. 11.1 fl (6.2-12.0); Monocyte# 0.91 X10^3/uL; Monocyte% 11.6 % (0-10); Neutrophil # 5.54 X10^3/uL (2.7-7.7); Neutrophil % 70.3 % (47-70); Platelet Count 189 K/mm3 (150-450); RBC Distribution Width CV 13.2 % (11.6-14.6); RBC Distribution Width SD 41.9 fl (35.1-43.9); Red Blood Count 5.16 M/mm3 (4.6-6.2); White Blood Count 7.9 K/mm3 (4.4-11.0)
[2019-01-10 20:38] LABS: POSITIVE COUNT NO; POSITIVE DIFFERENTIAL NO; POSITIVE MORPHOLOGY NO
[2019-01-10 20:40] VITALS: PULSE 98; RESP 20; O2SAT 93
[2019-01-10] MEDS: Ipratropium/Albuterol Sulfate 3 ML AMPUL.NEB INHALATION (20:40)
[2019-01-10 20:52] LABS: Anion Gap 6 (5-15); BUN 10 mg/dL (7-18); BUN/Creat Ratio 14.1 RATIO (10-20); Calcium,Total 8.8 mg/dL (8.5-10.1); Chloride 106 mmol/L (98-107); Creatinine, Serum 0.71 mg/dL (0.70-1.30); EST Glomerular Filtration Rate 137 mL/min (>60); Est Glom Filt Rate - Afr Amer 166 mL/min (>60); Estimated Creatinine Clearance 160.56 ml/min; Glucose 96 mg/dL (74-106); Potassium 3.8 mmol/L (3.5-5.1); Sodium Level 137 mmol/L (136-145)
[2019-01-10 21:06] LABS: BNP,B-Type NATRIURETIC PEPTIDE 76.3 pg/mL (0-100)
[2019-01-10 21:08] LABS: Lactic Acid 0.6 mmol/L (0.4-2.0)
--- NOTE | 2019-01-10 21:24 | ED.RN ---
lab called with critical lab results. Positive flu A. Dr. Gomes made aware. No new orders at this time
[2019-01-10 21:57] VITALS: BP 128/83; PULSE 84; RESP 15; TEMP 37.4; O2SAT 94
--- NOTE | 2019-01-10 22:05 | ED.DCSUM_ITS ---
- ER Visit Summary Date of Service: 01/10/19 Chief Complaint: Shortness of breath History of Present Illness: The patient is a [address] Hannah Bowden. He reports his shortness of breath started 2 days ago. Is gradually gotten worse. He has a cough productive brown sputum without blood. He said fever to 101.6 degrees. Is also had chills and sweats. Reports his shortness of breath is mild currently and severe at worst. Is worsened by exertion or coughing. It minimally worsened by laying flat. Is relieved by nothing. States this is different than when he had CHF in the past. He reports a 10 pound decrease in weight from approximately 1 week ago. He denies any chest pain. Physical Examination: Vitals: Stable. Afebrile. General: Well-nourished and well-developed. Head: Normocephalic atraumatic. Neck: Supple, no lymphadenopathy. No JVD. Nontender. Cardiovascular: Regular rate and rhythm. No murmurs. Respiratory: No respiratory distress. Mild wheezing bilaterally with good air movement. Abdominal: Soft, nontender, nondistended, normal bowel sounds. No guarding, rebound, or peritoneal signs. Back: Nontender. Extremities: Nontender, no edema. Skin: Normal color, no rash. Neurologic: Alert and oriented ?3. Cranial nerves II through XII are intact. Normal strength and sensation. Psych: Normal affect. Test Results: EKG is sinus at [address] changes. Son change from October last year. Troponin is 0.075. This is the lowest it has been in the past year. In 2018 at range from 0.15-0.202. 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 Lactic acid is negative. Chem-7 is normal. CBC is more from lymphocytes 16 monocytes of 12. Chest x-ray is normal. He is positive for influenza A. Emergency Department Course and Treatment: Patient was treated albuterol and Atrovent aerosols. He was given Solu-Medrol IV. He is resting comfortably. Treatment Plan: Patient will be discharged on a 5-day burst of prednisone. Instructed to continue to use his albuterol MDI. Given prescriptions for Tamiflu and Zofran. Instructed follow-up his primary care physician 1 week not improving. Return to the emergency department for any worsening symptoms. Disposition: To home in improved and stable condition. Impression: 1. Influenza A. 2. Bronchospasm. This note was generated with [employer] dictation software. It may contain incorrect words, spelling, and punctuation that were not noted in review of the chart prior to signing ED Disposition - Plan for ED Patient: Disposition: Home or Assisted Living Instructions: ED Flu Prescriptions: Ondansetron [Zofran Odt] 4 mg PO Q8H PRN PRN #10 tablet PRN Reason: Nausea Nicotine [Nicotine Patch] 1 each TD DAILY #14 patch.td24 Pantoprazole Sodium [Protonix] 20 mg PO DAILY #30 tablet Prednisone [Deltasone] 60 mg PO DAILY #15 tablet Oseltamivir Phosphate [Tamiflu] 75 mg PO BID #10 capsule Referrals: Shane Bowden MD [Primary Care Provider] - 1 Week if not improving
[2019-01-10 22:16] VITALS: BP 135/70; BP 135/75; PULSE 80; RESP 18; TEMP 36.6; O2SAT 98
== END 2019-01-10 22:21 | disposition home or self-care (01) ==
LOC: ED 20:40
PROVIDERS: Emergency Provider Emergency Medicine; Family Provider Family Medicine; PCP Family Medicine
DX: J11.1 Influenza due to unidentified influenza virus with other respiratory manifestations (principal); J98.01 Acute bronchospasm; R19.7 Diarrhea, unspecified; I11.0 Hypertensive heart disease with heart failure; I50.9 Heart failure, unspecified; I42.9 Cardiomyopathy, unspecified; G47.33 Obstructive sleep apnea (adult) (pediatric); K21.9 Gastro-esophageal reflux disease without esophagitis; F41.9 Anxiety disorder, unspecified; Z72.0 Tobacco use
CPT/HCPCS: 71046; 80048; 83605; 83880; 84484; 85025; 87804; 93005; 94640; 96374; 99284; A4216

== ENCOUNTER 2020-07-10 18:34 | Observation (INO) | payer OTHER, SELFPAY ==
[2020-07-10] VITALS (10 sets, daily range): BP systolic 149–192; BP diastolic 82–123; PULSE 68–87; RESP 13–22; TEMP 36.4–36.9; O2SAT 97–100; BMI 50.7; BMI 109.5
--- NOTE | 2020-07-10 19:13 | EKG12_ITS ---
Test Reason : CP Blood Pressure : / mmHG Vent. Rate : 076 BPM Atrial Rate : 076 BPM P-R Int : 168 ms QRS Dur : 114 ms QT Int : 388 ms P-R-T Axes : 039 -56 051 degrees QTc Int : 436 ms Normal sinus rhythm Left axis deviation Abnormal ECG Confirmed by RYAN MAE, BROOKS ([id number]), editor farm journal CRESCENCIO ARBOLEDA ([id number]) on 07/12/2020 10:55:09 AM Referred By: GRACE Confirmed By:BROOKS DAVIS MD
--- NOTE | 2020-07-10 19:14 | CT_ITS ---
STUDY: CT ABDOMEN AND PELVIS WITHOUT CONTRAST REASON FOR EXAM: Male, 34 years old. Upper abdominal pain. Lower chest pain. History of CHF, hypertension and reflux. RADIATION DOSAGE (If Supplied By Facility): CTDIvol = ( 24.13 ) mGy, DLP = ( 1338.59 ) mGycm TECHNIQUE: Transaxial images were obtained from the dome of the diaphragm to the symphysis pubis without oral contrast, and without intravenous contrast. Sagittal and coronal images were reconstructed. Individualized dose optimization techniques were used for this CT. COMPARISON: None. FINDINGS: The visualized lung bases are unremarkable. The visualized portions of the heart are within normal limits. Normal liver. Normal gallbladder and extrahepatic biliary system. Normal spleen. Normal pancreas. Normal bilateral adrenal glands. There is a 1 mm calcification in the upper pole of otherwise normal right kidney. There is no hydronephrosis. Normal visualized right ureter. There is a 2 mm nonobstructing calculus lower pole calyx with an otherwise normal left kidney. No hydronephrosis. Normal left ureter. Normal visualized stomach. Normal small intestine. Normal colon. The appendix is visualized and appears normal. Normal abdominal aorta. Normal inferior vena cava. Normal retroperitoneum. Normal urinary bladder. The prostate is of normal size. There is a small central calcification. There is no pelvic lymphadenopathy. No free air or free fluid is seen within the peritoneal cavity. Small umbilical hernia of omental fat. The abdominal wall is otherwise unremarkable.. Normal osseous structures. CT/Abdomen/Pelvis without Cont IMPRESSION: 1. Bilateral nonobstructing renal calculi. There is no evidence of ureteral or urinary bladder abnormality. 2. No other evidence of abdominal or pelvic abnormality. Electronically Signed: Dominick Espino DO at 20:46 EDT Tel [phone], Service support ,
[2020-07-10] MEDS: Aspirin 81 MG TAB.CHEW 324 MG PO (19:20)
[2020-07-10 19:33] LABS: Absolute Neutrophil Count 5.5 X10^3/uL (2.0-7.7); Basophil% 1.1 % (0-1); Eosinophil# 0.31 X10^3/uL; Eosinophils% 3.4 % (0-5); Hematocrit 47.9 % (40-54); Hemoglobin 15.9 g/dL (13.0-16.5); Lymphocyte % 30.3 % (19-41); Mean Corp Hgb Conc 33.2 g/dL (32-36); Mean Corpuscular Hgb 29.4 pg (27.0-32.0); Mean Corpuscular Volume 88.5 fL (80-94); Mean Platelet Vol. 10.7 fl (6.2-12.0); Monocyte# 0.56 X10^3/uL; Monocyte% 6.1 % (0-10); NRBC Flagged by Analyzer 0 % (0-5); Neutrophil # 5.45 X10^3/uL (2.7-7.7); Neutrophil % 58.9 % (47-70); Platelet Count 225 K/mm3 (150-450); RBC Distribution Width CV 12.4 % (11.6-14.6); Red Blood Count 5.41 M/mm3 (4.6-6.2); White Blood Count 9.2 K/mm3 (4.4-11.0)
[2020-07-10 19:55] LABS: AST(SGOT) 26 U/L (15-37); Alanine Aminotransfer ALT/SGPT 50 U/L (16-61); Albumin, Serum 3.7 g/dL (3.2-5.0); Alkaline Phosphatase 83 U/L (45-117); Anion Gap 1 (5-15); BUN 8 mg/dL (7-18); BUN/Creat Ratio 9.1 RATIO (10-20); Bilirubin, Direct 0.09 mg/dL (0.00-0.30); Calcium,Total 8.9 mg/dL (8.5-10.1); Chloride 110 mmol/L (98-107); Creatinine, Serum 0.88 mg/dL (0.70-1.30); EST Glomerular Filtration Rate 106 mL/min (>60); Est Glom Filt Rate - Afr Amer 129 mL/min (>60); Estimated Creatinine Clearance 128.35 ml/min; Globulin 3.9 g/dL (2.2-4.2); Glucose 94 mg/dL (74-106); Lipase 72 U/L (73-393); Potassium 3.8 mmol/L (3.5-5.1); Protein, Total 7.6 g/dL (6.4-8.2); Sodium Level 141 mmol/L (136-145)
--- NOTE | 2020-07-10 20:13 | RAD_ITS ---
STUDY: X-RAY CHEST REASON FOR EXAM: Male, 34 years old. Upper abdominal/lower chest pain beginning this afternoon. TECHNIQUE: Single AP portable view of the chest. COMPARISON: 01/10/2019. FINDINGS: The lungs are clear and expanded. There is no demonstrated pleural abnormality. Normal size heart. There are prominent cardiophrenic fat pads. Normal mediastinum and randolph. Normal visualized pulmonary arteries. Normal visualized aortic arch and descending thoracic aorta. The thoracic spine is obscured by the mediastinum. Normal visualized ribs, clavicles, and shoulders. There is no demonstrated abnormality of the visualized soft tissue structures of the upper abdomen. RAD/Chest 1 View (Portable) IMPRESSION: No acute cardiopulmonary disease. Electronically Signed: Dominick Espino DO at 20:47 EDT Tel [phone], Service support ,
--- NOTE | 2020-07-10 21:50 | PCM.HP.STD ---
Problem List (1) Chronic systolic (congestive) heart failure Status: Chronic (2) CURTIS (obstructive sleep apnea) Status: Chronic (3) GERD (gastroesophageal reflux disease) Status: Chronic (4) Mixed hyperlipidemia Status: Chronic (5) Essential hypertension Status: Chronic (6) Chest pain Status: Acute (7) Nonischemic cardiomyopathy Status: Chronic Comment: Status post ICD removal. History of Present Illness Date of Admission: 07/10/20 Chief Complaint: chest pain The patient is a 34 year old M with a significant history of congestive heart failure (echocardiogram on 12/10/2018 showed left ventricle ejection fraction of 20%) who presents to the emergency department with chest pain that started on the same day of presentation. He chest pain started while driving. Initially he felt a pinch at his left chest. Later on he develop epigastric pain. His pain although episodic was consistent. He describes his pain as burning and aching. He rated his pain as between 3-6 on a scale of 1-10. His pain improved with taking a deep breath; and stretching his back. He denies any aggravating factors to the pain. He described his abdominal pain as heartburn. He denies any nausea vomiting or diaphoresis. His pain was severe to the point that she packed and rested. Patient reported in the past week his bilateral legs has been swollen to the point that he could not wear his shoes. He took Lasix on the day that he was at home. But on the day that he went to work he did not take his Lasix because of concern of excessive urination while at work. 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 He has chronic orthopnea. He denies paroxysmal nocturnal dyspnea. He is going through a bitter divorce. Past Medical History Past Medical History (Chronic Problems): Chronic Problems (Last Reviewed 07/11/20 @ 00:[address] Paul Waters MD) Chronic systolic (congestive) heart failure (Chronic) CURTIS (obstructive sleep apnea) (Chronic) GERD (gastroesophageal reflux disease) (Chronic) Mixed hyperlipidemia (Chronic) Essential hypertension (Chronic) Nonischemic cardiomyopathy (Chronic) Status post ICD removal. Medical History: Medical History (Last Reviewed 07/11/20 @ 00:[address] Paul Waters MD) Chronic systolic (congestive) heart failure (Chronic) I50.22 CURTIS (obstructive sleep apnea) (Chronic) G47.33 GERD (gastroesophageal reflux disease) (Chronic) K21.9 Mixed hyperlipidemia (Chronic) E78.2 Essential hypertension (Chronic) I10 Abnormal cardiac enzyme level (Inactive) R74.8 Chest pain (Acute) R07.9 Acute on chronic systolic CHF (congestive heart failure) (Inactive) I50.23 Nonischemic cardiomyopathy (Chronic) I42.8 Status post ICD removal. Allergies morphine Allergy (Verified 07/10/20 18:35) Hives turkey Allergy (Verified 07/10/20 18:35) Swelling perflutren [From [employer]] Adverse Reaction (Verified 07/10/20 18:35) Other Severe flank pain Home Medications: Ambulatory Orders Medication Instructions Recorded carvedilol 25 mg tablet 25 mg PO BID #60 tab 03/13/20 Aspirin/Acetaminophen/Caffeine 2 tab PO Q4H PRN PRN 07/10/20 [Excedrin Extra Strength Caplet] Furosemide [Lasix] 40 mg PO DAILY PRN PRN 07/10/20 Lisinopril 40 mg PO DAILY 07/10/20 Surgical History: Surgical History (Last Reviewed 07/11/20 @ 00:[address] Paul Waters MD) History of cardiac catheterization Z98.890 History of tonsillectomy Z90.89 Surgical History: - - ICD placement. Subsequently removed upon patient's wishes Psychiatric History: No pertinent psych hx Smoking Status: Current some day smoker Tobacco Use: Cigarettes - *Family History Maternal Family History: Family History (Last Reviewed 07/11/20 @ 00:[address] Paul Waters MD) Mother Arrhythmia Hypertension Father Ischemic cardiomyopathy CHF (congestive heart failure) Hypertension Diabetes History of coronary artery bypass surgery CAD (coronary artery disease) History Items: No pertinent history Paternal Family History: Family History (Last Reviewed 07/11/20 @ 00:[address] Paul Waters MD) Mother Arrhythmia Hypertension Father Ischemic cardiomyopathy CHF (congestive heart failure) Hypertension Diabetes History of coronary artery bypass surgery CAD (coronary artery disease) History Items: No pertinent history Review of Systems Constitutional: Denies: Chills, Fever, Weight Change HEENT: Denies: Head Aches, Sinus Congestion, Sinus Drainage Cardiovascular: Reports: Chest Pain, Edema - Bilateral legs; now resolved., Orthopnea - Chronic. Denies: Palpitations Respiratory: Denies: Cough, Shortness of breath at rest, Sputum production Gastrointestinal: Reports: Abdominal Pain. Denies: Nausea, Vomiting Genitourinary: Denies: Dysuria Musculoskeletal: Denies: Joint Pain, Joint Tenderness Skin: Denies: Rash, Wounds Neurological: Denies: Numbness, Tingling, Focal weakness Psychiatric: Denies: Anxiety, Depression, Homicidal Ideations, Suicidal Ideations Hematologic/ Lymphatic: Denies: Easy Bruising, Easy Bleeding VTE Information - Inpt Only VTE Present on Admission: No VTE Mechan Device Prophylaxis: SCD's VTE Pharm Prophylaxis ordered?: No - Physical Exam Vitals/I&O's: Vital Signs Temp Pulse Resp BP Pulse Ox 97.6 F L 72 20 H 163/110 H 98 07/10/20 18:35 07/10/20 21:44 07/10/20 21:44 07/10/20 21:44 07/10/20 21:44 Oxygen Delivery Method Room Air Weight: 165 kg Body Mass Index (BMI) 50.7 General: Alert, Oriented x3, Cooperative HEENT: Atraumatic, PERRLA, EOMI, Normocephalic Neck: Supple, No JVD, Negative Carotid Bruits Lungs: Clear to auscultation, Normal air movement Cardiovascular: Regular rate, Normal S1, Normal S2, No murmurs Abdomen: Bowel Sounds Present, Soft, Non Tender Extremities: No edema, Capillary Refill Less than 3 Seconds Skin: No rashes, No breakdown Musculoskeletal: No Tenderness to Palpation of Joints or Extremities Neurological: Cranial nerves II-XII grossly intact Psych/Mental Status: Normal Affect, Appropriate Laboratory Results 07/10/20 18:40: WBC 9.2, RBC 5.41, Hgb 15.9, Hct 47.9, MCV 88.5, MCH 29.4, MCHC 33.2, RDW Std Deviation 40.0, RDW Coeff of Kumar 12.4, Plt Count 225, MPV 10.7, Immature Gran % (Auto) 0.200, Neut % (Auto) 58.9, Lymph % (Auto) 30.3, Jay % (Auto) 6.1, Eos % (Auto) 3.4, Baso % (Auto) 1.1 H, Absolute Neuts (auto) 5.5, Absolute Lymphs (auto) 2.80, Nucleated RBC % 0 07/10/20 18:40: Sodium 141, Potassium 3.8, Chloride 110 H, Carbon Dioxide 30.0, Anion Gap 1 L, BUN 8, Creatinine 0.88, Estim Creat Clear Calc 128.35, Est GFR (MDRD) Af Amer 129, Est GFR (MDRD) Non-Af 106, BUN/Creatinine Ratio 9.1 L, Glucose 94, Calcium 8.9, Total Bilirubin 0.30, Direct Bilirubin 0.09, AST 26, ALT 50, Alkaline Phosphatase 83, Troponin I 0.029, Total Protein 7.6, Albumin 3.7, Globulin 3.9, Lipase 72 L Assessment/Plan All Active Problems (Last Reviewed 07/11/20 @ 00:[address] Paul Waters MD) Chest pain (Acute) The patient is a 34 year old M with a significant history of congestive heart failure (echocardiogram on 12/10/2018 showed left ventricle ejection fraction of 20%) who presents emergency department with chest pain ; and epigastric pain as well as recent bilateral leg edema and weight gain. Chest pain Place on a monitored bed at the progressive care unit Actual CXR image was independently visualized. No acute cardiopulmonary process was noted. Chest x-ray showed cardiomegaly. Actual EKG tracing was independently visualized. EKG tracing showed sinus rhythm with left axis deviation. Received aspirin 324 mg at emergency department. ASA 81 mg p.o. daily ordered SL NTG 0.4 mg prn as needed for chest pain ordered Serial cardiac enzymes ordered Stat EKG as needed for chest pain Treadmill Stress test in the AM if the cardiac enzymes are negative Tobacco abuse Counseled Chronic heart failure Does not appear to be in exacerbation at this time. Review of old record showed that ejection fraction on echocardiogram on 12/10/2018 was 20%. Right ventricle systolic pressure was 22. Patient had trivial pulmonary valve insufficiency. Mild global right ventricular systolic dysfunction. In 2013 patient had cardiac cath that was unremarkable. Because of his low EF patient had ICD placed. However patient reported that on Good Thursday he had the AICD removed because he wanted to work and with his AICD he was not permitted to work. Lisinopril and carvedilol continued. Hold carvedilol in the morning of stress test N.p.o. for stress test Daily weights Strict intake and output. Discussed emergent department doctor to order BNP. BNP was 6.9. DVT prophylaxis SCD while planning for cardiac work up for chest pain OBSV E&M: [id number] Initial observation care L3
[2020-07-10 22:25] LABS: BNP,B-Type NATRIURETIC PEPTIDE 6.9 pg/mL (0-100)
--- NOTE | 2020-07-10 23:17 | EKG12_ITS ---
Test Reason : CP ADMIT Blood Pressure : / mmHG Vent. Rate : 072 BPM Atrial Rate : 072 BPM P-R Int : 184 ms QRS Dur : 116 ms QT Int : 412 ms P-R-T Axes : 024 -50 040 degrees QTc Int : 451 ms Normal sinus rhythm Left axis deviation Incomplete left bundle branch block Abnormal ECG Confirmed by LISA MAE, BRO ([id number]), school photograph editor CRESCENCIO ARBOLEDA ([id number]) on 07/12/2020 11:46:15 AM Referred By: DR BROCK Confirmed By:BRO GONZALEZ MD
--- NOTE | 2020-07-10 23:23 | ED.VISSUMM ---
- ER Visit Summary Date of Service: 07/10/20 Chief Complaint: Chest pain History of Present Illness: The patient is a 34 M presenting with chest pain. He states that started around 230 this afternoon. He complains of diffuse chest pain. He also had epigastric pain as well. He has associated shortness of breath. He denies nausea, vomiting, diarrhea. Denies fever or cough. He has a history of CHF with low EF. He has history of previous ICD. He states that this was removed in 2017. He states he was unable to work at his current job with the ICD in place and therefore he requested to have it removed. He states he has been short of breath with exertion and very fatigued. He feels similar to when he was diagnosed with low EF. He denies other complaints. Physical Examination: Vitals are stable. Patient is afebrile. Alert no acute distress. HEENT exam is unremarkable. Neck is supple. Lungs are clear and equal bilaterally. Heart is regular rate and rhythm. Abdomen is soft nontender nondistended. Extremities symmetric edema Skin is warm and dry. No focal neurologic deficit. Remainder of exam is unremarkable. Emergency Department Course and Treatment: EKG is sinus rhythm rate of 76 with no acute ischemic changes. CBC, chemistries unremarkable. Liver lipase are normal. Troponin 0.029. Patient was given aspirin on arrival. Chest x-ray shows no acute process. CT abdomen pelvis shows no acute process. On reevaluation he is resting comfortably. Discussed with hospitalist for observation. Disposition: Observation Impression: Chest pain This note was generated with [employer]brain dictation software. It may contain incorrect words, spelling, and punctuation that were not noted in review of the chart prior to signing ED Disposition - Plan for ED Patient: Disposition: Home or Assisted Living
[2020-07-10] MEDS: Carvedilol 25 MG Tablet PO (23:49)
[2020-07-11 03:57] VITALS: BP 133/65; PULSE 67; RESP 16; TEMP 36.3; O2SAT 93
[2020-07-11 04:40] VITALS: PULSE 67
--- NOTE | 2020-07-11 05:55 | EKG12_ITS ---
Test Reason : AM EKG Blood Pressure : / mmHG Vent. Rate : 066 BPM Atrial Rate : 066 BPM P-R Int : 174 ms QRS Dur : 114 ms QT Int : 424 ms P-R-T Axes : 014 -50 004 degrees QTc Int : 444 ms Normal sinus rhythm Left axis deviation Abnormal ECG When compared with ECG of 10-JUL-2020 23:35, MANUAL COMPARISON REQUIRED, DATA IS UNCONFIRMED Confirmed by LELE MAE, VARGHESE ([id number]), image editor CRESCENCIO ARBOLEDA ([id number]) on 07/20/2020 1:31:26 PM Referred By: DR BROCK Confirmed By:SURYA ROYAL MD
--- NOTE | 2020-07-11 05:55 | ECHOD_ITS ---
Reason For Study: CHF Procedure This was a 2D Doppler, Color Flow transthoracic echocardiogram. The study was technically difficult. Patient had a previous ADVERSE REACTION to DEFINITY. Left Ventricle Severely dilated left ventricle. Moderate to severe concentric left ventricular hypertrophy. Severe global left ventricular systolic dysfunction. The estimated ejection fraction is 25 %. No evidence for diastolic dysfunction. Right Ventricle Normal RV size. Normal systolic function. Atria The left atrium is moderately enlarged. The right atrium is mildly enlarged. No doppler evidence for ASD. Mitral Valve There is no mitral annular calcification. Normal mitral valve. Mild (1+) eccentric mitral valve insufficiency. Tricuspid Valve Normal tricuspid valve. Trivial tricuspid valve insufficiency. Right ventricular systolic pressure estimated to be 25 mmHg. Aortic Valve Trisinus/trileaflet aortic valve. Normal aortic valve. Pulmonic Valve The pulmonic valve is not well visualized. Trivial pulmonic valve insufficiency. Great Vessels Borderline enlarged aortic root. Pericardium/Pleural No pericardial effusion. MMode/2D Measurements & Calculations LVIDd: 7.2 cm IVSd: 1.7 cm Ao root diam: 3.9 cm LVIDs: 6.1 cm LVPWd: 1.5 cm LA dimension: 5.1 cm FS: 16.2 % LAV(MOD-bp): 82.9 ml LA A4 area: 25.1 cm2 RA A4 area: 19.9 cm2 LAV(MOD-bp) Indexed: 30.7 ml/m2 LAV(MOD-sp2): 70.8 ml LAV(MOD-sp4): 80.4 ml Time Measurements MV dec time: 0.23 sec Doppler Measurements & Calculations MV E max gabriel: 70.2 cm/sec Lat Peak E' Gabriel: 9.4 cm/sec Med Peak E' Gabriel: 8.0 cm/sec MV A max gabriel: 57.0 cm/sec E/E' lat: 7.5 E/E' med: 8.8 MV E/A: 1.2 MV V2 max: 91.7 cm/sec MV P1/2t max gabriel: 93.3 cm/sec Ao V2 max: 108.7 cm/sec MV max P.4 mmHg MV P1/2t: 72.4 msec Ao max P.7 mmHg MV V2 mean: 48.9 cm/sec MV dec slope: 377.2 cm/sec2 MV mean P.1 mmHg MVA(P1/2t): 3.0 cm2 MV V2 VTI: 25.1 cm LV V1 max: 89.8 cm/sec PA V2 max: 120.4 cm/sec TR max gabriel: 232.5 cm/sec LV V1 max P.2 mmHg TR max P.6 mmHg Interpretation Summary The study was technically difficult. Severely dilated left ventricle. Severe global left ventricular systolic dysfunction. The estimated ejection fraction is 25 %. Moderate to severe concentric left ventricular hypertrophy. The left atrium is moderately enlarged. The right atrium is mildly enlarged. Mild (1+) eccentric mitral valve insufficiency. Trivial tricuspid valve insufficiency. Trivial pulmonic valve insufficiency. Borderline enlarged aortic root. Right ventricular systolic pressure estimated to be 25 mmHg. No evidence for diastolic dysfunction. Ordering Physician: Paul Waters Referring Physician: Shane Bowden Performed By: Rex Jones RCS
[2020-07-11 06:12] VITALS: BP 160/87; PULSE 68; RESP 13; TEMP 36.4; O2SAT 97
[2020-07-11] MEDS: Aspirin E.C. 81 MG Tablet PO (06:16)
[2020-07-11] MEDS: Lisinopril 40 MG Tablet PO (06:16)
[2020-07-11 07:00] VITALS: PULSE 66
[2020-07-11 07:30] LABS: Cholesterol 155 mg/dL (200); High Density Lipoprotein 33 mg/dL; Triglycerides 155 mg/dL; Very Low Density Lipoprotein 31 mg/dL (5-40)
--- NOTE | 2020-07-11 09:51 | STRESSREP_ITS ---
Stress Test Report Date: 07-11-2020 Procedure: Exercise tolerance test/imaging study Indications: Chest pain; cardiomyopathy; CHF Consent: Per the patient Procedure: The patient exercised on a Mac protocol for 4 minutes and 45 seconds completing Stage I and 1 minute and 45 seconds of Stage II achieving a peak heart rate of 166 bpm (88 % predicted maximal heart rate) with a peak blood pressure 200/88 mmHg and a peak MET capacity of 6 METs. The baseline ECG demonstrated sinus rhythm; poor R wave progression. The peak exercise ECG demonstrated no obvious ECG changes. There was a rare PVC during recovery. The functional capacity was considered decreased. There was no complaint of chest discomfort during exercise or recovery. The examination was discontinued secondary to dyspnea. Impression: 1. Technically adequate (percent predicted maximal heart rate greater than 85%) exercise tolerance test 2. Peak exercise ECG no obvious ECG changes 3. Was a rare PVC during recovery 4. Nuclear images pending Myocardial perfusion imaging study: Technique: The patient was injected with 14.9 mCi of technetium 99m Cardiolite and subsequently rest SPECT Cardiolite nuclear imaging was obtained in the horizontal long, vertical long, and short axis views. The patient exercised on a Mac protocol for 4 minutes and 45 seconds completing Stage I and 1 minute and 45 seconds of Stage II achieving a peak heart rate of 166 bpm (88 % predicted maximal heart rate) with a peak blood pressure 200/88 mmHg and a peak MET capacity of 6 METs. The patient was injected with 45.0 mCi of technetium 99m Cardiolite and subsequently stress SPECT Cardiolite nuclear imaging was obtained in the horizontal long, vertical long, and short axis views. A gated Cardiolite study at peak stress was obtained. Interpretation: Rest and stress SPECT Cardiolite nuclear imaging status post realignment, normalization, and attenuation correction, demonstrates the appearance of a small area of subtle diminished tracer uptake near the inferior apical segments without significant change between rest and stress. There is diminished end systolic thickening and brightening. The gated Cardiolite study demonstrates diminished myocardial thickening and inward wall motion. The reported LVEF is 33 %. Impression: 1. Rest and stress SPECT Cardiolite nuclear imaging demonstrate myocardial perfusion change appearing compatible with the effects of physiologic apical thinning with no myocardial perfusion changes considered diagnostic for associated stress-induced myocardial ischemia. 2. The gated Cardiolite study reports an LVEF of 33 %. This note was generated with [email or web address] software. It may contain incorrect words, spelling, and punctuation that were not noted in checking the note before signing.
[2020-07-11 10:14] VITALS: BP 158/111; PULSE 96; RESP 14; TEMP 36.6; O2SAT 95
[2020-07-11] MEDS: Carvedilol 25 MG Tablet PO (10:16)
--- NOTE | 2020-07-11 12:09 | DCINST_ITS ---
- Discharge Diagnoses Reason(s) for Visit for Discharge Instructions: Chest pain You will use the following diet at home:: Cardiac Your food should be the consistency of: Regular Your liquids should be the consistency of: Regular/Thin Discharge Activity: Return to Normal Activity Additional Instructions: Continue to follow a low-salt, low-fat diet. Continue to remain active. Follow-up with Dr. Young within 2 weeks as scheduled. Low up with your primary care doctor within 2 weeks or as scheduled Allergies/Adverse Reactions: Allergies morphine Allergy (Verified 07/10/20 18:35) Hives turkey Allergy (Verified 07/10/20 18:35) Swelling Iodinated Contrast Media Adverse Reaction (Verified 07/10/20 23:39) Pain in joints perflutren [From Definity] Adverse Reaction (Verified 07/10/20 18:35) Other Severe flank pain Medications to take at Discharge carvedilol 25 mg tablet 25 mg PO BID #60 tab 03/13/20 Aspirin/Acetaminophen/Caffeine [Excedrin Extra Strength Caplet] 2 tab PO Q4H PRN PRN 07/10/20 Furosemide [Lasix] 40 mg PO DAILY PRN PRN 07/10/20 Lisinopril 40 mg PO DAILY 07/10/20 Acetaminophen [Tylenol Tablet] 650 mg PO Q6H PRN PRN tab 07/11/20 Primary Care Physician: Shane Bowden MD [Primary Care Provider] - Please follow up with your Primary Care Physician in: within 1-2 weeks Test Results: Test results from this visit will be discussed in further detail at your follow- up appointment, if applicable. Please Follow Up With: Fermin Young MD When: in 2 weeks Proposed Discharge Date: 07/11/20
--- NOTE | 2020-07-11 12:10 | PCM.DC.SUM ---
Discharge Date and Diagnosis Date of Admission: 07/10/20 Date of Discharge: 07/11/20 - Primary Discharge Diagnosis Acute Problems: Chest pain Morbid obesity - Secondary Discharge Diagnosis Chronic Problems: Chronic Problems (Last Reviewed 07/11/20 @ 00:[address] Paul Waters MD) Chronic systolic (congestive) heart failure (Chronic) CURTIS (obstructive sleep apnea) (Chronic) GERD (gastroesophageal reflux disease) (Chronic) Mixed hyperlipidemia (Chronic) Essential hypertension (Chronic) Nonischemic cardiomyopathy (Chronic) Status post ICD removal. Hospital Course and Treatment Imaging Results: 07/11/20 05:55 Echo Complete [ECHO] AM (NON MEDS) Nuclear Stress Test - Treadmil [NM] AM (NON MEDS) Clinical Impression(s) from Imaging Studies Abdomen/Pelvis CT 07/10/20 19:14 IMPRESSION: 1. Bilateral nonobstructing renal calculi. There is no evidence of ureteral or urinary bladder abnormality. 2. No other evidence of abdominal or pelvic abnormality. Electronically Signed: Dominick Espino DO at 20:46 EDT Tel [phone], Service support , Chest X-Ray 07/10/20 20:13 IMPRESSION: No acute cardiopulmonary disease. Electronically Signed: Dominick Espino DO at 20:47 EDT Tel [phone], Service support , Operations: None Procedures: 2-D Echocardiogram, Stress test Summary of Care Provided: The patient is a 34 year old M with past medical history of cardiomyopathy with previous EF of 20%, status post AICD removal, who comes in with complaints of chest pain that started while driving, described as bending/. Chest pain was episodic. It improved with deep breath and stretching his back. 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 He was admitted to telemetry floor, EKG showed no acute ST-T changes. Troponins were unremarkable. Patient underwent nuclear stress test that was negative. He had a 2D echo done that showed an EF of 20% with severely dilated left ventricle. Patient will follow-up with Dr. Young in the outpatient. Subjective: On the day of discharge, the patient was seen and examined. Denied any new complaints. No more chest pain. Stress test was negative. Objective: Physical exam: General: Alert, Oriented x3, Cooperative, not pale, not jaundiced HEENT: Atraumatic, PERRLA, EOMI, Normocephalic Neck: Supple, No JVD, Negative Carotid Bruits Lungs: Clear to auscultation, Normal air movement Cardiovascular: Regular rate, Normal S1, Normal S2, No murmurs Abdomen: Bowel Sounds Present, Soft, Non Tender Extremities: No edema, Capillary Refill Less than 3 Seconds Skin: No rashes, No breakdown Musculoskeletal: No Tenderness to Palpation of Joints or Extremities Neurological: Cranial nerves II-XII grossly intact Psych/Mental Status: Normal Affect, Appropriate - Physical Exam Vitals/I&O's: Vital Signs Temp Pulse Resp BP Pulse Ox 97.9 F 96 14 158/111 H 95 07/11/20 10:14 07/11/20 10:14 07/11/20 10:14 07/11/20 10:14 07/11/20 10:14 Oxygen Delivery Method Room Air Weight: 162.4 kg Body Mass Index (BMI) 109.5 Intake and Output for Last 24 Hours 07/09/20 07/10/20 07/11/20 23:59 23:59 23:59 Intake Total 422 / 422 Output Total 0 / 0 Balance 422 / 422 Laboratory Results 07/10/20 18:40: WBC 9.2, RBC 5.41, Hgb 15.9, Hct 47.9, MCV 88.5, MCH 29.4, MCHC 33.2, RDW Std Deviation 40.0, RDW Coeff of Kumar 12.4, Plt Count 225, MPV 10.7, Immature Gran % (Auto) 0.200, Neut % (Auto) 58.9, Lymph % (Auto) 30.3, [place] % (Auto) 6.1, Eos % (Auto) 3.4, Baso % (Auto) 1.1 H, Absolute Neuts (auto) 5.5, Absolute Lymphs (auto) 2.80, Nucleated RBC % 0 07/10/20 18:40: Sodium 141, Potassium 3.8, Chloride 110 H, Carbon Dioxide 30.0, Anion Gap 1 L, BUN 8, Creatinine 0.88, Estim Creat Clear Calc 128.35, Est GFR (MDRD) Af Amer 129, Est GFR (MDRD) Non-Af 106, BUN/Creatinine Ratio 9.1 L, Glucose 94, Calcium 8.9, Total Bilirubin 0.30, Direct Bilirubin 0.09, AST 26, ALT 50, Alkaline Phosphatase 83, Troponin I 0.029, Total Protein 7.6, Albumin 3.7, Globulin 3.9, Lipase 72 L 07/10/20 18:40: B-Natriuretic Peptide 6.9 07/10/20 23:55: Troponin I 0.020 07/11/20 02:20: Troponin I 0.032 07/11/20 06:07: Troponin I 0.017, Triglycerides 155, Cholesterol 155, LDL Cholesterol 91, VLDL Cholesterol 31, HDL Cholesterol 33 L Current Medications Acetaminophen (Tylenol) 650 mg PO Q6H PRN PRN PRN Reason: Pain Score 1-10/Temp > 100.7 F Aspirin (Ecotrin) 81 mg PO DAILY@0800 [facility] Last Admin: 07/11/20 06:16 Dose: 81 mg Documented by: Carvedilol (Coreg) 25 mg PO BID [facility] Last Admin: 07/11/20 10:16 Dose: 25 mg Documented by: Sodium Chloride () 250 mls @ 15 mls/hr IV .[id number] PRN PRN Reason: Saline Flush Sodium Chloride () 250 mls @ 15 mls/hr IV .[id number] PRN PRN Reason: Additional IVPB Infusion Lisinopril (Zestril) 40 mg PO DAILY [facility] Last Admin: 07/11/20 06:16 Dose: 40 mg Documented by: Nitroglycerin (Nitrostat) 0.4 mg SUBLINGUAL Q5M PRN PRN Reason: CARDIAC/CHEST PAIN Ondansetron HCl (Zofran) 4 mg IV Q8H PRN PRN PRN Reason: NAUSEA/VOMITING Sodium Chloride () 10 - 40 ml IV UD PRN PRN Reason: SALINE FLUSH Discharge Diet: Low fat/ Low Cholesterol, 2000 mg Sodium Diet Discharge Activity: Return to Normal Activity Home Medications: Medications to take at Discharge carvedilol 25 mg tablet 25 mg PO BID #60 tab 03/13/20 RX: Aspirin/Acetaminophen/Caffeine [Excedrin Extra Strength Caplet] 2 tab PO Q4H PRN PRN 09/01/20 RX: Furosemide [Lasix] 40 mg PO DAILY PRN PRN 07/10/20 RX: Lisinopril 40 mg PO DAILY 07/10/20 RX: Acetaminophen [Tylenol Tablet] 650 mg PO Q6H PRN PRN tab 07/11/20 Primary Care Physician: Shane Bowden MD [Primary Care Provider] - Please follow up with your Primary Care Physician in: within 1-2 weeks Please Follow Up With: Fermin Young MD When: in 2 weeks Disposition: Home Minutes spent on discharge:: 35 Patient Condition:: Stable Medical Necessity - Tobacco Use Smoking Status: Current some day smoker Tobacco Use: Cigarettes Meaningful Use Info Meaningful Use Diagnoses (Choose all that apply): None applicable OBSV E&M: 03653 Observation care discharge
--- NOTE | 2020-07-11 12:17 | PHA.DC.MR ---
Pharmacy Service has performed discharge medication reconciliation for this patient. The patient's discharge medication list was reviewed for discrepancies and discrepancies were resolved. Home Medications carvedilol 25 mg tablet 25 mg PO BID #60 tab 03/13/20 Aspirin/Acetaminophen/Caffeine [Excedrin Extra Strength Caplet] 2 tab PO Q4H PRN PRN 07/10/20 Furosemide [Lasix] 40 mg PO DAILY PRN PRN 07/10/20 Lisinopril 40 mg PO DAILY 07/10/20 Acetaminophen [Tylenol Tablet] 650 mg PO Q6H PRN PRN tab 07/11/20
== END 2020-07-11 12:08 | disposition home or self-care (01) ==
LOC: ED 19:30 → PCU 22:24
PROVIDERS: Admitting Provider Hospitalist; Emergency Provider Emergency Medicine; PCP Family Medicine; Visit Provider Internal Medicine
DX: R07.89 Other chest pain (principal); E66.01 Morbid (severe) obesity due to excess calories; G47.33 Obstructive sleep apnea (adult) (pediatric); I11.0 Hypertensive heart disease with heart failure; I50.22 Chronic systolic (congestive) heart failure; E78.2 Mixed hyperlipidemia; K21.9 Gastro-esophageal reflux disease without esophagitis; F17.210 Nicotine dependence, cigarettes, uncomplicated; I42.8 Other cardiomyopathies; Z68.43 Body mass index [BMI] 50.0-59.9, adult; Z79.899 Other long term (current) drug therapy; I08.1 Rheumatic disorders of both mitral and tricuspid valves; I44.7 Left bundle-branch block, unspecified
CPT/HCPCS: 36415; 71045; 74176; 78452; 80048; 80061; 80076; 83690; 83880; 84484; 85025; 93005; 93017; 93306; 99218; 99283; 99406; A9500; A4216; G0378

== ENCOUNTER 2021-01-21 11:07 | Inpatient (IN) | payer BC, SELFPAY ==
[2020-07-10 23:21] VITALS: BMI 109.5
[2021-01-21] VITALS (11 sets, daily range): BP systolic 147–194; BP diastolic 95–129; PULSE 58–111; RESP 14–19; TEMP 36.3–36.8; O2SAT 94–99; BMI 51.0; BMI 47.8
--- NOTE | 2021-01-21 11:17 | EKG12_ITS ---
Test Reason : CP Blood Pressure : / mmHG Vent. Rate : 106 BPM Atrial Rate : 106 BPM P-R Int : 168 ms QRS Dur : 112 ms QT Int : 362 ms P-R-T Axes : 069 -55 068 degrees QTc Int : 480 ms Sinus tachycardia Left axis deviation Abnormal ECG Confirmed by RYAN MAE, BROOKS ([id number]), proposal editor CRESCENCIO ARBOLEDA ([id number]) on 01/23/2021 10:14:03 AM Referred By: ANA Confirmed By:BROOKS DAVIS MD
--- NOTE | 2021-01-21 11:18 | ED.DCSUM_ITS ---
History of Present Illness Chief Complaint: Chest Pain Informant: Patient Onset: Hours Context: Sudden Onset Timing: Continuous Quality: Pressure-like sensation see HPI Location: Epigastric the radiates to the mid chest and left chest Current Severity: Moderate Maximum Severity: Moderate Worsened by: Possibly walking Relieved by: Nothing Associated Symptoms: Dyspnea, diaphoresis Narrative: Is a 35-year-old male with past medical history of nonischemic cardiomyopathy, endocarditis, he states his last EF was between 15 and 20%. The [facility] specialist felt he did not need a defibrillator because he should not be working. He is from [place]. He drove from [place] this morning. 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 He denies history of smoking. He does have history of hypertension but not on antihypertensive meds. He denies fever, chills night sweats. He denies ocular, visual auditory symptoms. Denies rhinorrhea, congestion or postnasal drainage. No sore throat. Denies loss of taste or smell. He denies leg pain, swelling discoloration. He has multiple pillow orthopnea. He denies PND. He has not had recent exertional angina. Prior similar symptoms: No Recent Illness/Hospitalization: No - Past Medical History (1) Chronic systolic (congestive) heart failure Status: Chronic (2) Essential hypertension Status: Chronic (3) GERD (gastroesophageal reflux disease) Status: Chronic (4) Mixed hyperlipidemia Status: Chronic (5) Nonischemic cardiomyopathy Status: Chronic Comment: Status post ICD removal. (6) CURTIS (obstructive sleep apnea) Status: Chronic Past Medical History - Allergies and Home Meds Allergies/Adverse Reactions: Allergies morphine Allergy (Verified 07/10/20 18:35) Hives turkey Allergy (Verified 07/10/20 18:35) Swelling Iodinated Contrast Media Adverse Reaction (Verified 07/10/20 23:39) Pain in joints perflutren [From Definity] Adverse Reaction (Verified 07/10/20 18:35) Other Severe flank pain Primary Care Physician: Shane Bowden MD [Primary Care Provider] - Prior records reviewed: Yes Surgical History: - - ICD placement. Subsequently removed upon patient's wishes Lives: Spouse/ Significant Other Smoking Status: Current some day smoker Alcohol: None Drugs: None - Family History Maternal Family History: Family History (Last Reviewed 07/11/20 @ 00:[address] Paul Waters MD) Mother Arrhythmia Hypertension Father Ischemic cardiomyopathy CHF (congestive heart failure) Hypertension Diabetes History of coronary artery bypass surgery CAD (coronary artery disease) Family History: Reports: No pertinent history Paternal Family History: Family History (Last Reviewed 07/11/20 @ 00:[address] Paul Waters MD) Mother Arrhythmia Hypertension Father Ischemic cardiomyopathy CHF (congestive heart failure) Hypertension Diabetes History of coronary artery bypass surgery CAD (coronary artery disease) Family History: Reports: No pertinent history Review of Systems General: Denies: Chills, Fever, Malaise, Subjective, Sweats, Weight loss, - Eyes: Denies: Visual changes - bilaterally, Blurred Vision - bilaterally ENT: Denies: Bilateral ear pain, Rhinorrhea, Sore throat Cardiovascular: Reports: Chest pain. Denies: Palpitations, Heart racing Respiratory: Reports: Dyspnea, Dyspnea on exertion, Orthopnea. Denies: Cough, Sputum, Paroxysmal nocturnal dyspnea, -, - Genitourinary: Denies: Dysuria, Hematuria, Frequency Musculoskeletal: Denies: Myalgias, Arthralgias, Neck pain, Back pain, Swelling, Extremity Pain, -, - Skin: Denies: Rash, Wounds Neurological: Denies: Headache, Weakness, Numbness Psych: Denies: Depression, Anxiety Endocrine: Denies: Polyuria, Polydipsia Hematologic: Denies: Easy bruising, Easy bleeding Physical Exam Vital Signs/Narrative: Vital Signs Temp Pulse Resp BP Pulse Ox 01/21/21 11:14 111 H 14 194/115 H 99 01/21/21 11:10 97.6 F L 105 H 19 H 194/115 H 98 Inital Vital Signs reviewed: Yes General: Well nourished, Well developed, Obese, Acute Distress Head: Normocephalic, Atraumatic Eyes: Perrl, Pale conjunctiva ENT: Moist mucous membranes, No rhinorrhea Neck: Supple, Nontender, No lymphadenopathy, No JVD Cardiovascular: Regular rhythm, No murmurs, Normal S1, Normal S2, Tachycardia Respiratory: Chest nontender, Rales. Negative for: No distress, CTA bilaterally Abdomen: Soft, Nontender, Nondistended, Normal bowel sounds Rectal: Deferred Back: Nontender, Normal Inspection Extremities: Nontender, Edema - 2 mm pitting edema Skin: Normal color, No rash, Diaphoresis, No Trauma. Negative for: Cyanosis, Jaundice Neurological: Alert, Oriented x3, Cranial nerves II-XII grossly intact, Normal Strength, Normal Sensation Psychological: Normal affect, Normal Mood Diagnostic/Tx/Re-eval Chest X-Ray - ED: 1 View, Read by ED Physician, Normal, Mediastinum, Bony Structures, Cardiomegaly, CHF, - - As interpreted by me at 1147 Impressions Chest X-Ray 01/21/21 11:35 IMPRESSION: Cardiomegaly with congestion Airspace disease presumed edema Electronically Signed: Emiliano Causey DO at 12:02 EDT Tel , Service support , 01/21/21 11:35 Chest 1 View (Portable) [RAD] Stat Laboratory Results 01/21/21 01/21/21 01/21/21 11:30 11:30 11:30 WBC 9.1 RBC 5.19 Hgb 15.1 Hct 44.9 MCV 86.5 MCH 29.1 MCHC 33.6 RDW Std Deviation 38.7 RDW Coeff of Kumar 12.3 Plt Count 191 MPV 10.7 Immature Gran % (Auto) 0.200 Neut % (Auto) 65.4 Lymph % (Auto) 26.1 [place] % (Auto) 5.5 Eos % (Auto) 2.1 Baso % (Auto) 0.7 Absolute Neuts (auto) 5.9 Absolute Lymphs (auto) 2.37 Nucleated RBC % 0 PT 12.5 INR 1.0 APTT 27.0 D-Dimer Quant (PE/DVT) <= 0.27 Sodium 137 Potassium 3.8 Chloride 106 Carbon Dioxide 28.0 Anion Gap 3 L BUN 8 Creatinine 0.84 Estim Creat Clear Calc 133.22 Est GFR (MDRD) Af Amer 136 Est GFR (MDRD) Non-Af 112 BUN/Creatinine Ratio 9.6 L Glucose 87 Calcium 9.0 Magnesium 2.3 Troponin I 0.212 H B-Natriuretic Peptide 01/21/21 11:30 WBC RBC Hgb Hct MCV MCH MCHC RDW Std Deviation RDW Coeff of Kumar Plt Count MPV Immature Gran % (Auto) Neut % (Auto) Lymph % (Auto) [place] % (Auto) Eos % (Auto) Baso % (Auto) Absolute Neuts (auto) Absolute Lymphs (auto) Nucleated RBC % PT INR APTT D-Dimer Quant (PE/DVT) Sodium Potassium Chloride Carbon Dioxide Anion Gap BUN Creatinine Estim Creat Clear Calc Est GFR (MDRD) Af Amer Est GFR (MDRD) Non-Af BUN/Creatinine Ratio Glucose Calcium Magnesium Troponin I B-Natriuretic Peptide 117.1 H - Rhythm Strip Rhythm Strip: Sinus Tach Rate: 110 Ectopy: None - EKG Initial EKG Interpretation: Sinus Tachycardia - Tachycardia with ventricular rate of 106. HI interval 160 ms. Cures duration under 12 ms. QT duration 360 ms. Hawkins to the left. There is evidence of a left anterior fascicular block. There is no acute ischemic changes noted. - Medical Decision Making Patient presents with chest pain. He is tachycardic tachypneic need to rule out PE. With history of nonischemic cardiomyopathy and EF of 15 to 20% need to rule out congestive heart failure, other causes for chest pain. EKG, chest x- ray appropriate labs were ordered including D-dimer. Patient's blood pressure is elevated. If patient's repeat blood pressure elevated will begin treatment with IV medication. Patient does have evidence of heart failure. Will treat with Lasix. Hospitalist of the called for admission. Patient was treated with IV Lasix. ED Disposition - Plan for ED Patient: Disposition: Acute Care Hospital [facility] Diagnosis: Acute on chronic congestive heart failure, Elevated troponin I level, Nonischemic cardiomyopathy, Sinus tachycardia by electrocardiogram, Essential hypertension Referrals: Shane Bowden MD [Primary Care Provider] -
--- NOTE | 2021-01-21 11:35 | RAD_ITS ---
STUDY: X-RAY CHEST REASON FOR EXAM: Male, 35 years old. chest pain TECHNIQUE: Single AP portable view of the chest. COMPARISON: 07/10/2020. FINDINGS: Cardiomegaly with congestion. Aorta unremarkable. Hazy airspace disease. No pleural effusions. Upper abdomen unremarkable. Osseous structures intact. No pneumothorax. RAD/Chest 1 View (Portable) IMPRESSION: Cardiomegaly with congestion Airspace disease presumed edema Electronically Signed: Emiliano Causey DO at 12:02 EDT Tel , Service support ,
[2021-01-21 11:37] LABS: Absolute Lymphocyte Count 2.37 X10^3/uL (0.83-4.51); Absolute Neutrophil Count 5.9 X10^3/uL (2.0-7.7); Basophil# 0.06 X10^3/uL; Basophil% 0.7 % (0-1); Eosinophil# 0.19 X10^3/uL; Eosinophils% 2.1 % (0-5); Hematocrit 44.9 % (40-54); Hemoglobin 15.1 g/dL (13.0-16.5); Lymphocyte # 2.37 X10^3/ul (4.0); Lymphocyte % 26.1 % (19-41); Mean Corp Hgb Conc 33.6 g/dL (32-36); Mean Corpuscular Hgb 29.1 pg (27.0-32.0); Mean Corpuscular Volume 86.5 fL (80-94); Mean Platelet Vol. 10.7 fl (6.2-12.0); Monocyte% 5.5 % (0-10); NRBC Flagged by Analyzer 0 % (0-5); Neutrophil # 5.93 X10^3/uL (2.7-7.7); Neutrophil % 65.4 % (47-70); Platelet Count 191 K/mm3 (150-450); RBC Distribution Width CV 12.3 % (11.6-14.6); RBC Distribution Width SD 38.7 fl (35.1-43.9); Red Blood Count 5.19 M/mm3 (4.6-6.2); White Blood Count 9.1 K/mm3 (4.4-11.0)
[2021-01-21] MEDS: Aspirin 81 MG TAB.CHEW 324 MG PO (11:42)
[2021-01-21 11:46] LABS: Prothrombin Time (Protime)PT. 12.5 SECONDS (11.7-14.9)
[2021-01-21 11:48] LABS: D-Dimer Quantitative (DVT/PE) <= 0.27 FEU/ug/m (0.27-0.49)
[2021-01-21 11:54] LABS: Anion Gap 3 (5-15); BUN 8 mg/dL (7-18); BUN/Creat Ratio 9.6 RATIO (10-20); Chloride 106 mmol/L (98-107); Creatinine, Serum 0.84 mg/dL (0.70-1.30); EST Glomerular Filtration Rate 112 mL/min (>60); Est Glom Filt Rate - Afr Amer 136 mL/min (>60); Estimated Creatinine Clearance 133.22 ml/min; Glucose 87 mg/dL (74-106); Magnesium 2.3 mg/dL (1.6-2.6); Potassium 3.8 mmol/L (3.5-5.1); Sodium Level 137 mmol/L (136-145)
[2021-01-21 11:57] LABS: BNP,B-Type NATRIURETIC PEPTIDE 117.1 pg/mL (0-100)
[2021-01-21] MEDS: Nitroglycerin Oint 1 INCH PACKET TD (13:39)
[2021-01-21] MEDS: Furosemide 40 MG/4 ML Vial IV ×2 (13:39→21:01)
--- NOTE | 2021-01-21 14:08 | PCM.HP.STD ---
Problem List (1) Acute on chronic congestive heart failure Status: Acute (2) Elevated troponin I level Status: Acute (3) Chronic systolic (congestive) heart failure Status: Chronic (4) CURTIS (obstructive sleep apnea) Status: Chronic (5) GERD (gastroesophageal reflux disease) Status: Chronic (6) Mixed hyperlipidemia Status: Chronic (7) Essential hypertension Status: Chronic (8) Nonischemic cardiomyopathy Status: Chronic Comment: Status post ICD removal. History of Present Illness Date of Admission: 01/21/21 Chief Complaint: Shortness of breath, chest pain. The patient is a 35 year old M with past medical history as mentioned above presented to the emergency department because of shortness of breath and chest pain. His symptoms started this morning around 3 AM after he woke up from sleep, started having shortness of breath upon exertion, aggravated by activity, not relieved with rest, associated with weakness and fatigue and shortly after, he started having chest pain. He complains of chest pain, epigastric and lower sternal chest pain, mild pain, dull aching, not radiating and now, it is resolved. He mentioned that today, he did not take his medications. In the emergency department, he was tachycardic, blood pressure was 194/115, pulse ox was 98% on room air. He was afebrile. Routine blood work was unremarkable. EKG revealed sinus tachycardia, no acute ischemic changes. Troponin was 0.212. Chest x-ray revealed cardiomegaly with pulmonary congestion/edema. He was given IV Lasix in the ED as well as nitroglycerin patch. His blood pressure started to improve as well as shortness of breath. He is being admitted for acute on chronic systolic CHF, acute mild pulmonary edema and abnormal cardiac enzymes. Past Medical History Past Medical History (Chronic Problems): Chronic Problems (Last Updated 01/21/21 @ 14:[address] Servando Grissom MD) Chronic systolic (congestive) heart failure (Chronic) CURTIS (obstructive sleep apnea) (Chronic) GERD (gastroesophageal reflux disease) (Chronic) Mixed hyperlipidemia (Chronic) Essential hypertension (Chronic) Nonischemic cardiomyopathy (Chronic) Status post ICD removal. Medical History: Medical History (Last Updated 01/21/21 @ 14:[address] Servando Grissom MD) Chronic systolic (congestive) heart failure (Chronic) I50.22 CURTIS (obstructive sleep apnea) (Chronic) G47.33 GERD (gastroesophageal reflux disease) (Chronic) K21.9 Mixed hyperlipidemia (Chronic) E78.2 Essential hypertension (Chronic) I10 Nonischemic cardiomyopathy (Chronic) I42.8 Status post ICD removal. Allergies morphine Allergy (Verified 07/10/20 18:35) Hives turkey Allergy (Verified 07/10/20 18:35) Swelling Iodinated Contrast Media Adverse Reaction (Verified 07/10/20 23:39) Pain in joints perflutren [From Definity] Adverse Reaction (Verified 07/10/20 18:35) Other Severe flank pain Home Medications: Ambulatory Orders Medication Instructions Recorded carvedilol 25 mg tablet 25 mg PO BID #60 tab 03/13/20 Aspirin/Acetaminophen/Caffeine 2 tab PO Q4H PRN PRN 07/10/20 [Excedrin Extra Strength Caplet] Furosemide [Lasix] 40 mg PO DAILY PRN PRN 07/10/20 Ibuprofen [Advil] 600 mg PO Q8H PRN PRN 01/21/21 Surgical History: Surgical History (Last Reviewed 07/11/20 @ 00:[address] Paul Waters MD) History of cardiac catheterization Z98.890 History of tonsillectomy Z90.89 Surgical History: - - ICD placement. Subsequently removed upon patient's wishes Psychiatric History: No pertinent psych hx Lives: Spouse/ Significant Other Smoking Status: Current some day smoker Alcohol: None Drugs: None - *Family History Maternal Family History: Family History (Last Reviewed 07/11/20 @ 00:[address] Paul Waters MD) Mother Arrhythmia Hypertension Father Ischemic cardiomyopathy CHF (congestive heart failure) Hypertension Diabetes History of coronary artery bypass surgery CAD (coronary artery disease) Paternal Family History: Family History (Last Reviewed 07/11/20 @ 00:[address] Paul Waters MD) Mother Arrhythmia Hypertension Father Ischemic cardiomyopathy CHF (congestive heart failure) Hypertension Diabetes History of coronary artery bypass surgery CAD (coronary artery disease) Review of Systems Constitutional: Reports: Weakness, Fatigue. Denies: Anorexia, Chills, Fever Eyes: Denies: Blurred vision, Double vision, Drainage, Redness HEENT: Denies: Difficulty Hearing, Ear Pain, Eye Pain, Nasal Congestion, Sore Throat Cardiovascular: Reports: Chest Pain. Denies: Chest Pressure, Chest Tightness, Edema, Heaviness, Light Headedness, Palpitations Respiratory: Reports: Shortness of breath upon exertion. Denies: Cough, Pleuritic Pain, Sputum production, Wheezing Gastrointestinal: Denies: Abdominal Pain, Constipation, Diarrhea, Nausea, Vomiting Genitourinary: Denies: Dysuria, Frequency, Hematuria Musculoskeletal: Denies: Arm Pain, Back Pain, Foot Pain Skin: Denies: Dryness, Rash Neurological: Denies: Balance problems, Double vision, Change in Speech, Slurred speech, Confusion, Incoordination Psychiatric: Denies: Anxiety, Depression Endocrine: Denies: Change in Body Habitus, Polydipsia, Polyuria VTE Information - Inpt Only VTE Present on Admission: No VTE Mechan Device Prophylaxis: None VTE Pharm Prophylaxis ordered?: No Patient Problems: Active and Suspected Problems (Last Updated 01/21/21 @ 14:[address] Servando Grissom MD) Acute on chronic congestive heart failure (Acute) Elevated troponin I level (Acute) - Physical Exam Vitals/I&O's: Vital Signs Temp Pulse Resp BP Pulse Ox 97.3 F L 108 H 17 176/129 H 99 01/21/21 13:40 01/21/21 13:40 01/21/21 13:40 01/21/21 13:40 01/21/21 13:40 Oxygen Delivery Method Room Air Weight: 365 lb 8.423 oz Body Mass Index (BMI) 51.0 General: Alert, Oriented x3, Cooperative, No apparent distress HEENT: Atraumatic, PERRLA, EOMI, Normocephalic Oral: Moist Mucosa, No Gingival or Mucosal Lesions/ Ulcerations Neck: Supple, No JVD, Negative Carotid Bruits, Trachea Midline, Thyroid Normal Size and Texture Lungs: Clear to auscultation, No rhonchi, No wheeze, No rales, Diminished Cardiovascular: Regular rate, Regular Rhythm, Normal S1, Normal S2, PMI Normal, Tachycardic Abdomen: Bowel Sounds Present, Soft, Non Tender, Non-Distended, No Hepato-splenomegaly, Obese Extremities: No clubbing, No cyanosis, Edema - Trace edema. Skin: No rashes, No breakdown Lymphatic: No Cervical, Supraclavicular, or Inguinal Adenopathy Neurological: Cranial nerves II-XII grossly intact, Motor Exam 5/5 strength throughout Psych/Mental Status: Normal Affect, Appropriate, Alert and oriented to time, place, person, mood and affect Laboratory Results 01/21/21 11:30: WBC 9.1, RBC 5.19, Hgb 15.1, Hct 44.9, MCV 86.5, MCH 29.1, MCHC 33.6, RDW Std Deviation 38.7, RDW Coeff of Kumar 12.3, Plt Count 191, MPV 10.7, Immature Gran % (Auto) 0.200, Neut % (Auto) 65.4, Lymph % (Auto) 26.1, [place] % (Auto) 5.5, Eos % (Auto) 2.1, Baso % (Auto) 0.7, Absolute Neuts (auto) 5.9, Absolute Lymphs (auto) 2.37, Nucleated RBC % 0 01/21/21 11:30: PT 12.5, INR 1.0, APTT 27.0, D-Dimer Quant (PE/DVT) <= 0.27 01/21/21 11:30: Sodium 137, Potassium 3.8, Chloride 106, Carbon Dioxide 28.0, Anion Gap 3 L, BUN 8, Creatinine 0.84, Estim Creat Clear Calc 133.22, Est GFR (MDRD) Af Amer 136, Est GFR (MDRD) Non-Af 112, BUN/Creatinine Ratio 9.6 L, Glucose 87, Calcium 9.0, Magnesium 2.3, Troponin I 0.212 H 01/21/21 11:30: B-Natriuretic Peptide 117.1 H Clinical Impression(s) from Imaging Studies Chest X-Ray 01/21/21 11:35 IMPRESSION: Cardiomegaly with congestion Airspace disease presumed edema Electronically Signed: Emiliano Causey DO at 12:02 EDT Tel , Service support , Assessment/Plan All Active Problems (Last Updated 01/21/21 @ 14:[address] Servando Grissom MD) Acute on chronic congestive heart failure (Acute) Elevated troponin I level (Acute) This is a 35 years old male patient presented to the emergency room because of shortness of breath and chest pain, found to have acute on chronic CHF/acute pulmonary edema with abnormal cardiac enzymes and he is being admitted for evaluation and treatment. #1 acute on chronic systolic CHF/acute mild pulmonary edema: On arrival to ED, systolic blood pressure was more than 180, does have signs of pulmonary edema on chest x-ray. EKG revealed sinus tachycardia, no acute ischemic changes. Patient had 2D echocardiogram on July, and showed ejection fraction of 25%, other findings reviewed. Plan: Admit to PCU, cardiac monitoring, serial cardiac enzymes, start IV Lasix for diuresis, start lisinopril 20 mg p.o. daily, continue Coreg, cardiology consult, repeat CBC and BMP tomorrow morning. #2 abnormal cardiac enzymes: Patient reported chest pain but resolved now after placing the nitro patch. EKG without acute ischemic changes. Plan: Cardiac monitoring, serial cardiac enzymes, repeat EKG tomorrow morning, cardiology consult as above. #3 chronic systolic CHF/nonischemic cardiomyopathy: Status post ICD removal by patient's wishes. Plan as above, cardiology consult. #4 hypertension: Blood pressure is elevated, improved after nitroglycerin patch. Plan to continue Coreg, start lisinopril, IV hydralazine as needed. #5 hyperlipidemia: Check lipid profile, start statins. #6 DVT prophylaxis: Low risk patient, ambulate. This note was generated with [employer] dictation software. It may contain incorrect words, spelling, and punctuation that were not noted in checking the note before signing. Inpatient E&M: [id number] Init Hosp L3
[2021-01-21 15:29] LABS: Cholesterol 194 mg/dL (200); High Density Lipoprotein 47 mg/dL; Triglycerides 169 mg/dL; Very Low Density Lipoprotein 34 mg/dL (5-40)
--- NOTE | 2021-01-21 17:04 | PCM.CONS.C ---
Reason for Consult Date of Consultation: 01/21/21 Reason for Consultation: Shortness of breath and chest pain History of Present Illness: The patient is a 35 year old M who presented to the emergency room with shortness of breath as well as chest discomfort. He has not been very compliant with his medications in the past. He does have a previous diagnosis of non-CAD related cardiomyopathy followed by Dr. Young. 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 He had undergone a cardiac catheterization in 2013 which demonstrated no significant obstructive coronary disease. His ejection fraction at that time was depressed at 10 to 15%. With medication it had subsequently improved and his last echocardiogram had demonstrated that his ejection fraction was noted to be in the 20 to 25% range. He had been compliant with his medications until recently according to him. He denies any palpitations or paroxysmal nocturnal dyspnea or pedal edema he has not had any syncopal episodes. He does however have shortness of breath with exertion. He was evaluated in the emergency room and was noted to be markedly hypertensive with systolic blood pressure of 190 mmHg and a diastolic of 110 mmHg. He was treated with intravenous Lasix as well as nitroglycerin with significant improvement. His EKG did not demonstrate any acute changes. [] Past Medical History Allergies/Adverse Reactions: Allergies morphine Allergy (Verified 07/10/20 18:35) Hives turkey Allergy (Verified 07/10/20 18:35) Swelling Iodinated Contrast Media Adverse Reaction (Verified 07/10/20 23:39) Pain in joints perflutren [From Definity] Adverse Reaction (Verified 07/10/20 18:35) Other Severe flank pain Home Medications: Ambulatory Orders Medication Instructions Recorded carvedilol 25 mg tablet 25 mg PO BID #60 tab 03/13/20 Aspirin/Acetaminophen/Caffeine 2 tab PO Q4H PRN PRN 07/10/20 [Excedrin Extra Strength Caplet] Furosemide [Lasix] 40 mg PO DAILY PRN PRN 07/10/20 Ibuprofen [Advil] 600 mg PO Q8H PRN PRN 01/21/21 Lisinopril 40 mg PO DAILY 01/21/21 Past Medical History (Chronic Problems): Chronic Problems (Last Updated 01/21/21 @ 14:[address] Servando Grissom MD) Chronic systolic (congestive) heart failure (Chronic) CURTIS (obstructive sleep apnea) (Chronic) GERD (gastroesophageal reflux disease) (Chronic) Mixed hyperlipidemia (Chronic) Essential hypertension (Chronic) Nonischemic cardiomyopathy (Chronic) Status post ICD removal. Surgical History: - - ICD placement. Subsequently removed upon patient's wishes Psychiatric History: No pertinent psych hx - *Family History Maternal Family History: Family History (Last Reviewed 07/11/20 @ 00:[address] Paul Waters MD) Mother Arrhythmia Hypertension Father Ischemic cardiomyopathy CHF (congestive heart failure) Hypertension Diabetes History of coronary artery bypass surgery CAD (coronary artery disease) History Items: No pertinent history Paternal Family History: Family History (Last Reviewed 07/11/20 @ 00:[address] Paul Waters MD) Mother Arrhythmia Hypertension Father Ischemic cardiomyopathy CHF (congestive heart failure) Hypertension Diabetes History of coronary artery bypass surgery CAD (coronary artery disease) History Items: No pertinent history Lives: Spouse/ Significant Other Smoking Status: Current some day smoker Tobacco Use: Cigarettes Alcohol: None Drugs: None Review of Systems - Review of Systems General: Denies: Fever, Night Sweats, Fatigue HEENT: Denies: Vision Change Cardiovascular: Reports: Chest Discomfort, Shortness of Breath, Shortness of Breath at Rest. Denies: Orthopnea, PND, Peripheral Edema, Palpitations, Lightheadedness, Dizziness, Near Syncope, Syncope Respiratory: Denies: Cough, Sputum Production, Hemoptysis Gastrointestinal: Denies: Hematemesis, Hematochezia, Melena Genitourinary: Denies: Dysuria, Hematuria Skin: Denies: Rash Neurological: Denies: Dizziness Psychiatric: Denies: Anxiety Endocrine: Denies: Excessive Sweating Subjectve: Patient seen and evaluated. Appears to be stable. Objective: Vital Signs Temp Pulse Resp BP Pulse Ox 97.6 F L 97 18 153/118 H 97 01/21/21 14:15 01/21/21 15:00 01/21/21 14:15 01/21/21 14:15 01/21/21 15:20 Oxygen Delivery Method Room Air Weight: 352 lb 11.199 oz Body Mass Index (BMI) 47.8 General: Awake, Alert, Oriented x 3 HEENT: PERRL, EOMI, Sclera Non Icteric Neck: Supple, Good ROM, No Lymph Node Enlargement Lungs: Clear to auscultation Cardiovascular: Regular Rhythm, Normal S1, Normal S2, No Murmurs, No Rubs, No Gallops Vascular: No Carotid Bruits, Normal Femoral Pulses, Normal Radial Pulses, Normal Dorsalis Pedal Pulse, Normal Posterior Tibial Pulses Abdomen: Bowel Sounds Present, Soft, Non Tender, No HSM, No Organomegaly Extremities: No Cyanosis, No Clubbing, No edema Neurological: No Focal Motor or Sensory Deficit 01/21/21 11:30: WBC 9.1, RBC 5.19, Hgb 15.1, Hct 44.9, MCV 86.5, MCH 29.1, MCHC 33.6, Plt Count 191, MPV 10.7, Immature Gran % (Auto) 0.200, Neut % (Auto) 65.4, Lymph % (Auto) 26.1, [place] % (Auto) 5.5, Eos % (Auto) 2.1, Baso % (Auto) 0.7, Absolute Neuts (auto) 5.9, Nucleated RBC % 0 01/21/21 11:30: PT 12.5, INR 1.0, APTT 27.0, D-Dimer Quant (PE/DVT) <= 0.27 01/21/21 11:30: Sodium 137, Potassium 3.8, Chloride 106, Carbon Dioxide 28.0, Anion Gap 3 L, BUN 8, Creatinine 0.84, Est GFR (MDRD) Af Amer 136, Est GFR (MDRD) Non-Af 112, BUN/Creatinine Ratio 9.6 L, Glucose 87, Calcium 9.0, Magnesium 2.3, Troponin I 0.212 H 01/21/21 11:30: B-Natriuretic Peptide 117.1 H 01/21/21 13:35: Triglycerides 169, Cholesterol 194, LDL Cholesterol 113, VLDL Cholesterol 34, HDL Cholesterol 47 01/21/21 13:35: Troponin I 0.206 H Rhythm: EKG: Normal sinus rhythm with no acute changes ECHO: Stress Test: Cardiac Cath: PCI: CT Surgery: Holter monitor: EPS: PPM: CXR: Chest CT Scan: Assessment/Plan 1. Hypertensive urgency Patient presents with severe hypertension with mild fluid redistribution suggestive of mild congestive heart failure and mildly abnormal cardiac enzymes. My recommendation will be to reinstitute his antihypertensive medication including his KATHARINA inhibitor to lower his blood pressure within the next 24 hours to within the range of 160 systolic. His recent echocardiogram demonstrated an ejection fraction of 25% The goal would be to get his blood pressure to normal within the next few days. 2. Mild congestive heart failure He does have evidence of mild congestive heart failure. With his reduced ejection fraction it may be worthwhile for him to be on a diuretic. Hydrochlorothiazide, Lasix or spironolactone should be considered. 3. Cardiac enzyme abnormality He does have mildly abnormal cardiac enzymes which I suspect is secondary to demand ischemia. I would recommend at this time that we continue to manage him medically. I do not see a reason for an invasive approach. He has had a cardiac catheterization within the last 5 to 6 years for did not demonstrate any obstructive disease as well as a stress test which also did not demonstrate any significant concern for ischemia. 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 Thank you for allowing me to participate in the care of your patient. Please don't hesitate to call if any issues arise.
[2021-01-21] MEDS: Atorvastatin Calcium 40 MG Tablet PO (20:56)
[2021-01-21] MEDS: Acetaminophen 325 MG Tablet 650 MG PO (20:56)
[2021-01-21] MEDS: Carvedilol 25 MG Tablet PO (20:56)
[2021-01-21] MEDS: Zolpidem Tartrate 5 MG Tablet PO (21:09)
[2021-01-22 02:12] VITALS: BP 106/60; PULSE 77; RESP 14; TEMP 37.1; O2SAT 94
[2021-01-22 03:00] VITALS: PULSE 69
[2021-01-22] MEDS: Furosemide 40 MG/4 ML Vial IV (06:08)
[2021-01-22 06:56] LABS: Absolute Lymphocyte Count 2.18 X10^3/uL (0.83-4.51); Absolute Neutrophil Count 5.4 X10^3/uL (2.0-7.7); Basophil# 0.08 X10^3/uL; Basophil% 0.9 % (0-1); Eosinophils% 3.6 % (0-5); Hematocrit 46.3 % (40-54); Hemoglobin 15.5 g/dL (13.0-16.5); Lymphocyte # 2.18 X10^3/ul (4.0); Lymphocyte % 25.8 % (19-41); Mean Corp Hgb Conc 33.5 g/dL (32-36); Mean Corpuscular Hgb 29.3 pg (27.0-32.0); Mean Corpuscular Volume 87.5 fL (80-94); Mean Platelet Vol. 10.7 fl (6.2-12.0); Monocyte% 5.9 % (0-10); NRBC Flagged by Analyzer 0 % (0-5); Neutrophil # 5.35 X10^3/uL (2.7-7.7); Neutrophil % 63.4 % (47-70); Platelet Count 186 K/mm3 (150-450); RBC Distribution Width CV 12.4 % (11.6-14.6); RBC Distribution Width SD 39.6 fl (35.1-43.9); Red Blood Count 5.29 M/mm3 (4.6-6.2); White Blood Count 8.4 K/mm3 (4.4-11.0)
[2021-01-22 07:25] LABS: Anion Gap 5 (5-15); BUN 11 mg/dL (7-18); BUN/Creat Ratio 12.5 RATIO (10-20); Calcium,Total 8.9 mg/dL (8.5-10.1); Chloride 105 mmol/L (98-107); Creatinine, Serum 0.88 mg/dL (0.70-1.30); EST Glomerular Filtration Rate 106 mL/min (>60); Est Glom Filt Rate - Afr Amer 128 mL/min (>60); Estimated Creatinine Clearance 131.05 ml/min; Glucose 104 mg/dL (74-106); Potassium 3.4 mmol/L (3.5-5.1); Sodium Level 138 mmol/L (136-145)
[2021-01-22 07:30] VITALS: O2SAT 94
[2021-01-22] MEDS: Carvedilol 25 MG Tablet PO (08:17)
[2021-01-22] MEDS: Lisinopril 40 MG Tablet PO (08:17)
[2021-01-22] MEDS: Acetaminophen 325 MG Tablet 650 MG PO (08:23)
--- NOTE | 2021-01-22 08:53 | PN.CARD_ITS ---
Subjectve: Patient seen and evaluated. Appears to be doing better this morning. Anxious to go home. Objective: Vital Signs Temp Pulse Resp BP Pulse Ox 98.7 F 69 14 106/60 94 01/22/21 02:12 01/22/21 03:00 01/22/21 02:12 01/22/21 02:12 01/22/21 07:30 Oxygen Delivery Method Room Air Weight: 352 lb 11.199 oz Body Mass Index (BMI) 47.8 Intake and Output for Last 24 Hours 01/20/21 01/21/21 01/22/21 23:59 23:59 23:59 Intake Total 420 / 420 300 / 300 Output Total 2300 / 2300 1800 / 1800 Balance -1880 / -1880 -1500 / -1500 General: Awake, Alert, Oriented x 3 HEENT: PERRL, EOMI, Sclera Non Icteric Neck: Supple, Good ROM, No Lymph Node Enlargement Lungs: Clear to auscultation Cardiovascular: Regular Rhythm, Normal S1, Normal S2, No Murmurs, No Rubs, No Gallops Vascular: No Carotid Bruits, Normal Femoral Pulses, Normal Radial Pulses, Normal Dorsalis Pedal Pulse, Normal Posterior Tibial Pulses Abdomen: Bowel Sounds Present, Soft, Non Tender, No HSM, No Organomegaly Extremities: No Cyanosis, No Clubbing, No edema Musculoskeletal: No Erythema Skin: No Rashes Lymphatic: No Lymph Node Enlargement Neurological: No Focal Motor or Sensory Deficit 01/21/21 11:30: WBC 9.1, RBC 5.19, Hgb 15.1, Hct 44.9, MCV 86.5, MCH 29.1, MCHC 33.6, Plt Count 191, MPV 10.7, Immature Gran % (Auto) 0.200, Neut % (Auto) 65.4, Lymph % (Auto) 26.1, [place] % (Auto) 5.5, Eos % (Auto) 2.1, Baso % (Auto) 0.7, Absolute Neuts (auto) 5.9, Nucleated RBC % 0 01/21/21 11:30: PT 12.5, INR 1.0, APTT 27.0, D-Dimer Quant (PE/DVT) <= 0.27 01/21/21 11:30: Sodium 137, Potassium 3.8, Chloride 106, Carbon Dioxide 28.0, Anion Gap 3 L, BUN 8, Creatinine 0.84, Est GFR (MDRD) Af Amer 136, Est GFR (MDRD) Non-Af 112, BUN/Creatinine Ratio 9.6 L, Glucose 87, Calcium 9.0, Magnesium 2.3, Troponin I 0.212 H 01/21/21 11:30: B-Natriuretic Peptide 117.1 H 01/21/21 13:35: Triglycerides 169, Cholesterol 194, LDL Cholesterol 113, VLDL Cholesterol 34, HDL Cholesterol 47 01/21/21 13:35: Troponin I 0.206 H 01/21/21 17:34: Troponin I 0.191 H 01/22/21 06:40: WBC 8.4, RBC 5.29, Hgb 15.5, Hct 46.3, MCV 87.5, MCH 29.3, MCHC 33.5, Plt Count 186, MPV 10.7, Immature Gran % (Auto) 0.400, Neut % (Auto) 63.4, Lymph % (Auto) 25.8, [place] % (Auto) 5.9, Eos % (Auto) 3.6, Baso % (Auto) 0.9, Ab solute Neuts (auto) 5.4, Nucleated RBC % 0 01/22/21 06:40: PT 13.0, INR 1.0 01/22/21 06:40: Sodium 138, Potassium 3.4 L, Chloride 105, Carbon Dioxide 28.0, Anion Gap 5, BUN 11, Creatinine 0.88, Est GFR (MDRD) Af Amer 128, Est GFR (MDRD) Non-Af 106, BUN/Creatinine Ratio 12.5, Glucose 104, Calcium 8.9 Rhythm: EKG: ECHO: Stress Test: Cardiac Cath: PCI: CT Surgery: Holter monitor: EPS: PPM: CXR: Chest CT Scan: Medical Necessity - Tobacco Use Smoking Status: Current some day smoker Tobacco Use: Cigarettes Assessment/Plan 1. Hypertensive urgency * Patient presents with severe hypertension with mild fluid redistribution suggestive of mild congestive heart failure and mildly abnormal cardiac enzymes. * His blood pressure appears to be much better controlled this morning * His recent echocardiogram demonstrated an ejection fraction of 25% * The goal would be to get his blood pressure to normal within the next few days. * 2. Mild congestive heart failure * He does have evidence of mild congestive heart failure. * With his reduced ejection fraction it may be worthwhile for him to be on a diuretic. * Hydrochlorothiazide, Lasix or spironolactone should be considered. * 3. Cardiac enzyme abnormality * He does have mildly abnormal cardiac enzymes which I suspect is secondary to demand ischemia. I would recommend at this time that we continue to manage him medically. I do not see a reason for an invasive approach. He has had a cardiac catheterization within the last 5 to 6 years for did not demonstrate any obstructive disease as well as a stress test which also did not demonstrate any significant concern for ischemia. * * He can be followed up as an outpatient by his primary meterman DEBRA * Medication compliance has been emphasized. * * He can be discharged for outpatient follow-up. * Thank you for allowing me to participate in the care of your patient. Please don't hesitate to call if any issues arise.
[2021-01-22 10:18] VITALS: PULSE 89
[2021-01-22 11:00] VITALS: BP 119/66; PULSE 74; RESP 16; TEMP 36.4; O2SAT 95
--- NOTE | 2021-01-22 11:36 | CASEMGMT ---
RN CM Assessment Introduced role of CM to patient in room. The patient is dressed and ready for discharge- anticipated today. Pt states he is independent and does not have concerns re: discharge. PCP: Dr. Bowden Cardiology: Dr. Young Insurance: Mary [facility]acy: [facility] DME: none per patient Living arrangements: lives independently. Denies any care needs Transportation: drives DC Plan: home today. Pt states he is able to follow up with physicians, has pharmacy insurance and denies difficulty with obtaining medications. No discharge concerns at this time. Karoline DONN RN ACM
--- NOTE | 2021-01-22 11:51 | DCINST_ITS ---
- Discharge Diagnoses Current Active Problems: Current Active and Chronic Problems (Last Updated 01/21/21 @ 14:[address] Servando Grissom MD) Acute on chronic congestive heart failure (Acute) Elevated troponin I level (Acute) Chronic systolic (congestive) heart failure (Chronic) CURTIS (obstructive sleep apnea) (Chronic) GERD (gastroesophageal reflux disease) (Chronic) Mixed hyperlipidemia (Chronic) Essential hypertension (Chronic) Nonischemic cardiomyopathy (Chronic) Status post ICD removal. You will use the following diet at home:: Cardiac Your food should be the consistency of: Regular Discharge Activity: Return to Normal Activity Return to work on:: 01/28/21 Weight Bearing Status: Full weight bearing Call your doctor if you observe: Fever of 101 or Higher, Shortness of breath, Di zziness, Fainting spells, Swelling in the ankles, Chest pain, Increased palpitations (irregular heartbeat), Uncontrolled pain Instructions: Controlling High Blood Pressure, Taking Your Blood Pressure Allergies/Adverse Reactions: Allergies morphine Allergy (Verified 07/10/20 18:35) Hives turkey Allergy (Verified 07/10/20 18:35) Swelling Iodinated Contrast Media Adverse Reaction (Verified 07/10/20 23:39) Pain in joints perflutren [From Definity] Adverse Reaction (Verified 07/10/20 18:35) Other Severe flank pain Medications to take at Discharge Aspirin/Acetaminophen/Caffeine [Excedrin Extra Strength Caplet] 2 tab PO Q4H PRN PRN 07/10/20 Ibuprofen [Motrin] 600 mg PO Q8H PRN PRN 01/21/21 Carvedilol 25 mg PO BID #90 tab 01/22/21 Furosemide [Lasix] 40 mg PO DAILY #90 tab 01/22/21 Lisinopril 40 mg PO DAILY #90 tab 01/22/21 The following prescriptions were given: Carvedilol 25 mg PO BID #90 tab Transmission Status: Pending to [id number] Furosemide [Lasix] 40 mg PO DAILY #90 tab Transmission Status: [id number] Lisinopril 40 mg PO DAILY #90 tab Transmission [facility]: [id number] Primary Care Physician: Shane Bowden MD [Primary Care Provider] - Please follow up with your Primary Care Physician in: 1 week. Test Results: Test results from this visit will be discussed in further detail at your follow- up appointment, if applicable. Please Follow Up With: Fermin Young MD When: 2-4 weeks.
--- NOTE | 2021-01-22 11:52 | PCM.DC.SUM ---
Discharge Date and Diagnosis - Problem List Patient Problems: Active and Suspected Problems (Last Updated 01/21/21 @ 14:[address] Servando Grissom MD) Acute on chronic congestive heart failure (Acute) Elevated troponin I level (Acute) Date of Admission: 01/21/21 Date of Discharge: 01/22/21 - Primary Discharge Diagnosis Acute Problems: Active Problems (Last Updated 01/21/21 @ 14:[address] Servando Grissom MD) #1 acute on chronic congestive systolic heart failure/mild acute pulmonary edema. (Acute) #2 elevated troponin I level (Acute) - Secondary Discharge Diagnosis Chronic Problems: Chronic Problems (Last Updated 01/21/21 @ 14:[address] Servando Grissom MD) Chronic systolic (congestive) heart failure (Chronic) CURTIS (obstructive sleep apnea) (Chronic) GERD (gastroesophageal reflux disease) (Chronic) Mixed hyperlipidemia (Chronic) Essential hypertension (Chronic) Nonischemic cardiomyopathy (Chronic) Status post ICD removal. Hospital Course and Treatment Imaging Results: Clinical Impression(s) from Imaging Studies Chest X-Ray 01/21/21 11:35 IMPRESSION: Cardiomegaly with congestion Airspace disease presumed edema Electronically Signed: Emiliano Causey DO at 12:02 EDT Tel , Service support , Dr. Espitia, cardiology. Operations: None Procedures: EKG Summary of Care Provided: Patient seen and examined on the day of discharge and appeared to be stable to be discharged home. Symptoms of shortness of breath and chest pain resolved. His blood pressure significantly improved, other vital signs were stable. The patient is a 35 year old M presented to the emergency room because of sudden onset shortness of breath and chest pain after he woke up around 3 AM on the day of discharge and he was found to have highly elevated blood pressure upon arrival to ED, chest x-ray revealed bilateral pulmonary vascular congestion with mild pulmonary edema. Patient was admitted for acute mild pulmonary edema with acute on chronic systolic CHF. His EKG revealed sinus tachycardia without acute ischemic changes. Troponin was borderline elevated and were trending down. Highest troponin was 0.212 and trended down to 0.191. Chest pain resolved. Patient was treated with IV Lasix for diuresis, continued on nitroglycerin patch that was started in the ED and was continued on Coreg and lisinopril. He had a history of nonischemic cardiomyopathy with ejection fraction of 25% on echocardiogram from July,. Cardiology consulted and recommended medical treatment without need for cardiac work-up or further interventions. D-dimer was normal. With IV diuresis and nitroglycerin patch, his blood pressure dramatically improved overnight. His symptoms also dramatically improved and he feels much better. His blood pressure is down to around 120 systolic. It was up to 194 systolic upon admission. Repeat routine blood work on discharge was unremarkable. Lipid profile revealed total cholesterol of 194, LDL cholesterol of 113 and HDL cholesterol of 47. Patient discharged home in a stable medical condition, discharged on Lasix 40 mg p.o. daily, Coreg 25 mg p.o. twice daily, lisinopril 40 mg p.o. daily, instructed to comply with his home medications including antihypertensives, recommended follow-up with cardiology in 2 to 3 weeks and follow-up with PCP in 1 week. Patient Problems: Active and Suspected Problems (Last Updated 01/21/21 @ 14:[address] Servando Grissom MD) Acute on chronic congestive heart failure (Acute) Elevated troponin I level (Acute) - Physical Exam Vitals/I&O's: Vital Signs Temp Pulse Resp BP Pulse Ox 97.6 F L 74 16 119/66 95 01/22/21 11:00 01/22/21 11:00 01/22/21 11:00 01/22/21 11:00 01/22/21 11:00 Oxygen Delivery Method Room Air Weight: 352 lb 11.199 oz Body Mass Index (BMI) 47.8 Intake and Output for Last 24 Hours 01/20/21 01/21/21 01/22/21 23:59 23:59 23:59 Intake Total 420 / 420 300 / 300 Output Total 2300 / 2300 1800 / 1800 Balance -1880 / -1880 -1500 / -1500 General: Alert, Oriented x3, Cooperative, No apparent distress HEENT: Atraumatic, PERRLA, EOMI, Normocephalic Oral: Moist Mucosa, No Gingival or Mucosal Lesions/ Ulcerations Neck: Supple, No JVD, Negative Carotid Bruits, Trachea Midline, Thyroid Normal Size and Texture Lungs: Clear to auscultation, Normal air movement, No rhonchi, No wheeze, No rales Cardiovascular: Regular rate, Regular Rhythm, Normal S1, Normal S2, PMI Normal Abdomen: Bowel Sounds Present, Soft, Non Tender, Non-Distended, No Hepato-splenomegaly Extremities: No clubbing, No cyanosis, No edema Skin: No rashes, No breakdown Lymphatic: No Cervical, Supraclavicular, or Inguinal Adenopathy Neurological: Cranial nerves II-XII grossly intact, Neuro grossly intact Psych/Mental Status: Normal Affect, Appropriate Laboratory Results 01/21/21 11:30: Sodium 137, Potassium 3.8, Chloride 106, Carbon Dioxide 28.0, Anion Gap 3 L, BUN 8, Creatinine 0.84, Estim Creat Clear Calc 133.22, Est GFR (MDRD) Af Amer 136, Est GFR (MDRD) Non-Af 112, BUN/Creatinine Ratio 9.6 L, Glucose 87, Calcium 9.0, Magnesium 2.3, Troponin I 0.212 H 01/21/21 11:30: B-Natriuretic Peptide 117.1 H 01/21/21 13:35: Triglycerides 169, Cholesterol 194, LDL Cholesterol 113, VLDL Cholesterol 34, HDL Cholesterol 47 01/21/21 13:35: Troponin I 0.206 H 01/21/21 17:34: Troponin I 0.191 H 01/22/21 06:40: WBC 8.4, RBC 5.29, Hgb 15.5, Hct 46.3, MCV 87.5, MCH 29.3, MCHC 33.5, RDW Std Deviation 39.6, RDW Coeff of Kumar 12.4, Plt Count 186, MPV 10.7, Immature Gran % (Auto) 0.400, Neut % (Auto) 63.4, Lymph % (Auto) 25.8, [place] % (Auto) 5.9, Eos % (Auto) 3.6, Baso % (Auto) 0.9, Absolute Neuts (auto) 5.4, Absolute Lymphs (auto) 2.18, Nucleated RBC % 0 01/22/21 06:40: PT 13.0, INR 1.0 01/22/21 06:40: Sodium 138, Potassium 3.4 L, Chloride 105, Carbon Dioxide 28.0, Anion Gap 5, BUN 11, Creatinine 0.88, Estim Creat Clear Calc 131.05, Est GFR (MDRD) Af Amer 128, Est GFR (MDRD) Non-Af 106, BUN/Creatinine Ratio 12.5, Glucose 104, Calcium 8.9 Current Medications Acetaminophen (Acetaminophen 325 Mg Tablet) 650 mg PO Q6H PRN PRN PRN Reason: Pain Score 1-10/Temp > 100.7 F Last Admin: 01/22/21 08:23 Dose: 650 mg Documented by: Atorvastatin Calcium (Atorvastatin Calcium 40 Mg Tablet) 40 mg PO QHS [facility] Last Admin: 01/21/21 20:56 Dose: 40 mg Documented by: Carvedilol (Carvedilol 25 Mg Tablet) 25 mg PO BID [facility] Last Admin: 01/22/21 08:17 Dose: 25 mg Documented by: Furosemide (Furosemide 40 Mg/4 Ml Vial) 40 mg IV Q8 [facility] Last Admin: 01/22/21 06:08 Dose: 40 mg Documented by: Hydralazine HCl (Hydralazine 20 Mg/Ml Vial) 10 mg IV Q6H PRN PRN PRN Reason: for SBP>160 Lisinopril (Lisinopril 40 Mg Tablet) 40 mg PO DAILY [facility] Last Admin: 01/22/21 08:17 Dose: 40 mg Documented by: Ondansetron HCl (Ondansetron 4 Mg/2 Ml Vial) 4 mg IV Q8H PRN PRN PRN Reason: NAUSEA/VOMITING Senna/Docusate Sodium (Senna/Docusate Sodium 1 Tablet) 2 tablet PO BID PRN PRN PRN Reason: Constipation Sodium Chloride (0.9% Saline Lock 10 Ml Syringe) 10 - 40 ml IV UD PRN PRN Reason: SALINE FLUSH Zolpidem Tartrate (Zolpidem Tartrate 5 Mg Tablet) 5 mg PO QHS PRN PRN PRN Reason: INSOMNIA Last Admin: 01/21/21 21:09 Dose: 5 mg Documented by: Discharge Activity: Return to Normal Activity Return to work on:: 01/28/21 Weight Bearing Status: Full weight bearing Call your doctor if you observe: Fever of 101 or Higher, Shortness of breath, Dizziness, Fainting spells, Swelling in the ankles, Chest pain, Increased palpitations (irregular heartbeat), Uncontrolled pain Home Medications: Medications to take at Discharge Aspirin/Acetaminophen/Caffeine [Excedrin Extra Strength Caplet] 2 tab PO Q4H PRN PRN 07/10/20 Ibuprofen [Motrin] 600 mg PO Q8H PRN PRN 01/21/21 Carvedilol 25 mg PO BID #90 tab 01/22/21 Furosemide [Lasix] 40 mg PO DAILY #90 tab 01/22/21 Lisinopril 40 mg PO DAILY #90 tab 01/22/21 Following Prescriptions Were Given to Patient: Carvedilol 25 mg PO BID #90 tab Transmission Status: Received by [facility] Furosemide [Lasix] 40 mg PO DAILY #90 tab Transmission Status: [facility] Lisinopril 40 mg PO DAILY #90 tab Transmission Status: Received by [facility] Primary Care Physician: Shane Bowden MD [Primary Care Provider] - Please follow up with your Primary Care Physician in: 1 week. Please Follow Up With: Fermin Young MD When: 2-4 weeks. Patient Instructions: Controlling High Blood Pressure, Taking Your Blood Pressure Disposition: Home Minutes spent on discharge:: 32 Patient Condition:: Stable Medical Necessity - Tobacco Use Smoking Status: Current some day smoker Tobacco Use: Cigarettes Meaningful Use Info Meaningful Use Diagnoses (Choose all that apply): CHF - CHF KATHARINA/ARB ordered at discharge?: Yes Documented LVEF (%): 25 Inpatient E&M: 28131 Disch Hosp
--- NOTE | 2021-01-22 12:51 | PHA.DC.MR ---
Pharmacy Service has performed discharge medication reconciliation for this patient. The patient's discharge medication list was reviewed for discrepancies and discrepancies were resolved. Home Medications Aspirin/Acetaminophen/Caffeine [Excedrin Extra Strength Caplet] 2 tab PO Q4H PRN PRN 07/10/20 Ibuprofen [Motrin] 600 mg PO Q8H PRN PRN 01/21/21 Carvedilol 25 mg PO BID #90 tab 01/22/21 Furosemide [Lasix] 40 mg PO DAILY #90 tab 01/22/21 Lisinopril 40 mg PO DAILY #90 tab 01/22/21
== END 2021-01-22 12:40 | disposition home or self-care (01) | DRG 292 ==
LOC: ED 12:55 → PCU 14:10
PROVIDERS: Admitting Provider Hospitalist; Emergency Provider Emergency Medicine; PCP Family Medicine; Visit Provider Hospitalist
DX: I11.0 Hypertensive heart disease with heart failure (principal); Z68.42 Body mass index [BMI] 45.0-49.9, adult; I24.8 Other forms of acute ischemic heart disease; I16.0 Hypertensive urgency; E66.9 Obesity, unspecified; I50.23 Acute on chronic systolic (congestive) heart failure; I42.8 Other cardiomyopathies; E78.2 Mixed hyperlipidemia; G47.33 Obstructive sleep apnea (adult) (pediatric); K21.9 Gastro-esophageal reflux disease without esophagitis; Z95.810 Presence of automatic (implantable) cardiac defibrillator; Z79.899 Other long term (current) drug therapy; Z79.82 Long term (current) use of aspirin; F17.210 Nicotine dependence, cigarettes, uncomplicated
CPT/HCPCS: 36415; 71045; 80048; 80061; 83735; 83880; 84484; 85025; 85379; 85610; 85730; 93005; 99285; 99406; J7030; A4216; J1940